=== PATIENT | male | born 1930 | race Caucasian/White ===

== ENCOUNTER 2017-11-20 10:38 | Inpatient (IN) ==
--- NOTE | 2017-11-20 11:26 | XRay Report ---
HISTORY: Reason for Exam:weakness FINDINGS: There is 6.5 cm retrocardiac density which contains a central lucency in the left lower thorax. This is probably a hiatus hernia. It is larger today than it was on 03/14/16. The lungs are otherwise clear and well expanded. The heart size and pulmonary vasculature are normal. The heart is smaller today than it was previously. The aorta is mildly tortuous and there are calcified plaques in the aortic arch. Arthritis is present in both shoulders. IMPRESSION: Moderate size hiatus hernia. The chest is otherwise normal Interpreted and Authenticated by: Álvaro Bush 11/20/17
[2017-11-20] MEDS: 0.9 % SODIUM CHLORIDE 1,000 ML IV SCH ×3 (11:30→21:45)
--- NOTE | 2017-11-20 12:10 | Cat Scan Report ---
History: Multiple falls with decreased level of consciousness and weakness Findings: The brain was imaged without contrast at 2.5 mm intervals. There is mild generalized cerebral atrophy. There is no evidence of an infarct, hemorrhage, edema or mass effect. The ventricles and cisterns are normal. The bone windows show no skull fracture. Impression: Normal age-related degenerative changes Interpreted and Authenticated by: Álvaro Bush 11/20/17
--- NOTE | 2017-11-20 12:19 | Cat Scan Report ---
History: Multiple fall with neck injury and pain Findings: The neck was imaged without contrast scanning from the skull base through the thoracic inlet.. Sagittal, coronal and oblique axial images were created. Head and neck are held in flexion and rotated to the left. There is an old healed anterior wedge compression fracture involving the body of C5. There are large anterior bridging osteophytes at C5-6. There is moderate disc space narrowing at that level. Medium-size anterior spurs are present at C4-5 and C6-7. There is a moderate sized midline disc herniation at C3-4. This is causing moderate spinal canal stenosis. This may be impinging upon spinal cord. There is a small posterior bulge at C2-3 with mild spinal canal stenosis. Severe arthritis is present in the right side facets at C3-4 and C4-5 and there is moderate arthritis in left side side facets at C2-3, C3-4 and C4-5. Impression: No acute fracture Intermediate sized midline disc herniation at C3-4 causing moderate spinal canal stenosis. Degenerative disc disease and arthritis at several levels Rosie Gibbons was called with the results Interpreted and Authenticated by: Álvaro Bush 11/20/17
[2017-11-20 12:29] LABS: Basophils # (Auto) 0 K/mcL (0.0-0.3); Basophils % (Auto) 0 % (0.0-2.0); Eosinophils # (Auto) 0 K/mcL (0.0-0.7); Eosinophils % (Auto) 0 % (0.0-7.0); Lymphocytes # (Auto) 0.4 K/mcL (1.5-4.8); Lymphocytes % (Auto) 1.1 % (15.5-49.0); Mean Corpuscular Hemoglobin 30.7 pg (26.0-34.0); Monocytes # (Auto) 1.6 K/mcL (0.1-0.9); Monocytes % (Auto) 4.9 % (1.0-12.0); Platelet Count 1222 K/mcL (140-440); RBC 4.13 M/mcL (4.50-5.90); Red Cell Distribution Width 15.6 % (11.5-14.5)
[2017-11-20] MEDS ORDERED: cefTRIAXone 1 GM VIAL IV ONE (12:34)
[2017-11-20 13:00] LABS: ALT/SGPT 27 U/l (0-40); Albumin 3.2 gm/dL (3.2-5.2); Albumin/Globulin Ratio 0.8 (1.0-2.3); Alkaline Phosphatase 135 U/L (39-117); Blood Urea Nitrogen 161 mg/dl (8-23)
[2017-11-20] MEDS ORDERED: 0.9 % SODIUM CHLORIDE 2,000 ML IV ONE (13:07)
[2017-11-20] MEDS ORDERED: LIDOCAINE JEL 2% 1 TUBE 30GM TOPICAL ONE (13:13)
[2017-11-20] MEDS ORDERED: INSULIN REGULAR, HUMAN 1 UNIT/0.01 ML UNIT IV ONE (13:37)
[2017-11-20] MEDS ORDERED: CALCIUM GLUCONATE 13.95 MEQ in DEXTROSE 5% IN WATER 50 ML IV ONE (13:37)
[2017-11-20] MEDS ORDERED: DEXTROSE 50% 50 ML VIAL IV ONE (13:37)
--- NOTE | 2017-11-20 13:38 | Emergency Department Note ---
Weakness HPI - General Chief complaint: Weakness Stated complaint: Weakness/UTI symptoms, BLE Time Seen by Provider: 11/20/17 10:50 Source: EMS Mode of arrival: EMS - History of Present Illness HPI Narrative: 87-year-old male presents via EMS. He is an extremely poor historian. He is alert and oriented but is unable to give us much information about what is going on her old history. He states he has had weakness in his legs for 2 days and has had diarrhea for 2 days just cannot take care of himself at home. He apparently does not live in a home but more of an aphthous type building next to a hair salon. The person who owns a hair salon does check on him daily but over the last 2 weeks he has fallen multiple times and EMS has been called to help him multiple times. He states the reason he fell is because his legs are so weak. He is unsure if he hit his head. He denies loss of consciousness. He currently denies any pain anywhere. He is tearful and it is unclear why he is tearful. When asked he will not say. His son to go and check on him today. They are estranged and he had not seen him in about 6 years. His son was able to convince him to come to the ER for evaluation. He does admit he has not been eating or drinking much of anything for days. He really does not have any complaints other than dysuria and frequency, diarrhea, and weak legs. He states it is so bad that he finally decided to come in today. He denies fever chills. No nausea or vomiting. No cough, shortness of breath, chest pain, palpitations. No sore throat, ear pain, or cold symptoms. States he does not have a primary care provider because he left. States he does not have any health problems and does not take medications. However we are trying to verify this information - Related Data Home Medications Medication Instructions Recorded Confirmed ferrous sulfate 325 mg (65 mg mg PO 11/12/15 08/07/16 iron) tablet multivitamin tablet 1 tab-cap PO QDAY 01/24/16 08/07/16 Previous Rx's Medication Instructions Recorded carvedilol 3.125 mg tablet 3.125 mg PO BID #60 tab 02/11/17 ramipril 2.5 mg capsule 2.5 mg PO BID #60 cap 02/14/17 spironolactone 25 mg tablet 25 mg PO .QOD #15 tab 02/14/17 torsemide 20 mg tablet 20 mg PO QDAY #30 tab 02/14/17 Allergies Allergy/AdvReac Type Severity Reaction Status Date / Time No Known Drug Allergies Allergy Verified 11/20/17 10:39 Review of Systems All systems ED: reviewed and negative except as stated. Past Medical History - Past Medical History [facility] Narrative: Medical History Hypertension, essential, benign (Chronic) Retinal detachment (Chronic) Past Surgical History History of cataract surgery (Chronic) History of retinal detachment (Chronic) Medical history: Reports: hypertension - Social History smoking status: Former smoker Alcohol use: Reports: None Drug use: Reports: none Physical Exam Limitations: no limitations General appearance: alert, other (Patient is completely unkept. Covered in dried feces especially from the waist down. Extremely odorous.) Head: atraumatic, normocephalic, normal inspection Eye: Present: normal appearance. Absent: conjunctival injection ENT: normal exam, normal oropharynx, mucous membranes moist, TM's normal bilaterally, normal external ear exam Chest: Present: normal inspection, symmetric chest wall rise Respiratory: Present: normal lung sounds bilaterally. Absent: respiratory distress, wheezes, accessory muscle use Cardiovascular: Present: regular rate, normal heart sounds Abdominal: Present: soft, normal bowel sounds. Absent: distention, tenderness, guarding Extremities: Present: pedal edema (1+). Absent: normal inspection (Lower extremities are covered in dried feces. There is redness from the knees down throughout the feet bilaterally. The right foot is significantly more red and more swollen than the left. When being cleaned up by nursing staff, a lot of the skin is sloughing off with the dried feces. He denies any tenderness.) Neurological: Present: alert (He is alert and oriented 3 but a poor historian and forgetful at times. Gets agitated at times) Psychiatric: Present: normal affect, normal mood Skin: Present: warm, dry. Absent: intact (Patient has a great amount of beefy red rash throughout folds of skin including the groin and underneath the pannus. Please see lower extremities for skin breakdown to lower extremities bilaterally. The buttocks also has significant skin breakdown with redness throughout as well as a significant decubitus ulcer stage III and arrived with dried feces throughout the buttocks as well.) Course Course Narrative: At 1320 I did speak with Dr. Thompson regarding the patient's renal failure. She is going to come down and see the patient. At [address] did speak with Dr. Mackenzie , the hospitalist, who agrees to admit the patient. We will continue with hydration, hyperkalemia protocol, he has recently received a gram of Rocephin IV. Vital Signs Temperature 97.7 F 11/20/17 10:39 Pulse Rate 80 11/20/17 10:39 Respiratory Rate 16 11/20/17 10:39 Blood Pressure 123/69 11/20/17 10:39 Pulse Oximetry (%) 97 11/20/17 10:39 Temperature 97.7 F 11/20/17 10:39 Pulse Rate 90 11/20/17 11:44 Respiratory Rate 19 11/20/17 11:44 Blood Pressure 100/56 11/20/17 11:40 Pulse Oximetry (%) 100 11/20/17 11:44 Weakness - Lab Data Lab results reviewed: Yes I reviewed the patient's lab results. Result diagrams: 11/20/17 11:15 11/20/17 11:15 Lab Results 11/20/17 11/20/17 11/20/17 Range/Units 11:15 11:15 11:15 WBC 32.0 H* (4.5-11.0) K/mcL RBC 4.13 L (4.50-5.90) M/mcL Hgb 12.7 L (13.5-16.5) g/dL Hct 38.4 L (41.0-55.0) % MCV 93.0 (80.0-100.0) fL MCH 30.7 (26.0-34.0) pg MCHC 33.0 (31.0-36.0) g/dL RDW 15.6 H (11.5-14.5) % Plt Count 1222 H* (140-440) K/mcL MPV 6.9 L (7.4-10.4) fL Gran % 94.0 H (38.0-78.0) % Lymph % (Auto) 1.1 L (15.5-49.0) % Bledsoe % (Auto) 4.9 (1.0-12.0) % Eos % (Auto) 0 (0.0-7.0) % Baso % (Auto) 0 (0.0-2.0) % Gran # 30.1 H (1.8-8.0) K/mcL Lymph # (Auto) 0.4 L (1.5-4.8) K/mcL Bledsoe # (Auto) 1.6 H (0.1-0.9) K/mcL Eos # (Auto) 0 (0.0-0.7) K/mcL Baso # (Auto) 0 (0.0-0.3) K/mcL VBG Lactic Acid 1.5 (0.5-2.2) mmol/L Sodium 129 L (133-145) mmol/L Potassium 7.4 H* (3.3-5.1) mmol/L Chloride 95 L (96-108) mmol/L Carbon Dioxide 12 L (22-30) mmol/L Anion Gap 22.0 H (8-16) BUN 161 H* (8-23) mg/dl Creatinine 7.4 H* (0.7-1.2) mg/dl GFR Calculation 6 Glucose 180 H (70-105) mg/dL Calcium 9.2 (8.6-10.4) mg/dl Total Bilirubin 0.2 (0.0-1.0) mg/dL AST 50 H (0-37) U/l ALT 27 (0-40) U/l Alkaline Phosphatase 135 H (39-117) U/L NT-Pro-B Natriuret Pep 1673.0 H (0-450) pg/ml Total Protein 7.3 (5.9-8.4) gm/dL Albumin 3.2 (3.2-5.2) gm/dL Globulin 4.1 H (2.2-3.7) gm/dL Albumin/Globulin Ratio 0.8 L (1.0-2.3) - Radiology Data Radiology results reviewed: Yes I reviewed the patient's radiology results. Disposition Pt seen by [facility]/PA only: Yes Clinical Impression: Renal failure, UTI (urinary tract infection), Hyperkalemia, Self-care deficit for hygiene, Dehydration, Skin breakdown, Decubitus ulcer, buttock Disposition: Xfer As Inpt ([facility]) Condition: Serious Time of Disposition: 13:38
[2017-11-20] MEDS ORDERED: SODIUM POLYSTYRENE SULFONATE 15 GM/60 ML SUSPENSION PO ONE (13:41)
[2017-11-20] MEDS ORDERED: CALCIUM GLUCONATE 4.65 MEQ/10 ML VIAL ONE (13:48)
[2017-11-20] MEDS ORDERED: CALCIUM CHLORIDE 1,000 MG/10 ML SYRINGE IV ONE (13:50)
[2017-11-20 14:17] LABS: Appearance,Urine CLOUDY; Bilirubin,Urine NEG (NEG); Color,Urine YELLOW; Glucose,Urine (UA) NEGATIVE (NEG); Leukocyte Esterase,Urine 500 /uL (NEG); Protein,Urine >=500 mg/dL (NEG); Specific Gravity,Urine 1.014 (1.000-1.035); Urine Blood >=1.0 mg/dL (<0.03); Urobilinogen,Urine NEG (NEG)
[2017-11-20 14:46] LABS: Bacteria,Urine MANY /hpf (0); Urine RBC 10 /hpf (0-1); Urine Squamous Epithelial Cell 0 /hpf (0-4); Urine WBC > 182 /hpf (0-4)
[2017-11-20] MEDS ORDERED: SODIUM BICARBONATE VIAL 150 MEQ in DEXTROSE 5% IN WATER 850 ML IV ONE (15:00)
--- NOTE | 2017-11-20 15:15 | Ultrasound Report ---
History: Acute renal failure Findings: The right kidney measures 4.7 x 4.9 x 12.2 cm the left measures 4.8 x 4.9 x 10.2 cm. Renal cortex is mildly echogenic bilaterally. There is no significant loss of renal cortex. No mass, calculus, cyst or hydronephrosis are present in either side. Urinary bladder is empty and contains a Gomez catheter. Therefore, we are unable to visualize flow of urine through either ureter into the bladder. The gallbladder contains multiple moderate size gallstones. The wall is not thickened or inflamed. Impression: Mildly echogenic renal parenchyma bilaterally which indicates chronic medical renal disease. Cholelithiasis Interpreted and Authenticated by: Álvaro Bush 11/20/17
[2017-11-20 15:27] LABS: Creatinine,Urine Random 154.2 mg/dl
--- NOTE | 2017-11-20 16:22 | Nephrology Consult Note ---
History of Present Illness - Reason for Consult Patient information: Note initiated : 11/20/17 at 4:20 pm Service Date, if different from initiated Date: [] Patient: Carlos Abraham 87 y/o M admitted on for Weakness/UTI Symptoms, BLE. Chief Complaint: [] Consult date: 11/20/17 acute renal failure Requesting physician: Rosie Gibbons - Chief Complaint fall - History of Present Illness Mr Jarad is a 87 y/o white male with PMH of HTN, CHF, CKD and other medical issues who was brought to the ER after he was found down at home Patient states he has not been feeling good for several weeks but symptoms significantly worse for the last 7 days. he c/o LE weakness, nonhealing wounds and diarrhea. He states he has not been eating anything but tried to drink fluids/juice. He denies nausea, vomiting but as above has been having diarrhea. He also noticed cloudy urine for the last few days. unclear why he did not go to ER, has no PCP states PCP moved out of [place] I was told that he was found down by his son with whom he has been estranged Patient on evaluation was found to have white count of 32K, he has platelet count of 1222, he has severe acidosis with hyperkalemia and acute on chronic renal failure and hence nephrology is been consulted patient is not a very good historian and he could not tell me much about his medical issues except for HTN He did say he has been using furosemide for his LE edema and Advil for pain mainly for the last one week he denies CP, SOB he c/o recurrent falls Review of Systems All systems PM: reviewed and no additional remarkable complaints except as stated (as in HPI) Past History Past medical history: HTN retinal detachment CHF, EF of 20% when checked in 2016 CKD dyslipidemia Past surgical history: h/o cataract surgery and surgery for retinal detachment Past family history: DM mother no other pertinent history Past social history: lives alone currently denies h/o smoking or alcohol abuse no h/o drug abuse Medications and Allergies Home Medications Medication Instructions Recorded Confirmed Type No Known Home Meds [No Known Home 11/20/17 11/20/17 History Meds] Allergies Allergy/AdvReac Type Severity Reaction Status Date / Time No Known Drug Allergies Allergy Verified 11/20/17 10:39 Exam - Vital Signs Vital signs: Temp Pulse Resp BP Pulse Ox 97.7 F 96 H 18 101/77 100 11/20/17 10:39 11/20/17 15:41 11/20/17 15:41 11/20/17 15:31 11/20/17 15:41 - General Appearance General appearance: appears started age (patient is very unclean, has dry skin and multiple ulcers on LE ), chronically ill EENT: mucous membranes dry Neck: no JVD Respiratory: clear Cardiology: no rub, regular rate, regular rhythm Gastrointestinal: no tenderness, no guarding Integumentary: ulcer, erythema Neurologic: alert and oriented x3 Musculoskeletal: no cyanosis, no clubbing Psychiatric: mood/affect appropriate Results - Lab Results 11/20/17 11:15 11/20/17 11:15 Most recent lab results Calcium 9.2 mg/dl (8.6-10.4) 11/20/17 11:15 Assessment and Plan (1) Acute on chronic renal failure S.Creatinine was around 1.8 in 2016, no labs since S.creatinine is 7.4, BUN is 161 UA with s/o infection, urine is frankly purulent Fena is > 1 but fe urea is only 5.9% which indicates severe pre renal state no s/o volume excess renal US does not show obstructive renal disease JOSTIN atop CKD likely from pre renal state leading to ATN in the setting of use of diuretics, NSAIDS, poor po intake and sepsis (hypotension on presentation) Patient has received 2L IV normal saline bolus given his poor EF will hold off on further iVF if BP remains stable will start on sodium bicarb gtt at 75cc/hour given severe metabolic acidosis and improving this will help with hyperkalemia as well he has received kayexalate, calcium chloride and insulin with dextrose in ER and also sodium bicarb gtt as above will recheck K did discuss with the patient about dialysis he is uncertain if he would want this and wants me to readdress the issue if his parameters do not improve, did explain risk of cardiac arrest of K did not get better, I am not entirely sure how much he understands monitor I/O dose antibiotics to egfr less than 10 avoid nephrotoxic meds overall very poor prognosis with very high risk of mortality also not a very good candidate for intermediate manager dialysis Status: Acute (2) Hyperkalemia Status: Acute (3) Sepsis Status: Acute (4) UTI (urinary tract infection) Status: Acute
[2017-11-20] MEDS ORDERED: ACETAMINOPHEN 1,000 MG/100 ML BOTTLE IV PRN (17:00)
[2017-11-20] MEDS ORDERED: ONDANSETRON 4 MG/2 ML VIAL IV PRN (17:00)
--- NOTE | 2017-11-20 17:41 | Internal Med History&Physical ---
Medical - H&P: HPI Patient information: Note initiated : 11/20/17 at 5:41 pm Service Date, if different from initiated Date: [] Patient: Carlos Abraham 87 y/o M admitted on 11/20/17 for Weakness/UTI Symptoms , BLE. Chief Complaint: [] Chief complaint: weakness, found down History of present illness: Mr. Abraham is a 87 year old M who lives by himself and carries a history of cardiomyopathy with an EF 20% and history of chronic kidney disease and hypertension. He has stopped following up with his primary care physician over the last year and a half and has not been taking any medications. Patient has been barely able to manage activities of daily living. Over the last few weeks he has been getting progressively weak. He has been experiencing multiple episodes of diarrhea with progression of weakness to the point he could barely walk. He has been unable to fix his own meals recently. Even normal activities including walking from room to the bathroom has become an uphill task and twice he sustained a fall and has remained on the floor for a prolonged period of time. He was discovered by his neighbor today on the floor smeared and stool, lethargic. Subsequently was brought in to [facility] ER by EMS. patient was enough horrifying state most of the body covered in feces,extremely poor hygiene , bilateral lower extremity cellulitis/scabs and perineal ulcerations covered in feces. Initial workup was significant for BUN over 160 creatinine over 7 and potassium 7.7. White count over 32,000. Nephrology was consulted and patient was started on crystalloids along with hypokalemia protocol. Blood cultures were drawn and antibiotics were administered. subsequently hospitalist service was consulted At the time of evaluation patient is awake and alert and able to answer most questions. He endorses to history as above. he denies fevers shaking chills, headache or photophobia. He denies chest pain or bloody stools weight loss, glandular swelling. Endorses to bilateral lower extremity weeping and red lesions along with scabs. He hasn't had a shower many days with profound weakness and inability to take care of self. He has a son who is estranged. he denies alcoholism or smoking. Denies changes in medication or substance abuse. review of systems A 10 point review of system was performed and is negative except for ones discussed about Medical - H&P: PMH Medical history: Hypertension, essential, benign (Chronic) Retinal detachment (Chronic) 2009 cardiomyopathy with EF 20% Surgical History History of cataract surgery (Chronic) bilateral History of retinal detachment (Chronic) Retina detachment repair Pertinent family history: Diabetes mother Social history: retired Former smoker Very occasional alcohol in the past Son who is EMT currently estranged Drug use: none Alcohol use: none Medical - H&P: Meds Home Medications Medication Instructions Recorded Confirmed Type No Known Home Meds [No Known Home 11/20/17 11/20/17 History Meds] Allergies Allergy/AdvReac Type Severity Reaction Status Date / Time No Known Drug Allergies Allergy Verified 11/20/17 10:39 Medical - H&P: Exam - Constitutional Vitals: Temp Pulse Resp BP Pulse Ox 97.7 F 97 H 17 95/63 100 11/20/17 10:39 11/20/17 16:24 11/20/17 16:24 11/20/17 16:16 11/20/17 16:24 General appearance: average body habitus Exam: poor hygiene Generalized skin scabs Diet coated nails body hair covered in feces and alert Pupils symmetric oral cavity dry No ear or nose discharge Head normocephalic Neck no lymphadenopathy S1 and S2 tachycardia ESM grade 1 Diminished breath sounds bases Abdomen distended but soft nontender Lower extremity bilaterally coated with dry skin and scabs along with erythema stasis ulcerations and weeping lesions. Toenail fungus/feces smearing Psych alert and cooperative Neuro nonfocal Medical - H&P: Reslt - Labs CBC & Chem 7: 11/20/17 11:15 11/20/17 16:59 Labs: Short CBC 11/20/17 Range/Units 11:15 WBC 32.0 H* (4.5-11.0) K/mcL Hgb 12.7 L (13.5-16.5) g/dL Hct 38.4 L (41.0-55.0) % Plt Count 1222 H* (140-440) K/mcL BMP 11/20/17 11:15 Sodium 129 L Potassium 7.4 H* Chloride 95 L Carbon Dioxide 12 L BUN 161 H* Creatinine 7.4 H* Glucose 180 H Calcium 9.2 Liver Function 11/20/17 Range/Units 11:15 Total Bilirubin 0.2 (0.0-1.0) mg/dL AST 50 H (0-37) U/l ALT 27 (0-40) U/l Alkaline Phosphatase 135 H (39-117) U/L Albumin 3.2 (3.2-5.2) gm/dL Urine 11/20/17 Range/Units 13:47 Urine Color Yellow Urine Appearance Cloudy Urine pH 8.0 (5.0-9.0) Ur Specific Mcdonald 1.014 (1.000-1.035) Urine Protein >=500 A (NEG) mg/dL Urine Glucose (UA) Negative (NEG) mg/dL Medical - H&P: A/P (1) Renal failure Current visit: Yes Status: Acute * acute renal failure with metabolic acidosis, uremia- baseline creatinine 1.8 as of 2016. Current creatinine over 7. 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 Discussions undergoing for hemodialysis * Leukocytosis/sepsis-likely lower extremity cellulitis. On antibiotic coverage * Diarrhea rule out C. difficile * decubitus/lower extremity ulceration-wound care consulted. * thrombocytosis- 1200. Likely secondary to reactive thrombocytosis from infection. Continue monitoring * history of NYHA class III systolic heart failure with EF 20%. Repeat echocardiogram * Dorsal cellulitis-on antibiotic coverage * DNR * Prophylaxis heparin Plan * Admitted to ICU * Hypokalemia protocol * Hemodialysis per nephrology if patient agrees * Antibiotic coverage * Wound care consult * Echocardiogram * Patient critically ill. High risk mortality
[2017-11-20 17:52] LABS: Blood Urea Nitrogen 157 mg/dl (8-23)
--- NOTE | 2017-11-20 21:23 | General Surgery Consult Note ---
History of Present Illness Patient information: Note initiated : 11/20/17 at 9:15 pm Service Date, if different from initiated Date: [] Patient: Carlos Abraham 87 y/o M admitted on 11/20/17 for Weakness/UTI Symptoms , BLE. Chief Complaint: [] Consult date: 11/20/17 Requesting physician: Ashu Musa ([facility] History of present illness: I reviewed his EHR and notes from Dr. Musa and Donna. Examined him along with nursing staff. 87 years Male. AA and answers questions appropriately. cooperative. Admitted via ER with SEPSIS, Acute on Chronic Renal Failure, Hyperkalemia, Uremia, Dehydration and Grossly infected dry scaly and moist dermatitis of both lower dermatitis and feces covered skin, open ulcerated wounds of both legs and sacral and coccygeal regions. He has severe deconditioning weakness and has fallen frequently recently. NO history of passing out. DENIES CVS or RS complaints. NOT nauseated and has not vomited. He moves all extremities. Medications and Allergies Home Medications Medication Instructions Recorded Confirmed Type No Known Home Meds [No Known Home 11/20/17 11/20/17 History Meds] Allergies Allergy/AdvReac Type Severity Reaction Status Date / Time No Known Drug Allergies Allergy Verified 11/20/17 10:39 Exam Temp Pulse Resp BP Pulse Ox 98.0 F 97 H 20 99/57 97 11/20/17 16:40 11/20/17 16:24 11/20/17 16:40 11/20/17 16:40 11/20/17 16:40 - General physical appearance well developed, no distress, chronically ill, other (UNKEMPT, poor personal hygiene. Has feces covered skin around genitalia, both LE, feet with fungal toe nails.) - Eyes PERRL, normal ocular movement - ENT normal pinna, normal nares, no congestion, other - Head Head exam IM: Present: atraumatic, normal inspection, normocephalic - Neck no masses, no bruits, trachea midline, no venous distension - Cardiovascular Cardiovascular exam IM: Present: normal rate and rhythm - Respiratory normal expansion, normal respiratory effort, clear to auscultation - Abdomen Abdomen: Present: soft, non tender, bowel sounds - Genitourinary Present: testicles non-tender - Integumentary Present: other (DRY scaly skin, thick finger and toe nails with fungus. MOIST dermatits with scattered epidermal ulcerations of legs , sacral and coccygeal areas, ) - Neurologic Present: other (NON focal and non lateralizing. Moves all extremities.) - Musculoskeletal Present: other (Bed confined) - Psychiatric Present: oriented to time, oriented to person, oriented to place, speech is normal, other (Cooperative and answeers questions. 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 from his son.) Results - Labs 11/20/17 11:15 11/20/17 16:59 Abnormal lab results 11/20/17 11/20/17 11/20/17 Range/Units 11:15 11:15 13:47 WBC 32.0 H* (4.5-11.0) K/mcL RBC 4.13 L (4.50-5.90) M/mcL Hgb 12.7 L (13.5-16.5) g/dL Hct 38.4 L (41.0-55.0) % RDW 15.6 H (11.5-14.5) % Plt Count 1222 H* (140-440) K/mcL MPV 6.9 L (7.4-10.4) fL Gran % 94.0 H (38.0-78.0) % Lymph % (Auto) 1.1 L (15.5-49.0) % Gran # 30.1 H (1.8-8.0) K/mcL Lymph # (Auto) 0.4 L (1.5-4.8) K/mcL Benson # (Auto) 1.6 H (0.1-0.9) K/mcL Sodium 129 L (133-145) mmol/L Potassium 7.4 H* (3.3-5.1) mmol/L Chloride 95 L (96-108) mmol/L Carbon Dioxide 12 L (22-30) mmol/L Anion Gap 22.0 H (8-16) BUN 161 H* (8-23) mg/dl Creatinine 7.4 H* (0.7-1.2) mg/dl Glucose 180 H (70-105) mg/dL AST 50 H (0-37) U/l Alkaline Phosphatase 135 H (39-117) U/L NT-Pro-B Natriuret Pep 1673.0 H (0-450) pg/ml Globulin 4.1 H (2.2-3.7) gm/dL Albumin/Globulin Ratio 0.8 L (1.0-2.3) Urine Protein >=500 A (NEG) mg/dL Urine Occult Blood >=1.0 A (<0.03) mg/dL Ur Leukocyte Esterase 500 A (NEG) /uL Urine RBC 10 H (0-1) /hpf Urine WBC > 182 H (0-4) /hpf Urine Bacteria Many A (0) /hpf 11/20/17 Range/Units 16:59 WBC (4.5-11.0) K/mcL RBC (4.50-5.90) M/mcL Hgb (13.5-16.5) g/dL Hct (41.0-55.0) % RDW (11.5-14.5) % Plt Count (140-440) K/mcL MPV (7.4-10.4) fL Gran % (38.0-78.0) % Lymph % (Auto) (15.5-49.0) % Gran # (1.8-8.0) K/mcL Lymph # (Auto) (1.5-4.8) K/mcL Benson # (Auto) (0.1-0.9) K/mcL Sodium 130 L (133-145) mmol/L Potassium 6.1 H* (3.3-5.1) mmol/L Chloride (96-108) mmol/L Carbon Dioxide 11 L (22-30) mmol/L Anion Gap 19.0 H (8-16) BUN 157 H* (8-23) mg/dl Creatinine 7.1 H* (0.7-1.2) mg/dl Glucose 160 H (70-105) mg/dL AST (0-37) U/l Alkaline Phosphatase (39-117) U/L NT-Pro-B Natriuret Pep (0-450) pg/ml Globulin (2.2-3.7) gm/dL Albumin/Globulin Ratio (1.0-2.3) Urine Protein (NEG) mg/dL Urine Occult Blood (<0.03) mg/dL Ur Leukocyte Esterase (NEG) /uL Urine RBC (0-1) /hpf Urine WBC (0-4) /hpf Urine Bacteria (0) /hpf Diabetes panel 11/20/17 11/20/17 Range/Units 11:15 16:59 Sodium 129 L 130 L (133-145) mmol/L Potassium 7.4 H* 6.1 H* (3.3-5.1) mmol/L Chloride 95 L 100 (96-108) mmol/L Carbon Dioxide 12 L 11 L (22-30) mmol/L BUN 161 H* 157 H* (8-23) mg/dl Creatinine 7.4 H* 7.1 H* (0.7-1.2) mg/dl Glucose 180 H 160 H (70-105) mg/dL Calcium 9.2 9.2 (8.6-10.4) mg/dl AST 50 H (0-37) U/l ALT 27 (0-40) U/l Alkaline Phosphatase 135 H (39-117) U/L Total Protein 7.3 (5.9-8.4) gm/dL Albumin 3.2 (3.2-5.2) gm/dL Calcium panel 11/20/17 11/20/17 Range/Units 11:15 16:59 Calcium 9.2 9.2 (8.6-10.4) mg/dl Albumin 3.2 (3.2-5.2) gm/dL Pituitary panel 11/20/17 11/20/17 Range/Units 11:15 16:59 Sodium 129 L 130 L (133-145) mmol/L Potassium 7.4 H* 6.1 H* (3.3-5.1) mmol/L Chloride 95 L 100 (96-108) mmol/L Carbon Dioxide 12 L 11 L (22-30) mmol/L BUN 161 H* 157 H* (8-23) mg/dl Creatinine 7.4 H* 7.1 H* (0.7-1.2) mg/dl Glucose 180 H 160 H (70-105) mg/dL Calcium 9.2 9.2 (8.6-10.4) mg/dl Adrenal panel 11/20/17 11/20/17 Range/Units 11:15 16:59 Sodium 129 L 130 L (133-145) mmol/L Potassium 7.4 H* 6.1 H* (3.3-5.1) mmol/L Chloride 95 L 100 (96-108) mmol/L Carbon Dioxide 12 L 11 L (22-30) mmol/L BUN 161 H* 157 H* (8-23) mg/dl Creatinine 7.4 H* 7.1 H* (0.7-1.2) mg/dl Glucose 180 H 160 H (70-105) mg/dL Calcium 9.2 9.2 (8.6-10.4) mg/dl Total Bilirubin 0.2 (0.0-1.0) mg/dL AST 50 H (0-37) U/l ALT 27 (0-40) U/l Alkaline Phosphatase 135 H (39-117) U/L Total Protein 7.3 (5.9-8.4) gm/dL Albumin 3.2 (3.2-5.2) gm/dL All other labs normal. Assessment and Plan (1) Dermatitis associated with moisture from stool incontinence Clean with Warm chlorhexidine solution, Pat dry with wash cloth and apply Bacitracin ointment to ulcerated areas and Antifungal powder to skin folds, groins and under panniculus. Patient to lie on CHUCKS pads and change position q 2 hrly Status: Acute Priority: Medium (2) Dermatitis associated with moisture from urinary incontinence Same as above. patient has a patent indwelling Gomez catheter draining light blood tinged urine. Status: Acute Priority: Medium (3) Renal failure Status: Acute Priority: High Qualifiers: Renal failure chronicity: acute on chronic (4) UTI (urinary tract infection) Status: Acute Priority: High Qualifiers: Indwelling urinary catheter type: indwelling urethral catheter Encounter type: initial encounter (5) Hyperkalemia On Hyperkalemia protocol per nephrology. Patient does NOT want to consider hemodialysis at this time. Status: Acute Priority: High (6) Self-care deficit for hygiene Needs head to toe skin care / scrub with wash cloth and Chlorhexidine soaks, Daily Status: Acute Priority: High (7) Dehydration Status: Acute Priority: Medium (8) Skin breakdown At this time clean with Chlorhexidine solution and Bacitracin ointment to skin ulcers BID Status: Acute Priority: Medium (9) Decubitus ulcer, buttock Status: Acute Priority: Medium Qualifiers: Pressure ulcer stage: stage 2 Laterality: unspecified laterality Qualified Code(s): L89.302 - Pressure ulcer of unspecified buttock, stage 2 (10) Acute on chronic renal failure Status: Acute
[2017-11-20] MEDS ORDERED: NOREPINEPHRINE BITARTRATE 16 MG in 0.9 % SODIUM CHLORIDE 234 ML IV PRN (21:38)
[2017-11-20] MEDS: 0.9 % SODIUM CHLORIDE 250 ML IV SCH (21:56)
[2017-11-20] MEDS: 0.9 % SODIUM CHLORIDE 10 ML SYRINGE IV SCH (22:00)
[2017-11-21] MEDS: SENNOSIDES/DOCUSATE SODIUM 1 TAB TABLET PO SCH ×2 (00:24→21:16)
[2017-11-21] MEDS: DOCUSATE SODIUM 100 MG CAPSULE PO SCH ×3 (00:24→21:16)
[2017-11-21] MEDS: CYANOCOBALAMIN (VITAMIN B-12) 500 MCG TABLET PO SCH ×3 (00:24→21:17)
[2017-11-21] MEDS: HEPARIN 5,000 UNIT/ML VIAL SQ SCH ×3 (00:24→21:16)
[2017-11-21] MEDS: SODIUM BICARBONATE VIAL 150 MEQ in DEXTROSE 5% IN WATER 850 ML IV SCH ×2 (05:04→19:37)
[2017-11-21 05:05] LABS: Mean Cell Volume 93.5 fL (80.0-100.0); Mean Corpuscular HGB Conc 34.4 g/dL (31.0-36.0); Mean Corpuscular Hemoglobin 32.1 pg (26.0-34.0); Platelet Count 692 K/mcL (140-440); RBC 3.06 M/mcL (4.50-5.90); Red Cell Distribution Width 15.7 % (11.5-14.5)
[2017-11-21 05:23] LABS: ALT/SGPT 26 U/l (0-40); Albumin/Globulin Ratio 0.6 (1.0-2.3); Alkaline Phosphatase 98 U/L (39-117); Bilirubin,Direct < 0.2 mg/dL (0.0-0.3); Blood Urea Nitrogen 154 mg/dl (8-23); Gamma Glutamyl Transpeptidase 24 U/L (8-61); Uric Acid 12.7 mg/dL (2.5-8.0)
[2017-11-21 05:32] LABS: Anisocytosis 1+ (NONE SEEN); Band Neutrophils % 6 % (0-10); Lymphocytes % 6 % (15-49); Metamyelocytes % 1 % (0-0); Monocytes % (Manual) 4 % (1-12); Platelet Estimate INCREASED (NORMAL); RBC Morphology ABNORM (NORMAL); Segmented Neutrophils % 83 % (38-78); Toxic Granulation 1+ (NONE SEEN)
[2017-11-21] MEDS: 0.9 % SODIUM CHLORIDE 10 ML SYRINGE IV SCH ×3 (07:13→21:28)
[2017-11-21] MEDS: FOLIC ACID 1 MG TABLET PO SCH (10:56)
[2017-11-21] MEDS: MULTIVIT,THER IRON,CA,FA & MIN 1 TABLET PO SCH (10:56)
[2017-11-21] MEDS: 0.9 % SODIUM CHLORIDE 250 ML IV SCH ×2 (11:04→22:50)
[2017-11-21] MEDS: THIAMINE 100 MG in 0.9 % SODIUM CHLORIDE 50 ML IV SCH (11:14)
[2017-11-21] MEDS: 0.9 % SODIUM CHLORIDE 1,000 ML IV SCH ×2 (11:17→17:46)
--- NOTE | 2017-11-21 13:11 | Internal Med Progress Note ---
Medical - PN: Subj Patient information: Note initiated : 11/21/17 at 1:07 pm Service Date, if different from initiated Date: [] Patient: Carlos Abraham 87 y/o M admitted on 11/20/17 for Weakness/UTI Symptoms , BLE/Renal Failure. Chief Complaint: [] Interval history: Mr. Abraham is a 87 year old M who lives by himself and carries a history of cardiomyopathy with an EF 20% and history of chronic kidney disease and hypertension. He has stopped following up with his primary care physician over the last year and a half and has not been taking any medications. Patient has been barely able to manage activities of daily living. Over the last few weeks he has been getting progressively weak. He has been experiencing multiple episodes of diarrhea with progression of weakness to the point he could barely walk. He has been unable to fix his own meals recently. Even normal activities including walking from room to the bathroom has become an uphill task and twice he sustained a fall and has remained on the floor for a prolonged period of time. He was discovered by his neighbor today on the floor smeared and stool, lethargic. Subsequently was brought in to [facility] ER by EMS. patient was enough horrifying state most of the body covered in feces,extremely poor hygiene , bilateral lower extremity cellulitis/scabs and perineal ulcerations covered in feces. Initial workup was significant for BUN over 160 creatinine over 7 and potassium 7.7. White count over 32,000. Nephrology was consulted and patient was started on crystalloids along with hypokalemia protocol. Blood cultures were drawn and antibiotics were administered. subsequently hospitalist service was consulted At the time of evaluation patient is awake and alert and able to answer most questions. He endorses to history as above. he denies fevers shaking chills, headache or photophobia. He denies chest pain or bloody stools weight loss, glandular swelling. Endorses to bilateral lower extremity weeping and red lesions along with scabs. He hasn't had a shower many days with profound weakness and inability to take care of self. He has a son who is estranged. he denies alcoholism or smoking. Denies changes in medication or substance abuse. 11/21-clinical improvement noted. White count down to 22,000.platelets down to 692. Proteus on UA.potassium down to 5.4 pounds 7.7. BUN 154 creatinine 6.9. Hemodialysis on hold. metabolic acidosis clinically improving on bicarbonate drip. Nephrology on board. start ertapenem. de-escalate based on sensitivities. Patient remains critically ill. Ongoing wound care for multiple areas of cellulitis/ulcers.map at goal. Off vasopressors. Await echocardiogram. - Constitutional Vitals: Vital Signs Temp Pulse Resp BP Pulse Ox 98.5 F 81 18 100/47 100 11/21/17 12:01 11/21/17 12:35 11/21/17 12:35 11/21/17 12:01 11/21/17 12:35 Period Temp Pulse Resp BP Sys/Ferris Pulse Ox Last 24 Hr 97.9 F-98.5 F 62-100 11-25 71-125/35-105 87-100 Intake and Output 11/20/17 11/21/17 11/21/17 21:59 05:59 13:59 Intake Total 1120 / 1120 1410 / 1410 Output Total 400 / 400 Balance 1120 / 1120 1010 / 1010 Weight 218 lb Intake & Output: Intake & Output 11/20/17 11/21/17 11/21/17 21:59 05:59 13:59 Intake Total 1120 / 1120 1410 / 1410 Output Total 400 / 400 Balance 1120 / 1120 1010 / 1010 Weight 218 lb Intake: IV 1000 / 1000 1000 / 1000 Sodium Chloride 0.9% 2,000 ml @ 1000 / 1000 Wide Open IV BOLUS ONE Rx#: [id number] Sodium Bicarbonate Vial 150 Meq 1000 / 1000 In Dextrose 5% in Water 850 ml @ 75 mls/hr IV ONCE ONE Rx#: [id number] Oral 120 / 120 410 / 410 Output: Urine Catheter Amount 400 / 400 Other: Stool Size Moderate Stool Color Brown Dark Red Blood Stool Consistency Formed Liquid Loose # Bowel Movements 1 1 # of times incontinent of 1 Bowels General appearance: no acute distress Exam: bilateral lower extremity ulcerations/dermatitis/stasis changes, toenail fungus Unkempt and disheveled Oral cavity dry Nonlabored breathing Telemetry no arrhythmias Sacral/coccyx ulceration Medical - PN: Obj Da - Labs CBC & Chem 7: 11/21/17 03:55 11/21/17 03:55 Labs: Abnormal Lab Results 04/07/2911/21/17 11/20/17 03:55 03:55 16:59 WBC 22.1 H RBC 3.06 L Hgb 9.9 L Hct 28.7 L RDW 15.7 H Plt Count 692 H MPV 6.5 L Gran % Lymph % (Auto) Gran # Lymph # (Auto) Bell # (Auto) Seg Neutrophils % 83 H Lymphocytes % 6 L Metamyelocytes % 1 H WBC Morphology Abnorm A Toxic Granulation 1+ A Platelet Estimate Increased A RBC Morphology Abnorm A Anisocytosis 1+ A Sodium 130 L Potassium 5.4 H 6.1 H* Chloride Carbon Dioxide 15 L 11 L Anion Gap 19.0 H BUN 154 H* 157 H* Creatinine 6.9 H* 7.1 H* Glucose 153 H 160 H Uric Acid 12.7 H Calcium 8.0 L Phosphorus 5.5 H AST 41 H Alkaline Phosphatase NT-Pro-B Natriuret Pep Total Protein 5.1 L Albumin 2.0 L Globulin Albumin/Globulin Ratio 0.6 L Urine Protein Urine Occult Blood Ur Leukocyte Esterase Urine RBC Urine WBC Urine Bacteria 11/20/17 11/20/17 11/20/17 13:47 11:15 11:15 WBC 32.0 H* RBC 4.13 L Hgb 12.7 L Hct 38.4 L RDW 15.6 H Plt Count 1222 H* MPV 6.9 L Gran % 94.0 H Lymph % (Auto) 1.1 L Gran # 30.1 H Lymph # (Auto) 0.4 L Bell # (Auto) 1.6 H Seg Neutrophils % Lymphocytes % Metamyelocytes % WBC Morphology Toxic Granulation Platelet Estimate RBC Morphology Anisocytosis Sodium 129 L Potassium 7.4 H* Chloride 95 L Carbon Dioxide 12 L Anion Gap 22.0 H BUN 161 H* Creatinine 7.4 H* Glucose 180 H Uric Acid Calcium Phosphorus AST 50 H Alkaline Phosphatase 135 H NT-Pro-B Natriuret Pep 1673.0 H Total Protein Albumin Globulin 4.1 H Albumin/Globulin Ratio 0.8 L Urine Protein >=500 A Urine Occult Blood >=1.0 A Ur Leukocyte Esterase 500 A Urine RBC 10 H Urine WBC > 182 H Urine Bacteria Many A Meds: Medications Acetaminophen (Tylenol) 650 mg PO Q4-6HP PRN PRN Reason: PAIN/FEVER > 101 Cyanocobalamin (Vitamin B-12) 1,000 mcg PO BID ELIANA Stop: 11/25/17 09:01 Last Admin: 11/21/17 10:59 Dose: 1,000 mcg Docusate Sodium (Colace) 100 mg PO BID [facility] Last Admin: 11/21/17 10:56 Dose: 100 mg Folic Acid (Folic Acid) 1 mg PO DAILY [facility] Last Admin: 11/21/17 10:56 Dose: 1 mg Heparin Sodium (Porcine) (Heparin) 5,000 unit SQ Q12 [facility] Last Admin: 11/21/17 10:56 Dose: 5,000 unit Sodium Chloride (Sodium Chloride 0.9%) 1,000 mls @ 50 mls/hr IV .Q20H [facility] Stop: 11/23/17 04:59 Last Admin: 11/21/17 11:17 Dose: Not Given Acetaminophen (Ofirmev) 1,000 mg in 100 mls @ 200 mls/hr IV Q6HP PRN PRN Reason: PAIN/FEVER > 101 Thiamine HCl 100 mg/ Sodium (Chloride) 51 mls @ 50 mls/hr IV DAILY [facility] Stop: 11/23/17 10:02 Last Admin: 11/21/17 11:14 Dose: 50 mls/hr Sodium Bicarbonate 150 meq/ (Dextrose) 1,000 mls @ 75 mls/hr IV Q13H [facility] Last Admin: 11/21/17 05:04 Dose: 75 mls/hr Norepinephrine Bitartrate 16 (mg/ Sodium Chloride) 250 mls @ 9.37 mls/hr IV Q24HP PRN; Protocol; 10 MCG/MIN PRN Reason: Blood Pressure Sodium Chloride (Sodium Chloride 0.9%) 250 mls @ 20 mls/hr IV .[id number] [facility] Last Admin: 11/21/17 11:04 Dose: Not Given Iron Carb/Multivit/Gardening Supervisor/Folic Acid (Multivitamin W/Minerals) 1 tab PO DAILY [facility] Last Admin: 11/21/17 10:56 Dose: 1 tab Ondansetron HCl (Zofran) 4 mg IV Q4-6HP PRN PRN Reason: Nausea And Vomiting Senna/Docusate Sodium (Senna Plus Tablet) 1 tab PO HS [facility] Last Admin: 11/21/17 00:24 Dose: Not Given Sodium Chloride (Saline Flush) 10 ml IV Q8 [facility] Last Admin: 11/21/17 07:13 Dose: Not Given Medical - PN: A/P - Time Spent With Patient Total time spent is greater than 50% in coordination of care (as documented) at patient's floor/unit and/or counseling patient: Greater than 35 minutes (critical care time) (1) Renal failure Status: Acute Assessment and plan: [id number] with a history of NYHA class III systolic heart failure with EF 20% and chronic renal disease admitted with acute on chronic renal failure/uremia encephalopathy/severe sepsis/complicated UTI and bilateral wrist with cellulitis/sacral ulcers after he was found down by his neighbor * Acute renal failure with metabolic acidosis, uremia- baseline creatinine 1.8 as of 2016. Current creatinine over 7. Nephrology managing * Hyperkalemia-on hyperkalemia protocol by nephrology.potassium down to 5.4 * Uremic encephalopathy-managed by nephrology. clinically improving issues managed by hospitalist service * Bilateral lower extremity cellulitis-on antibiotic coverage. Wound care ongoing. * Complicated Proteus UTI-await Sensitivities. On ertapenem * Septic shock-off pressors. Secondary to cellulitis/Proteus UTI.blood cultures pending * Diarrhea-improving. C. difficile negative. * Sacral decubitus/lower extremity ulceration-wound care ongoing as per wound care physician's recommendation * Thrombocytosis- 1200. down to 600. * history of NYHA class III systolic heart failure with EF 20%. await echocardiogram * DNR * Prophylaxis heparin Plan * continue ICU care * renal failure/acidosis/hyperkalemia and uremia management per nephrology * Wound management per wound care * Extend antibiotic coverage with ertapenem * Aggressive PT OT * await echocardiogram * improving prognosis based on clinical response and 24 hours * case management to coordinate safe discharge plan as the patient is high risk deconditioning if discharge home Current Visit: Yes Medical - PN: Qual - Stroke Symptom Onset Unknown: No - VTE Deep Vein Thrombosis/Pulmonary Embolism Present on Admission: No
[2017-11-21] MEDS: ERTAPENEM 1 GM in 0.9 % SODIUM CHLORIDE 50 ML IV SCH (14:38)
--- NOTE | 2017-11-21 14:51 | Nephrology Progress Note ---
Subjective Patient information: Note initiated : 11/21/17 at 2:48 pm Service Date, if different from initiated Date: [] Patient: Carlos Abraham 87 y/o M admitted on 11/20/17 for Weakness/UTI Symptoms , BLE/Renal Failure. Chief Complaint: [] Principal diagnosis: Acute on chronic renal failure Interval history: Patient seen today no overnight events reported on bicarb gtt and normal saline at 50cc/hour urine output of 700c today so far, marginal improvement in renal function K down to 5.4, bicarb at 15, improving as well no SOB, CP no dizziness no nausea, vomiting LE wounds been followed by wound care patient continues to refuse dialysis Pertinent ROS: as above Objective - Vital Signs Vital signs: Vital Signs Temp Pulse Pulse Resp BP BP Pulse Ox 11/21/17 12:35 81 18 100 11/21/17 12:01 98.5 F 87 18 100/47 99 11/21/17 11:01 99 H 22 123/94 99 11/21/17 10:01 18 108/75 11/21/17 09:01 76 15 107/49 100 11/21/17 08:24 80 16 100 11/21/17 08:01 86 15 108/53 99 11/21/17 07:01 81 18 107/96 99 11/21/17 06:01 81 18 116/47 100 11/21/17 05:01 85 21 114/66 100 11/21/17 04:10 19 109/51 11/21/17 04:09 85 23 H 91/41 99 11/21/17 04:06 72 16 85/42 100 11/21/17 04:05 74 16 90/46 100 11/21/17 04:01 76 18 87/41 99 11/21/17 03:01 83 19 98/48 100 11/21/17 02:01 94 H 21 115/62 99 11/21/17 01:29 80 11/21/17 01:01 85 18 80/62 99 11/21/17 00:58 82 98 11/21/17 00:01 80 17 82/68 100 11/20/17 23:18 79 16 94/46 95 11/20/17 23:08 81 15 96/43 97 11/20/17 22:03 18 89/67 11/20/17 21:01 19 97/68 11/20/17 20:03 17 85/54 11/20/17 20:01 19 93/40 11/20/17 20:00 97.9 F 86 19 85/54 92 11/20/17 19:46 17 71/53 11/20/17 19:31 92 H 17 90/75 100 11/20/17 19:27 94 H 92 11/20/17 18:47 17 71/38 11/20/17 18:31 91 H 16 103/82 99 11/20/17 18:16 17 93/54 11/20/17 18:13 16 94/59 11/20/17 18:11 62 21 85/38 94 11/20/17 18:05 63 19 125/105 87 L 11/20/17 18:01 98 H 16 71/35 97 11/20/17 17:47 16 106/48 11/20/17 17:31 15 82/51 11/20/17 17:19 17 91/49 11/20/17 17:16 13 78/51 11/20/17 17:07 16 99/57 11/20/17 17:00 98.0 F 94 H 20 99/57 90 11/20/17 16:40 98.0 F 20 99/57 97 11/20/17 16:31 94 H 25 H 106/79 100 11/20/17 16:24 97 H 17 100 11/20/17 16:16 97 H 18 95/63 100 11/20/17 16:01 96 H 20 95/56 100 11/20/17 15:46 94 H 16 104/64 100 11/20/17 15:41 96 H 18 100 11/20/17 15:31 95 H 15 101/77 100 11/20/17 15:16 96 H 22 111/50 100 11/20/17 15:01 98 H 13 98/52 100 11/20/17 14:56 100 H 12 100 Intake and Output 11/21/17 11/21/17 11/21/17 05:59 13:59 21:59 Intake Total 1410 / 1410 Output Total 400 / 400 Balance 1010 / 1010 Intake: IV 1000 / 1000 Sodium Bicarbonate Vial 150 Meq 1000 / 1000 In Dextrose 5% in Water 850 ml @ 75 mls/hr IV ONCE ONE Rx#: [id number] Oral 410 / 410 Output: Urine Catheter Amount 400 / 400 Other: # Bowel Movements 1 # of times incontinent of 1 Bowels Weight 218 lb Patient Weight 11/22/17 05:59 Weight 218 lb Intake & Output: Intake & Output 11/21/17 11/21/17 11/21/17 05:59 13:59 21:59 Intake Total 1410 / 1410 Output Total 400 / 400 Balance 1010 / 1010 Weight 218 lb Intake: IV 1000 / 1000 Sodium Bicarbonate Vial 150 Meq 1000 / 1000 In Dextrose 5% in Water 850 ml @ 75 mls/hr IV ONCE ONE Rx#: [id number] Oral 410 / 410 Output: Urine Catheter Amount 400 / 400 Other: # Bowel Movements 1 # of times incontinent of 1 Bowels - General Appearance General appearance: appears started age, obese, chronically ill EENT: mucous membranes moist Neck: no JVD Respiratory: clear Cardiology: no rub, normal S1, normal S2 Gastrointestinal: no tenderness, no guarding Integumentary: warm and dry, ulcer (LE ulcers, has dressing now) Neurologic: alert and oriented x3 Musculoskeletal: no erythema, no cyanosis Psychiatric: mood/affect appropriate - Lab 11/21/17 03:55 11/21/17 03:55 Most recent lab results Calcium 8.0 mg/dl (8.6-10.4) L 11/21/17 03:55 Phosphorus 5.5 mg/dL (2.7-4.5) H 11/21/17 03:55 Magnesium 2.4 mg/dL (1.6-2.5) 11/21/17 03:55 Assessment and Plan (1) Acute on chronic renal failure acute on chronic renal failure from volume depletion with Fe urea at only 5.9%, in the setting of use of diuretics, poor po intake, pt was also using NSAIDS recently He has around 1.5gm of proteinuria and I will obtain work up for this He is non oliguric at present His K has improved from 7.4 to 5.4 today, bicarb is slowly improving on bicarb gtt phos is at 5.5 he is mildly anemic patient has refused dialysis at this time, 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 I will continue with bicarb gtt until bicarb is at 20 and then change to oral bicarb change his diet to renal diet will add phos binders for hyperphosphatemia will order proteinuria work up monitor i/o, renal function his albumin is very low, please add protein supplement like nepro if patient is willing please dose meds to egfr avoid nephrotoxic medications Hyperkalemia: as above metabolic acidosis from renal failure on bicarb gtt anemia: etiology mutlifactorial, will obtain work up UTI/LE cellulitis: on antibiotics h/o CHF: if patient wants ongoing care may need to repeat echo, last echo in 2016 showed EF of 20% I will be off call starting tomorrow and will sign off to Dr Bran Thank you for giving me an opportunity to participate in Mr Abraham's medical care, appreciate it Status: Acute (2) Hyperkalemia Status: Acute Priority: High (3) Sepsis Status: Acute (4) UTI (urinary tract infection) Status: Acute Priority: High Qualifiers: Indwelling urinary catheter type: indwelling urethral catheter Encounter type: initial encounter
[2017-11-21 16:11] LABS: Ferritin 188.4 ng/ml (30-400)
[2017-11-21 16:18] LABS: Vitamin B12 1193 pg/ml (232-1245)
[2017-11-21 16:25] LABS: Iron 28 mcg/dl (61-157); Transferrin % Saturation 19 % (20-50); Unsaturated Iron Binding 116 mcg/dL (112-346)
[2017-11-21 16:37] LABS: Blood Urea Nitrogen 147 mg/dl (8-23)
--- NOTE | 2017-11-21 18:54 | General Surgery Progress Note ---
Subjective Patient reports: other (Patient seen for f/u. Progress reviewed with Denisa PITTMAN. REVIEWED detailed notes of Dr. Thompson. ) Narrative: Note initiated : 11/21/17 at 6:51 pm Service Date, if different from initiated Date: [] Patient: Carlos Abraham 87 y/o M admitted on 11/20/17 for Weakness/UTI Symptoms , BLE/Renal Failure. Chief Complaint: []Patient is stabilizing. SEPSIS syndrome with Acute on Chronic Renal failure and Electrolyte abnormalities showing improvement. From the wound care point of view there is nothing specific to add at this time. Recommend MIST treatments BID Objective Temp Pulse Resp BP Pulse Ox 98.7 F 86 16 122/65 99 11/21/17 16:03 11/21/17 17:14 11/21/17 17:14 11/21/17 17:01 11/21/17 17:14 No interval changes AGNES. Still on pressors and Electrolyte imbalance improving. No acute interval changes in wounds. - Additional Data Intake & Output - Last 24 hours: Intake & Output 11/19/17 11/20/17 11/21/17 11/22/17 05:59 05:59 05:59 05:59 Intake Total 3530 / 3530 1251 / 1251 Output Total 400 / 400 400 / 400 Balance 3130 / 3130 851 / 851 Weight 218 lb 218 lb - Labs 11/21/17 03:55 11/21/17 15:15 Diabetes panel 11/21/17 11/21/17 Range/Units 03:55 15:15 Sodium 133 133 (133-145) mmol/L Potassium 5.4 H 4.4 (3.3-5.1) mmol/L Chloride 102 98 (96-108) mmol/L Carbon Dioxide 15 L 18 L (22-30) mmol/L BUN 154 H* 147 H* (8-23) mg/dl Creatinine 6.9 H* 6.5 H* (0.7-1.2) mg/dl Glucose 153 H 178 H (70-105) mg/dL Calcium 8.0 L 7.9 L (8.6-10.4) mg/dl AST 41 H (0-37) U/l ALT 26 (0-40) U/l Alkaline Phosphatase 98 (39-117) U/L Total Protein 5.1 L (5.9-8.4) gm/dL Albumin 2.0 L (3.2-5.2) gm/dL Triglycerides 102 (<150) mg/dl Calcium panel 11/21/17 11/21/17 Range/Units 03:55 15:15 Calcium 8.0 L 7.9 L (8.6-10.4) mg/dl Phosphorus 5.5 H (2.7-4.5) mg/dL Albumin 2.0 L (3.2-5.2) gm/dL Pituitary panel 11/21/17 11/21/17 Range/Units 03:55 15:15 Sodium 133 133 (133-145) mmol/L Potassium 5.4 H 4.4 (3.3-5.1) mmol/L Chloride 102 98 (96-108) mmol/L Carbon Dioxide 15 L 18 L (22-30) mmol/L BUN 154 H* 147 H* (8-23) mg/dl Creatinine 6.9 H* 6.5 H* (0.7-1.2) mg/dl Glucose 153 H 178 H (70-105) mg/dL Calcium 8.0 L 7.9 L (8.6-10.4) mg/dl Adrenal panel 11/21/17 11/21/17 Range/Units 03:55 15:15 Sodium 133 133 (133-145) mmol/L Potassium 5.4 H 4.4 (3.3-5.1) mmol/L Chloride 102 98 (96-108) mmol/L Carbon Dioxide 15 L 18 L (22-30) mmol/L BUN 154 H* 147 H* (8-23) mg/dl Creatinine 6.9 H* 6.5 H* (0.7-1.2) mg/dl Glucose 153 H 178 H (70-105) mg/dL Calcium 8.0 L 7.9 L (8.6-10.4) mg/dl Total Bilirubin 0.2 (0.0-1.0) mg/dL AST 41 H (0-37) U/l ALT 26 (0-40) U/l Alkaline Phosphatase 98 (39-117) U/L Total Protein 5.1 L (5.9-8.4) gm/dL Albumin 2.0 L (3.2-5.2) gm/dL Assessment and Plan (1) Dermatitis associated with moisture from stool incontinence Status: Acute Current Visit: Yes (2) Dermatitis associated with moisture from urinary incontinence Status: Acute Current Visit: Yes (3) Renal failure Status: Acute Current Visit: Yes (4) UTI (urinary tract infection) Status: Acute Current Visit: Yes (5) Hyperkalemia Status: Acute Current Visit: Yes (6) Self-care deficit for hygiene Status: Acute Current Visit: Yes (7) Dehydration Status: Acute Current Visit: Yes (8) Skin breakdown Status: Acute Assessment and plan: Assessment: Skin break down and Ulcerations / Dermatitis both L E and Sacral area. Plan: Continue ongoing wound care with MIST treatments BID. Current Visit: Yes (9) Decubitus ulcer, buttock Status: Acute Current Visit: Yes (10) Acute on chronic renal failure Status: Acute Current Visit: Yes - Time Spent With Patient Total time spent is greater than 50% in coordination of care (as documented) at patient's floor/unit and/or counseling patient:
[2017-11-21] MEDS ORDERED: SIMETHICONE 80 MG TAB.CHEW CHEWED PRN (21:22)
[2017-11-22] MEDS: ACETAMINOPHEN 325 MG TABLET PO PRN ×2 (00:37→14:35)
[2017-11-22] MEDS ORDERED: HYDROmorphone 2 MG/ML VIAL IV PRN (01:17)
[2017-11-22] MEDS ORDERED: HYDROmorphone 2 MG/ML VIAL ONE (01:23)
[2017-11-22 05:17] LABS: Mean Cell Volume 93.9 fL (80.0-100.0); Mean Corpuscular HGB Conc 33.8 g/dL (31.0-36.0); Mean Corpuscular Hemoglobin 31.8 pg (26.0-34.0); Platelet Count 580 K/mcL (140-440); RBC 2.84 M/mcL (4.50-5.90); Red Cell Distribution Width 15.3 % (11.5-14.5)
[2017-11-22 05:56] LABS: Band Neutrophils % 2 % (0-10); Basophils % (Manual) 1 % (0-2); Eosinophils % (Manual) 1 % (0-7); Lymphocytes % 2 % (15-49); Metamyelocytes % 1 % (0-0); Monocytes % (Manual) 4 % (1-12); Platelet Estimate INCREASED (NORMAL); RBC Morphology NORMAL (NORMAL); Segmented Neutrophils % 89 % (38-78)
[2017-11-22 06:44] LABS: ALT/SGPT 22 U/l (0-40); Albumin 1.8 gm/dL (3.2-5.2); Albumin/Globulin Ratio 0.6 (1.0-2.3); Alkaline Phosphatase 99 U/L (39-117); Bilirubin,Direct < 0.2 mg/dL (0.0-0.3); Blood Urea Nitrogen 145 mg/dl (8-23); Gamma Glutamyl Transpeptidase 12 U/L (8-61); Uric Acid 12.3 mg/dL (2.5-8.0)
[2017-11-22 06:56] LABS: Hepatitis B Surface Antigen NEGATIVE (NEGATIVE)
[2017-11-22 06:57] LABS: Hepatitis B Surface Antibody NEGATIVE (NEGATIVE); Hepatitis C Virus Antibody NON-REACTIVE (NEGATIVE)
[2017-11-22] MEDS: 0.9 % SODIUM CHLORIDE 10 ML SYRINGE IV SCH ×3 (07:24→22:12)
[2017-11-22] MEDS: SODIUM BICARBONATE VIAL 150 MEQ in DEXTROSE 5% IN WATER 850 ML IV SCH (07:45)
[2017-11-22] MEDS: DOCUSATE SODIUM 100 MG CAPSULE PO SCH ×2 (08:04→22:09)
--- NOTE | 2017-11-22 08:15 | Nephrology Progress Note ---
Subjective Patient information: Note initiated : 11/22/17 at 8:13 am Patient: Carlos Abraham is an [id number] male admitted on 11/20/17. Chief Complaint: Found down. 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 Pertinent ROS: Weakness. Edema. No significant pain. Objective - Vital Signs Vital signs: Vital Signs Temp Pulse Resp BP Pulse Ox 11/22/17 07:22 98.2 F 16 99/51 99 11/22/17 00:01 99.1 F H 91 H 10 L 107/58 98 11/22/17 00:00 86 14 98 11/21/17 23:01 91 H 18 104/49 98 11/21/17 23:00 82 18 98 11/21/17 22:01 87 23 H 92/46 99 11/21/17 22:00 77 18 99 11/21/17 21:02 84 18 97 11/21/17 21:01 88 17 112/53 96 11/21/17 21:00 43 L 18 97 11/21/17 20:01 98.4 F 82 20 100/53 98 11/21/17 20:00 93 H 21 98 11/21/17 19:02 82 17 98 11/21/17 19:01 76 21 116/59 97 11/21/17 18:01 97 H 19 128/70 99 11/21/17 17:14 86 16 99 11/21/17 17:01 86 22 122/65 98 11/21/17 16:03 98.7 F 85 17 109/64 99 11/21/17 16:01 84 21 75/39 99 11/21/17 15:01 95 H 20 83/56 98 11/21/17 14:04 85 18 110/43 99 11/21/17 14:01 83 19 87/34 99 11/21/17 13:01 16 113/51 11/21/17 12:35 81 18 100 11/21/17 12:01 98.5 F 87 18 100/47 99 11/21/17 11:01 99 H 22 123/94 99 11/21/17 10:01 18 108/75 11/21/17 09:01 76 15 107/49 100 11/21/17 08:24 80 16 100 Intake and Output 11/21/17 11/22/17 11/22/17 21:59 05:59 13:59 Intake Total 2371 / 2371 150 / 150 910 / 910 Output Total 650 / 650 350 / 350 Balance 172 / 1721 -200 / -200 910 / 910 Intake: IV 2100 / 2101 910 / 910 Sodium Chloride 0.9% 1,000 ml @ 1000 / 1000 50 mls/hr IV .Q20H [facility] Rx#: [id number] INVanz 1 GM In Sodium Chloride 50 / 50 0.9% 50 ml @ 100 mls/hr IV DAILY [facility] Rx#:[id number] Sodium Bicarbonate Vial 150 Meq 1000 / 1000 910 / 910 In Dextrose 5% in Water 850 ml @ 75 mls/hr IV Q13H [facility] Rx#: [id number] Vitamin B1 100 mg In Sodium 51 / 51 Chloride 0.9% 50 ml @ 50 mls/hr IV DAILY [facility] Rx#:[id number] Oral 270 / 270 150 / 150 Output: Urine Catheter Amount 400 / 400 350 / 350 Stool 250 / 250 Other: Meal Dinner Percent of Meal Consumed 100% Feeding Ability Assist with Tray Set Up Stool Size Moderate Stool Color Brown Stool Consistency Liquid # Bowel Movements 1 Weight 220 lb 6.4 oz Intake & Output: Intake & Output 11/21/17 11/22/17 11/22/17 21:59 05:59 13:59 Intake Total 2371 / 2371 150 / 150 910 / 910 Output Total 650 / 650 350 / 350 Balance 172 / 1721 -200 / -200 910 / 910 Weight 220 lb 6.4 oz Intake: IV 2100 / 2101 910 / 910 Sodium Chloride 0.9% 1,000 ml @ 1000 / 1000 50 mls/hr IV .Q20H [facility] Rx#: [id number] INVanz 1 GM In Sodium Chloride 50 / 50 0.9% 50 ml @ 100 mls/hr IV DAILY [facility] Rx#:[id number] Sodium Bicarbonate Vial 150 Meq 1000 / 1000 910 / 910 In Dextrose 5% in Water 850 ml @ 75 mls/hr IV Q13H [facility] Rx#: [id number] Vitamin B1 100 mg In Sodium 51 / 51 Chloride 0.9% 50 ml @ 50 mls/hr IV DAILY [facility] Rx#:[id number] Oral 270 / 270 150 / 150 Output: Urine Catheter Amount 400 / 400 350 / 350 Stool 250 / 250 Other: Meal Dinner Percent of Meal Consumed 100% Feeding Ability Assist with Tray Set Up Stool Size Moderate Stool Color Brown Stool Consistency Liquid # Bowel Movements 1 - General Appearance General appearance: chronically ill, frail EENT: mucous membranes dry Neck: supple Respiratory: course breath sounds Cardiology: edema, normal S1, normal S2 Gastrointestinal: distended Integumentary: warm and dry, ecchymotic Neurologic: no focal deficit Musculoskeletal: warmth Psychiatric: mood/affect appropriate, cooperative - Lab 11/22/17 03:57 11/22/17 03:57 Most recent lab results Calcium 7.5 mg/dl (8.6-10.4) L 11/22/17 03:57 Phosphorus 6.0 mg/dL (2.7-4.5) H* 11/22/17 03:57 Magnesium 2.3 mg/dL (1.6-2.5) 11/22/17 03:57 Assessment and Plan (1) ATN (acute tubular necrosis) Acute kidney injury, likely acute tubular necrosis, associated with initial oliguria, hyperkalemia, high anion-gap metabolic acidosis, hyponatremia, acute Proteus cystitis, present on arrival. Work up: Renal US on 11/20/17: Mildly echogenic renal parenchyma bilaterally which indicates chronic medical renal disease. Cholelithiasis. Progress: Declined hemodialysis. Improvement of hyperkalemia, high anion-gap metabolic acidosis, hyponatremia with IVF. Treatment: D5W 1 L + Sodium bicarbonate 150 mEq at 75 ml/hour. Last 24 hours: Blood pressure low normal. Serum creatinine decreased from 6.5 to 6.3 in the past 24 hours. CO2 increased from 18 to 21. Urine output 350 ml reported. Recommendations: Continue medical management. Prognosis: Poor. Status: Acute Priority: High
[2017-11-22] MEDS: ERTAPENEM 1 GM in 0.9 % SODIUM CHLORIDE 50 ML IV SCH (08:53)
--- NOTE | 2017-11-22 08:54 | XRay Report ---
HISTORY: Reason for Exam:Interval Change FINDINGS: There is a persistent retrocardiac density with central lucency. This is most likely a hiatus hernia. Faint increased interstitial lung markings are seen around the right hilum and medially in the right lower lobe. These have become more prominent since 11/20/17. The left lung is clear. The heart size is upper limits of normal. No pleural effusion is present. IMPRESSION: Possible mild pneumonia developing around the right hilum Stable hiatus hernia Interpreted and Authenticated by: Álvaro Bush 11/22/17
--- NOTE | 2017-11-22 09:13 | Internal Med Progress Note ---
Medical - PN: Subj Patient information: Note initiated : 11/22/17 at 9:11 am Service Date, if different from initiated Date: [] Patient: Carlos Abraham 87 y/o M admitted on 11/20/17 for Weakness/UTI Symptoms , BLE/Renal Failure. Chief Complaint: [] Interval history: Mr. Abraham is a 87 year old M who lives by himself and carries a history of cardiomyopathy with an EF 20% and history of chronic kidney disease and hypertension. He has stopped following up with his primary care physician over the last year and a half and has not been taking any medications. Patient has been barely able to manage activities of daily living. Over the last few weeks he has been getting progressively weak. He has been experiencing multiple episodes of diarrhea with progression of weakness to the point he could barely walk. He has been unable to fix his own meals recently. Even normal activities including walking from room to the bathroom has become an uphill task and twice he sustained a fall and has remained on the floor for a prolonged period of time. He was discovered by his neighbor today on the floor smeared and stool, lethargic. Subsequently was brought in to [facility] ER by EMS. patient was enough horrifying state most of the body covered in feces,extremely poor hygiene , bilateral lower extremity cellulitis/scabs and perineal ulcerations covered in feces. Initial workup was significant for BUN over 160 creatinine over 7 and potassium 7.7. White count over 32,000. Nephrology was consulted and patient was started on crystalloids along with hypokalemia protocol. Blood cultures were drawn and antibiotics were administered. subsequently hospitalist service was consulted At the time of evaluation patient is awake and alert and able to answer most questions. He endorses to history as above. he denies fevers shaking chills, headache or photophobia. He denies chest pain or bloody stools weight loss, glandular swelling. Endorses to bilateral lower extremity weeping and red lesions along with scabs. He hasn't had a shower many days with profound weakness and inability to take care of self. He has a son who is estranged. he denies alcoholism or smoking. Denies changes in medication or substance abuse. 11/21-clinical improvement noted. White count down to 22,000.platelets down to 692. Proteus on UA.potassium down to 5.4 pounds 7.7. BUN 154 creatinine 6.9. Hemodialysis on hold. metabolic acidosis clinically improving on bicarbonate drip. Nephrology on board. start ertapenem. de-escalate based on sensitivities. Patient remains critically ill. Ongoing wound care for multiple areas of cellulitis/ulcers.map at goal. Off vasopressors. Await echocardiogram. 11/22-patient doing well. Ongoing wound care/renal failure management per specialists. Creatinine down to 6.3 with BUN down to 145. Potassium 3.7.white count down from 32->14. no overnight events including fever chills shortness of breath or telemetry events. Occasional PVCs.echo pending. More lucid and alert. Tolerating diet. Foleys draining clear urine.urine output over thousand cc in 24 hours. improving multiorgan failure. repeat echo shows 50-55% EF - Constitutional Vitals: Vital Signs Temp Pulse Resp BP Pulse Ox 98.2 F 85 16 91/48 99 11/22/17 07:22 11/22/17 06:01 11/22/17 08:01 11/22/17 08:01 11/22/17 07:22 Period Temp Pulse Resp BP Sys/Ferris Pulse Ox Last 24 Hr 97.8 F-99.1 F 35-99 10-23 75-130/34-94 95-100 Intake and Output 11/21/17 11/22/17 11/22/17 21:59 05:59 13:59 Intake Total 2371 / 2371 150 / 150 910 / 910 Output Total 650 / 650 350 / 350 Balance 1721 / 1721 -200 / -200 910 / 910 Weight 220 lb 6.4 oz Intake & Output: Intake & Output 11/21/17 11/22/17 11/22/17 21:59 05:59 13:59 Intake Total 2371 / 2371 150 / 150 910 / 910 Output Total 650 / 650 350 / 350 Balance 1721 / 1721 -200 / -200 910 / 910 Weight 220 lb 6.4 oz Intake: IV 2100 / 1 910 / 910 Sodium Chloride 0.9% 1,000 ml @ 1000 / 1000 50 mls/hr IV .Q20H [facility] Rx#: [id number] INVanz 1 GM In Sodium Chloride 50 / 50 0.9% 50 ml @ 100 mls/hr IV DAILY [facility] Rx#:[id number] Sodium Bicarbonate Vial 150 Meq 1000 / 1000 910 / 910 In Dextrose 5% in Water 850 ml @ 75 mls/hr IV Q13H [facility] Rx#: [id number] Vitamin B1 100 mg In Sodium 51 / 51 Chloride 0.9% 50 ml @ 50 mls/hr IV DAILY [facility] Rx#:[id number] Oral 270 / 270 150 / 150 Output: Urine Catheter Amount 400 / 400 350 / 350 Stool 250 / 250 Other: Meal Dinner Percent of Meal Consumed 100% Feeding Ability Assist with Tray Set Up Stool Size Moderate Stool Color Brown Stool Consistency Liquid # Bowel Movements 1 General appearance: cooperative, no acute distress Exam: no anxiety Lower extremity wound care dressings no telemetry events Foleys draining clear urine Nonlabored breathing Medical - PN: Obj Da - Labs CBC & Chem 7: 11/22/17 03:57 11/22/17 03:57 Labs: Abnormal Lab Results 11/22/17 11/22/17 11/21/17 03:57 03:57 15:15 WBC 14.0 H RBC 2.84 L Hgb 9.0 L Hct 26.6 L RDW 15.3 H Plt Count 580 H MPV 6.7 L Gran % Lymph % (Auto) Gran # Lymph # (Auto) [place] # (Auto) Seg Neutrophils % 89 H Lymphocytes % 2 L Metamyelocytes % 1 H WBC Morphology Toxic Granulation Platelet Estimate Increased A RBC Morphology Anisocytosis Sodium Potassium Chloride Carbon Dioxide 21 L 18 L Anion Gap 17.0 H BUN 145 H* 147 H* Creatinine 6.3 H* 6.5 H* Glucose 152 H 178 H Uric Acid 12.3 H Calcium 7.5 L 7.9 L Phosphorus 6.0 H* Iron TIBC Transferrin % Sat AST Alkaline Phosphatase NT-Pro-B Natriuret Pep Total Protein 4.7 L Total Protein (PEP) 4.2 L Albumin 1.8 L Globulin Albumin/Globulin Ratio 0.6 L Urine Protein Urine Occult Blood Ur Leukocyte Esterase Urine RBC Urine WBC Urine Bacteria 11/21/17 11/21/17 11/21/17 15:15 03:55 03:55 WBC 22.1 H RBC 3.06 L Hgb 9.9 L Hct 28.7 L RDW 15.7 H Plt Count 692 H MPV 6.5 L Gran % Lymph % (Auto) Gran # Lymph # (Auto) [place] # (Auto) Seg Neutrophils % 83 H Lymphocytes % 6 L Metamyelocytes % 1 H WBC Morphology Abnorm A Toxic Granulation 1+ A Platelet Estimate Increased A RBC Morphology Abnorm A Anisocytosis 1+ A Sodium Potassium 5.4 H Chloride Carbon Dioxide 15 L Anion Gap BUN 154 H* Creatinine 6.9 H* Glucose 153 H Uric Acid 12.7 H Calcium 8.0 L Phosphorus 5.5 H Iron 28 L TIBC 144 L Transferrin % Sat 19 L AST 41 H Alkaline Phosphatase NT-Pro-B Natriuret Pep Total Protein 5.1 L Total Protein (PEP) Albumin 2.0 L Globulin Albumin/Globulin Ratio 0.6 L Urine Protein Urine Occult Blood Ur Leukocyte Esterase Urine RBC Urine WBC Urine Bacteria 11/20/17 11/20/17 11/20/17 16:59 13:47 11:15 WBC RBC Hgb Hct RDW Plt Count MPV Gran % Lymph % (Auto) Gran # Lymph # (Auto) [place] # (Auto) Seg Neutrophils % Lymphocytes % Metamyelocytes % WBC Morphology Toxic Granulation Platelet Estimate RBC Morphology Anisocytosis Sodium 130 L 129 L Potassium 6.1 H* 7.4 H* Chloride 95 L Carbon Dioxide 11 L 12 L Anion Gap 19.0 H 22.0 H BUN 157 H* 161 H* Creatinine 7.1 H* 7.4 H* Glucose 160 H 180 H Uric Acid Calcium Phosphorus Iron TIBC Transferrin % Sat AST 50 H Alkaline Phosphatase 135 H NT-Pro-B Natriuret Pep 1673.0 H Total Protein Total Protein (PEP) Albumin Globulin 4.1 H Albumin/Globulin Ratio 0.8 L Urine Protein >=500 A Urine Occult Blood >=1.0 A Ur Leukocyte Esterase 500 A Urine RBC 10 H Urine WBC > 182 H Urine Bacteria Many A 11/20/17 11:15 WBC 32.0 H* RBC 4.13 L Hgb 12.7 L Hct 38.4 L RDW 15.6 H Plt Count 1222 H* MPV 6.9 L Gran % 94.0 H Lymph % (Auto) 1.1 L Gran # 30.1 H Lymph # (Auto) 0.4 L [place] # (Auto) 1.6 H Seg Neutrophils % Lymphocytes % Metamyelocytes % WBC Morphology Toxic Granulation Platelet Estimate RBC Morphology Anisocytosis Sodium Potassium Chloride Carbon Dioxide Anion Gap BUN Creatinine Glucose Uric Acid Calcium Phosphorus Iron TIBC Transferrin % Sat AST Alkaline Phosphatase NT-Pro-B Natriuret Pep Total Protein Total Protein (PEP) Albumin Globulin Albumin/Globulin Ratio Urine Protein Urine Occult Blood Ur Leukocyte Esterase Urine RBC Urine WBC Urine Bacteria Meds: Medications Acetaminophen (Tylenol) 650 mg PO Q4-6HP PRN PRN Reason: PAIN/FEVER > 101 Last Admin: 11/22/17 00:37 Dose: 650 mg Cyanocobalamin (Vitamin B-12) 1,000 mcg PO BID [facility] Stop: 11/25/17 09:01 Last Admin: 11/21/17 21:17 Dose: 1,000 mcg Docusate Sodium (Colace) 100 mg PO BID [facility] Last Admin: 11/22/17 08:04 Dose: Not Given Folic Acid (Folic Acid) 1 mg PO DAILY [facility] Last Admin: 11/21/17 10:56 Dose: 1 mg Heparin Sodium (Porcine) (Heparin) 5,000 unit SQ Q12 [facility] Last Admin: 11/21/17 21:16 Dose: 5,000 unit Hydromorphone HCl (Dilaudid) 0 mg IV Q4-6HP PRN PRN Reason: PAIN LEVEL > 6 Sodium Chloride (Sodium Chloride 0.9%) 1,000 mls @ 50 mls/hr IV .Q20H [facility] Stop: 11/23/17 04:59 Last Admin: 11/21/17 17:46 Dose: 50 mls/hr Acetaminophen (Ofirmev) 1,000 mg in 100 mls @ 200 mls/hr IV Q6HP PRN PRN Reason: PAIN/FEVER > 101 Thiamine HCl 100 mg/ Sodium (Chloride) 51 mls @ 50 mls/hr IV DAILY [facility] Stop: 11/23/17 10:02 Last Infusion: 11/21/17 17:20 Dose: Infused Sodium Bicarbonate 150 meq/ (Dextrose) 1,000 mls @ 75 mls/hr IV Q13H [facility] Last Infusion: 11/22/17 07:45 Dose: Infused Norepinephrine Bitartrate 16 (mg/ Sodium Chloride) 250 mls @ 9.37 mls/hr IV Q24HP PRN; Protocol; 10 MCG/MIN PRN Reason: Blood Pressure Sodium Chloride (Sodium Chloride 0.9%) 250 mls @ 20 mls/hr IV .[id number] [facility] Last Admin: 11/21/17 22:50 Dose: Not Given Ertapenem 1 gm/ Sodium (Chloride) 50 mls @ 100 mls/hr IV DAILY [facility] Last Admin: 11/22/17 08:53 Dose: 100 mls/hr Iron Carb/Multivit/[place]/Folic Acid (Multivitamin W/Minerals) 1 tab PO DAILY [facility] Last Admin: 11/21/17 10:56 Dose: 1 tab Ondansetron HCl (Zofran) 4 mg IV Q4-6HP PRN PRN Reason: Nausea And Vomiting Senna/Docusate Sodium (Senna Plus Tablet) 1 tab PO HS [facility] Last Admin: 11/21/17 21:16 Dose: Not Given Simethicone (Mylicon) 80 mg CHEWED QIDP PRN PRN Reason: Dyspepsia Last Admin: 11/21/17 23:06 Dose: 80 mg Sodium Chloride (Saline Flush) 10 ml IV Q8 [facility] Last Admin: 11/22/17 07:24 Dose: Not Given Medical - PN: A/P - Time Spent With Patient Total time spent is greater than 50% in coordination of care (as documented) at patient's floor/unit and/or counseling patient: 25 - 35 minutes (1) Renal failure Status: Acute Assessment and plan: [id number] with a history of NYHA class III systolic heart failure with EF 20% and chronic renal disease admitted with acute on chronic renal failure/uremia encephalopathy/severe sepsis/complicated UTI and bilaterallower extremity cellulitis/sacral ulcers after he was found down by his neighbor * Acute renal failure with metabolic acidosis, uremia- baseline creatinine 1.8 as of 2016. gradual improvement noted. Nephrology managing * Hyperkalemia-resolved potassium 3.7 managed by nephrology * Uremic encephalopathy-managed by nephrology. clinically improving * metabolic acidosis managed by nephrology-on bicarbonate drip issues managed by hospitalist service * Bilateral lower extremity cellulitis-clinical improvement noted on antibiotic coverage. Wound care ongoing per Dr. Timmons. * Complicated Proteus UTI-await Sensitivities. pansensitive. Switch to Rocephin * Septic shock-off pressors. Secondary to cellulitis/Proteus UTI. blood cultures negative so far * Diarrhea-resolved. C. difficile negative. * Sacral decubitus/lower extremity ulceration-wound care ongoing * Thrombocytosis-resolved. Down from 1200 to 600. * history of NYHA class III systolic heart failure with EF 20% 2016-repeat echo 55% * DNR * Prophylaxis heparin Plan * continue ICU care * de-escalate antibiotic to Rocephin * renal failure/acidosis/hyperkalemia and uremia management per nephrology * Wound management per wound care * Aggressive PT OT,dietary consult * case management to coordinate safe discharge plan as the patient is high risk deconditioning if discharge home Current Visit: Yes Medical - PN: Qual - Stroke Symptom Onset Unknown: No - VTE Deep Vein Thrombosis/Pulmonary Embolism Present on Admission: No
[2017-11-22] MEDS: THIAMINE 100 MG in 0.9 % SODIUM CHLORIDE 50 ML IV SCH (09:33)
[2017-11-22] MEDS: HEPARIN 5,000 UNIT/ML VIAL SQ SCH ×2 (09:33→22:09)
[2017-11-22] MEDS: MULTIVIT,THER IRON,CA,FA & MIN 1 TABLET PO SCH (09:34)
[2017-11-22] MEDS: CYANOCOBALAMIN (VITAMIN B-12) 500 MCG TABLET PO SCH ×2 (09:35→22:09)
[2017-11-22] MEDS: FOLIC ACID 1 MG TABLET PO SCH (09:35)
[2017-11-22] MEDS: cefTRIAXone 2 GM VIAL IV SCH (09:43)
[2017-11-22] MEDS: 0.9 % SODIUM CHLORIDE 250 ML IV SCH (14:30)
--- NOTE | 2017-11-22 16:59 | General Surgery Progress Note ---
Subjective Narrative: Note initiated : 11/22/17 at 4:55 pm Service Date, if different from initiated Date: [] Patient: Carlos Abraham 87 y/o M admitted on 11/20/17 for Weakness/UTI Symptoms , BLE/Renal Failure. Chief Complaint: [] Patient seen and progress reviewed. Reviewed nephrology and hospitalist input. Objective Temp Pulse Resp BP Pulse Ox 99 F 85 22 101/79 96 11/22/17 15:16 11/22/17 06:01 11/22/17 15:16 11/22/17 15:16 11/22/17 15:16 VSS. No Fever. gradual improvement of Hyperkalemia, thrombocytosis and elevated creatinine. Patient refused HD. From wound care point of view there are No new suggestions. His wounds are being treated with local wound care and daily BID MIST treatment. - Additional Data Intake & Output - Last 24 hours: Intake & Output 11/20/17 11/21/17 11/22/17 11/23/17 05:59 05:59 05:59 05:59 Intake Total 3530 / 3530 2521 / 2521 1775 / 1775 Output Total 400 / 400 1000 / 1000 375 / 375 Balance 3130 / 3130 1521 / 1521 1400 / 1400 Weight 218 lb 220 lb 6.4 oz 220 lb 6.4 oz - Labs 11/22/17 03:57 11/22/17 03:57 Diabetes panel 11/22/17 Range/Units 03:57 Sodium 136 (133-145) mmol/L Potassium 3.7 (3.3-5.1) mmol/L Chloride 101 (96-108) mmol/L Carbon Dioxide 21 L (22-30) mmol/L BUN 145 H* (8-23) mg/dl Creatinine 6.3 H* (0.7-1.2) mg/dl Glucose 152 H (70-105) mg/dL Calcium 7.5 L (8.6-10.4) mg/dl AST 22 (0-37) U/l ALT 22 (0-40) U/l Alkaline Phosphatase 99 (39-117) U/L Total Protein 4.7 L (5.9-8.4) gm/dL Albumin 1.8 L (3.2-5.2) gm/dL Triglycerides 105 (<150) mg/dl Calcium panel 11/22/17 Range/Units 03:57 Calcium 7.5 L (8.6-10.4) mg/dl Phosphorus 6.0 H* (2.7-4.5) mg/dL Albumin 1.8 L (3.2-5.2) gm/dL Pituitary panel 11/22/17 Range/Units 03:57 Sodium 136 (133-145) mmol/L Potassium 3.7 (3.3-5.1) mmol/L Chloride 101 (96-108) mmol/L Carbon Dioxide 21 L (22-30) mmol/L BUN 145 H* (8-23) mg/dl Creatinine 6.3 H* (0.7-1.2) mg/dl Glucose 152 H (70-105) mg/dL Calcium 7.5 L (8.6-10.4) mg/dl Adrenal panel 11/22/17 Range/Units 03:57 Sodium 136 (133-145) mmol/L Potassium 3.7 (3.3-5.1) mmol/L Chloride 101 (96-108) mmol/L Carbon Dioxide 21 L (22-30) mmol/L BUN 145 H* (8-23) mg/dl Creatinine 6.3 H* (0.7-1.2) mg/dl Glucose 152 H (70-105) mg/dL Calcium 7.5 L (8.6-10.4) mg/dl Total Bilirubin 0.2 (0.0-1.0) mg/dL AST 22 (0-37) U/l ALT 22 (0-40) U/l Alkaline Phosphatase 99 (39-117) U/L Total Protein 4.7 L (5.9-8.4) gm/dL Albumin 1.8 L (3.2-5.2) gm/dL Assessment and Plan (1) Dermatitis associated with moisture from stool incontinence Status: Acute Current Visit: Yes (2) Dermatitis associated with moisture from urinary incontinence Status: Acute Current Visit: Yes (3) Renal failure Status: Acute Current Visit: Yes (4) UTI (urinary tract infection) Status: Acute Current Visit: Yes (5) Hyperkalemia Status: Acute Current Visit: Yes (6) Self-care deficit for hygiene Status: Acute Current Visit: Yes (7) Dehydration Status: Acute Current Visit: Yes (8) Skin breakdown Status: Acute Assessment and plan: Assessment: Skin break down and Ulcerations / Dermatitis both L E and Sacral area. Plan: Continue ongoing wound care with MIST treatments BID. Current Visit: Yes (9) Decubitus ulcer, buttock Status: Acute Current Visit: Yes (10) Acute on chronic renal failure Status: Acute Current Visit: Yes - Time Spent With Patient Total time spent is greater than 50% in coordination of care (as documented) at patient's floor/unit and/or counseling patient:
[2017-11-22] MEDS: 0.9 % SODIUM CHLORIDE 1,000 ML IV SCH (17:30)
[2017-11-22 18:16] LABS: Blood Urea Nitrogen 139 mg/dl (8-23); Creatine Kinase 268 IU/L (24-195)
[2017-11-22] MEDS ORDERED: POTASSIUM CHLORIDE 20 MEQ TABLET PO ONE (19:23)
[2017-11-22] MEDS: SENNOSIDES/DOCUSATE SODIUM 1 TAB TABLET PO SCH (22:09)
[2017-11-22] MEDS: BACITRACIN TOPICAL OINT 15 GM TUBE TOPICAL SCH (22:11)
[2017-11-23 06:04] LABS: Mean Cell Volume 94.6 fL (80.0-100.0); Mean Corpuscular HGB Conc 33.6 g/dL (31.0-36.0); Mean Corpuscular Hemoglobin 31.8 pg (26.0-34.0); Platelet Count 569 K/mcL (140-440); Red Cell Distribution Width 15.3 % (11.5-14.5)
[2017-11-23] MEDS: 0.9 % SODIUM CHLORIDE 250 ML IV SCH ×4 (06:04→14:58)
[2017-11-23] MEDS: 0.9 % SODIUM CHLORIDE 10 ML SYRINGE IV SCH ×3 (06:05→22:01)
[2017-11-23 06:47] LABS: ALT/SGPT 23 U/l (0-40); Albumin 2.1 gm/dL (3.2-5.2); Albumin/Globulin Ratio 0.8 (1.0-2.3); Alkaline Phosphatase 88 U/L (39-117); Bilirubin,Direct < 0.2 mg/dL (0.0-0.3); Blood Urea Nitrogen 140 mg/dl (8-23); Gamma Glutamyl Transpeptidase 19 U/L (8-61); Uric Acid 12.2 mg/dL (2.5-8.0)
--- NOTE | 2017-11-23 07:02 | Nephrology Progress Note ---
Subjective Patient information: Note initiated : 11/23/17 at 7:00 am Patient: Carlos Abraham is an [id number] male admitted on 11/20/17. Chief Complaint: Found down. 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 Pertinent ROS: Feels better. No new complaints. Objective - Vital Signs Vital signs: Vital Signs Temp Pulse Resp BP Pulse Ox 11/23/17 04:01 98.5 F 89 19 109/43 93 11/23/17 04:00 93 H 14 93 11/23/17 03:02 93 H 19 95 11/23/17 03:01 94 H 14 109/52 95 11/23/17 02:01 71 19 98/80 91 11/23/17 01:01 81 24 H 109/44 94 11/23/17 00:01 92 H 16 96/47 95 11/22/17 23:01 97.9 F 90 17 120/45 94 11/22/17 23:00 85 17 95 11/22/17 22:02 83 23 H 96 11/22/17 22:01 98.4 F 23 H 108/53 96 11/22/17 22:00 75 16 91 11/22/17 21:02 87 15 96 11/22/17 21:01 97.8 F 78 16 104/55 91 11/22/17 21:00 76 15 94 11/22/17 20:00 98.1 F 67 21 95 11/22/17 19:35 86 17 117/55 95 11/22/17 19:02 89 14 98 11/22/17 19:01 87 13 88/43 97 11/22/17 18:31 76 16 100/73 99 11/22/17 18:01 67 16 91/41 93 11/22/17 17:31 81 16 92/44 95 11/22/17 17:01 73 14 101/61 95 11/22/17 16:31 82 15 113/48 95 11/22/17 16:07 75 15 97/53 95 11/22/17 15:16 99 F 22 101/79 96 11/22/17 15:06 85 23 H 101/79 94 11/22/17 15:01 15 88/53 11/22/17 14:01 21 115/51 11/22/17 13:25 98 11/22/17 13:01 16 108/93 11/22/17 12:01 13 105/57 11/22/17 12:00 98.1 F 13 117/54 95 11/22/17 11:22 17 117/54 11/22/17 11:01 14 103/66 11/22/17 10:13 13 106/61 11/22/17 10:01 13 94/47 11/22/17 09:01 12 96/52 11/22/17 08:01 16 91/48 11/22/17 08:00 13 11/22/17 07:22 98.2 F 16 99/51 99 11/22/17 07:01 15 98/51 Intake and Output 11/22/17 11/23/17 11/23/17 21:59 05:59 13:59 Intake Total 476 / 476 300 / 300 Output Total 375 / 375 475 / 475 Balance 101 / 101 -175 / -175 Intake: IV 236 / 236 Sodium Chloride 0.9% 1,000 ml @ 236 / 236 50 mls/hr IV .Q20H ELAINA Rx#: [id number] Oral 240 / 240 300 / 300 Output: Urine Catheter Amount 375 / 375 475 / 475 Other: Meal Lunch Percent of Meal Consumed 25% Feeding Ability Assist with Tray Set Up Stool Size Small Stool Color Brown Stool Consistency Watery Weight 221 lb 11.2 oz Intake & Output: Intake & Output 11/22/17 11/23/17 11/23/17 21:59 05:59 13:59 Intake Total 476 / 476 300 / 300 Output Total 375 / 375 475 / 475 Balance 101 / 101 -175 / -175 Weight 221 lb 11.2 oz Intake: IV 236 / 236 Sodium Chloride 0.9% 1,000 ml @ 236 / 236 50 mls/hr IV .Q20H ELAINA Rx#: [id number] Oral 240 / 240 300 / 300 Output: Urine Catheter Amount 375 / 375 475 / 475 Other: Meal Lunch Percent of Meal Consumed 25% Feeding Ability Assist with Tray Set Up Stool Size Small Stool Color Brown Stool Consistency Watery - General Appearance General appearance: appears started age, chronically ill EENT: mucous membranes moist Neck: supple Respiratory: course breath sounds Cardiology: edema, regular rate, regular rhythm Gastrointestinal: no tenderness Integumentary: warm and dry Neurologic: no focal deficit Musculoskeletal: no erythema, no cyanosis Psychiatric: mood/affect appropriate, cooperative - Lab 11/23/17 04:39 11/23/17 04:39 Most recent lab results Calcium 7.7 mg/dl (8.6-10.4) L 11/23/17 04:39 Phosphorus 6.5 mg/dL (2.7-4.5) H* 11/23/17 04:39 Magnesium 2.4 mg/dL (1.6-2.5) 11/23/17 04:39 Assessment and Plan (1) ATN (acute tubular necrosis) Acute kidney injury, likely acute tubular necrosis, associated with initial oliguria, hyperkalemia, high anion-gap metabolic acidosis, hyponatremia, and acute Proteus mirabilis cystitis, present on arrival. Work up: Renal US on 11/20/17: Mildly echogenic renal parenchyma bilaterally which indicates chronic medical renal disease. Cholelithiasis. Progress: Declined hemodialysis. Hyperkalemia, high anion-gap metabolic acidosis, hyponatremia, resolved. Last 24 hours: Hemodynamically stable. Serum creatinine decreased from 6.3 to 5.9 in the past 24 hours. Urine output 850 ml reported. Recommendations: Continue medical management. Status: Acute Priority: High
[2017-11-23 08:02] LABS: Eosinophils % (Manual) 2 % (0-7); Lymphocytes % 1 % (15-49); Metamyelocytes % 2 % (0-0); Monocytes % (Manual) 5 % (1-12); Platelet Estimate INCREASED (NORMAL); RBC Morphology NORMAL (NORMAL); Segmented Neutrophils % 90 % (38-78)
[2017-11-23] MEDS: HEPARIN 5,000 UNIT/ML VIAL SQ SCH ×2 (09:30→20:58)
[2017-11-23] MEDS: CYANOCOBALAMIN (VITAMIN B-12) 500 MCG TABLET PO SCH ×2 (09:30→20:58)
[2017-11-23] MEDS: MULTIVIT,THER IRON,CA,FA & MIN 1 TABLET PO SCH (09:31)
[2017-11-23] MEDS: FOLIC ACID 1 MG TABLET PO SCH (09:31)
[2017-11-23] MEDS: SODIUM BICARBONATE VIAL 150 MEQ in DEXTROSE 5% IN WATER 850 ML IV SCH (09:31)
[2017-11-23] MEDS: DOCUSATE SODIUM 100 MG CAPSULE PO SCH ×2 (09:32→20:54)
[2017-11-23] MEDS: cefTRIAXone 2 GM VIAL IV SCH (09:39)
[2017-11-23] MEDS: THIAMINE 100 MG in 0.9 % SODIUM CHLORIDE 50 ML IV SCH (09:39)
[2017-11-23] MEDS ORDERED: HYDROmorphone 2 MG/ML VIAL IV PRN (10:17)
--- NOTE | 2017-11-23 10:20 | Internal Med Progress Note ---
Medical - PN: Subj Patient information: Note initiated : 11/23/17 at 10:18 am Service Date, if different from initiated Date: [] Patient: Carlos Abraham 87 y/o M admitted on 11/20/17 for Weakness/UTI Symptoms , BLE/Renal Failure. Chief Complaint: [] Interval history: Mr. Abraham is a 87 year old M who lives by himself and carries a history of cardiomyopathy with an EF 20% and history of chronic kidney disease and hypertension. He has stopped following up with his primary care physician over the last year and a half and has not been taking any medications. Patient has been barely able to manage activities of daily living. Over the last few weeks he has been getting progressively weak. He has been experiencing multiple episodes of diarrhea with progression of weakness to the point he could barely walk. He has been unable to fix his own meals recently. Even normal activities including walking from room to the bathroom has become an uphill task and twice he sustained a fall and has remained on the floor for a prolonged period of time. He was discovered by his neighbor today on the floor smeared and stool, lethargic. Subsequently was brought in to [facility] ER by EMS. patient was enough horrifying state most of the body covered in feces,extremely poor hygiene , bilateral lower extremity cellulitis/scabs and perineal ulcerations covered in feces. Initial workup was significant for BUN over 160 creatinine over 7 and potassium 7.7. White count over 32,000. Nephrology was consulted and patient was started on crystalloids along with hypokalemia protocol. Blood cultures were drawn and antibiotics were administered. subsequently hospitalist service was consulted At the time of evaluation patient is awake and alert and able to answer most questions. He endorses to history as above. he denies fevers shaking chills, headache or photophobia. He denies chest pain or bloody stools weight loss, glandular swelling. Endorses to bilateral lower extremity weeping and red lesions along with scabs. He hasn't had a shower many days with profound weakness and inability to take care of self. He has a son who is estranged. he denies alcoholism or smoking. Denies changes in medication or substance abuse. 11/21-clinical improvement noted. White count down to 22,000.platelets down to 692. Proteus on UA.potassium down to 5.4 pounds 7.7. BUN 154 creatinine 6.9. Hemodialysis on hold. metabolic acidosis clinically improving on bicarbonate drip. Nephrology on board. start ertapenem. de-escalate based on sensitivities. Patient remains critically ill. Ongoing wound care for multiple areas of cellulitis/ulcers.map at goal. Off vasopressors. Await echocardiogram. 11/22-patient doing well. Ongoing wound care/renal failure management per specialists. Creatinine down to 6.3 with BUN down to 145. Potassium 3.7.white count down from 32->14. no overnight events including fever chills shortness of breath or telemetry events. Occasional PVCs.echo pending. More lucid and alert. Tolerating diet. Foleys draining clear urine.urine output over thousand cc in 24 hours. improving multiorgan failure. repeat echo shows 50-55% EF 11/23 Patient seen and examined, clinically doing well. White blood cell count slightly up trended today at 16 K but patient denies any acute symptoms. He denies chest pain shortness of breath headache dizziness. He does complain about left knee pain that started today after he was moved in bed. He does have history of gout but does not say that the knee pain is similar to that of a gout attack. He does complain about pain in his lower extremity due wounds. He is on Dilaudid which does not seem to be helping very much. Increase the dose of Dilaudid 1 mg. He has declined dialysis so far. Urinalysis shows UTI and is on appropriate antibiotics. Creatinine has improved BUN still high. Appreciate nephrology input, appreciate wound care input. Pertinent ROS: Denies headache, dizziness Denies chest pain, palpitations Denies cough or shortness of breath Denies abdominal pain, nausea or vomiting. - Constitutional Vitals: Vital Signs Temp Pulse Resp BP Pulse Ox 99.2 F H 92 H 15 104/43 93 11/23/17 08:01 11/23/17 08:01 11/23/17 08:01 11/23/17 08:01 11/23/17 08:01 Period Temp Pulse Resp BP Sys/Ferris Pulse Ox Last 24 Hr 97.8 F-99.2 F 67-98 13-24 88-120/38-93 91-99 Intake and Output 11/22/17 11/23/17 11/23/17 21:59 05:59 13:59 Intake Total 716 / 716 300 / 300 Output Total 375 / 375 475 / 475 Balance 341 / 341 -175 / -175 Weight 221 lb 11.2 oz Intake & Output: Intake & Output 11/22/17 11/23/17 11/23/17 21:59 05:59 13:59 Intake Total 716 / 716 300 / 300 Output Total 375 / 375 475 / 475 Balance 341 / 341 -175 / -175 Weight 221 lb 11.2 oz Intake: IV 236 / 236 Sodium Chloride 0.9% 1,000 ml @ 236 / 236 50 mls/hr IV .Q20H ELAINA Rx#: [id number] Oral 480 / 480 300 / 300 Output: Urine Catheter Amount 375 / 375 475 / 475 Other: Meal snack Percent of Meal Consumed 100% Feeding Ability Assist with Tray Set Up Stool Size Small Moderate Stool Color Brown Brown Stool Consistency Watery Soft Formed Loose Exam: Constitutional; Afebrile, cooperative, alert, not in distress. Eyes- No icterus, , No periorbital swelling Ears- Ext ear normal, hearing normal to conversation. Neck- Midline trachea, supple Respiratory system: Air Entry equal on both sides, No crackles or wheezing, no rhonchi. Poor air entry bilaterally CVS- Rate rhythm regular, S1,S2 heard, no gallop, no rub. 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 Extremity: Some ulcerations on tone noted. Rest of the leg was covered in bandages. Left knee does not show any evidence of erythema or effusion. Medical - PN: Obj Da - Labs CBC & Chem 7: 11/23/17 04:39 11/23/17 04:39 Labs: Abnormal Lab Results 11/23/17 11/23/17 11/22/17 04:39 04:39 16:45 WBC 16.8 H RBC 2.90 L Hgb 9.2 L Hct 27.4 L RDW 15.3 H Plt Count 569 H MPV 6.8 L Gran % Lymph % (Auto) Gran # Lymph # (Auto) Cocke # (Auto) Seg Neutrophils % 90 H Lymphocytes % 1 L Metamyelocytes % 2 H WBC Morphology Toxic Granulation Platelet Estimate Increased A RBC Morphology Anisocytosis Sodium Potassium Chloride Carbon Dioxide Anion Gap BUN 140 H* 139 H* Creatinine 5.9 H* 6.0 H* Glucose 152 H 152 H Uric Acid 12.2 H Calcium 7.7 L 7.6 L Phosphorus 6.5 H* Iron TIBC Transferrin % Sat AST Alkaline Phosphatase Total Creatine Kinase 268 H NT-Pro-B Natriuret Pep Total Protein 4.9 L Total Protein (PEP) Albumin 2.1 L Globulin Albumin/Globulin Ratio 0.8 L Urine Protein Urine Occult Blood Ur Leukocyte Esterase Urine RBC Urine WBC Urine Bacteria 11/22/17 11/22/17 11/21/17 03:57 03:57 15:15 WBC 14.0 H RBC 2.84 L Hgb 9.0 L Hct 26.6 L RDW 15.3 H Plt Count 580 H MPV 6.7 L Gran % Lymph % (Auto) Gran # Lymph # (Auto) Cocke # (Auto) Seg Neutrophils % 89 H Lymphocytes % 2 L Metamyelocytes % 1 H WBC Morphology Toxic Granulation Platelet Estimate Increased A RBC Morphology Anisocytosis Sodium Potassium Chloride Carbon Dioxide 21 L 18 L Anion Gap 17.0 H BUN 145 H* 147 H* Creatinine 6.3 H* 6.5 H* Glucose 152 H 178 H Uric Acid 12.3 H Calcium 7.5 L 7.9 L Phosphorus 6.0 H* Iron TIBC Transferrin % Sat AST Alkaline Phosphatase Total Creatine Kinase NT-Pro-B Natriuret Pep Total Protein 4.7 L Total Protein (PEP) 4.2 L Albumin 1.8 L Globulin Albumin/Globulin Ratio 0.6 L Urine Protein Urine Occult Blood Ur Leukocyte Esterase Urine RBC Urine WBC Urine Bacteria 11/21/17 11/21/17 11/21/17 15:15 03:55 03:55 WBC 22.1 H RBC 3.06 L Hgb 9.9 L Hct 28.7 L RDW 15.7 H Plt Count 692 H MPV 6.5 L Gran % Lymph % (Auto) Gran # Lymph # (Auto) Cocke # (Auto) Seg Neutrophils % 83 H Lymphocytes % 6 L Metamyelocytes % 1 H WBC Morphology Abnorm A Toxic Granulation 1+ A Platelet Estimate Increased A RBC Morphology Abnorm A Anisocytosis 1+ A Sodium Potassium 5.4 H Chloride Carbon Dioxide 15 L Anion Gap BUN 154 H* Creatinine 6.9 H* Glucose 153 H Uric Acid 12.7 H Calcium 8.0 L Phosphorus 5.5 H Iron 28 L TIBC 144 L Transferrin % Sat 19 L AST 41 H Alkaline Phosphatase Total Creatine Kinase NT-Pro-B Natriuret Pep Total Protein 5.1 L Total Protein (PEP) Albumin 2.0 L Globulin Albumin/Globulin Ratio 0.6 L Urine Protein Urine Occult Blood Ur Leukocyte Esterase Urine RBC Urine WBC Urine Bacteria 11/20/17 11/20/17 11/20/17 16:59 13:47 11:15 WBC RBC Hgb Hct RDW Plt Count MPV Gran % Lymph % (Auto) Gran # Lymph # (Auto) Cocke # (Auto) Seg Neutrophils % Lymphocytes % Metamyelocytes % WBC Morphology Toxic Granulation Platelet Estimate RBC Morphology Anisocytosis Sodium 130 L 129 L Potassium 6.1 H* 7.4 H* Chloride 95 L Carbon Dioxide 11 L 12 L Anion Gap 19.0 H 22.0 H BUN 157 H* 161 H* Creatinine 7.1 H* 7.4 H* Glucose 160 H 180 H Uric Acid Calcium Phosphorus Iron TIBC Transferrin % Sat AST 50 H Alkaline Phosphatase 135 H Total Creatine Kinase NT-Pro-B Natriuret Pep 1673.0 H Total Protein Total Protein (PEP) Albumin Globulin 4.1 H Albumin/Globulin Ratio 0.8 L Urine Protein >=500 A Urine Occult Blood >=1.0 A Ur Leukocyte Esterase 500 A Urine RBC 10 H Urine WBC > 182 H Urine Bacteria Many A 11/20/17 11:15 WBC 32.0 H* RBC 4.13 L Hgb 12.7 L Hct 38.4 L RDW 15.6 H Plt Count 1222 H* MPV 6.9 L Gran % 94.0 H Lymph % (Auto) 1.1 L Gran # 30.1 H Lymph # (Auto) 0.4 L Cocke # (Auto) 1.6 H Seg Neutrophils % Lymphocytes % Metamyelocytes % WBC Morphology Toxic Granulation Platelet Estimate RBC Morphology Anisocytosis Sodium Potassium Chloride Carbon Dioxide Anion Gap BUN Creatinine Glucose Uric Acid Calcium Phosphorus Iron TIBC Transferrin % Sat AST Alkaline Phosphatase Total Creatine Kinase NT-Pro-B Natriuret Pep Total Protein Total Protein (PEP) Albumin Globulin Albumin/Globulin Ratio Urine Protein Urine Occult Blood Ur Leukocyte Esterase Urine RBC Urine WBC Urine Bacteria Meds: Medications Acetaminophen (Tylenol) 650 mg PO Q4-6HP PRN PRN Reason: PAIN/FEVER > 101 Last Admin: 11/22/17 14:35 Dose: 650 mg Bacitracin (Bacitracin Topical Oint) 1 dose TOPICAL BID [facility] Last Admin: 11/22/17 22:11 Dose: 1 pkg Ceftriaxone Sodium (Rocephin) 2 gm IV DAILY [facility] Last Admin: 11/23/17 09:39 Dose: 2 gm Cyanocobalamin (Vitamin B-12) 1,000 mcg PO BID [facility] Stop: 11/25/17 09:01 Last Admin: 11/23/17 09:30 Dose: 1,000 mcg Docusate Sodium (Colace) 100 mg PO BID [facility] Last Admin: 11/23/17 09:32 Dose: Not Given Folic Acid (Folic Acid) 1 mg PO DAILY [facility] Last Admin: 11/23/17 09:31 Dose: 1 mg Heparin Sodium (Porcine) (Heparin) 5,000 unit SQ Q12 [facility] Last Admin: 11/23/17 09:30 Dose: 5,000 unit Hydromorphone HCl (Dilaudid) 1 mg IV Q4-6HP PRN PRN Reason: PAIN LEVEL > 6 Acetaminophen (Ofirmev) 1,000 mg in 100 mls @ 200 mls/hr IV Q6HP PRN PRN Reason: PAIN/FEVER > 101 Norepinephrine Bitartrate 16 (mg/ Sodium Chloride) 250 mls @ 9.37 mls/hr IV Q24HP PRN; Protocol; 10 MCG/MIN PRN Reason: Blood Pressure Sodium Chloride (Sodium Chloride 0.9%) 250 mls @ 20 mls/hr IV .[id number] [facility] Last Admin: 11/23/17 06:04 Dose: Not Given Iron Carb/Multivit/Nathrop/Folic Acid (Multivitamin W/Minerals) 1 tab PO DAILY [facility] Last Admin: 11/23/17 09:31 Dose: 1 tab Ondansetron HCl (Zofran) 4 mg IV Q4-6HP PRN PRN Reason: Nausea And Vomiting Senna/Docusate Sodium (Senna Plus Tablet) 1 tab PO HS [facility] Last Admin: 11/22/17 22:09 Dose: Not Given Simethicone (Mylicon) 80 mg CHEWED QIDP PRN PRN Reason: Dyspepsia Last Admin: 11/21/17 23:06 Dose: 80 mg Sodium Chloride (Saline Flush) 10 ml IV Q8 [facility] Last Admin: 11/23/17 06:05 Dose: Not Given Medical - PN: A/P - Time Spent With Patient Total time spent is greater than 50% in coordination of care (as documented) at patient's floor/unit and/or counseling patient: - Narrative A/P Narrative: [id number] with a history of NYHA class III systolic heart failure with EF 20% and chronic renal disease admitted with acute on chronic renal failure/uremia encephalopathy/severe sepsis/complicated UTI and bilateral lower extremity cellulitis/sacral ulcers after he was found down by his neighbor Acute renal failure-patient has metabolic acidosis and uremia. Has declined dialysis so far. Is making urine. Appreciate nephrology help in management. Hyperkalemia resolved Uremia-BUN level is high, patient has declined dialysis so far. Metabolic acidosis-off bicarb drip patient is able to maintain his bicarb level now. Lower extremity cellulitis-topical antibiotics with bacitracin, appreciate wound care help with Dr. Timmons. Should patient's WBC count worsen I will change antibiotics to add MRSA coverage and possible anaerobic coverage. [ Patient wounds were covered in feces] Urinary tract infection-Proteus UTI-patient is on Rocephin for same. Continue. Sacral ulcer-wound care management Thrombocytosis-reactive clinically improving Anemia-due to sepsis and anemia of chronic disease continue to monitor stable no indication of transfusion yet. Congestive heart failure-patient has a history of CHF with ejection fraction of 20%, echo done recently shows improved ejection fraction to around 50-55%. Patient is not fluid overloaded at present. DVT prophylaxis-heparin subcutaneous DO NOT RESUSCITATE CODE STATUS Medical - PN: Qual - Stroke Symptom Onset Unknown: No - VTE Deep Vein Thrombosis/Pulmonary Embolism Present on Admission: No
[2017-11-23] MEDS ORDERED: ACETAMINOPHEN 325 MG TABLET PO PRN (13:14)
[2017-11-23] MEDS ORDERED: ONDANSETRON 4 MG/2 ML VIAL IV PRN (13:14)
[2017-11-23] MEDS ORDERED: NOREPINEPHRINE BITARTRATE 16 MG in 0.9 % SODIUM CHLORIDE 234 ML IV PRN (13:14)
[2017-11-23] MEDS ORDERED: ACETAMINOPHEN 1,000 MG/100 ML BOTTLE IV PRN (13:14)
[2017-11-23] MEDS ORDERED: SIMETHICONE 80 MG TAB.CHEW CHEWED PRN (13:14)
[2017-11-23] MEDS: BACITRACIN TOPICAL OINT 15 GM TUBE TOPICAL SCH ×2 (14:58→20:58)
[2017-11-23] MEDS ORDERED: MAGNESIUM SULFATE 8.12 MEQ/2 ML VIAL IV ONE (16:02)
[2017-11-23] MEDS ORDERED: AMIODARONE 150 MG in DEXTROSE 5% IN WATER 50 ML IV ONE (16:03)
[2017-11-23] MEDS: AMIODARONE 360 MG in PREMIX 1 BAG IV SCH ×3 (16:17→22:01)
[2017-11-23] MEDS ORDERED: ASPIRIN 81 MG TAB.CHEW CHEWED ONE (16:21)
--- NOTE | 2017-11-23 16:35 | Event Note ---
I was notified that the patient was havinga wide complex rhythm on the tele monitor BP was stable, pt asymptomatic On my eval, the patient had recently had a bowel movement, had some chest tightness during that time, but besides that had no complaints, no chest pain, no dizziness, no headache or palpitations HR on monitor ranged from 150-190, wide complex, regular rhythm. EKG confirmed sustained ventricular tachycardia Patient bp was 80-90 systolic, MAP > 60-60, pt had no symptoms Pt is a do not code, therefore code was not called Patient good air entry bilaterally, no wheezing S1,s2 heard, tachycardic rate. mental status [id number] Patient was given amiodarone 150m g bolus and then started on amiodarone drip at 1mg /kg x 6 hrs, then 0.5mg kg x 18 hrs Patient also got magnesium sulphate 2 gms Patient converted to sinus rhytm EKG done post event shows st depression in lateral leads, which are new from admission, labs ordered ASA and metoprolol ordered Reviewed with the patient need to transfer to higher center where there is a relations specialist, the patient declined the request. He understands that there is no relations specialist in this hospital and he is at risk of if he does not get the necessary interventions. He verbalized understanding and asked me not to transfer notes he has been in worse health before The patient has been admitted to the hospital with severe renal failure, and kirby lower extremity wounds decub ulcers, has delined dialysis despite having very high bun. Pt has a son in [facility], who is estranged from him, I believe there is a daughter in [place] Will try to get in touch with family to give an update. await labs, consider treatment of nstemi with medical management.
[2017-11-23 16:49] LABS: Basophils # (Auto) 0 K/mcL (0.0-0.3); Basophils % (Auto) 0 % (0.0-2.0); Eosinophils # (Auto) 0.4 K/mcL (0.0-0.7); Eosinophils % (Auto) 2.7 % (0.0-7.0); Granulocytes % (Auto) 88.9 % (38.0-78.0); Lymphocytes # (Auto) 0.4 K/mcL (1.5-4.8); Lymphocytes % (Auto) 2.2 % (15.5-49.0); Mean Cell Volume 92.6 fL (80.0-100.0); Mean Corpuscular HGB Conc 33.7 g/dL (31.0-36.0); Mean Corpuscular Hemoglobin 31.2 pg (26.0-34.0); Monocytes % (Auto) 6.2 % (1.0-12.0); Platelet Count 626 K/mcL (140-440); RBC 3.01 M/mcL (4.50-5.90); Red Cell Distribution Width 15.1 % (11.5-14.5)
[2017-11-23 17:19] LABS: ALT/SGPT 22 U/l (0-40); Albumin 1.8 gm/dL (3.2-5.2); Albumin/Globulin Ratio 0.5 (1.0-2.3); Alkaline Phosphatase 86 U/L (39-117); Bilirubin,Direct < 0.2 mg/dL (0.0-0.3); Blood Urea Nitrogen 133 mg/dl (8-23); Gamma Glutamyl Transpeptidase 11 U/L (8-61); Uric Acid 12.7 mg/dL (2.5-8.0)
[2017-11-23] MEDS: METOPROLOL TARTRATE 25 MG TABLET PO SCH ×2 (17:42→20:54)
[2017-11-23] MEDS: HYDROmorphone 2 MG/ML VIAL IV PRN (18:54)
[2017-11-23] MEDS: SENNOSIDES/DOCUSATE SODIUM 1 TAB TABLET PO SCH (20:55)
[2017-11-23] MEDS ORDERED: PREMIX 2 BAG IV ONE (21:49)
[2017-11-23] MEDS ORDERED: AMIODARONE 360 MG/200 ML BAG IV ONE (21:51)
[2017-11-23 22:04] LABS: ALT/SGPT 20 U/l (0-40); Albumin/Globulin Ratio 0.6 (1.0-2.3); Alkaline Phosphatase 89 U/L (39-117); Bilirubin,Direct < 0.2 mg/dL (0.0-0.3); Blood Urea Nitrogen 130 mg/dl (8-23); Gamma Glutamyl Transpeptidase 18 U/L (8-61); Uric Acid 12.4 mg/dL (2.5-8.0)
[2017-11-24] MEDS: 0.9 % SODIUM CHLORIDE 250 ML IV SCH ×4 (04:01→15:19)
[2017-11-24] MEDS: AMIODARONE 360 MG in PREMIX 1 BAG IV SCH ×6 (04:02→21:08)
[2017-11-24] MEDS: 0.9 % SODIUM CHLORIDE 10 ML SYRINGE IV SCH ×3 (05:34→21:06)
[2017-11-24 05:56] LABS: Mean Cell Volume 94.3 fL (80.0-100.0); Mean Corpuscular HGB Conc 33.9 g/dL (31.0-36.0); Platelet Count 516 K/mcL (140-440); RBC 2.84 M/mcL (4.50-5.90); Red Cell Distribution Width 15.3 % (11.5-14.5)
[2017-11-24 06:33] LABS: ALT/SGPT 20 U/l (0-40); Albumin 1.9 gm/dL (3.2-5.2); Albumin/Globulin Ratio 0.6 (1.0-2.3); Alkaline Phosphatase 92 U/L (39-117); Bilirubin,Direct < 0.2 mg/dL (0.0-0.3); Blood Urea Nitrogen 131 mg/dl (8-23); Gamma Glutamyl Transpeptidase 17 U/L (8-61); Uric Acid 12.7 mg/dL (2.5-8.0)
[2017-11-24 06:50] LABS: Anisocytosis 1+ (NONE SEEN); Band Neutrophils % 3 % (0-10); Eosinophils % (Manual) 2 % (0-7); Lymphocytes % 2 % (15-49); Metamyelocytes % 2 % (0-0); Monocytes % (Manual) 10 % (1-12); Platelet Estimate INCREASED (NORMAL); RBC Morphology ABNORM (NORMAL); Segmented Neutrophils % 81 % (38-78)
[2017-11-24] MEDS ORDERED: POTASSIUM CHLORIDE 20 MEQ PACKET PO ONE (07:02)
--- NOTE | 2017-11-24 07:26 | Nephrology Progress Note ---
Subjective Patient information: Note initiated : 11/24/17 at 7:24 am Patient: Carlos Abraham is an [id number] male with chronic kidney disease stage 3, hypertension, chronic systolic heart failure (Echo on 09/13/15: LVEF 20%, severe global systolic dysfunction, moderate and probably passive pulmonary hypertension), admitted on 11/20/17. Chief Complaint: Found down. Principal diagnosis: Acute on chronic renal failure Interval history: Episode of ventricular tachycardia with hypotension, resolved. Pertinent ROS: Wants to have milk. "One day at a time" Weakness. Objective - Vital Signs Vital signs: Vital Signs Temp Pulse Resp BP Pulse Ox 11/24/17 04:01 63 10 L 108/54 95 11/24/17 04:00 64 11 L 95 11/24/17 03:46 58 L 12 113/52 95 11/24/17 03:31 63 11 L 112/50 94 11/24/17 03:16 59 L 10 L 108/52 95 11/24/17 03:02 59 L 13 95 11/24/17 03:01 59 L 10 L 107/48 96 11/24/17 03:00 60 11 L 96 11/24/17 02:46 60 12 111/51 97 11/24/17 02:31 61 10 L 115/54 96 11/24/17 02:16 61 16 111/50 97 11/24/17 02:01 10 L 118/47 11/24/17 02:00 65 19 98 11/24/17 01:46 65 20 109/55 96 11/24/17 01:31 60 10 L 100/53 97 11/24/17 01:16 60 12 107/51 97 11/24/17 01:01 62 11 L 116/53 97 11/24/17 01:00 63 18 97 11/24/17 00:46 64 11 L 115/57 95 11/24/17 00:31 59 L 18 108/49 95 11/24/17 00:16 59 L 11 L 106/56 96 11/24/17 00:01 60 11 L 105/51 95 11/24/17 00:00 59 L 11 L 95 11/23/17 23:46 61 13 104/53 94 11/23/17 23:31 60 12 102/51 98 11/23/17 23:16 61 12 106/51 97 04/14/18 23:01 62 11 L 107/55 97 14/18 23:00 62 10 L 97 14/18 22:46 64 13 113/56 95 14/18 22:31 64 12 112/56 94 14/18 22:16 61 13 116/56 95 14/18 22:01 60 14 110/53 94 14/18 22:00 60 10 L 94 14/18 21:46 61 10 L 106/52 95 14/18 21:31 63 10 L 113/52 96 14/18 21:16 62 10 L 107/50 94 14/18 21:01 65 12 105/50 94 14/18 21:00 65 9 L 95 14/18 20:46 68 15 107/53 96 14/18 20:32 65 10 L 95 14/18 20:31 65 11 L 113/53 95 14/18 20:16 68 18 113/53 95 14/18 20:01 67 12 115/56 97 14/18 20:00 67 12 95 14/18 19:59 94 14/18 19:46 66 20 113/54 95 14/18 19:31 63 11 L 115/56 93 14/18 19:16 66 12 118/57 93 14/18 19:01 65 11 L 123/67 95 14/18 18:46 66 20 117/60 97 14/18 18:31 63 19 123/62 97 14/18 18:16 70 19 133/67 96 14/18 18:01 80 19 134/61 95 14/18 18:00 78 16 96 14/18 17:46 76 16 136/48 95 14/18 17:31 78 23 H 123/67 95 14/18 17:16 81 20 122/59 93 14/18 17:01 86 17 128/55 94 14/18 17:00 83 26 H 95 14/18 16:46 80 21 139/58 95 /14/18 16:31 87 21 115/70 95 14/18 16:16 87 21 132/55 95 14/18 16:06 89 14 137/62 93 04/14/18 16:04 87 22 131/103 91 11/23/17 16:01 98.8 F 89 18 126/94 94 11/23/17 16:00 101 H 19 94 11/23/17 15:57 58 L 16 84/68 94 11/23/17 15:56 19 86/49 11/23/17 15:00 89 20 94 11/23/17 14:00 97 H 20 93 11/23/17 13:02 88 16 97 11/23/17 13:01 90 17 124/64 97 11/23/17 12:02 98.7 F 89 13 97 11/23/17 12:01 89 15 114/57 96 11/23/17 11:01 87 15 130/59 94 11/23/17 10:01 94 H 27 H 131/67 92 11/23/17 09:01 99 H 21 111/65 96 11/23/17 08:01 99.2 F H 92 H 15 104/43 93 Intake and Output 11/23/17 11/24/17 11/24/17 21:59 05:59 13:59 Intake Total 53 / 53 200 / 200 Output Total 500 / 500 Balance 53 / 53 -300 / -300 Intake: IV 53 / 53 200 / 200 Cordarone 150 mg In Dextrose 5% 53 / 53 in Water 50 ml @ 300 mls/hr IV ONCE ONE Rx#:[id number] Nexterone 360 mg In Premix 1 200 / 200 Bag @ 1 MG/MIN 33.33 mls/hr IV .Q6H1M [facility] Rx#:[id number] Output: Urine Catheter Amount 500 / 500 Other: Stool Size Moderate Stool Color Brown Stool Consistency Watery Weight 220 lb Intake & Output: Intake & Output 11/23/17 11/24/17 11/24/17 21:59 05:59 13:59 Intake Total 53 / 53 200 / 200 Output Total 500 / 500 Balance 53 / 53 -300 / -300 Weight 220 lb Intake: IV 53 / 53 200 / 200 Cordarone 150 mg In Dextrose 5% 53 / 53 in Water 50 ml @ 300 mls/hr IV ONCE ONE Rx#:[id number] Nexterone 360 mg In Premix 1 200 / 200 Bag @ 1 MG/MIN 33.33 mls/hr IV .Q6H1M [facility] Rx#:[id number] Output: Urine Catheter Amount 500 / 500 Other: Stool Size Moderate Stool Color Brown Stool Consistency Watery - General Appearance General appearance: chronically ill, frail EENT: mucous membranes moist Neck: supple Respiratory: course breath sounds Cardiology: edema, normal S1, normal S2 Gastrointestinal: no tenderness Integumentary: ecchymotic, skin tear Neurologic: no focal deficit Musculoskeletal: no cyanosis Psychiatric: mood/affect appropriate, cooperative - Lab 11/24/17 04:20 11/24/17 04:20 Most recent lab results Calcium 7.9 mg/dl (8.6-10.4) L 11/24/17 04:20 Phosphorus 6.5 mg/dL (2.7-4.5) H* 11/24/17 04:20 Magnesium 3.0 mg/dL (1.6-2.5) H 11/24/17 04:20 Assessment and Plan (1) ATN (acute tubular necrosis) Acute kidney injury, likely acute tubular necrosis, associated with initial oliguria, hyperkalemia, high anion-gap metabolic acidosis, hyponatremia, and acute Proteus mirabilis cystitis, present on arrival. Work up: Renal US on 11/20/17: Mildly echogenic renal parenchyma bilaterally which indicates chronic medical renal disease. Cholelithiasis. Progress: Declined hemodialysis. Hyperkalemia, high anion-gap metabolic acidosis, hyponatremia, resolved. Last 24 hours: Episode of ventricular tachycardia with hypotension on 11/23/17, resolved. Serum creatinine decreased from 5.9 to 5.7 in the past 24 hours, after a bump due to hypotension. Urine output 500 ml reported. Prognosis: Poor. Plan: The patient wants to drink milk. Diet changed to regular with Renvela 1600 mg with meals. Status: Acute Priority: High
[2017-11-24] MEDS: HEPARIN 5,000 UNIT/ML VIAL SQ SCH ×2 (08:39→20:43)
[2017-11-24] MEDS: METOPROLOL TARTRATE 25 MG TABLET PO SCH ×2 (08:40→20:44)
[2017-11-24] MEDS: MULTIVIT,THER IRON,CA,FA & MIN 1 TABLET PO SCH (08:40)
[2017-11-24] MEDS: FOLIC ACID 1 MG TABLET PO SCH (08:40)
[2017-11-24] MEDS: ASPIRIN 81 MG TAB.CHEW PO SCH (08:40)
[2017-11-24] MEDS: CYANOCOBALAMIN (VITAMIN B-12) 500 MCG TABLET PO SCH ×2 (08:40→20:44)
[2017-11-24] MEDS: BACITRACIN TOPICAL OINT 15 GM TUBE TOPICAL SCH ×2 (08:41→20:44)
[2017-11-24] MEDS: DOCUSATE SODIUM 100 MG CAPSULE PO SCH ×2 (08:41→20:44)
[2017-11-24] MEDS: cefTRIAXone 2 GM VIAL IV SCH (08:41)
--- NOTE | 2017-11-24 10:31 | Internal Med Progress Note ---
Medical - PN: Subj Patient information: Note initiated : 11/24/17 at 10:23 am Service Date, if different from initiated Date: [] Patient: Carlos Abraham 87 y/o M admitted on 11/20/17 for Weakness/UTI Symptoms , BLE/Renal Failure. Chief Complaint: [] Interval history: Mr. Abraham is a 87 year old M who lives by himself and carries a history of cardiomyopathy with an EF 20% and history of chronic kidney disease and hypertension. He has stopped following up with his primary care physician over the last year and a half and has not been taking any medications. Patient has been barely able to manage activities of daily living. Over the last few weeks he has been getting progressively weak. He has been experiencing multiple episodes of diarrhea with progression of weakness to the point he could barely walk. He has been unable to fix his own meals recently. Even normal activities including walking from room to the bathroom has become an uphill task and twice he sustained a fall and has remained on the floor for a prolonged period of time. He was discovered by his neighbor today on the floor smeared and stool, lethargic. Subsequently was brought in to [facility] ER by EMS. patient was enough horrifying state most of the body covered in feces,extremely poor hygiene , bilateral lower extremity cellulitis/scabs and perineal ulcerations covered in feces. Initial workup was significant for BUN over 160 creatinine over 7 and potassium 7.7. White count over 32,000. Nephrology was consulted and patient was started on crystalloids along with hypokalemia protocol. Blood cultures were drawn and antibiotics were administered. subsequently hospitalist service was consulted At the time of evaluation patient is awake and alert and able to answer most questions. He endorses to history as above. he denies fevers shaking chills, headache or photophobia. He denies chest pain or bloody stools weight loss, glandular swelling. Endorses to bilateral lower extremity weeping and red lesions along with scabs. He hasn't had a shower many days with profound weakness and inability to take care of self. He has a son who is estranged. he denies alcoholism or smoking. Denies changes in medication or substance abuse. 11/21-clinical improvement noted. White count down to 22,000.platelets down to 692. Proteus on UA.potassium down to 5.4 pounds 7.7. BUN 154 creatinine 6.9. Hemodialysis on hold. metabolic acidosis clinically improving on bicarbonate drip. Nephrology on board. start ertapenem. de-escalate based on sensitivities. Patient remains critically ill. Ongoing wound care for multiple areas of cellulitis/ulcers.map at goal. Off vasopressors. Await echocardiogram. 11/22-patient doing well. Ongoing wound care/renal failure management per specialists. Creatinine down to 6.3 with BUN down to 145. Potassium 3.7.white count down from 32->14. no overnight events including fever chills shortness of breath or telemetry events. Occasional PVCs.echo pending. More lucid and alert. Tolerating diet. Foleys draining clear urine.urine output over thousand cc in 24 hours. improving multiorgan failure. repeat echo shows 50-55% EF 11/23 Patient seen and examined, clinically doing well. White blood cell count slightly up trended today at 16 K but patient denies any acute symptoms. He denies chest pain shortness of breath headache dizziness. He does complain about left knee pain that started today after he was moved in bed. He does have history of gout but does not say that the knee pain is similar to that of a gout attack. He does complain about pain in his lower extremity due wounds. He is on Dilaudid which does not seem to be helping very much. Increase the dose of Dilaudid 1 mg. He has declined dialysis so far. Urinalysis shows UTI and is on appropriate antibiotics. Creatinine has improved BUN still high. Appreciate nephrology input, appreciate wound care input. 11/24 Patient seen and examined, doing well has no complaints. Episode of sustained V. tach yesterday with some low blood pressure but patient had otherwise no symptoms. Presently he is on amiodarone drip. I tried to review his goals of care with him today but the patient notes that he has been living with his broken body for many years and he just wants to take it one dated time. Not been able to get in touch with family yet. WBC count is trending down continue to monitor. Appreciate nephrology help patient has declined dialysis. BUN is still quite high. Pertinent ROS: Denies headache, dizziness Denies chest pain, palpitations Denies cough or shortness of breath Denies abdominal pain, nausea or vomiting. - Constitutional Vitals: Vital Signs Temp Pulse Resp BP Pulse Ox 98.8 F 63 10 L 108/54 95 11/23/17 16:01 11/24/17 04:01 11/24/17 04:01 11/24/17 04:01 11/24/17 04:01 Period Temp Pulse Resp BP Sys/Ferris Pulse Ox Last 24 Hr 98.7 F-98.8 F 58-101 9-26 84-139/47-103 91-98 Intake and Output 11/23/17 11/24/17 11/24/17 21:59 05:59 13:59 Intake Total 53 / 53 200 / 200 Output Total 500 / 500 Balance 53 / 53 -300 / -300 Weight 220 lb Intake & Output: Intake & Output 11/23/17 11/24/17 11/24/17 21:59 05:59 13:59 Intake Total 53 / 53 200 / 200 Output Total 500 / 500 Balance 53 / 53 -300 / -300 Weight 220 lb Intake: IV 53 / 53 200 / 200 Cordarone 150 mg In Dextrose 5% 53 / 53 in Water 50 ml @ 300 mls/hr IV ONCE ONE Rx#:[id number] Nexterone 360 mg In Premix 1 200 / 200 Bag @ 1 MG/MIN 33.33 mls/hr IV .Q6H1M [facility] Rx#:[id number] Output: Urine Catheter Amount 500 / 500 Other: Stool Size Moderate Stool Color Brown Stool Consistency Watery Exam: Constitutional; Afebrile, cooperative, alert, not in distress. Eyes- No icterus, , No periorbital swelling Ears- Ext ear normal, hearing normal to conversation. Neck- Midline trachea, supple Respiratory system: Air Entry equal on both sides, No crackles or wheezing, no rhonchi. CVS- Rate rhythm regular, S1,S2 heard, no gallop, no rub. Abdomen- Soft nontender abdomen, no organomegaly, no tenderness, no guarding or rigidity, CURRICULUM DIRECTOR- AOOx3, moving all extremities, no gross focal deficit noted. Lower extremities covered and dressed Medical - PN: Obj Da - Labs CBC & Chem 7: 11/24/17 04:20 11/24/17 04:20 Labs: Abnormal Lab Results 11/24/17 11/24/17 11/23/17 04:20 04:20 20:42 WBC 14.5 H RBC 2.84 L Hgb 9.1 L Hct 26.8 L RDW 15.3 H Plt Count 516 H MPV 6.8 L Gran % Lymph % (Auto) Gran # Lymph # (Auto) [place] # (Auto) Seg Neutrophils % 81 H Lymphocytes % 2 L Metamyelocytes % 2 H Platelet Estimate Increased A RBC Morphology Abnorm A Anisocytosis 1+ A Carbon Dioxide Anion Gap BUN 131 H* 130 H* Creatinine 5.7 H* 5.6 H* Glucose 122 H 159 H Uric Acid 12.7 H 12.4 H Calcium 7.9 L 7.7 L Phosphorus 6.5 H* 6.0 H* Magnesium 3.0 H 3.0 H Iron TIBC Transferrin % Sat Lactate Dehydrogenase 263 H Total Creatine Kinase Troponin T Total Protein 5.2 L 5.1 L Total Protein (PEP) Albumin 1.9 L 2.0 L Albumin/Globulin Ratio 0.6 L 0.6 L 11/23/17 11/23/17 11/23/17 20:42 16:13 16:13 WBC RBC Hgb Hct RDW Plt Count MPV Gran % Lymph % (Auto) Gran # Lymph # (Auto) [place] # (Auto) Seg Neutrophils % Lymphocytes % Metamyelocytes % Platelet Estimate RBC Morphology Anisocytosis Carbon Dioxide Anion Gap BUN 133 H* Creatinine 5.5 H* Glucose 179 H Uric Acid 12.7 H Calcium 7.8 L Phosphorus 5.7 H Magnesium 2.7 H Iron TIBC Transferrin % Sat Lactate Dehydrogenase Total Creatine Kinase Troponin T 0.07 H* 0.06 H* Total Protein 5.2 L Total Protein (PEP) Albumin 1.8 L Albumin/Globulin Ratio 0.5 L 11/23/17 11/23/17 11/23/17 16:13 04:39 04:39 WBC 16.6 H 16.8 H RBC 3.01 L 2.90 L Hgb 9.4 L 9.2 L Hct 27.9 L 27.4 L RDW 15.1 H 15.3 H Plt Count 626 H 569 H MPV 6.9 L 6.8 L Gran % 88.9 H Lymph % (Auto) 2.2 L Gran # 14.8 H Lymph # (Auto) 0.4 L [place] # (Auto) 1.0 H Seg Neutrophils % 90 H Lymphocytes % 1 L Metamyelocytes % 2 H Platelet Estimate Increased A RBC Morphology Anisocytosis Carbon Dioxide Anion Gap BUN 140 H* Creatinine 5.9 H* Glucose 152 H Uric Acid 12.2 H Calcium 7.7 L Phosphorus 6.5 H* Magnesium Iron TIBC Transferrin % Sat Lactate Dehydrogenase Total Creatine Kinase Troponin T Total Protein 4.9 L Total Protein (PEP) Albumin 2.1 L Albumin/Globulin Ratio 0.8 L 11/22/17 11/22/17 11/22/17 16:45 03:57 03:57 WBC 14.0 H RBC 2.84 L Hgb 9.0 L Hct 26.6 L RDW 15.3 H Plt Count 580 H MPV 6.7 L Gran % Lymph % (Auto) Gran # Lymph # (Auto) [place] # (Auto) Seg Neutrophils % 89 H Lymphocytes % 2 L Metamyelocytes % 1 H Platelet Estimate Increased A RBC Morphology Anisocytosis Carbon Dioxide 21 L Anion Gap BUN 139 H* 145 H* Creatinine 6.0 H* 6.3 H* Glucose 152 H 152 H Uric Acid 12.3 H Calcium 7.6 L 7.5 L Phosphorus 6.0 H* Magnesium Iron TIBC Transferrin % Sat Lactate Dehydrogenase Total Creatine Kinase 268 H Troponin T Total Protein 4.7 L Total Protein (PEP) 4.2 L Albumin 1.8 L Albumin/Globulin Ratio 0.6 L 11/21/17 11/21/17 15:15 15:15 WBC RBC Hgb Hct RDW Plt Count MPV Gran % Lymph % (Auto) Gran # Lymph # (Auto) [place] # (Auto) Seg Neutrophils % Lymphocytes % Metamyelocytes % Platelet Estimate RBC Morphology Anisocytosis Carbon Dioxide 18 L Anion Gap 17.0 H BUN 147 H* Creatinine 6.5 H* Glucose 178 H Uric Acid Calcium 7.9 L Phosphorus Magnesium Iron 28 L TIBC 144 L Transferrin % Sat 19 L Lactate Dehydrogenase Total Creatine Kinase Troponin T Total Protein Total Protein (PEP) Albumin Albumin/Globulin Ratio Meds: Medications Acetaminophen (Tylenol) 650 mg PO Q4-6HP PRN PRN Reason: PAIN/FEVER > 101 Aspirin (Aspirin) 81 mg PO DAILY [facility] Last Admin: 11/24/17 08:40 Dose: 81 mg Bacitracin (Bacitracin Topical Oint) 1 dose TOPICAL BID [facility] Last Admin: 11/24/17 08:41 Dose: 1 dose Ceftriaxone Sodium (Rocephin) 2 gm IV DAILY [facility] Last Admin: 11/24/17 08:41 Dose: 2 gm Cyanocobalamin (Vitamin B-12) 1,000 mcg PO BID [facility] Stop: 11/25/17 09:01 Last Admin: 11/24/17 08:40 Dose: 1,000 mcg Docusate Sodium (Colace) 100 mg PO BID [facility] Last Admin: 11/24/17 08:41 Dose: 100 mg Folic Acid (Folic Acid) 1 mg PO DAILY [facility] Last Admin: 11/24/17 08:40 Dose: 1 mg Heparin Sodium (Porcine) (Heparin) 5,000 unit SQ Q12 [facility] Last Admin: 11/24/17 08:39 Dose: 5,000 unit Hydromorphone HCl (Dilaudid) 1 mg IV Q4-6HP PRN PRN Reason: PAIN LEVEL > 6 Last Admin: 11/23/17 18:54 Dose: 1 mg Norepinephrine Bitartrate 16 (mg/ Sodium Chloride) 250 mls @ 9.37 mls/hr IV Q24HP PRN; Protocol; 10 MCG/MIN PRN Reason: Blood Pressure Sodium Chloride (Sodium Chloride 0.9%) 250 mls @ 20 mls/hr IV .[id number] [facility] Last Admin: 11/24/17 04:01 Dose: Not Given Acetaminophen (Ofirmev) 1,000 mg in 100 mls @ 200 mls/hr IV Q6HP PRN PRN Reason: PAIN/FEVER > 101 Sodium Chloride (Sodium Chloride 0.9%) 250 mls @ 20 mls/hr IV .[id number] [facility] Last Admin: 11/24/17 04:01 Dose: Not Given AMIODARONE 360 mg/ Premix 200 mls @ 33.33 mls/hr IV .Q6H1M [facility]; 1 MG/MIN PRN Reason: Protocol Last Admin: 11/24/17 09:40 Dose: 0.5 mg/min, 16.66 mls/hr AMIODARONE 360 mg/ Premix 200 mls @ 16.66 mls/hr IV .Q12H1M [facility]; 0.5 MG/MIN PRN Reason: Protocol Last Admin: 11/23/17 21:52 Dose: 0.5 mg/min, 16.66 mls/hr Iron Carb/Multivit/Dodge/Folic Acid (Multivitamin W/Minerals) 1 tab PO DAILY [facility] Last Admin: 11/24/17 08:40 Dose: 1 tab Metoprolol Tartrate (Lopressor) 12.5 mg PO BID [facility] Last Admin: 11/24/17 08:40 Dose: 12.5 mg Ondansetron HCl (Zofran) 4 mg IV Q4-6HP PRN PRN Reason: Nausea And Vomiting Senna/Docusate Sodium (Senna Plus Tablet) 1 tab PO HS [facility] Last Admin: 11/23/17 20:55 Dose: Not Given Simethicone (Mylicon) 80 mg CHEWED QIDP PRN PRN Reason: Dyspepsia Sodium Chloride (Saline Flush) 10 ml IV Q8 [facility] Last Admin: 11/24/17 05:34 Dose: Not Given Medical - PN: A/P - Time Spent With Patient Total time spent is greater than 50% in coordination of care (as documented) at patient's floor/unit and/or counseling patient: - Narrative A/P Narrative: [id number] with a history of NYHA class III systolic heart failure with EF 20% and chronic renal disease admitted with acute on chronic renal failure/uremia encephalopathy/severe sepsis/complicated UTI and bilateral lower extremity cellulitis/sacral ulcers after he was found down by his neighbor Acute renal failure-patient has metabolic acidosis and uremia. Has declined dialysis so far. Is making urine. Appreciate nephrology help in management. Hyperkalemia resolved Sustained Ventricular Tachycardia: GIven that pt was found down, likely may have had cardiac event, none the less pt is refusing transfer to higher center. trop x 2 mildy increased, started on beta blockers and asa, ( was on same in the past) echo reviewed, started on amiodarone. Uremia-BUN level is high, patient has declined dialysis so far. Metabolic acidosis-off bicarb drip patient is able to maintain his bicarb level now. Lower extremity cellulitis-topical antibiotics with bacitracin, appreciate wound care help with Dr. Timmons. Should patient's WBC count worsen I will change antibiotics to add MRSA coverage and possible anaerobic coverage. [ Patient wounds were covered in feces] Urinary tract infection-Proteus UTI-patient is on Rocephin for same. Continue. Sacral ulcer-wound care management Thrombocytosis-reactive clinically improving Anemia-due to sepsis and anemia of chronic disease continue to monitor stable no indication of transfusion yet. Congestive heart failure-patient has a history of CHF with ejection fraction of 20%, echo done recently shows improved ejection fraction to around 50-55%. Patient is not fluid overloaded at present. DVT prophylaxis-heparin subcutaneous DO NOT RESUSCITATE CODE STATUS Goals of care? Pt wants to take it one day at a time, not really committing to full treatment or hospice at this time, unable to get in touch with family. Will see how he does over the next few days, will need placement eventually. Medical - PN: Qual - Stroke Symptom Onset Unknown: No - VTE Deep Vein Thrombosis/Pulmonary Embolism Present on Admission: No
[2017-11-24] MEDS: HYDROmorphone 2 MG/ML VIAL IV PRN ×3 (12:30→21:37)
[2017-11-24] MEDS: SEVELAMER 800 MG TABLET PO SCH ×2 (12:33→17:47)
--- NOTE | 2017-11-24 13:38 | General Surgery Progress Note ---
Subjective Narrative: Note initiated : 11/24/17 at 1:36 pm Service Date, if different from initiated Date: [] Patient: Carlos Abraham 87 y/o M admitted on 11/20/17 for Weakness/UTI Symptoms , BLE/Renal Failure. Chief Complaint: []Patient seen with Subha PITTMAN and Dr. Valenzuela. Hospitalist Physician. WOUNDS EXAMINED. EVENT note of V tach , nstemi yesterday was noted. Patient declined dialysis and transfer to a hospital for higher level of care. Objective Temp Pulse Resp BP Pulse Ox 98.1 F 74 19 111/54 97 11/24/17 11:24 11/24/17 07:16 11/24/17 11:24 11/24/17 11:24 11/24/17 11:24 Afebrile. AA ans lucid. Cooperative VSS NSR Abdomen is soft and NT Wounds of both LE are still moist with sero purulent drainage Right leg > Left leg. Most of the adherent eschar and slough has cleared with MIST treatment and local wound care. Sacral wound has non stageable black adherent eschar without crepitation . There is periwound rim of erythema around open areas of R/L legs and sacral necrotic skin eschar. - Additional Data Intake & Output - Last 24 hours: Intake & Output 11/22/17 11/23/17 11/24/17 11/25/17 05:59 05:59 05:59 05:59 Intake Total 2521 / 2521 2791 / 2791 304 / 304 120 / 120 Output Total 1000 / 1000 850 / 850 500 / 500 Balance 1521 / 1521 1941 / 1941 -196 / -196 120 / 120 Weight 220 lb 6.4 oz 221 lb 11.2 oz 220 lb - Labs 11/24/17 04:20 11/24/17 04:20 Diabetes panel 11/23/17 11/23/17 11/24/17 Range/Units 16:13 20:42 04:20 Sodium 140 140 142 (133-145) mmol/L Potassium 3.7 3.7 3.7 (3.3-5.1) mmol/L Chloride 103 103 103 (96-108) mmol/L Carbon Dioxide 22 22 23 (22-30) mmol/L BUN 133 H* 130 H* 131 H* (8-23) mg/dl Creatinine 5.5 H* 5.6 H* 5.7 H* (0.7-1.2) mg/dl Glucose 179 H 159 H 122 H (70-105) mg/dL Calcium 7.8 L 7.7 L 7.9 L (8.6-10.4) mg/dl AST 16 17 17 (0-37) U/l ALT 22 20 20 (0-40) U/l Alkaline Phosphatase 86 89 92 (39-117) U/L Total Protein 5.2 L 5.1 L 5.2 L (5.9-8.4) gm/dL Albumin 1.8 L 2.0 L 1.9 L (3.2-5.2) gm/dL Triglycerides 116 104 105 (<150) mg/dl Calcium panel 11/23/17 11/23/17 11/24/17 Range/Units 16:13 20:42 04:20 Calcium 7.8 L 7.7 L 7.9 L (8.6-10.4) mg/dl Phosphorus 5.7 H 6.0 H* 6.5 H* (2.7-4.5) mg/dL Albumin 1.8 L 2.0 L 1.9 L (3.2-5.2) gm/dL Pituitary panel 11/23/17 11/23/17 11/24/17 Range/Units 16:13 20:42 04:20 Sodium 140 140 142 (133-145) mmol/L Potassium 3.7 3.7 3.7 (3.3-5.1) mmol/L Chloride 103 103 103 (96-108) mmol/L Carbon Dioxide 22 22 23 (22-30) mmol/L BUN 133 H* 130 H* 131 H* (8-23) mg/dl Creatinine 5.5 H* 5.6 H* 5.7 H* (0.7-1.2) mg/dl Glucose 179 H 159 H 122 H (70-105) mg/dL Calcium 7.8 L 7.7 L 7.9 L (8.6-10.4) mg/dl Adrenal panel 11/23/17 11/23/17 11/24/17 Range/Units 16:13 20:42 04:20 Sodium 140 140 142 (133-145) mmol/L Potassium 3.7 3.7 3.7 (3.3-5.1) mmol/L Chloride 103 103 103 (96-108) mmol/L Carbon Dioxide 22 22 23 (22-30) mmol/L BUN 133 H* 130 H* 131 H* (8-23) mg/dl Creatinine 5.5 H* 5.6 H* 5.7 H* (0.7-1.2) mg/dl Glucose 179 H 159 H 122 H (70-105) mg/dL Calcium 7.8 L 7.7 L 7.9 L (8.6-10.4) mg/dl Total Bilirubin 0.2 < 0.2 < 0.2 (0.0-1.0) mg/dL AST 16 17 17 (0-37) U/l ALT 22 20 20 (0-40) U/l Alkaline Phosphatase 86 89 92 (39-117) U/L Total Protein 5.2 L 5.1 L 5.2 L (5.9-8.4) gm/dL Albumin 1.8 L 2.0 L 1.9 L (3.2-5.2) gm/dL Assessment and Plan (1) Dermatitis associated with moisture from stool incontinence Status: Acute Current Visit: Yes (2) Dermatitis associated with moisture from urinary incontinence Status: Acute Current Visit: Yes (3) Renal failure Status: Acute Current Visit: Yes (4) UTI (urinary tract infection) Status: Acute Current Visit: Yes (5) Hyperkalemia Status: Acute Current Visit: Yes (6) Self-care deficit for hygiene Status: Acute Current Visit: Yes (7) Dehydration Status: Acute Current Visit: Yes (8) Skin breakdown Status: Acute Assessment and plan: Assessment: Skin break down and Ulcerations / Dermatitis both L E and Sacral area. Plan: Continue ongoing wound care with MIST treatments BID. Current Visit: Yes (9) Decubitus ulcer, buttock Status: Acute Assessment and plan: Assessment: NON STAGEABLE eschar over sacral area Will continue current management and change to SANTYL for chemical debridement. Slough / eschar over both LEGS has started to clear and underlying pale granulations and edematous area continue to drain lymphatic serous purulent drainage. Overall prognosis is POOR. Plan: ONCE a day MIST to open areas and slough of both legs and Topical Silvadene creme daily Santyl ointment to sacral dry necrotic eschar daily. Current Visit: Yes (10) Acute on chronic renal failure Status: Acute Current Visit: Yes - Time Spent With Patient Total time spent is greater than 50% in coordination of care (as documented) at patient's floor/unit and/or counseling patient: 25 - 35 minutes
[2017-11-24] MEDS: SILVER SULFADIAZINE CREAM.TOP 25GM TOPICAL SCH (14:00)
[2017-11-24] MEDS: COLLAGENASE TOP OINT TUBE 30GM TOPICAL SCH (14:01)
[2017-11-24] MEDS: AMIODARONE HCL 200 MG TABLET PO SCH (17:46)
[2017-11-24] MEDS: SENNOSIDES/DOCUSATE SODIUM 1 TAB TABLET PO SCH (20:44)
[2017-11-24] MEDS ORDERED: ACETAMINOPHEN 1,000 MG/100 ML BOTTLE IV ONE (22:00)
[2017-11-25] MEDS: 0.9 % SODIUM CHLORIDE 250 ML IV SCH ×4 (02:31→13:44)
[2017-11-25] MEDS: AMIODARONE 360 MG in PREMIX 1 BAG IV SCH ×6 (03:55→21:14)
[2017-11-25 05:03] LABS: Mean Corpuscular HGB Conc 34.2 g/dL (31.0-36.0); Mean Corpuscular Hemoglobin 32.5 pg (26.0-34.0); Platelet Count 527 K/mcL (140-440); RBC 2.78 M/mcL (4.50-5.90); Red Cell Distribution Width 15.1 % (11.5-14.5)
[2017-11-25] MEDS: 0.9 % SODIUM CHLORIDE 10 ML SYRINGE IV SCH ×3 (05:24→21:12)
[2017-11-25 05:39] LABS: ALT/SGPT 21 U/l (0-40); Albumin 1.7 gm/dL (3.2-5.2); Albumin/Globulin Ratio 0.5 (1.0-2.3); Alkaline Phosphatase 81 U/L (39-117); Bilirubin,Direct < 0.2 mg/dL (0.0-0.3); Blood Urea Nitrogen 124 mg/dl (8-23); Gamma Glutamyl Transpeptidase 14 U/L (8-61); Uric Acid 12.7 mg/dL (2.5-8.0)
[2017-11-25 06:21] LABS: Anisocytosis FEW (NONE SEEN); Eosinophils % (Manual) 2 % (0-7); Lymphocytes % 2 % (15-49); Monocytes % (Manual) 6 % (1-12); Platelet Estimate INCREASED (NORMAL); RBC Morphology ABNORM (NORMAL); Segmented Neutrophils % 90 % (38-78)
--- NOTE | 2017-11-25 07:29 | Nephrology Progress Note ---
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 Chief Complaint: Found down. Principal diagnosis: Acute on chronic renal failure Interval history: No significant problems overnight. Pertinent ROS: No new complaints. Weakness. Loss of appetite. Wounds. Edema. Objective - Vital Signs Vital signs: Vital Signs Temp Pulse Resp BP BP Pulse Ox 11/25/17 06:38 99.1 F H 17 110/49 94 11/25/17 04:01 99.0 F H 12 101/42 95 11/25/17 02:50 75 16 102/49 98 11/25/17 00:01 99.3 F H 68 11 L 97/51 100 11/24/17 21:21 99.2 F H 77 16 110/49 100 11/24/17 19:03 98 11/24/17 16:02 98.1 F 77 16 112/60 96 11/24/17 11:24 98.1 F 19 111/54 97 11/24/17 11:00 14 11/24/17 10:00 17 11/24/17 09:00 14 11/24/17 08:01 98.8 F 14 119/63 97 11/24/17 08:00 14 97 Intake and Output 11/24/17 11/25/17 11/25/17 21:59 05:59 13:59 Intake Total 650 / 650 360 / 360 Output Total 475 / 475 450 / 450 Balance 175 / 175 -90 / -90 Intake: IV 110 / 110 Nexterone 360 mg In Premix 1 110 / 110 Bag @ 1 MG/MIN 33.33 mls/hr IV .Q6H1M [facility] Rx#:[id number] Oral 540 / 540 360 / 360 Output: Urine Catheter Amount 475 / 475 450 / 450 Other: Meal Lunch Percent of Meal Consumed 50% Weight 224 lb 3.2 oz Intake & Output: Intake & Output 11/24/17 11/25/17 11/25/17 21:59 05:59 13:59 Intake Total 650 / 650 360 / 360 Output Total 475 / 475 450 / 450 Balance 175 / 175 -90 / -90 Weight 224 lb 3.2 oz Intake: IV 110 / 110 Nexterone 360 mg In Premix 1 110 / 110 Bag @ 1 MG/MIN 33.33 mls/hr IV .Q6H1M [facility] Rx#:[id number] Oral 540 / 540 360 / 360 Output: Urine Catheter Amount 475 / 475 450 / 450 Other: Meal Lunch Percent of Meal Consumed 50% - General Appearance General appearance: chronically ill, frail EENT: mucous membranes moist, hearing intact, vision intact Neck: no JVD, supple Respiratory: clear Cardiology: normal S1, normal S2 Gastrointestinal: no tenderness Integumentary: warm and dry Neurologic: no focal deficit Musculoskeletal: no erythema, no cyanosis Psychiatric: mood/affect appropriate, cooperative - Lab 11/25/17 03:18 11/25/17 03:18 Most recent lab results Calcium 7.8 mg/dl (8.6-10.4) L 11/25/17 03:18 Phosphorus 5.3 mg/dL (2.7-4.5) H 11/25/17 03:18 Magnesium 2.8 mg/dL (1.6-2.5) H 11/25/17 03:18 Assessment and Plan (1) ATN (acute tubular necrosis) Acute kidney injury, likely acute tubular necrosis, associated with initial oliguria, hyperkalemia, high anion-gap metabolic acidosis, hyponatremia, and acute Proteus mirabilis cystitis, present on arrival. Work up: Renal US on 11/20/17: Mildly echogenic renal parenchyma bilaterally which indicates chronic medical renal disease. Cholelithiasis. Progress: Declined hemodialysis. Hyperkalemia, high anion-gap metabolic acidosis, hyponatremia, resolved. Episode of ventricular tachycardia with hypotension on 11/23/17, resolved. Diet changed to regular with Renvela 1600 mg with meals. Last 24 hours: Serum creatinine decreased from 5.7 to 5.4 in the past 24 hours, after a bump due to hypotension. Urine output 925 ml reported. Discharge plan: Recommend SNF with renal panel every 2-3 days. Follow up at kidney and hypertension clinic every 1-2 weeks. Status: Acute Priority: High
[2017-11-25] MEDS: CYANOCOBALAMIN (VITAMIN B-12) 500 MCG TABLET PO SCH (08:32)
[2017-11-25] MEDS: AMIODARONE HCL 200 MG TABLET PO SCH ×2 (08:33→18:15)
[2017-11-25] MEDS: FOLIC ACID 1 MG TABLET PO SCH (08:33)
[2017-11-25] MEDS: DOCUSATE SODIUM 100 MG CAPSULE PO SCH ×2 (08:34→21:09)
[2017-11-25] MEDS: METOPROLOL TARTRATE 25 MG TABLET PO SCH ×2 (08:34→21:10)
[2017-11-25] MEDS: ASPIRIN 81 MG TAB.CHEW PO SCH (08:34)
[2017-11-25] MEDS: MULTIVIT,THER IRON,CA,FA & MIN 1 TABLET PO SCH (08:35)
[2017-11-25] MEDS: HEPARIN 5,000 UNIT/ML VIAL SQ SCH ×2 (08:35→21:10)
[2017-11-25] MEDS: cefTRIAXone 2 GM VIAL IV SCH (08:36)
[2017-11-25] MEDS: COLLAGENASE TOP OINT TUBE 30GM TOPICAL SCH (08:37)
[2017-11-25] MEDS: SILVER SULFADIAZINE CREAM.TOP 25GM TOPICAL SCH (08:37)
[2017-11-25] MEDS: SEVELAMER 800 MG TABLET PO SCH ×3 (08:38→18:17)
[2017-11-25] MEDS ORDERED: VANCOMYCIN PER PHARMACY IV SCH (10:40)
--- NOTE | 2017-11-25 10:40 | Internal Med Progress Note ---
Medical - PN: Subj Patient information: Note initiated : 11/25/17 at 10:38 am Service Date, if different from initiated Date: [] Patient: Carlos Abraham 87 y/o M admitted on 11/20/17 for Weakness/UTI Symptoms , BLE/Renal Failure. Chief Complaint: [] Interval history: Mr. Abraham is a 87 year old M who lives by himself and carries a history of cardiomyopathy with an EF 20% and history of chronic kidney disease and hypertension. He has stopped following up with his primary care physician over the last year and a half and has not been taking any medications. Patient has been barely able to manage activities of daily living. Over the last few weeks he has been getting progressively weak. He has been experiencing multiple episodes of diarrhea with progression of weakness to the point he could barely walk. He has been unable to fix his own meals recently. Even normal activities including walking from room to the bathroom has become an uphill task and twice he sustained a fall and has remained on the floor for a prolonged period of time. He was discovered by his neighbor today on the floor smeared and stool, lethargic. Subsequently was brought in to [facility] ER by EMS. patient was enough horrifying state most of the body covered in feces,extremely poor hygiene , bilateral lower extremity cellulitis/scabs and perineal ulcerations covered in feces. Initial workup was significant for BUN over 160 creatinine over 7 and potassium 7.7. White count over 32,000. Nephrology was consulted and patient was started on crystalloids along with hypokalemia protocol. Blood cultures were drawn and antibiotics were administered. subsequently hospitalist service was consulted At the time of evaluation patient is awake and alert and able to answer most questions. He endorses to history as above. he denies fevers shaking chills, headache or photophobia. He denies chest pain or bloody stools weight loss, glandular swelling. Endorses to bilateral lower extremity weeping and red lesions along with scabs. He hasn't had a shower many days with profound weakness and inability to take care of self. He has a son who is estranged. he denies alcoholism or smoking. Denies changes in medication or substance abuse. 11/21-clinical improvement noted. White count down to 22,000.platelets down to 692. Proteus on UA.potassium down to 5.4 pounds 7.7. BUN 154 creatinine 6.9. Hemodialysis on hold. metabolic acidosis clinically improving on bicarbonate drip. Nephrology on board. start ertapenem. de-escalate based on sensitivities. Patient remains critically ill. Ongoing wound care for multiple areas of cellulitis/ulcers.map at goal. Off vasopressors. Await echocardiogram. 11/22-patient doing well. Ongoing wound care/renal failure management per specialists. Creatinine down to 6.3 with BUN down to 145. Potassium 3.7.white count down from 32->14. no overnight events including fever chills shortness of breath or telemetry events. Occasional PVCs.echo pending. More lucid and alert. Tolerating diet. Foleys draining clear urine.urine output over thousand cc in 24 hours. improving multiorgan failure. repeat echo shows 50-55% EF 11/23 Patient seen and examined, clinically doing well. White blood cell count slightly up trended today at 16 K but patient denies any acute symptoms. He denies chest pain shortness of breath headache dizziness. He does complain about left knee pain that started today after he was moved in bed. He does have history of gout but does not say that the knee pain is similar to that of a gout attack. He does complain about pain in his lower extremity due wounds. He is on Dilaudid which does not seem to be helping very much. Increase the dose of Dilaudid 1 mg. He has declined dialysis so far. Urinalysis shows UTI and is on appropriate antibiotics. Creatinine has improved BUN still high. Appreciate nephrology input, appreciate wound care input. 11/24 Patient seen and examined, doing well has no complaints. Episode of sustained V. tach yesterday with some low blood pressure but patient had otherwise no symptoms. Presently he is on amiodarone drip. I tried to review his goals of care with him today but the patient notes that he has been living with his broken body for many years and he just wants to take it one dated time. Not been able to get in touch with family yet. WBC count is trending down continue to monitor. Appreciate nephrology help patient has declined dialysis. BUN is still quite high. 11/25 Patient seen and examined no acute overnight events. Patient was not able to sleep very well last night he attributes that to every 2 hours shifting because of his pressure ulcers. We will try to see if he can use a wedge and help patient sleep. I try to address the patient's goals of care however the patient says he just wants to take it one day at a time. He is declined dialysis and has declined transfer to a higher center even after having a ventricular tachycardia episode. Patient is presently on amiodarone 400 mg twice a day. WBC count is still high we will get a chest x-ray. We will switch antibiotics to cover for possible infection in the chronic wounds in addition to his UTI. Pertinent ROS: Denies headache, dizziness Denies chest pain, palpitations Denies cough or shortness of breath Denies abdominal pain, nausea or vomiting. - Constitutional Vitals: Vital Signs Temp Pulse Resp BP Pulse Ox 99.1 F H 75 17 110/49 94 11/25/17 06:38 11/25/17 02:50 11/25/17 06:38 11/25/17 06:38 11/25/17 06:38 Period Temp Pulse Resp BP Sys/Ferris Pulse Ox Last 24 Hr 98.1 F-99.3 F 68-77 11-19 97-112/42-60 94-100 Intake and Output 11/24/17 11/25/17 11/25/17 21:59 05:59 13:59 Intake Total 650 / 650 360 / 360 Output Total 475 / 475 450 / 450 Balance 175 / 175 -90 / -90 Weight 224 lb 3.2 oz Intake & Output: Intake & Output 11/24/17 11/25/17 11/25/17 21:59 05:59 13:59 Intake Total 650 / 650 360 / 360 Output Total 475 / 475 450 / 450 Balance 175 / 175 -90 / -90 Weight 224 lb 3.2 oz Intake: IV 110 / 110 Nexterone 360 mg In Premix 1 110 / 110 Bag @ 1 MG/MIN 33.33 mls/hr IV .Q6H1M [facility] Rx#:[id number] Oral 540 / 540 360 / 360 Output: Urine Catheter Amount 475 / 475 450 / 450 Other: Meal Lunch Percent of Meal Consumed 50% Exam: Constitutional; Afebrile, cooperative, alert, not in distress. Eyes- No icterus, , No periorbital swelling Ears- Ext ear normal, hearing normal to conversation. Neck- Midline trachea, supple Respiratory system: Air Entry equal on both sides, No crackles or wheezing, no rhonchi. CVS- Rate rhythm regular, S1,S2 heard, no gallop, no rub. Abdomen- Soft nontender abdomen, no organomegaly, no tenderness, no guarding or rigidity, [employer]- AOOx3, moving all extremities, no gross focal deficit noted. Medical - PN: Obj Da - Labs CBC & Chem 7: 11/25/17 03:18 11/25/17 03:18 Labs: Abnormal Lab Results 11/25/17 11/25/17 11/24/17 03:18 03:18 04:20 WBC 16.4 H RBC 2.78 L Hgb 9.0 L Hct 26.4 L RDW 15.1 H Plt Count 527 H MPV 6.9 L Gran % Lymph % (Auto) Gran # Lymph # (Auto) Crowley # (Auto) Seg Neutrophils % 90 H Lymphocytes % 2 L Metamyelocytes % Platelet Estimate Increased A RBC Morphology Abnorm A Anisocytosis Few A BUN 124 H* 131 H* Creatinine 5.4 H* 5.7 H* Glucose 152 H 122 H Uric Acid 12.7 H 12.7 H Calcium 7.8 L 7.9 L Phosphorus 5.3 H 6.5 H* Magnesium 2.8 H 3.0 H Lactate Dehydrogenase 263 H Total Creatine Kinase Troponin T Total Protein 5.0 L 5.2 L Albumin 1.7 L 1.9 L Albumin/Globulin Ratio 0.5 L 0.6 L 11/24/17 11/23/17 11/23/17 04:20 20:42 20:42 WBC 14.5 H RBC 2.84 L Hgb 9.1 L Hct 26.8 L RDW 15.3 H Plt Count 516 H MPV 6.8 L Gran % Lymph % (Auto) Gran # Lymph # (Auto) Crowley # (Auto) Seg Neutrophils % 81 H Lymphocytes % 2 L Metamyelocytes % 2 H Platelet Estimate Increased A RBC Morphology Abnorm A Anisocytosis 1+ A BUN 130 H* Creatinine 5.6 H* Glucose 159 H Uric Acid 12.4 H Calcium 7.7 L Phosphorus 6.0 H* Magnesium 3.0 H Lactate Dehydrogenase Total Creatine Kinase Troponin T 0.07 H* Total Protein 5.1 L Albumin 2.0 L Albumin/Globulin Ratio 0.6 L 11/23/17 11/23/17 11/23/17 16:13 16:13 16:13 WBC 16.6 H RBC 3.01 L Hgb 9.4 L Hct 27.9 L RDW 15.1 H Plt Count 626 H MPV 6.9 L Gran % 88.9 H Lymph % (Auto) 2.2 L Gran # 14.8 H Lymph # (Auto) 0.4 L Crowley # (Auto) 1.0 H Seg Neutrophils % Lymphocytes % Metamyelocytes % Platelet Estimate RBC Morphology Anisocytosis BUN 133 H* Creatinine 5.5 H* Glucose 179 H Uric Acid 12.7 H Calcium 7.8 L Phosphorus 5.7 H Magnesium 2.7 H Lactate Dehydrogenase Total Creatine Kinase Troponin T 0.06 H* Total Protein 5.2 L Albumin 1.8 L Albumin/Globulin Ratio 0.5 L 11/23/17 11/23/17 11/22/17 04:39 04:39 16:45 WBC 16.8 H RBC 2.90 L Hgb 9.2 L Hct 27.4 L RDW 15.3 H Plt Count 569 H MPV 6.8 L Gran % Lymph % (Auto) Gran # Lymph # (Auto) Crowley # (Auto) Seg Neutrophils % 90 H Lymphocytes % 1 L Metamyelocytes % 2 H Platelet Estimate Increased A RBC Morphology Anisocytosis BUN 140 H* 139 H* Creatinine 5.9 H* 6.0 H* Glucose 152 H 152 H Uric Acid 12.2 H Calcium 7.7 L 7.6 L Phosphorus 6.5 H* Magnesium Lactate Dehydrogenase Total Creatine Kinase 268 H Troponin T Total Protein 4.9 L Albumin 2.1 L Albumin/Globulin Ratio 0.8 L Meds: Medications Acetaminophen (Tylenol) 650 mg PO Q4-6HP PRN PRN Reason: PAIN/FEVER > 101 [facility] Admin: 11/25/17 08:33 Dose: 400 mg Aspirin (Aspirin) 81 mg PO DAILY [facility] Last Admin: 11/25/17 08:34 Dose: 81 mg Ceftriaxone Sodium (Rocephin) 2 gm IV DAILY [facility] Last Admin: 11/25/17 08:36 Dose: 2 gm Collagenase (Santyl Top Oint) 1 dose TOPICAL DAILY [facility] Last Admin: 11/25/17 08:37 Dose: 1 units Docusate Sodium (Colace) 100 mg PO BID [facility] Last Admin: 11/25/17 08:34 Dose: 100 mg Folic Acid (Folic Acid) 1 mg PO DAILY [facility] Last Admin: 11/25/17 08:33 Dose: 1 mg Heparin Sodium (Porcine) (Heparin) 5,000 unit SQ Q12 [facility] Last Admin: 11/25/17 08:35 Dose: 5,000 unit Hydromorphone HCl (Dilaudid) 1 mg IV Q4-6HP PRN PRN Reason: PAIN LEVEL > 6 Last Admin: 11/24/17 21:37 Dose: 1 mg Norepinephrine Bitartrate 16 (mg/ Sodium Chloride) 250 mls @ 9.37 mls/hr IV Q24HP PRN; Protocol; 10 MCG/MIN PRN Reason: Blood Pressure Sodium Chloride (Sodium Chloride 0.9%) 250 mls @ 20 mls/hr IV .[id number] [facility] Last Admin: 11/25/17 02:31 Dose: Not Given Acetaminophen (Ofirmev) 1,000 mg in 100 mls @ 200 mls/hr IV Q6HP PRN PRN Reason: PAIN/FEVER > 101 Sodium Chloride (Sodium Chloride 0.9%) 250 mls @ 20 mls/hr IV .[id number] [facility] Last Admin: 11/25/17 02:31 Dose: Not Given AMIODARONE 360 mg/ Premix 200 mls @ 33.33 mls/hr IV .Q6H1M [facility]; 1 MG/MIN PRN Reason: Protocol Last Admin: 11/25/17 03:55 Dose: Not Given AMIODARONE 360 mg/ Premix 200 mls @ 16.66 mls/hr IV .Q12H1M [facility]; 0.5 MG/MIN PRN Reason: Protocol Last Admin: 11/24/17 21:06 Dose: Not Given Iron Carb/Multivit/Compensation Specialist/Folic Acid (Multivitamin W/Minerals) 1 tab PO DAILY [facility] Last Admin: 11/25/17 08:35 Dose: 1 tab Metoprolol Tartrate (Lopressor) 12.5 mg PO BID [facility] Last Admin: 11/25/17 08:34 Dose: 12.5 mg Ondansetron HCl (Zofran) 4 mg IV Q4-6HP PRN PRN Reason: Nausea And Vomiting Senna/Docusate Sodium (Senna Plus Tablet) 1 tab PO HS [facility] Last Admin: 11/24/17 20:44 Dose: 1 tab Sevelamer Carbonate (Renvela) 1,600 mg PO TIDCC [facility] Last Admin: 11/25/17 08:38 Dose: Not Given Silver Sulfadiazine (Silvadene) 1 dose TOPICAL DAILY [facility] Last Admin: 11/25/17 08:37 Dose: 1 units Simethicone (Mylicon) 80 mg CHEWED QIDP PRN PRN Reason: Dyspepsia Sodium Chloride (Saline Flush) 10 ml IV Q8 [facility] Last Admin: 11/25/17 05:24 Dose: 10 ml Medical - PN: A/P - Time Spent With Patient Total time spent is greater than 50% in coordination of care (as documented) at patient's floor/unit and/or counseling patient: - Narrative A/P Narrative: [id number] with a history of NYHA class III systolic heart failure with EF 20% and chronic renal disease admitted with acute on chronic renal failure/uremia encephalopathy/severe sepsis/complicated UTI and bilateral lower extremity cellulitis/sacral ulcers after he was found down by his neighbor Acute renal failure-patient has metabolic acidosis and uremia. Has declined dialysis so far. Is making urine. Appreciate nephrology help in management. Hyperkalemia resolved Sustained Ventricular Tachycardia: GIven that pt was found down, likely may have had cardiac event, none the less pt is refusing transfer to higher center. trop x 2 mildy increased, started on beta blockers and asa, ( was on same in the past) echo reviewed, started on amiodarone. He has finished IV infusion for 24 hours and now will be on 400 twice a day for approximately a month and then 400 mg once a day. His dose in the future could be titrated down to 200 mg once a day at the discretion of the PCP or the aircraft manager if he chooses to follow-up with one Uremia-BUN level is high, patient has declined dialysis so far. Metabolic acidosis-off bicarb drip patient is able to maintain his bicarb level now. Lower extremity cellulitis: Aggressive wound care by wound care. I will switch his antibiotics to vancomycin and Zosyn for now given that his leukocytosis has persisted Urinary tract infection-Proteus UTI-patient is on Rocephin he will be switched to Zosyn for his cellulitis to so we will discontinue Rocephin Sacral ulcer-wound care management Thrombocytosis-reactive clinically improving Anemia-due to sepsis and anemia of chronic disease continue to monitor stable no indication of transfusion yet. Congestive heart failure-patient has a history of CHF with ejection fraction of 20%, echo done recently shows improved ejection fraction to around 50-55%. Patient is not fluid overloaded at present. DVT prophylaxis-heparin subcutaneous DO NOT RESUSCITATE CODE STATUS Goals of care? Patient wants her to take it one day at a time and does not wish to address the issue of long-term goals of care. Medical - PN: Qual - Stroke Symptom Onset Unknown: No - VTE Deep Vein Thrombosis/Pulmonary Embolism Present on Admission: No
[2017-11-25] MEDS ORDERED: VANCOMYCIN 1,500 MG in 0.9 % SODIUM CHLORIDE 500 ML IV ONE (11:00)
[2017-11-25 11:22] LABS: Albumin PEP 1.68 gm/dl (3.1-4.7)
[2017-11-25] MEDS ORDERED: PIPERACILLIN SODIUM/TAZOBACTAM 2.25 GM in DEXTROSE 5% IN WATER 50 ML IV SCH (12:00)
--- NOTE | 2017-11-25 12:42 | XRay Report ---
CLINICAL INFORMATION: Leukocytosis COMPARISON: 11/22/2017 FINDINGS: Moderate sized hiatal hernia again noted. Moderate cardiomegaly is unchanged. Mediastinum and pulmonary vessels are normal. Small region of atelectasis or infiltrate developing in the left base IMPRESSION: Small region of atelectasis or infiltrate developing in the left base. Consider two view upright chest x-ray in the neck one to two days reevaluation if there are progressing respiratory symptoms or elevated white blood cell count Moderate cardiomegaly - stable Moderate hiatal hernia - stable Interpreted and Authenticated by: Reid Bryant 11/25/17
--- NOTE | 2017-11-25 18:35 | General Surgery Progress Note ---
Subjective Narrative: Note initiated : 11/25/17 at 6:32 pm Service Date, if different from initiated Date: [] Patient: Carlos Abraham 87 y/o M admitted on 11/20/17 for Weakness/UTI Symptoms , BLE/Renal Failure. Chief Complaint: []Patient's progress and wound care reviewed with TOYA Mascorro and Dr. Valenzuela, Hospitalist Physician. Objective Temp Pulse Resp BP Pulse Ox 99.7 F H 75 18 111/41 92 11/25/17 15:14 11/25/17 02:50 11/25/17 15:14 11/25/17 15:14 11/25/17 15:14 No interval changes from wound care point of view. TO continue current treatment. - Additional Data Intake & Output - Last 24 hours: Intake & Output 11/23/17 11/24/17 11/25/17 11/26/17 05:59 05:59 05:59 05:59 Intake Total 2791 / 2791 304 / 304 1330 / 1330 550 / 550 Output Total 850 / 850 500 / 500 925 / 925 500 / 500 Balance 1941 / 1941 -196 / -196 405 / 405 50 / 50 Weight 221 lb 11.2 oz 220 lb 224 lb 3.2 oz - Labs 11/25/17 03:18 11/25/17 03:18 Diabetes panel 11/25/17 Range/Units 03:18 Sodium 139 (133-145) mmol/L Potassium 3.8 (3.3-5.1) mmol/L Chloride 104 (96-108) mmol/L Carbon Dioxide 23 (22-30) mmol/L BUN 124 H* (8-23) mg/dl Creatinine 5.4 H* (0.7-1.2) mg/dl Glucose 152 H (70-105) mg/dL Calcium 7.8 L (8.6-10.4) mg/dl AST 25 (0-37) U/l ALT 21 (0-40) U/l Alkaline Phosphatase 81 (39-117) U/L Total Protein 5.0 L (5.9-8.4) gm/dL Albumin 1.7 L (3.2-5.2) gm/dL Triglycerides 143 (<150) mg/dl Calcium panel 11/25/17 Range/Units 03:18 Calcium 7.8 L (8.6-10.4) mg/dl Phosphorus 5.3 H (2.7-4.5) mg/dL Albumin 1.7 L (3.2-5.2) gm/dL Pituitary panel 11/25/17 Range/Units 03:18 Sodium 139 (133-145) mmol/L Potassium 3.8 (3.3-5.1) mmol/L Chloride 104 (96-108) mmol/L Carbon Dioxide 23 (22-30) mmol/L BUN 124 H* (8-23) mg/dl Creatinine 5.4 H* (0.7-1.2) mg/dl Glucose 152 H (70-105) mg/dL Calcium 7.8 L (8.6-10.4) mg/dl Adrenal panel 11/25/17 Range/Units 03:18 Sodium 139 (133-145) mmol/L Potassium 3.8 (3.3-5.1) mmol/L Chloride 104 (96-108) mmol/L Carbon Dioxide 23 (22-30) mmol/L BUN 124 H* (8-23) mg/dl Creatinine 5.4 H* (0.7-1.2) mg/dl Glucose 152 H (70-105) mg/dL Calcium 7.8 L (8.6-10.4) mg/dl Total Bilirubin < 0.2 (0.0-1.0) mg/dL AST 25 (0-37) U/l ALT 21 (0-40) U/l Alkaline Phosphatase 81 (39-117) U/L Total Protein 5.0 L (5.9-8.4) gm/dL Albumin 1.7 L (3.2-5.2) gm/dL Assessment and Plan (1) Dermatitis associated with moisture from stool incontinence Status: Acute Current Visit: Yes (2) Dermatitis associated with moisture from urinary incontinence Status: Acute Current Visit: Yes (3) Renal failure Status: Acute Current Visit: Yes (4) UTI (urinary tract infection) Status: Acute Current Visit: Yes (5) Hyperkalemia Status: Acute Current Visit: Yes (6) Self-care deficit for hygiene Status: Acute Current Visit: Yes (7) Dehydration Status: Acute Current Visit: Yes (8) Skin breakdown Status: Acute Assessment and plan: Assessment: Skin break down and Ulcerations / Dermatitis both L E and Sacral area. Plan: Continue ongoing wound care with MIST treatments BID. Current Visit: Yes (9) Decubitus ulcer, buttock Status: Acute Assessment and plan: Assessment: NON STAGEABLE eschar over sacral area Will continue current management and change to SANTYL for chemical debridement. Slough / eschar over both LEGS has started to clear and underlying pale granulations and edematous area continue to drain lymphatic serous purulent drainage. Overall prognosis is POOR. Plan: ONCE a day MIST to open areas and slough of both legs and Topical Silvadene creme daily Santyl ointment to sacral dry necrotic eschar daily. Current Visit: Yes (10) Acute on chronic renal failure Status: Acute Current Visit: Yes - Narrative A/P Narrative: Assessment: No interval changes in wound care. Plan: Continue current treatment. - Time Spent With Patient Total time spent is greater than 50% in coordination of care (as documented) at patient's floor/unit and/or counseling patient: less than 15 minutes
[2017-11-25] MEDS: SENNOSIDES/DOCUSATE SODIUM 1 TAB TABLET PO SCH (21:09)
[2017-11-25] MEDS: PIPERACILLIN SODIUM/TAZOBACTAM 2.25 GM in DEXTROSE 5% IN WATER 50 ML IV SCH (21:12)
[2017-11-26] MEDS: AMIODARONE 360 MG in PREMIX 1 BAG IV SCH ×3 (03:10→11:08)
[2017-11-26] MEDS: 0.9 % SODIUM CHLORIDE 250 ML IV SCH ×2 (03:10)
[2017-11-26] MEDS: PIPERACILLIN SODIUM/TAZOBACTAM 2.25 GM in DEXTROSE 5% IN WATER 50 ML IV SCH ×2 (05:58→14:00)
[2017-11-26] MEDS: 0.9 % SODIUM CHLORIDE 10 ML SYRINGE IV SCH ×2 (05:58→14:00)
[2017-11-26] MEDS: COLLAGENASE TOP OINT TUBE 30GM TOPICAL SCH (07:00)
--- NOTE | 2017-11-26 07:08 | Nephrology Progress Note ---
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 Chief Complaint: Found down. Principal diagnosis: Acute on chronic renal failure Interval history: No significant events overnight. Pertinent ROS: Weakness. Wounds. Gomez catheter. Pale. Anorexia. Objective - Vital Signs Vital signs: Vital Signs Temp Pulse Resp BP BP Pulse Ox 11/26/17 06:48 97.6 F 16 123/52 95 11/26/17 03:39 16 118/42 94 11/26/17 00:00 98.0 F 17 95 11/25/17 22:00 17 11/25/17 21:00 17 11/25/17 20:00 19 95 11/25/17 19:00 18 11/25/17 18:00 15 11/25/17 17:00 13 11/25/17 16:00 16 11/25/17 15:14 99.7 F H 18 111/41 92 11/25/17 15:13 67 18 111/41 92 11/25/17 15:00 17 11/25/17 14:00 15 11/25/17 13:00 17 11/25/17 12:01 68 21 117/48 94 11/25/17 12:00 67 16 94 11/25/17 11:29 99.8 F H 18 110/52 96 11/25/17 11:13 68 17 110/52 97 11/25/17 11:00 16 11/25/17 10:00 69 19 100 11/25/17 09:00 77 19 96 11/25/17 08:00 73 16 94 Intake and Output 11/25/17 11/26/17 11/26/17 21:59 05:59 13:59 Intake Total 50 / 50 Output Total 500 / 500 550 / 550 Balance -450 / -450 -550 / -550 Intake: IV 50 / 50 Zosyn 2.25 gm In Dextrose 5% in 50 / 50 Water 50 ml @ 100 mls/hr IV Q8H [facility] Rx#:[id number] Output: Urine Catheter Amount 500 / 500 550 / 550 Other: Weight 223 lb Intake & Output: Intake & Output 11/25/17 11/26/17 11/26/17 21:59 05:59 13:59 Intake Total 50 / 50 Output Total 500 / 500 550 / 550 Balance -450 / -450 -550 / -550 Weight 223 lb Intake: IV 50 / 50 Zosyn 2.25 gm In Dextrose 5% in 50 / 50 Water 50 ml @ 100 mls/hr IV Q8H [facility] Rx#:[id number] Output: Urine Catheter Amount 500 / 500 550 / 550 - General Appearance General appearance: chronically ill, fatigue, frail EENT: mucous membranes moist Neck: supple Respiratory: clear Cardiology: normal S1, normal S2 Gastrointestinal: no tenderness Integumentary: ulcer, skin tear Neurologic: no focal deficit Musculoskeletal: no deformities Psychiatric: mood/affect appropriate, cooperative - Lab 11/26/17 07:51 11/26/17 07:51 Most recent lab results Calcium 7.8 mg/dl (8.6-10.4) L 11/25/17 03:18 Phosphorus 5.3 mg/dL (2.7-4.5) H 11/25/17 03:18 Magnesium 2.8 mg/dL (1.6-2.5) H 11/25/17 03:18 Assessment and Plan (1) ATN (acute tubular necrosis) Acute kidney injury, likely acute tubular necrosis, associated with initial oliguria, hyperkalemia, high anion-gap metabolic acidosis, hyponatremia, and acute Proteus mirabilis cystitis, present on arrival. Work up: Renal US on 11/20/17: Mildly echogenic renal parenchyma bilaterally which indicates chronic medical renal disease. Cholelithiasis. Progress: Declined hemodialysis. Hyperkalemia, high anion-gap metabolic acidosis, hyponatremia, resolved. Episode of ventricular tachycardia with hypotension on 11/23/17, resolved. Diet changed to regular with Renvela 1600 mg with meals. Last 24 hours: Serum creatinine increased from 5.4 to 5.8 in the past 24 hours. Urine output 1050 ml reported. Prognosis: very poor. Discharge plan: eGFR estimate 8 ml/min, hemodialysis indicated but the patient declines. Recommend hospice at SNF vs home. Status: Acute Priority: High
[2017-11-26] MEDS: SILVER SULFADIAZINE CREAM.TOP 25GM TOPICAL SCH (07:30)
[2017-11-26 08:52] LABS: Basophils # (Auto) 0 K/mcL (0.0-0.3); Basophils % (Auto) 0 % (0.0-2.0); Eosinophils # (Auto) 0.6 K/mcL (0.0-0.7); Eosinophils % (Auto) 4.6 % (0.0-7.0); Granulocytes % (Auto) 87.2 % (38.0-78.0); Lymphocytes # (Auto) 0.4 K/mcL (1.5-4.8); Lymphocytes % (Auto) 2.7 % (15.5-49.0); Mean Cell Volume 94.2 fL (80.0-100.0); Mean Corpuscular HGB Conc 33.2 g/dL (31.0-36.0); Mean Corpuscular Hemoglobin 31.3 pg (26.0-34.0); Monocytes # (Auto) 0.7 K/mcL (0.1-0.9); Monocytes % (Auto) 5.5 % (1.0-12.0); Platelet Count 474 K/mcL (140-440); RBC 2.79 M/mcL (4.50-5.90); Red Cell Distribution Width 14.8 % (11.5-14.5)
[2017-11-26 09:12] LABS: ALT/SGPT 17 U/l (0-40); Albumin 1.8 gm/dL (3.2-5.2); Albumin/Globulin Ratio 0.6 (1.0-2.3); Alkaline Phosphatase 69 U/L (39-117); Bilirubin,Direct < 0.2 mg/dL (0.0-0.3); Blood Urea Nitrogen 120 mg/dl (8-23); Gamma Glutamyl Transpeptidase 12 U/L (8-61); Uric Acid 13.6 mg/dL (2.5-8.0)
[2017-11-26] MEDS: DOCUSATE SODIUM 100 MG CAPSULE PO SCH (11:06)
[2017-11-26] MEDS: FOLIC ACID 1 MG TABLET PO SCH (11:06)
[2017-11-26] MEDS: HEPARIN 5,000 UNIT/ML VIAL SQ SCH (11:06)
[2017-11-26] MEDS: AMIODARONE HCL 200 MG TABLET PO SCH (11:06)
[2017-11-26] MEDS: MULTIVIT,THER IRON,CA,FA & MIN 1 TABLET PO SCH (11:07)
[2017-11-26] MEDS: METOPROLOL TARTRATE 25 MG TABLET PO SCH (11:07)
[2017-11-26] MEDS: SEVELAMER 800 MG TABLET PO SCH ×2 (11:07→11:11)
[2017-11-26] MEDS: ASPIRIN 81 MG TAB.CHEW PO SCH (11:07)
--- NOTE | 2017-11-26 11:27 | Discharge Summary ---
Medical - DS: Prov Patient information: Note initiated : 11/26/17 at 11:25 am Service Date, if different from initiated Date: [] Patient: Carlos Abraham 87 y/o M admitted on 11/20/17 for Weakness/UTI Symptoms , BLE/Renal Failure. Chief Complaint: [] Date of admission: 11/20/17 16:40 Discharge date: 11/26/17 Admitting clinician: Ashu Musa Consults: 11/20/17 13:41 Consult to Physician [CONS] Stat Comment: Consulting Provider: Katarzyna Thompson Reason For Exam: Physician to Consult 11/20/17 13:42 Consult to Physician [CONS] Stat Comment: Consulting Provider: Ashu Musa Reason For Exam: Physician to Consult 11/20/17 17:00 Consult to Physician [CONS] Routine Comment: Consulting Provider: Rick Timmons Reason For Exam: Physician to Consult Discharging clinician: Tracie Valenzuela Medical - DS: Meds - Discharge Medications Prescriptions: Amiodarone HCl [Cordarone] 400 mg PO BIDCC #60 tablet Active and Home Medications: Home Medications No Known Home Meds [No Known Home Meds] 11/20/17 [History Confirmed 11/20/17 Last Taken Unknown] Medical - DS: Hosp Hospital course: Mr. Abraham is a 87 year old M who lives by himself and carries a history of cardiomyopathy with an EF 20% and history of chronic kidney disease and hypertension. He has stopped following up with his primary care physician over the last year and a half and has not been taking any medications. Patient has been barely able to manage activities of daily living. Over the last few weeks he has been getting progressively weak. He has been experiencing multiple episodes of diarrhea with progression of weakness to the point he could barely walk. He has been unable to fix his own meals recently. Even normal activities including walking from room to the bathroom has become an uphill task and twice he sustained a fall and has remained on the floor for a prolonged period of time. He was discovered by his neighbor on the floor smeared and stool, lethargic. Subsequently was brought in to [facility] ER by EMS. patient was enough horrifying state most of the body covered in feces, extremely poor hygiene, bilateral lower extremity cellulitis/scabs and perineal ulcerations covered in feces. Initial workup was significant for BUN over 160 creatinine over 7 and potassium 7.7. White count over 32,000. Nephrology was consulted and patient was started on crystalloids along with hypokalemia protocol. Blood cultures were drawn and antibiotics were administered. subsequently hospitalist service was consulted and patient admitted to PCU for further management. At the time of evaluation patient is awake and alert and able to answer most questions. He endorses to history as above. he denies fevers shaking chills, headache or photophobia. He denies chest pain or bloody stools weight loss, glandular swelling. Endorses to bilateral lower extremity weeping and red lesions along with scabs. He hasn't had a shower many days with profound weakness and inability to take care of self. He has a son who is estranged. he denies alcoholism or smoking. Denies changes in medication or substance abuse. 11/21-clinical improvement noted. White count down to 22,000.platelets down to 692. Proteus on UA.potassium down to 5.4 pounds 7.7. BUN 154 creatinine 6.9. Hemodialysis on hold. metabolic acidosis clinically improving on bicarbonate drip. Nephrology on board. start ertapenem. de-escalate based on sensitivities. Patient remains critically ill. Ongoing wound care for multiple areas of cellulitis/ulcers.map at goal. Off vasopressors. Await echocardiogram. 11/22-patient doing well. Ongoing wound care/renal failure management per specialists. Creatinine down to 6.3 with BUN down to 145. Potassium 3.7.white count down from 32->14. no overnight events including fever chills shortness of breath or telemetry events. Occasional PVCs.echo pending. More lucid and alert. Tolerating diet. Foleys draining clear urine.urine output over thousand cc in 24 hours. improving multiorgan failure. repeat echo shows 50-55% EF 11/23 Patient seen and examined, clinically doing well. White blood cell count slightly up trended today at 16 K but patient denies any acute symptoms. He denies chest pain shortness of breath headache dizziness. He does complain about left knee pain that started today after he was moved in bed. He does have history of gout but does not say that the knee pain is similar to that of a gout attack. He does complain about pain in his lower extremity due wounds. He is on Dilaudid which does not seem to be helping very much. Increase the dose of Dilaudid 1 mg. He has declined dialysis so far. Urinalysis shows UTI and is on appropriate antibiotics. Creatinine has improved BUN still high. Appreciate nephrology input, appreciate wound care input. 11/24 Patient seen and examined, doing well has no complaints. Episode of sustained V. tach yesterday with some low blood pressure but patient had otherwise no symptoms. Presently he is on amiodarone drip. I tried to review his goals of care with him today but the patient notes that he has been living with his broken body for many years and he just wants to take it one dated time. Not been able to get in touch with family yet. WBC count is trending down continue to monitor. Appreciate nephrology help patient has declined dialysis. BUN is still quite high. 11/25 Patient seen and examined no acute overnight events. Patient was not able to sleep very well last night he attributes that to every 2 hours shifting because of his pressure ulcers. We will try to see if he can use a wedge and help patient sleep. I try to address the patient's goals of care however the patient says he just wants to take it one day at a time. He is declined dialysis and has declined transfer to a higher center even after having a ventricular tachycardia episode. Patient is presently on amiodarone 400 mg twice a day. WBC count is still high we will get a chest x-ray. We will switch antibiotics to cover for possible infection in the chronic wounds in addition to his UTI. 11/26 Patient seen and examined no acute overnight events hemodynamic is stable tolerating diet well. He is stable for discharge medically will be discharged to rehab facility. He will be discharged on oral antibiotics for his UTI, he will also follow-up with wound care as well as cardiology as an outpatient. A/P Acute renal failure- Has declined dialysis so far. Is making urine. he will continue with good oral hydration and follow up with nephrology as outpatient. Hyperkalemia resolved Sustained Ventricular Tachycardia: Given that pt was found down, likely may have had cardiac event, the patient has refused transfer to higher center. trop x 2 mildy increased, started on beta blockers and asa, ( was on same in the past ) echo reviewed, started on amiodarone. He is being discharged on amiodarone 400mg twice daily for 1 month and will be switched down to 400mg once a day after one month, He may be able to tolerate a lower dose given his age. I will defer this to cardiology, will give outpatient cardiology referral. Lower extremity cellulitis/ Sacral Decub Ulcer: Aggressive wound care by wound care. WBC trending down, Discussed with Wound care, no systemic antbiotics needed. Topical silvadene cream, management as per wound care provider. He will follow up with wound care in 1 week Urinary tract infection-Proteus UTI (freeman sensitive) - Treated with ABX, He will continue po augmentin x 10 more days after discharge. Thrombocytosis-reactive clinically improving Anemia-due to sepsis and anemia of chronic disease continue to monitor stable no indication of transfusion yet. Congestive heart failure-patient has a history of CHF with ejection fraction of 20%, echo done recently shows improved ejection fraction to around 50-55%. Patient is not fluid overloaded at present. Follow up with cardiology as outpatient. Goals of care? Patient wants her to take it one day at a time and does not wish to address the issue of long-term goals of care. We were unable to get in touch with family either. Pt reports no family in town, but he does have a son who is estranged as per chart. AT the time of discharge, pt is hemodynamically stable tolerating p.o. diet very well. He will be discharged to a rehab facility for aggressive wound care. And rehabilitation. He has overall poor prognosis long-term. Has not chosen for hospice yet not has he chosen aggressive interventions. Discharge diagnosis: Renal Failure - Time Spent with Patient Total time spent providing and/or coordinating discharge services: Greater than 30 minutes Medical - DS: Exam - Constitutional Vitals: Vital Signs Temp Pulse Resp BP BP Pulse Ox 11/26/17 06:48 97.6 F 16 123/52 95 11/26/17 03:39 16 118/42 94 11/26/17 00:00 98.0 F 17 95 11/25/17 22:00 17 11/25/17 21:00 17 11/25/17 20:00 19 95 11/25/17 19:00 18 11/25/17 18:00 15 11/25/17 17:00 13 11/25/17 16:00 16 11/25/17 15:14 99.7 F H 18 111/41 92 04/16/18 15:13 67 18 111/41 92 11/25/17 15:00 17 11/25/17 14:00 15 11/25/17 13:00 17 11/25/17 12:01 68 21 117/48 94 11/25/17 12:00 67 16 94 11/25/17 11:29 99.8 F H 18 110/52 96 Intake and Output 11/25/17 11/26/17 11/26/17 21:59 05:59 13:59 Intake Total 50 / 50 50 / 50 Output Total 500 / 500 550 / 550 Balance -450 / -450 -550 / -550 50 / 50 Intake: IV 50 / 50 50 / 50 Zosyn 2.25 gm In Dextrose 5% in 50 / 50 50 / 50 Water 50 ml @ 100 mls/hr IV Q8H [facility] Rx#:[id number] Output: Urine Catheter Amount 500 / 500 550 / 550 Other: Weight 223 lb Additional comments: .Constitutional; Afebrile, cooperative, alert, not in distress. Eyes- No icterus, , No periorbital swelling Ears- Ext ear normal, Neck- Midline trachea, supple Respiratory system: Air Entry equal on both sides, No crackles or wheezing, no rhonchi. CVS- Rate rhythm regular, S1,S2 heard, no gallop, no rub. Abdomen- Soft nontender abdomen, no organomegaly, no tenderness, no guarding or rigidity, DRAG DOWN- AOOx3, moving all extremities, no gross focal deficit noted. Medical - DS: Data Procedures and tests throughout hospitalization: chest X ray IMPRESSION: Moderate size hiatus hernia. The chest is otherwise normal Cervical Spine CT Impression: No acute fracture Intermediate sized midline disc herniation at C3-4 causing moderate spinal canal stenosis. 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 Cholelithiasis Echo Left ventricular wall thickness upper limit of normal Left ventricular function is low normal Mildly dilated left and right atrium Mild AI Mild MR IVC not visualized Labs on day of discharge: Labs from last 24 hours 11/26/17 11/26/17 11/26/17 07:51 07:51 03:45 WBC 13.1 H RBC 2.79 L Hgb 8.7 L Hct 26.3 L MCV 94.2 MCH 31.3 MCHC 33.2 RDW 14.8 H Plt Count 474 H MPV 7.0 L Gran % 87.2 H Lymph % (Auto) 2.7 L [place] % (Auto) 5.5 Eos % (Auto) 4.6 Baso % (Auto) 0 Gran # 11.4 H Lymph # (Auto) 0.4 L [place] # (Auto) 0.7 Eos # (Auto) 0.6 Baso # (Auto) 0 Sodium 142 Potassium 4.0 Chloride 106 Carbon Dioxide 23 Anion Gap 13.0 BUN 120 H* Creatinine 5.8 H* GFR Calculation 8 Glucose 133 H Uric Acid 13.6 H Calcium 7.8 L Phosphorus 5.5 H Magnesium 2.8 H Total Bilirubin < 0.2 Direct Bilirubin < 0.2 GGT 12 AST 19 ALT 17 Alkaline Phosphatase 69 Lactate Dehydrogenase 162 Total Protein 4.9 L Albumin 1.8 L Globulin 3.1 Albumin/Globulin Ratio 0.6 L Triglycerides 123 Random Vancomycin 14.0 Vancomycin Dose Not Reportable Vanco Last Dose Time Not Reportable Medical - DS: A/P - Patient/Caregiver Discharge Instructions Activity: as per physical therapy, increase activity as tolerated Diet: Regular Diet Additional Instructions: Follow-up with primary care provider in 1-2 weeks Follow-up with wound care clinic in 1 week Follow-up with nephrology in 1-2 weeks Please check basic metabolic profile on Saturday, Saturday, Saturday and fax results to the nephrology clinic Dr Bran. Antibiotics p.o. Augmentin 500 mg once a day for 10 days. Wound care according to Dr. Timmons Go to the emergency room if worsening symptoms, chest pain shortness of breath fever or any other acute concerning symptom. - Follow up Plan Disposition: Xfer SNF Prognosis: Undetermined Rehab Potential: Undetermined I certify that the patient requires SNF services: Yes Overall status at discharge: patient is progressing back to baseline Medical - DS: Qual - VTE Deep Vein Thrombosis/Pulmonary Embolism Present on Admission: No
--- NOTE | 2017-11-26 13:06 | General Surgery Progress Note ---
Subjective Narrative: Note initiated : 11/26/17 at 1:00 pm Service Date, if different from initiated Date: [] Patient: Carols Abraham 87 y/o M admitted on 11/20/17 for Weakness/UTI Symptoms , BLE/Renal Failure. Chief Complaint: [] Patient seen with nursing staff, wound care reviewed and wounds examined. Spoke at length with Dr. Valenzuela, Hospitalist Physician. Discharge plans noted. Objective Temp Pulse Resp BP Pulse Ox 97.8 F 69 15 113/81 98 11/26/17 12:00 11/26/17 12:00 11/26/17 12:00 11/26/17 12:00 11/26/17 12:00 Afebrile , VSS. Overall slow progress. Patient declines transfer to a higher level of care and is NOT a DNR. Wounds reviewed, Gradual improvement noted. LEG wounds eschar has cleared and patietn in snow on Silvadene creme topical application daily Sacral wounds are much improved. DENSE adherent DRY BLACK necrotic eschar is demarcating well with Collagenase Drainage from area has decreased . NO putrid or fecal odor and no crepitations Gomez catheter draining clear urine. LAB results noted and reviewed nephrology notes. . - Additional Data Intake & Output - Last 24 hours: Intake & Output 11/24/17 11/25/17 11/26/17 11/27/17 05:59 05:59 05:59 05:59 Intake Total 304 / 304 1330 / 1330 600 / 600 50 / 50 Output Total 500 / 500 925 / 925 1050 / 1050 Balance -196 / -196 405 / 405 -450 / -450 50 / 50 Weight 220 lb 224 lb 3.2 oz 223 lb - Labs 11/26/17 07:51 11/26/17 07:51 Diabetes panel 11/26/17 Range/Units 07:51 Sodium 142 (133-145) mmol/L Potassium 4.0 (3.3-5.1) mmol/L Chloride 106 (96-108) mmol/L Carbon Dioxide 23 (22-30) mmol/L BUN 120 H* (8-23) mg/dl Creatinine 5.8 H* (0.7-1.2) mg/dl Glucose 133 H (70-105) mg/dL Calcium 7.8 L (8.6-10.4) mg/dl AST 19 (0-37) U/l ALT 17 (0-40) U/l Alkaline Phosphatase 69 (39-117) U/L Total Protein 4.9 L (5.9-8.4) gm/dL Albumin 1.8 L (3.2-5.2) gm/dL Triglycerides 123 (<150) mg/dl Calcium panel 11/26/17 Range/Units 07:51 Calcium 7.8 L (8.6-10.4) mg/dl Phosphorus 5.5 H (2.7-4.5) mg/dL Albumin 1.8 L (3.2-5.2) gm/dL Pituitary panel 11/26/17 Range/Units 07:51 Sodium 142 (133-145) mmol/L Potassium 4.0 (3.3-5.1) mmol/L Chloride 106 (96-108) mmol/L Carbon Dioxide 23 (22-30) mmol/L BUN 120 H* (8-23) mg/dl Creatinine 5.8 H* (0.7-1.2) mg/dl Glucose 133 H (70-105) mg/dL Calcium 7.8 L (8.6-10.4) mg/dl Adrenal panel 11/26/17 Range/Units 07:51 Sodium 142 (133-145) mmol/L Potassium 4.0 (3.3-5.1) mmol/L Chloride 106 (96-108) mmol/L Carbon Dioxide 23 (22-30) mmol/L BUN 120 H* (8-23) mg/dl Creatinine 5.8 H* (0.7-1.2) mg/dl Glucose 133 H (70-105) mg/dL Calcium 7.8 L (8.6-10.4) mg/dl Total Bilirubin < 0.2 (0.0-1.0) mg/dL AST 19 (0-37) U/l ALT 17 (0-40) U/l Alkaline Phosphatase 69 (39-117) U/L Total Protein 4.9 L (5.9-8.4) gm/dL Albumin 1.8 L (3.2-5.2) gm/dL Assessment and Plan (1) Dermatitis associated with moisture from stool incontinence Status: Acute Current Visit: Yes (2) Dermatitis associated with moisture from urinary incontinence Status: Acute Current Visit: Yes (3) Renal failure Status: Acute Current Visit: Yes (4) UTI (urinary tract infection) Status: Acute Current Visit: Yes (5) Hyperkalemia Status: Acute Current Visit: Yes (6) Self-care deficit for hygiene Status: Acute Current Visit: Yes (7) Dehydration Status: Acute Current Visit: Yes (8) Skin breakdown Status: Acute Assessment and plan: Assessment: Skin break down and Ulcerations / Dermatitis both L E and Sacral area. Plan: Continue ongoing wound care with MIST treatments BID. Current Visit: Yes (9) Decubitus ulcer, buttock Status: Acute Assessment and plan: Assessment: NON STAGEABLE eschar over sacral area Will continue current management and change to SANTYL for chemical debridement. Slough / eschar over both LEGS has started to clear and underlying pale granulations and edematous area continue to drain lymphatic serous purulent drainage. Overall prognosis is POOR. Plan: ONCE a day MIST to open areas and slough of both legs and Topical Silvadene creme daily Santyl ointment to sacral dry necrotic eschar daily. Current Visit: Yes (10) Acute on chronic renal failure Status: Acute Current Visit: Yes - Narrative A/P Narrative: Assessment: Satisfactory progress from wound care point of view. Plan: See wound care orders: After discharge F/U at the wound clinic in ONE week. - Time Spent With Patient Total time spent is greater than 50% in coordination of care (as documented) at patient's floor/unit and/or counseling patient: 25 - 35 minutes
[2017-11-27 08:09] LABS: Alpha-2-Globulin 17 %; Pro/Creat Ratio 755 mg/g cre (22-128)
== END 2017-11-26 14:00 | DRG 871 ==
LOC: ED 10:38 → ICU 16:40
PROVIDERS: ADMIT Internal Medicine; ATTEND Internal Medicine

== ENCOUNTER 2018-01-22 23:35 | Inpatient (IN) ==
[2018-01-22] MEDS ORDERED: LACTATED RINGERS 1,000 ML IV SCH (23:45)
[2018-01-22] MEDS ORDERED: METOCLOPRAMIDE 10 MG/2 ML VIAL IV ONE (23:47)
--- NOTE | 2018-01-22 23:51 | Emergency Department Note ---
Abdominal Pain HPI - General Chief Complaint: Abdominal Pain Stated Complaint: abdominal distention Time Seen by Provider: 01/22/18 23:46 Source: patient Mode of arrival: EMS Limitations: no limitations - History of Present Illness HPI Narrative: Patient with developing abdominal distention over the last 3-4 days[facility]. Not tolerating food, some loose stool reported. No history of abdominal surgery. No previous history. - Related Data Home Medications Medication Instructions Recorded Confirmed bisacodyl 10 mg rectal suppository 10 mg [place] QDAY PRN 12/04/17 01/01/18 sodium phosphates 19 gram-7 118 ml PA ONCE PRN 12/04/17 01/01/18 gram/118 mL enema calcium citrate 250 mg tablet 63 mg PO QDAY tab 01/01/18 01/01/18 cholecalciferol (vitamin D3) 50,000 unit PO QWEEK 01/01/18 01/01/18 50,000 unit capsule ondansetron HCl 4 mg tablet 4 mg PO Q4H PRN 01/01/18 01/01/18 potassium chloride ER 10 mEq 10 meq PO BID 01/01/18 01/01/18 tablet,extended release Previous Rx's Medication Instructions Recorded Amiodarone HCl [Cordarone] 400 mg PO BIDCC #60 tab 11/26/17 Docusate Sodium [Colace] 100 mg PO BID cap 11/26/17 Folic Acid 1 mg PO DAILY tab 11/26/17 HYDROmorphone HCL [Dilaudid] 2 mg PO Q6HP PRN #40 tab 11/26/17 Metoprolol Tartrate [Lopressor] 12.5 mg PO BID tab 11/26/17 Multivit,Ther Iron,Ca,FA & Min 1 tab PO DAILY tab 11/26/17 [Multivitamin W/Minerals] Sevelamer [Renvela] 1,600 mg PO TIDCC tab 11/26/17 Silver Sulfadiazine [Silvadene] 1 dose TOPICAL DAILY cream.top 11/26/17 Simethicone [Mylicon] 80 mg CHEWED QIDP PRN tab.chew 11/26/17 Allergies Allergy/AdvReac Type Severity Reaction Status Date / Time No Known Drug Allergies Allergy Verified 01/01/18 13:50 Review of Systems All systems ED: reviewed and negative except as stated. Cardiovascular: Denies: chest pain, palpitations Respiratory: Reports: shortness of breath (chronic) Abdominal Pain PMH - Past Medical History Attestation: Yes: The following information was validated with the patient. Medical history: Reports: CHF, COPD, hypertension Surgical history ED: Reports: other (no abdominal surgeries reported) - Social History Smoking status: Former smoker Alcohol use: Reports: None Drug use: Reports: none Physical Exam Limitations: no limitations General appearance: alert, in no apparent distress Head: atraumatic Eye: Present: normal appearance ENT: normal exam, mucous membranes moist Neck: Present: normal inspection. Absent: lymphadenopathy Chest: Present: normal inspection Respiratory: Present: normal lung sounds bilaterally. Absent: respiratory distress Cardiovascular: Present: regular rate, normal rhythm Abdominal: Present: soft, distention, other (no scars observed). Absent: tenderness, guarding, rebound Extremities: Present: normal inspection Back: Present: normal inspection Neurological: Present: alert, oriented X3 Psychiatric: Present: normal affect Skin: Present: warm, dry Course - Reevaluation(s) Reevaluation #1: POLST form reviewed; DNR comfort measures. Patient states "this is only a something really bad happens". Made aware of need for NG tube, possible surgery , patient states that he understands, agrees Time: 01:39 Vital Signs Temperature 97.1 F 01/22/18 23:36 Pulse Rate 77 01/22/18 23:36 Respiratory Rate 19 01/22/18 23:36 Blood Pressure 122/66 01/22/18 23:36 Pulse Oximetry (%) 90 01/22/18 23:36 Temperature 97.1 F 01/22/18 23:36 Pulse Rate 77 01/22/18 23:36 Respiratory Rate 19 01/22/18 23:36 Blood Pressure 122/66 01/22/18 23:36 Pulse Oximetry (%) 90 01/22/18 23:36 Abdominal Pain - Lab Data Lab results reviewed: Yes I reviewed the patient's lab results. Result diagrams: 01/22/18 23:50 01/22/18 23:50 Lab Results 01/22/18 01/22/18 Range/Units 23:50 23:50 WBC 27.3 H (4.5-11.0) K/mcL RBC 3.73 L (4.50-5.90) M/mcL Hgb 11.3 L (13.5-16.5) g/dL Hct 34.5 L (41.0-55.0) % POC Hct 34.0 L (41.0-55.0) % MCV 92.4 (80.0-100.0) fL MCH 30.2 (26.0-34.0) pg MCHC 32.7 (31.0-36.0) g/dL RDW 15.3 H (11.5-14.5) % Plt Count 2139 H* (140-440) K/mcL MPV 6.2 L (7.4-10.4) fL Gran % 92.8 H (38.0-78.0) % Lymph % (Auto) 1.4 L (15.5-49.0) % [place] % (Auto) 5.8 (1.0-12.0) % Eos % (Auto) 0 (0.0-7.0) % Baso % (Auto) 0 (0.0-2.0) % Gran # 25.3 H (1.8-8.0) K/mcL Lymph # (Auto) 0.4 L (1.5-4.8) K/mcL [place] # (Auto) 1.6 H (0.1-0.9) K/mcL Eos # (Auto) 0 (0.0-0.7) K/mcL Baso # (Auto) 0 (0.0-0.3) K/mcL Differential Comment (()) POC Sodium 140 (133-145) mmol/L Sodium 137 (133-145) mmol/L POC Potassium 3.3 (3.3-5.1) mmol/L Potassium 3.3 (3.3-5.1) mmol/L POC Chloride 105 (96-108) mmol/L Chloride 99 (96-108) mmol/L Carbon Dioxide 19 L (22-30) mmol/L POC Total CO2 22 (22-30) mmol/L Anion Gap 19.0 H (8-16) POC BUN 58 H (8-23) mg/dl BUN 65 H (8-23) mg/dl Creatinine 4.6 H (0.7-1.2) mg/dl POC Creatinine 5.2 H* (0.7-1.2) mg/dl GFR Calculation 11 Glucose 153 H (70-105) mg/dL POC Glucose 151 H (70-105) mg/dL Calcium 8.3 L (8.6-10.4) mg/dl POC WB Ioniz Calcium 1.02 L (1.16-1.32) mmol/L Total Bilirubin 0.4 (0.0-1.0) mg/dL AST 15 (0-37) U/l ALT 24 (0-40) U/l Alkaline Phosphatase 106 (39-117) U/L Total Protein 5.7 L (5.9-8.4) gm/dL Albumin 2.6 L (3.2-5.2) gm/dL Globulin 3.1 (2.2-3.7) gm/dL Albumin/Globulin Ratio 0.8 L (1.0-2.3) - Radiology Data Radiology results reviewed: Yes I reviewed the patient's radiology results. Small bowel obstruction with transition point terminal ileum Disposition Pt seen by PEDIATRICIAN/PA only: No Clinical Impression: Small bowel obstruction, CKD (chronic kidney disease) stage 3, GFR 30-59 ml/min , Congestive heart failure (CHF), Renal failure Summary: Patient prerenal, complicated due to advanced age and underlying CHF. Clinically complete small bowel obstruction. [place] bowel, suggest likely tumor. Dr. Valenzuela willing to admit Disposition: Xfer As Inpt ([facility]) Condition: Serious Referrals: Enrique Betts MD [Primary Care Provider] -
[2018-01-23] MEDS ORDERED: ONDANSETRON 4 MG/2 ML VIAL ONE (00:23)
[2018-01-23] MEDS ORDERED: ONDANSETRON 4 MG/2 ML VIAL IV ONE (00:23)
[2018-01-23 00:49] LABS: Basophils # (Auto) 0 K/mcL (0.0-0.3); Basophils % (Auto) 0 % (0.0-2.0); Eosinophils # (Auto) 0 K/mcL (0.0-0.7); Eosinophils % (Auto) 0 % (0.0-7.0); Granulocytes % (Auto) 92.8 % (38.0-78.0); Lymphocytes # (Auto) 0.4 K/mcL (1.5-4.8); Lymphocytes % (Auto) 1.4 % (15.5-49.0); Mean Cell Volume 92.4 fL (80.0-100.0); Mean Corpuscular HGB Conc 32.7 g/dL (31.0-36.0); Mean Corpuscular Hemoglobin 30.2 pg (26.0-34.0); Monocytes # (Auto) 1.6 K/mcL (0.1-0.9); Monocytes % (Auto) 5.8 % (1.0-12.0); Platelet Count 2139 K/mcL (140-440); RBC 3.73 M/mcL (4.50-5.90); Red Cell Distribution Width 15.3 % (11.5-14.5)
[2018-01-23 00:57] LABS: ALT/SGPT 24 U/l (0-40); Albumin 2.6 gm/dL (3.2-5.2); Albumin/Globulin Ratio 0.8 (1.0-2.3); Alkaline Phosphatase 106 U/L (39-117); Blood Urea Nitrogen 65 mg/dl (8-23)
[2018-01-23] MEDS ORDERED: NALOXONE HCL 0.4 MG/ML VIAL IV PRN (02:56)
[2018-01-23] MEDS ORDERED: POTASSIUM CHLORIDE 40 MEQ in DEXTROSE 5% IN WATER 500 ML IV ONE (02:56)
[2018-01-23] MEDS ORDERED: HYDROmorphone 2 MG TABLET PO PRN (02:56)
[2018-01-23] MEDS ORDERED: POTASSIUM CHLORIDE 20 MEQ/10 ML VIAL IV ONE (03:18)
[2018-01-23] MEDS: PIPERACILLIN SODIUM/TAZOBACTAM 2.25 GM in DEXTROSE 5% IN WATER 50 ML IV SCH ×3 (03:35→21:51)
--- NOTE | 2018-01-23 03:38 | Internal Med History&Physical ---
Medical - H&P: HPI Patient information: Note initiated : 01/23/18 at 3:30 am Service Date, if different from initiated Date: [] Patient: Carlos Abraham 87 y/o M admitted on 01/23/18 for abdominal distention. Chief Complaint: [] History of present illness: Mr. Abraham is a 87 year old M with multiple medical issues, a poor history provider, presently living in [facility], [facility], presents to the ER today after not being well for the last few days, he notes he has had intermittent abdominal distention for a while, but this time for atleast 1 week his abdomen has been progressively getting bigger, this has been accompained by some abdominal pain/ discomfort and nausea and vomiting. He has not been able to tolerate po diet well, he has tried liquid diet but it did not help much. He is not having regular bowel movements but last BM was a small stool yesterday as per the patient. The patient was eventually sent to the ER for further evaluation. the patient has a DNR /CC as per POST but notes he is willing to get treated for this issue. The patient had leukocytosis at 27,000, more than 10% bands, hemoglobin 11.3, significantly elevated platelets at 2139. Potassium was 3.3, bicarbonate 19, creatinine 4.6, he has chronic kidney disease and this creatinine is slowly trending down. CT scan of the abdomen and pelvis shows partial small bowel obstruction, incarcerated hernia in the right groin, CXR shows bibasilar infiltrates, pna/ atelectasis, but CT abdomen showed only atelectasis. patient was admitted to medicine given extensive comorbid conditions, Dr Chaves was consulted from the ER. Overnight we tried to Place NG tube on the medical floor, but the tube did get coiled in the mid thorax, this AM radiology tried to get the NG tube under floroscopy, but was unsucessful. Dr Chaves will evaluate and try to place the NG today. - Constitutional Constitutional: Present: fatigue, malaise - EENT Nose, mouth and throat: Absent: odynophagia, vertigo - Cardiovascular Cardiovascular: Present: pedal edema. Absent: palpatations, syncope - Respiratory Respiratory: Present: cough. Absent: pain with cough - Gastrointestinal Gastrointestinal: Present: abdominal pain, change in bowel habits, nausea, vomiting. Absent: hematochezia - Genitourinary Genitourinary: Absent: hematuria, urinary frequency, urinary urgency - Musculoskeletal Musculoskeletal: Absent: joint swelling, radiating pain into limb - Integumentary Integumentary: Present: wounds. Absent: jaundice - Neurological Neurological: Absent: focal weakness, lack of coordination, syncope, vertigo - Psychiatric Psychiatric: Absent: behavioral changes - Endocrine Endocrine: Absent: polydipsia, polyphagia, polyuria - Hematologic/Lymphatic Hematologic/Lymphatic: Absent: easy bleeding, easy bruising - Allergic/Immunologic Allergic/Immunologic: Absent: uticaria, wheezing Medical - H&P: PMH Medical history: CHF, Ventricular tachycardia, on amiodarone Decubitus Ulcer venous stasis Chr wounds HTN Thrombocytosis Anemia CKD Family history: reviewed and not pertinent Social history: lives in SNF, son who is EMT does not keep in touch, Ex smoker Medical - H&P: Meds Home Medications Medication Instructions Recorded Confirmed Type Amiodarone HCl [Cordarone] 400 mg PO BIDCC #60 tab 11/26/17 01/23/18 Rx Docusate Sodium [Colace] 100 mg PO BID cap 11/26/17 01/23/18 Rx Folic Acid 1 mg PO DAILY tab 11/26/17 01/23/18 Rx HYDROmorphone HCL [Dilaudid] 2 mg PO Q6HP PRN #40 tab 11/26/17 01/23/18 Rx Metoprolol Tartrate [Lopressor] 12.5 mg PO BID tab 11/26/17 01/23/18 Rx Simethicone [Mylicon] 80 mg CHEWED QIDP PRN tab.chew 11/26/17 01/23/18 Rx bisacodyl 10 mg rectal suppository 10 mg [place] QDAY PRN 12/04/17 01/23/18 History calcium citrate 250 mg tablet 63 mg PO QDAY tab 01/01/18 01/23/18 History cholecalciferol (vitamin D3) 50,000 unit PO QWEEK 01/01/18 01/23/18 History 50,000 unit capsule ondansetron HCl 4 mg tablet 4 mg PO Q4H PRN 01/01/18 01/23/18 History potassium chloride ER 10 mEq 10 meq PO BID 01/01/18 01/23/18 History tablet,extended release Sevelamer [Renvela] 800 mg PO TIDCC 01/23/18 01/23/18 History Allergies Allergy/AdvReac Type Severity Reaction Status Date / Time No Known Drug Allergies Allergy Verified 01/01/18 13:50 Medical - H&P: Exam - Constitutional Vitals: Temp Pulse Resp BP Pulse Ox 97.1 F 75 19 111/56 96 01/22/18 23:36 01/23/18 01:30 01/22/18 23:36 01/23/18 01:30 01/23/18 01:30 Exam: GENERAL: The patient is a well-developed, well-nourished in no apparent distress. Is alert and oriented x3. VITAL SIGNS: Reviewed and as noted elsewhere. HEENT: Head is normocephalic and atraumatic. Extraocular muscles are intact. Pupils are equal, round, and reactive to light. Nares appeared normal. Mouth appears any without lesions. Mucous membranes are moist. NECK: Normal to inspection, Supple, No lymphadenopathy or thyromegaly. LUNGS: Air entry equal on both sides, no wheezing, crackles or rhonchi noted. No accessory muscles of respiration HEART: Regular rate and rhythm normal, S1 and S2 heard, no Gallop, S3 or Rub Noted, No Gross murmur heard. ABDOMEN: Soft, significantly distended abdomen, absent bowel sounds, non tender , no obvious organomegaly, tympanic to percussion. EXTREMITIES: No cyanosis, clubbing,, healing wounds on the extremities, has edema _+++ NEUROLOGIC: Cranial nerves II through XII are grossly intact. Motor and Sensory System Grossly Intact PSYCHIATRIC: Normal affect, Normal Mood. Appropriate Behavior. SKIN: sacral decub ulcer present, see charting,no jaundice, No rash noted. Medical - H&P: Reslt - Labs CBC & Chem 7: 01/23/18 06:17 01/23/18 06:17 Labs: Short CBC 01/22/18 Range/Units 23:50 WBC 27.3 H (4.5-11.0) K/mcL Hgb 11.3 L (13.5-16.5) g/dL Hct 34.5 L (41.0-55.0) % Plt Count 2139 H* (140-440) K/mcL BMP 01/22/18 23:50 Sodium 137 Potassium 3.3 Chloride 99 Carbon Dioxide 19 L BUN 65 H Creatinine 4.6 H Glucose 153 H Calcium 8.3 L Liver Function 01/22/18 Range/Units 23:50 Total Bilirubin 0.4 (0.0-1.0) mg/dL AST 15 (0-37) U/l ALT 24 (0-40) U/l Alkaline Phosphatase 106 (39-117) U/L Albumin 2.6 L (3.2-5.2) gm/dL Medical - H&P: A/P - Narrative A/P Narrative: A/P Small bowel obstruction/ Incarcerated hernia: Dr Chaves consulted, management as per him. Possible Pneumonia: Given hiatal hernia, likely aspirational pna, on zosyn Sepsis- bp stable, pna/ GI source on zosyn, neg lactate Thrombocytosis, severe: Get peripheral smear, had this in the previous admit, but was trending down, with treatment of underlying infection. This time the platlet count is sigfniciantly elevaetd but has improved with hydration. Will monitor, no vasomotor symptoms reported. if path reveals any worrisome features , will get hematology consult, will need to be on aspirin therapy. CHF- on lasix, which is on hold for now, LVEF moderately reduced as per last echo, in the past was severely reduced as per the patient CKD: STable improving creat, making urine, has refused dialysis in the past, Dr Bran follows, monitor for now, if renal function worsens will consult nephrology again. Ventricular tachycardia: noted on last admit, has been on amiodarone 400bid since discharge, was supposed to be only on once daily after 1 month, given his age, will use 200mg daily, given NPO status, use slow IV infusion till he can tolerate po again. Decub ulcers/ Lower extremity wounds: Wound care consult. DVT hep sq Diet NPO DNR code status, Patient overall has poor functional status, is unclear about goals of care,
[2018-01-23] MEDS: 0.9 % SODIUM CHLORIDE 10 ML SYRINGE IV SCH ×3 (05:00→21:51)
[2018-01-23 07:49] LABS: Mean Cell Volume 94.4 fL (80.0-100.0); Mean Corpuscular HGB Conc 32.7 g/dL (31.0-36.0); Mean Corpuscular Hemoglobin 30.8 pg (26.0-34.0); Platelet Count 1721 K/mcL (140-440); RBC 3.36 M/mcL (4.50-5.90); Red Cell Distribution Width 15.6 % (11.5-14.5)
[2018-01-23] MEDS: DEXTROSE 5%-LR W/20MEQ KCL 1,000 ML IV SCH ×3 (07:58→23:46)
[2018-01-23] MEDS ORDERED: AMIODARONE 150 MG/3 ML VIAL IV ONE (08:00)
[2018-01-23 08:01] LABS: ALT/SGPT 20 U/l (0-40); Albumin 2.4 gm/dL (3.2-5.2); Albumin/Globulin Ratio 0.9 (1.0-2.3); Alkaline Phosphatase 90 U/L (39-117); Bilirubin,Direct < 0.2 mg/dL (0.0-0.3); Blood Urea Nitrogen 69 mg/dl (8-23); Gamma Glutamyl Transpeptidase 14 U/L (8-61); Uric Acid 9.4 mg/dL (2.5-8.0)
--- NOTE | 2018-01-23 08:32 | Cat Scan Report ---
CLINICAL INFORMATION: Reason for Exam:SBO COMPARISON: None. TECHNIQUE: Following injection of intravenous contrast the patient was scanned during the portal venous phase from the diaphragm through the symphysis pubis. Sagittal and coronal reformats were created.. Radiation exposure was limited using dose reduction technology. FINDINGS: Small to moderate-sized layering the liver and spleen are normal in size and homogeneous. The gallbladder is mildly distended and contains several noncalcified cholesterol stones. Gallbladder wall is not thickened or inflamed and the bile ducts are nondilated. There is no evidence of mass or inflammation the pancreas. The adrenals are normal and symmetric. There is loss of renal parenchyma in both kidneys with mild atrophy, left worse than right. There is no kidney stone or hydronephrosis in either kidney. There is distention of both large and small bowel. The proximal small intestine measures up to 5.8 cm in transverse diameter. There is a large amount gas and stool throughout the colon. Patient has a large left inguinal hernia. The distal sigmoid colon protrudes through the defect abdominal wall and isn't trapped. This causing a partial distal large bowel obstruction. Barium air and stool are able to get past this obstructed point into the sigmoid and rectum. The small intestine is disproportionately stenotic compared to the proximal colon. I see no transition point in the small intestine. The appendix is noninflamed. The bladder is decompressed and contains several small diverticula. There is a moderate amount of calcified plaque in the aorta and there is mild ectasia of the distal abdominal aorta. Arthritis is present throughout the lumbar spine and both hips. No abdominal mass, ascites or free intraperitoneal air are present. IMPRESSION: Partial small bowel obstruction. This may be related to an incarcerated hernia in the left groin which contains the distal descending colon Bilateral pleural effusions with mild atelectasis in left lower lobe and lingula. Very large hiatus hernia Cholelithiasis Interpreted and Authenticated by: Álvaro Bush 01/23/18
[2018-01-23 08:43] LABS: Band Neutrophils % 10 % (0-10); Lymphocytes % 2 % (15-49); Monocytes % (Manual) 2 % (1-12); Platelet Estimate MK INCR (NORMAL); RBC Morphology NORMAL (NORMAL); Segmented Neutrophils % 86 % (38-78)
--- NOTE | 2018-01-23 08:50 | XRay Report ---
HISTORY: Reason for Exam:leucocytosis FINDINGS: Patient is a large retrocardiac hiatus hernia. There is nasogastric tube in the mid thorax. The tip the catheter is looped upon itself and overlies the left mainstem bronchus. I cannot determine if this is within the bronchus or esophagus. There is consolidation in the left lower lobe and small alveolar infiltrate medially in the right lower lobe. Patient has subpulmonic pleural effusions, better seen on the abdomen CT scan done earlier the same date. The heart size is normal. There is fullness of the pulmonary vessels, especially the left upper lobe.. IMPRESSION: Nasogastric tube looped in the mid thorax, either in the esophagus or left mainstem bronchus. Bibasilar infiltrates, left worse than right. This may be a combination of atelectasis and pneumonia Large hiatus hernia Interpreted and Authenticated by: Álvaro Bush 01/23/18
--- NOTE | 2018-01-23 08:53 | XRay Report ---
HISTORY: Reason for Exam:tube placement FINDINGS: There are numerous loops of dilated small intestine throughout the abdomen. There is also a large amount gas and stool in the colon. Large retrocardiac hiatus hernia is present. There is nasogastric tube in the thorax. This is looped upon itself and may be within the left mainstem bronchus. IMPRESSION: Small bowel obstruction Abnormal placement of the nasogastric tube which may be within the left mainstem bronchus Interpreted and Authenticated by: Álvaro Bush 01/23/18
[2018-01-23] MEDS ORDERED: LIDOCAINE JEL 2% 1 TUBE 30GM TOPICAL ONE (09:03)
--- NOTE | 2018-01-23 09:15 | XRay Report ---
HISTORY: Reason for Exam:small bowel obstruction FINDINGS: The nostrils were anesthetized with Xylocaine jelly and the throat aspirate with Hurricaine anesthetic. Using fluoroscopic guidance a 16 [place] nasogastric tube was inserted through the right nostril into the pharynx. The catheter had a tendency of passing through the vocal cords into the trachea. Multiple attempts were made to pass the tube into the esophagus. The tube continued to get stuck in the piriform sinuses and I was unable to advance it into the esophagus. The procedure was then terminated before injuring the patient. Fluoroscopic time: two minutes 19 seconds IMPRESSION: Unsuccessful attempt at inserting a nasogastric tube due to patient's anatomy in the hypopharynx Interpreted and Authenticated by: Álvaro Bush 01/23/18
[2018-01-23] MEDS: WATER IV SCH (09:23)
[2018-01-23] MEDS: AMIODARONE IV SCH (09:23)
[2018-01-23] MEDS: DEXTROSE 5% IV SCH (09:23)
[2018-01-23] MEDS: HEPARIN 5,000 UNIT/ML VIAL SQ SCH ×2 (09:30→20:11)
[2018-01-23] MEDS: ONDANSETRON 4 MG/2 ML VIAL IV PRN (11:46)
--- NOTE | 2018-01-23 12:45 | General Surgery Consult Note ---
History of Present Illness Patient information: Note initiated : 01/23/18 at 12:43 pm Service Date, if different from initiated Date: [] Patient: Carlos Abraham 87 y/o M admitted on 01/23/18 for Abd Distension. Chief Complaint: [] Consult date: 01/23/18 Reason for consult: abdominal pain Requesting physician: Tracie Valenzuela History of present illness: [id number] male admitted with partial colonic obstruction and chronic developed a megacolon. The patient has a 2 week history of an enlarging abdomen. He later developed nausea and vomiting and was unable to keep down any oral intake. He was finally seen in the emergency room where he was noted to have a severely dilated abdomen. CT scan reveals massive dilation of his colon with a large fecal burden. He also had some dilation of the small bowel. There is a portion of his left colonpartially incarcerated and a left inguinal hernia but without complete obstruction. The patient has not had bowel movement for 2 days. His white blood count is 27,000, BUN 65, creatinine 4.6.. Patient is admitted and will be treated nonoperatively for the first few days. We will try to pass nasogastric tube to prevent further gaseous distention of the proximal bowel. Review of Systems - Constitutional fatigue, malaise, weakness, weight gain - EENT Nose, mouth and throat: abnormal hearing, dizziness, dry mouth - Cardiovascular dyspnea on exertion, irregular heart rhythm, leg edema, leg ulcers, palpatations , pedal edema, rapid heart rate, no chest pain at rest - Respiratory wheezing, chest congestion - Gastrointestinal abdominal pain, bloating, change in bowel habits, constipation, diarrhea, early satiety, heartburn, nausea, vomiting - Genitourinary difficulty urinating, post void dribbling, urinary incontinence - Musculoskeletal abnormal gait, arthralgias, back pain, joint swelling, muscle weakness, myalgias , neck pain, stiffness - Integumentary bleeding lesions (1 is normal), non-healing lesions, pruritus, rash, skin ulcer , sores, wounds - Neurological abnormal gait, confusion, dizziness, frequent falls, lack of coordination, paresthesias, tremor(s), weakness, other visual disturbances - Psychiatric depression, memory loss - Endocrine fatigue, palpitations, no polydipsia, no polyphagia, no polyuria - Hematologic/Lymphatic no easy bleeding, no easy bruising, no lymphadenopathy - Allergic/Immunologic no tongue swelling, no throat swelling, no uticaria, no wheezing, no lip swelling Past History Past medical history: History of severely depressed left ventricular systolic function with nonischemic cardiomyopathy--- ejection fraction 20% in 2015 but improved to 55% on 11/22/17 Pulmonary hypertension Congestive heart failure Chronic obstructive lung disease Essential hypertension Anemia of chronic disease Chronic kidney disease stage IV left inguinal hernia Sacral decubitus Severe stasis edema with ulcerations of bilateral lower extremities Past surgical history: Bilateral cataract extractions Treatment of retinal detachment Past family history: Positive for diabetes mellitus Past social history: Resides at a nursing facility History of alcohol use History of prior tobacco use Medications and Allergies Home Medications Medication Instructions Recorded Confirmed Type Amiodarone HCl [Cordarone] 400 mg PO BIDCC #60 tab 11/26/17 01/23/18 Rx Docusate Sodium [Colace] 100 mg PO BID cap 11/26/17 01/23/18 Rx Folic Acid 1 mg PO DAILY tab 11/26/17 01/23/18 Rx HYDROmorphone HCL [Dilaudid] 2 mg PO Q6HP PRN #40 tab 11/26/17 01/23/18 Rx Metoprolol Tartrate [Lopressor] 12.5 mg PO BID tab 11/26/17 01/23/18 Rx Simethicone [Mylicon] 80 mg CHEWED QIDP PRN tab.chew 11/26/17 01/23/18 Rx bisacodyl 10 mg rectal suppository 10 mg ME QDAY PRN 12/04/17 01/23/18 History calcium citrate 250 mg tablet 63 mg PO QDAY tab 01/01/18 01/23/18 History cholecalciferol (vitamin D3) 50,000 unit PO QWEEK 01/01/18 01/23/18 History 50,000 unit capsule ondansetron HCl 4 mg tablet 4 mg PO Q4H PRN 01/01/18 01/23/18 History potassium chloride ER 10 mEq 10 meq PO BID 01/01/18 01/23/18 History tablet,extended release Sevelamer [Renvela] 800 mg PO TIDCC 01/23/18 01/23/18 History Allergies Allergy/AdvReac Type Severity Reaction Status Date / Time No Known Drug Allergies Allergy Verified 01/01/18 13:50 Exam Temp Pulse Resp BP Pulse Ox 97 F 80 20 145/65 96 01/23/18 11:31 01/23/18 03:20 01/23/18 11:31 01/23/18 11:31 01/23/18 11:31 - General physical appearance well developed, well nourished, moderate distress, moderate pain, chronically ill, obese, other ( full facial hair) - Eyes PERRL, normal ocular movement, other (decreased vision bilaterally by confrontation; nonicteric) - ENT normal pinna, normal nares, normal mucosa, no congestion, decreased hearing, poor nursing home - Head Head exam IM: Present: atraumatic, normal inspection, normocephalic - Neck no masses, no bruits, trachea midline, no lymphadectomy, no venous distension - Cardiovascular Cardiovascular exam IM: Present: normal rate and rhythm - Respiratory normal expansion, normal respiratory effort, clear to percussion, clear to auscultation - Abdomen Abdomen: Present: soft, tender, bowel sounds, distended (major distention abdomen with increased tympany extending across the abdomen; moderate tenderness of distended bowel;;;;;;;;;;;;;;;;; hyperactive bowel sounds) Hernia: Present: none - Genitourinary Present: normal penis with no external lesions - Integumentary Present: no rash (presacral skin breakdown with ulceration; chronic venous stasis changes both lower extremities superficial ulcerations and mild bleeding ), no growths, other - Neurologic Present: normal coordination, normal sensation - Musculoskeletal Present: other ( gait and stance could not be checked) - Psychiatric Present: oriented to time, oriented to person, oriented to place, speech is normal, memory intact Results - Labs 01/24/18 04:00 01/24/18 04:00 Abnormal lab results 01/22/18 01/22/18 01/23/18 Range/Units 23:50 23:50 06:17 WBC 27.3 H (4.5-11.0) K/mcL RBC 3.73 L (4.50-5.90) M/mcL Hgb 11.3 L (13.5-16.5) g/dL Hct 34.5 L (41.0-55.0) % POC Hct 34.0 L (41.0-55.0) % RDW 15.3 H (11.5-14.5) % Plt Count 2139 H* (140-440) K/mcL MPV 6.2 L (7.4-10.4) fL Gran % 92.8 H (38.0-78.0) % Lymph % (Auto) 1.4 L (15.5-49.0) % Gran # 25.3 H (1.8-8.0) K/mcL Lymph # (Auto) 0.4 L (1.5-4.8) K/mcL [place] # (Auto) 1.6 H (0.1-0.9) K/mcL Seg Neutrophils % (38-78) % Lymphocytes % (15-49) % Platelet Estimate (NORMAL) Carbon Dioxide 19 L 20 L (22-30) mmol/L Anion Gap 19.0 H 19.0 H (8-16) POC BUN 58 H (8-23) mg/dl BUN 65 H 69 H (8-23) mg/dl Creatinine 4.6 H 4.5 H (0.7-1.2) mg/dl POC Creatinine 5.2 H* (0.7-1.2) mg/dl Glucose 153 H 154 H (70-105) mg/dL POC Glucose 151 H (70-105) mg/dL Uric Acid 9.4 H (2.5-8.0) mg/dL Calcium 8.3 L 8.0 L (8.6-10.4) mg/dl POC WB Ioniz Calcium 1.02 L (1.16-1.32) mmol/L Total Protein 5.7 L 5.2 L (5.9-8.4) gm/dL Albumin 2.6 L 2.4 L (3.2-5.2) gm/dL Albumin/Globulin Ratio 0.8 L 0.9 L (1.0-2.3) 01/23/18 Range/Units 06:17 WBC 23.2 H (4.5-11.0) K/mcL RBC 3.36 L (4.50-5.90) M/mcL Hgb 10.4 L (13.5-16.5) g/dL Hct 31.7 L (41.0-55.0) % POC Hct (41.0-55.0) % RDW 15.6 H (11.5-14.5) % Plt Count 1721 H* (140-440) K/mcL MPV 6.0 L (7.4-10.4) fL Gran % (38.0-78.0) % Lymph % (Auto) (15.5-49.0) % Gran # (1.8-8.0) K/mcL Lymph # (Auto) (1.5-4.8) K/mcL [place] # (Auto) (0.1-0.9) K/mcL Seg Neutrophils % 86 H (38-78) % Lymphocytes % 2 L (15-49) % Platelet Estimate Mk incr A (NORMAL) Carbon Dioxide (22-30) mmol/L Anion Gap (8-16) POC BUN (8-23) mg/dl BUN (8-23) mg/dl Creatinine (0.7-1.2) mg/dl POC Creatinine (0.7-1.2) mg/dl Glucose (70-105) mg/dL POC Glucose (70-105) mg/dL Uric Acid (2.5-8.0) mg/dL Calcium (8.6-10.4) mg/dl POC WB Ioniz Calcium (1.16-1.32) mmol/L Total Protein (5.9-8.4) gm/dL Albumin (3.2-5.2) gm/dL Albumin/Globulin Ratio (1.0-2.3) Diabetes panel 01/22/18 01/23/18 Range/Units 23:50 06:17 Sodium 137 139 (133-145) mmol/L Potassium 3.3 3.3 (3.3-5.1) mmol/L Chloride 99 100 (96-108) mmol/L Carbon Dioxide 19 L 20 L (22-30) mmol/L BUN 65 H 69 H (8-23) mg/dl Creatinine 4.6 H 4.5 H (0.7-1.2) mg/dl Glucose 153 H 154 H (70-105) mg/dL Calcium 8.3 L 8.0 L (8.6-10.4) mg/dl AST 15 11 (0-37) U/l ALT 24 20 (0-40) U/l Alkaline Phosphatase 106 90 (39-117) U/L Total Protein 5.7 L 5.2 L (5.9-8.4) gm/dL Albumin 2.6 L 2.4 L (3.2-5.2) gm/dL Triglycerides 85 (<150) mg/dl Calcium panel 01/22/18 01/23/18 Range/Units 23:50 06:17 Calcium 8.3 L 8.0 L (8.6-10.4) mg/dl Phosphorus 4.1 (2.7-4.5) mg/dL Albumin 2.6 L 2.4 L (3.2-5.2) gm/dL Pituitary panel 01/22/18 01/23/18 Range/Units 23:50 06:17 Sodium 137 139 (133-145) mmol/L Potassium 3.3 3.3 (3.3-5.1) mmol/L Chloride 99 100 (96-108) mmol/L Carbon Dioxide 19 L 20 L (22-30) mmol/L BUN 65 H 69 H (8-23) mg/dl Creatinine 4.6 H 4.5 H (0.7-1.2) mg/dl Glucose 153 H 154 H (70-105) mg/dL Calcium 8.3 L 8.0 L (8.6-10.4) mg/dl Adrenal panel 01/22/18 01/23/18 Range/Units 23:50 06:17 Sodium 137 139 (133-145) mmol/L Potassium 3.3 3.3 (3.3-5.1) mmol/L Chloride 99 100 (96-108) mmol/L Carbon Dioxide 19 L 20 L (22-30) mmol/L BUN 65 H 69 H (8-23) mg/dl Creatinine 4.6 H 4.5 H (0.7-1.2) mg/dl Glucose 153 H 154 H (70-105) mg/dL Calcium 8.3 L 8.0 L (8.6-10.4) mg/dl Total Bilirubin 0.4 0.5 (0.0-1.0) mg/dL AST 15 11 (0-37) U/l ALT 24 20 (0-40) U/l Alkaline Phosphatase 106 90 (39-117) U/L Total Protein 5.7 L 5.2 L (5.9-8.4) gm/dL Albumin 2.6 L 2.4 L (3.2-5.2) gm/dL All other labs normal. Assessment and Plan (1) Acute worsening of stage 4 chronic kidney disease Clinically responding to medical therapy Status: Acute (2) Colonic obstruction There appears to be partial obstruction of the colon and a large left inguinal hernia. This is contributing to constipation and poor emptying of the small bowel. The major portion of the abdominal distention is related to colonic dilation rather than small bowel dilation. We'll try to decompress with nasogastric suction and followed this with small bowel follow-through using Gastrografin. Once this is done we will also give a trial of enemas distally to try to get the colon decompressed and the incarceration reduced. The patient is a very poor candidate for operative therapy. Status: Acute (3) Incarcerated left inguinal hernia Status: Acute (4) Cardiomyopathy due to hypertension Clinically improved over the past year Status: Acute (5) Protein-calorie malnutrition, severe Long-term condition associated with poor nutritional intake and severe disability Status: Acute (6) Anasarca associated with disorder of kidney Status: Acute (7) Stasis dermatitis of both legs We'll allow wound care service to continue treatment Status: Acute (8) Chronic obstructive pulmonary disease (COPD) Status: Acute (9) Anemia of chronic disease Status: Acute (10) Sacral decubitus ulcer, stage III Status: Acute
[2018-01-23] MEDS ORDERED: BENZOCAINE/MENTHOL 1 LOZENGE PO PRN (14:44)
[2018-01-23] MEDS: ASPIRIN 81 MG TAB.CHEW CHEWED SCH (17:20)
--- NOTE | 2018-01-23 19:12 | General Surgery Consult Note ---
History of Present Illness Patient information: Note initiated : 01/23/18 at 7:10 pm Service Date, if different from initiated Date: [] Patient: Carlos Abraham 87 y/o M admitted on 01/23/18 for Abd Distension. Chief Complaint: [] Consult date: 01/23/18 Requesting physician: Tracie Valenzuela ([facility] ) History of present illness: I saw this patient on Med Surg Floor with [place] RN Inpatient Wound care Service. Patient being seen at wound care centers for multiple wounds and pressure ulcer sacral coccygeal area.Undergoing conservative management. Patient is NOW admitted to hospital for mechanical bowel obstruction and wound care consult was called for continuation of care. Patient has had multiple medical problems of acute nature and personal / social issues in past. He did NOT see a doctor for a prolonged period of time. His recent hospitalization was for infected skin and sub cutaneous wounds of extremities and sacral pressure ulcer,sepsis and organ failure with hematological abnormalities. He was brought to ER by his son who is estranged from his father. Patient at the time refused to be dialyzed . This time around he is lucid and wants to get well. He has NOT ambulated for a long time and is constipated. HIs Constipation and Bowel obstructions is being treated conservatively.Dr. Chaves General Surgeon on this case and following patient as well Medications and Allergies Home Medications Medication Instructions Recorded Confirmed Type Amiodarone HCl [Cordarone] 400 mg PO BIDCC #60 tab 11/26/17 01/23/18 Rx Docusate Sodium [Colace] 100 mg PO BID cap 11/26/17 01/23/18 Rx Folic Acid 1 mg PO DAILY tab 11/26/17 01/23/18 Rx HYDROmorphone HCL [Dilaudid] 2 mg PO Q6HP PRN #40 tab 11/26/17 01/23/18 Rx Metoprolol Tartrate [Lopressor] 12.5 mg PO BID tab 11/26/17 01/23/18 Rx Simethicone [Mylicon] 80 mg CHEWED QIDP PRN tab.chew 11/26/17 01/23/18 Rx bisacodyl 10 mg rectal suppository 10 mg MD QDAY PRN 12/04/17 01/23/18 History calcium citrate 250 mg tablet 63 mg PO QDAY tab 01/01/18 01/23/18 History cholecalciferol (vitamin D3) 50,000 unit PO QWEEK 01/01/18 01/23/18 History 50,000 unit capsule ondansetron HCl 4 mg tablet 4 mg PO Q4H PRN 01/01/18 01/23/18 History potassium chloride ER 10 mEq 10 meq PO BID 01/01/18 01/23/18 History tablet,extended release Sevelamer [Renvela] 800 mg PO TIDCC 01/23/18 01/23/18 History Allergies Allergy/AdvReac Type Severity Reaction Status Date / Time No Known Drug Allergies Allergy Verified 01/01/18 13:50 Exam Temp Pulse Resp BP Pulse Ox 98.3 F 64 16 126/54 98 01/23/18 18:37 01/23/18 18:37 01/23/18 18:37 01/23/18 18:37 01/23/18 18:37 - General physical appearance well developed, well nourished, no distress, chronically ill - Eyes PERRL, normal ocular movement - ENT normal pinna, normal nares, normal mucosa, no congestion - Head Head exam IM: Present: atraumatic, normal inspection, normocephalic - Neck no masses, no bruits, trachea midline, no venous distension - Cardiovascular Cardiovascular exam IM: Present: irregular rhythm - Respiratory normal expansion, normal respiratory effort, clear to auscultation - Abdomen Abdomen: Present: bowel sounds (Kanwal obstruction with non partially reducible groin hernia and severe constipation), distended Hernia: Present: inguinal - Integumentary Present: other (Grade 3 Sacral decubitus. Right and left leg Skin ulcers covered with biofilm. NO purulence and NO odor.) - Neurologic Present: normal coordination, normal sensation, other (Deconditioning. BUT moves all extremities. NO gross focal deficits. ) - Musculoskeletal Present: other (Bed or w/c confined. ) - Psychiatric Present: oriented to time, oriented to person, other (Personal issues.Estranged fromhis son,who is a pick remover. ) Results - Labs 01/24/18 04:00 01/24/18 04:00 Abnormal lab results 01/22/18 01/22/18 01/23/18 Range/Units 23:50 23:50 06:17 WBC 27.3 H (4.5-11.0) K/mcL RBC 3.73 L (4.50-5.90) M/mcL Hgb 11.3 L (13.5-16.5) g/dL Hct 34.5 L (41.0-55.0) % POC Hct 34.0 L (41.0-55.0) % RDW 15.3 H (11.5-14.5) % Plt Count 2139 H* (140-440) K/mcL MPV 6.2 L (7.4-10.4) fL Gran % 92.8 H (38.0-78.0) % Lymph % (Auto) 1.4 L (15.5-49.0) % Gran # 25.3 H (1.8-8.0) K/mcL Lymph # (Auto) 0.4 L (1.5-4.8) K/mcL [place] # (Auto) 1.6 H (0.1-0.9) K/mcL Seg Neutrophils % (38-78) % Lymphocytes % (15-49) % Platelet Estimate (NORMAL) Carbon Dioxide 19 L 20 L (22-30) mmol/L Anion Gap 19.0 H 19.0 H (8-16) POC BUN 58 H (8-23) mg/dl BUN 65 H 69 H (8-23) mg/dl Creatinine 4.6 H 4.5 H (0.7-1.2) mg/dl POC Creatinine 5.2 H* (0.7-1.2) mg/dl Glucose 153 H 154 H (70-105) mg/dL POC Glucose 151 H (70-105) mg/dL Uric Acid 9.4 H (2.5-8.0) mg/dL Calcium 8.3 L 8.0 L (8.6-10.4) mg/dl POC WB Ioniz Calcium 1.02 L (1.16-1.32) mmol/L Total Protein 5.7 L 5.2 L (5.9-8.4) gm/dL Albumin 2.6 L 2.4 L (3.2-5.2) gm/dL Albumin/Globulin Ratio 0.8 L 0.9 L (1.0-2.3) /14/18 Range/Units 06:17 WBC 23.2 H (4.5-11.0) K/mcL RBC 3.36 L (4.50-5.90) M/mcL Hgb 10.4 L (13.5-16.5) g/dL Hct 31.7 L (41.0-55.0) % POC Hct (41.0-55.0) % RDW 15.6 H (11.5-14.5) % Plt Count 1721 H* (140-440) K/mcL MPV 6.0 L (7.4-10.4) fL Gran % (38.0-78.0) % Lymph % (Auto) (15.5-49.0) % Gran # (1.8-8.0) K/mcL Lymph # (Auto) (1.5-4.8) K/mcL [place] # (Auto) (0.1-0.9) K/mcL Seg Neutrophils % 86 H (38-78) % Lymphocytes % 2 L (15-49) % Platelet Estimate Mk incr A (NORMAL) Carbon Dioxide (22-30) mmol/L Anion Gap (8-16) POC BUN (8-23) mg/dl BUN (8-23) mg/dl Creatinine (0.7-1.2) mg/dl POC Creatinine (0.7-1.2) mg/dl Glucose (70-105) mg/dL POC Glucose (70-105) mg/dL Uric Acid (2.5-8.0) mg/dL Calcium (8.6-10.4) mg/dl POC WB Ioniz Calcium (1.16-1.32) mmol/L Total Protein (5.9-8.4) gm/dL Albumin (3.2-5.2) gm/dL Albumin/Globulin Ratio (1.0-2.3) Diabetes panel 01/22/18 01/23/18 Range/Units 23:50 06:17 Sodium 137 139 (133-145) mmol/L Potassium 3.3 3.3 (3.3-5.1) mmol/L Chloride 99 100 (96-108) mmol/L Carbon Dioxide 19 L 20 L (22-30) mmol/L BUN 65 H 69 H (8-23) mg/dl Creatinine 4.6 H 4.5 H (0.7-1.2) mg/dl Glucose 153 H 154 H (70-105) mg/dL Calcium 8.3 L 8.0 L (8.6-10.4) mg/dl AST 15 11 (0-37) U/l ALT 24 20 (0-40) U/l Alkaline Phosphatase 106 90 (39-117) U/L Total Protein 5.7 L 5.2 L (5.9-8.4) gm/dL Albumin 2.6 L 2.4 L (3.2-5.2) gm/dL Triglycerides 85 (<150) mg/dl Calcium panel 01/22/18 01/23/18 Range/Units 23:50 06:17 Calcium 8.3 L 8.0 L (8.6-10.4) mg/dl Phosphorus 4.1 (2.7-4.5) mg/dL Albumin 2.6 L 2.4 L (3.2-5.2) gm/dL Pituitary panel 01/22/18 01/23/18 Range/Units 23:50 06:17 Sodium 137 139 (133-145) mmol/L Potassium 3.3 3.3 (3.3-5.1) mmol/L Chloride 99 100 (96-108) mmol/L Carbon Dioxide 19 L 20 L (22-30) mmol/L BUN 65 H 69 H (8-23) mg/dl Creatinine 4.6 H 4.5 H (0.7-1.2) mg/dl Glucose 153 H 154 H (70-105) mg/dL Calcium 8.3 L 8.0 L (8.6-10.4) mg/dl Adrenal panel 01/22/18 01/23/18 Range/Units 23:50 06:17 Sodium 137 139 (133-145) mmol/L Potassium 3.3 3.3 (3.3-5.1) mmol/L Chloride 99 100 (96-108) mmol/L Carbon Dioxide 19 L 20 L (22-30) mmol/L BUN 65 H 69 H (8-23) mg/dl Creatinine 4.6 H 4.5 H (0.7-1.2) mg/dl Glucose 153 H 154 H (70-105) mg/dL Calcium 8.3 L 8.0 L (8.6-10.4) mg/dl Total Bilirubin 0.4 0.5 (0.0-1.0) mg/dL AST 15 11 (0-37) U/l ALT 24 20 (0-40) U/l Alkaline Phosphatase 106 90 (39-117) U/L Total Protein 5.7 L 5.2 L (5.9-8.4) gm/dL Albumin 2.6 L 2.4 L (3.2-5.2) gm/dL All other labs normal. Assessment and Plan (1) Renal failure Status: Acute Priority: High (2) Self-care deficit for hygiene Status: Acute Priority: High (3) Skin breakdown Status: Acute Priority: Medium (4) Decubitus ulcer, buttock Assessment: Sacral pressure ulcer stage 3 Skin pressure ulceration right lower outer leg Plan: Wound care ordered and discussed with floor nursing staff and with [place] In Patient Wound Care nurse WILL FOLLOW THIS PATIENT INTERMITTENTLY whilst he is in hospital. Status: Acute Priority: Medium Qualifiers: Pressure ulcer stage: stage 2 Laterality: unspecified laterality Qualified Code(s): L89.302 - Pressure ulcer of unspecified buttock, stage 2 (5) Acute on chronic renal failure Status: Acute Qualifiers: Acute renal failure type: unspecified Chronic kidney disease stage: stage 4 (severe) Qualified Code(s): N17.9 - Acute kidney failure, unspecified; N18.4 - Chronic kidney disease, stage 4 (severe)
[2018-01-24 05:45] LABS: Basophils # (Auto) 0 K/mcL (0.0-0.3); Basophils % (Auto) 0 % (0.0-2.0); Eosinophils # (Auto) 0 K/mcL (0.0-0.7); Eosinophils % (Auto) 0.1 % (0.0-7.0); Granulocytes % (Auto) 90.3 % (38.0-78.0); Lymphocytes # (Auto) 0.3 K/mcL (1.5-4.8); Lymphocytes % (Auto) 2.3 % (15.5-49.0); Mean Cell Volume 93.8 fL (80.0-100.0); Mean Corpuscular HGB Conc 32.3 g/dL (31.0-36.0); Mean Corpuscular Hemoglobin 30.3 pg (26.0-34.0); Monocytes # (Auto) 1.1 K/mcL (0.1-0.9); Monocytes % (Auto) 7.3 % (1.0-12.0); Platelet Count 1387 K/mcL (140-440); RBC 3.14 M/mcL (4.50-5.90); Red Cell Distribution Width 15.4 % (11.5-14.5)
[2018-01-24] MEDS: DEXTROSE 5%-LR W/20MEQ KCL 1,000 ML IV SCH ×2 (06:03→17:08)
[2018-01-24] MEDS: 0.9 % SODIUM CHLORIDE 10 ML SYRINGE IV SCH ×3 (06:03→22:11)
[2018-01-24] MEDS: PIPERACILLIN SODIUM/TAZOBACTAM 2.25 GM in DEXTROSE 5% IN WATER 50 ML IV SCH ×3 (06:03→22:11)
[2018-01-24 06:09] LABS: ALT/SGPT 17 U/l (0-40); Albumin/Globulin Ratio 0.7 (1.0-2.3); Alkaline Phosphatase 85 U/L (39-117); Bilirubin,Direct < 0.2 mg/dL (0.0-0.3); Blood Urea Nitrogen 81 mg/dl (8-23); Gamma Glutamyl Transpeptidase 12 U/L (8-61); Uric Acid 10.7 mg/dL (2.5-8.0)
--- NOTE | 2018-01-24 08:44 | Nephrology Consult Note ---
History of Present Illness - Reason for Consult Patient information: Note initiated : 01/24/18 at 8:42 am Carlos Abraham is an [id number] male admitted on 01/22/18 for partial small bowel obstruction. 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 Recent events: Last office visit on 01/01/18. Declines hemodialysis. Labs on 12/26/17: Serum creatinine 3.1, eGFR 17 ml/min, potassium 3.4, CO2 27, calcium 7.9, albumin 2.3, phosphorus 2.9, Vitamin D Total (25-Hydroxy) 12, PTH ( intact) 41.7. Hospitalized at [facility] (11/20/17-11/26/17). He had extensive wounds and acute kidney injury, likely acute tubular necrosis, associated with initial oliguria, hyperkalemia, high anion-gap metabolic acidosis, hyponatremia, and acute Proteus mirabilis cystitis. The patient declined hemodialysis. Hyperkalemia, high anion-gap metabolic acidosis, hyponatremia were resolved with IV fluids. Serum creatinine was 5.8 with eGFR estimate of 8 ml/min at the time of discharge to SNF. Review of Systems Constitutional: anorexia, weakness Nose, mouth and throat: dry mouth, other (NG tube) Cardiovascular: no chest pain, no palpatations Respiratory: no cough, no dyspnea Gastrointestinal: nausea, other (distention) Genitourinary: no dysuria, no hematuria Musculoskeletal: no joint swelling, no neck pain Integumentary: wounds, no rash Neurological: weakness, no focal weakness Psychiatric: no anxiety, no confusion Endocrine: no cold intolerance, no heat intolerance Hematologic/Lymphatic: no easy bleeding, no easy bruising Allergic/Immunologic: no tongue swelling, no uticaria Past History Past medical history: Medical History Hypertension, essential, benign (Chronic) Retinal detachment (Chronic) Past surgical history: Past Surgical History History of cataract surgery (Chronic) History of retinal detachment (Chronic) Past family history: Family History Mother Diabetes mellitus Past social history: Former smoker Medications and Allergies Home Medications Medication Instructions Recorded Confirmed Type RX: Amiodarone HCl [Cordarone] 400 mg PO BIDCC #60 tab 11/26/17 01/23/18 Rx RX: Docusate Sodium [Colace] 100 mg PO BID cap 11/26/17 01/23/18 Rx RX: Folic Acid 1 mg PO DAILY tab 11/26/17 01/23/18 Rx RX: HYDROmorphone HCL [Dilaudid] 2 mg PO Q6HP PRN #40 tab 11/26/17 01/23/18 Rx RX: Metoprolol Tartrate [Lopressor] 12.5 mg PO BID tab 11/26/17 01/23/18 Rx RX: Simethicone [Mylicon] 80 mg CHEWED QIDP PRN tab.chew 11/26/17 01/23/18 Rx bisacodyl 10 mg rectal suppository 10 mg PA QDAY PRN 12/04/17 01/23/18 History calcium citrate 250 mg tablet 63 mg PO QDAY tab 01/01/18 01/23/18 History cholecalciferol (vitamin D3) 50,000 unit PO QWEEK 01/01/18 01/23/18 History 50,000 unit capsule ondansetron HCl 4 mg tablet 4 mg PO Q4H PRN 01/01/18 01/23/18 History potassium chloride ER 10 mEq 10 meq PO BID 01/01/18 01/23/18 History tablet,extended release RX: Sevelamer [Renvela] 800 mg PO TIDCC 01/23/18 01/23/18 History Allergies Allergy/AdvReac Type Severity Reaction Status Date / Time No Known Drug Allergies Allergy Verified 01/01/18 13:50 Exam - Vital Signs Vital signs: Temp Pulse Resp BP Pulse Ox 98.2 F 65 20 136/68 97 01/24/18 07:35 01/24/18 04:00 01/24/18 07:35 01/24/18 07:35 01/24/18 07:35 - General Appearance General appearance: chronically ill, frail EENT: mucous membranes dry Neck: no JVD, supple Respiratory: clear Cardiology: edema Gastrointestinal: distended Integumentary: no rash, ulcer Neurologic: no focal deficit, alert and oriented x3 Musculoskeletal: no deformities Psychiatric: mood/affect appropriate, cooperative Results - Lab Results 01/24/18 04:00 01/24/18 04:00 Most recent lab results Calcium 7.8 mg/dl (8.6-10.4) L 01/24/18 04:00 Phosphorus 3.9 mg/dL (2.7-4.5) 01/24/18 04:00 Magnesium 2.2 mg/dL (1.6-2.5) 01/24/18 04:00 Assessment and Plan (1) Acute on chronic renal failure Previous work up: Renal US on 11/20/17: Mildly echogenic renal parenchyma bilaterally which indicates chronic medical renal disease. Cholelithiasis. Progress: Metabolic acidosis. Prognosis: Guarded. Recommendations: IVF for adequate hydration. Declines hemodialysis if indicated. Status: Acute Qualifiers: Acute renal failure type: unspecified Chronic kidney disease stage: stage 4 (severe) Qualified Code(s): N17.9 - Acute kidney failure, unspecified; N18.4 - Chronic kidney disease, stage 4 (severe) (2) Metabolic acidosis Stable mild metabolic acidosis associated with renal failure and partial small bowel obstruction. Chloride level rising. May need to switch IVF to D5W 1 L + Sodium Bicarbonate 150 mEq. Status: Acute Priority: Medium
[2018-01-24] MEDS ORDERED: ASPIRIN 325 MG TABLET.DR PO SCH (09:00)
[2018-01-24] MEDS: ONDANSETRON 4 MG/2 ML VIAL IV PRN ×2 (09:42→22:11)
[2018-01-24] MEDS: HEPARIN 5,000 UNIT/ML VIAL SQ SCH ×3 (09:42→20:26)
[2018-01-24] MEDS: WATER IV SCH (09:42)
[2018-01-24] MEDS: ASPIRIN 81 MG TAB.CHEW CHEWED SCH (09:42)
[2018-01-24] MEDS: AMIODARONE IV SCH (09:42)
[2018-01-24] MEDS: DEXTROSE 5% IV SCH (09:42)
--- NOTE | 2018-01-24 14:04 | Internal Med Progress Note ---
Medical - PN: Subj Patient information: Note initiated : 01/24/18 at 1:58 pm Service Date, if different from initiated Date: [] Patient: Carlos Abraham 87 y/o M admitted on 01/23/18 for Small Bowel Obstruction/Incarcerated Hernia. Chief Complaint: [] Interval history: Mr. Abraham is a 87 year old M with multiple medical issues, a poor history provider, presently living in [facility], [facility], presents to the ER today after not being well for the last few days, he notes he has had intermittent abdominal distention for a while, but this time for at least 1 week his abdomen has been progressively getting bigger, this has been accompanied by some abdominal pain/ discomfort and nausea and vomiting. He has not been able to tolerate po diet well, he has tried liquid diet but it did not help much. He is not having regular bowel movements but last BM was a small stool yesterday as per the patient. The patient was eventually sent to the ER for further evaluation. the patient has a DNR /CC as per POST but notes he is willing to get treated for this issue. The patient had leukocytosis at 27,000, more than 10% bands, hemoglobin 11.3, significantly elevated platelets at 2139. Potassium was 3.3, bicarbonate 19, creatinine 4.6, he has chronic kidney disease and this creatinine is slowly trending down. CT scan of the abdomen and pelvis shows partial small bowel obstruction, incarcerated hernia in the right groin, CXR shows bibasilar infiltrates, pna/ atelectasis, but CT abdomen showed only atelectasis. patient was admitted to medicine given extensive comorbid conditions, Dr Chaves was consulted from the ER. Overnight we tried to Place NG tube on the medical floor, but the tube did get coiled in the mid thorax, this AM radiology tried to get the NG tube under floroscopy, but was unsucessful. Dr Chaves will evaluate and try to place the NG today. 01/24 Pt seen examined, intermittently non compliant with care, as per nursing, does not like to be turned, had bm today, NG placed by Dr Chaves, Patient renal function worsened, nephrology consulted overall poor candidate for operative intervention, non compliant with care, has refused dialysis in the past Pertinent ROS: Denies headache, dizziness Denies chest pain, palpitations Denies cough or shortness of breath Denies abdominal pain, nausea or vomiting. abdomen is still distended. - Constitutional Vitals: Vital Signs Temp Pulse Resp BP Pulse Ox 98.6 F 65 20 139/72 92 01/24/18 11:18 01/24/18 04:00 01/24/18 11:18 01/24/18 11:18 01/24/18 11:18 Period Temp Pulse Resp BP Sys/Ferris Pulse Ox Last 24 Hr 98.2 F-98.9 F 64-66 16-20 126-147/48-72 92-98 Intake and Output 01/23/18 01/24/18 01/24/18 21:59 05:59 13:59 Intake Total 1050 / 1050 50 / 50 104 / 104 Output Total 160 / 160 225 / 225 Balance 890 / 890 -175 / -175 104 / 104 Weight 217 lb 8 oz Intake & Output: Intake & Output 01/23/18 01/24/18 01/24/18 21:59 05:59 13:59 Intake Total 1050 / 1050 50 / 50 104 / 104 Output Total 160 / 160 225 / 225 Balance 890 / 890 -175 / -175 104 / 104 Weight 217 lb 8 oz Intake: IV 1050 / 1050 50 / 50 104 / 104 Cordarone 200 mg In Dextrose 5% 54 / 54 in Water 50 ml @ 108 mls/hr IV DAILY [facility] Rx#:[id number] Dextrose 5%-Lr W/20Meq KCl 1, 1000 / 1000 000 ml @ 75 mls/hr IV .[id number] [facility] Rx#:[id number] Zosyn 2.25 gm In Dextrose 5% in 50 / 50 50 / 50 50 / 50 Water 50 ml @ 100 mls/hr IV Q8H [facility] Rx#:[id number] Output: Gastric Drainage 160 / 160 75 / 75 Right Nare 160 / 160 75 / 75 Urine Catheter Amount 150 / 150 Other: Stool Size Smear Large Moderate Stool Color Brown Brown Brown Stool Consistency Dry and Hard Dry and Hard Liquid # of times incontinent of 1 1 1 Bowels Exam: Constitutional; Afebrile, cooperative, alert, not in distress. Eyes- No icterus, , No periorbital swelling Ears- Ext ear normal, hearing normal to conversation. Neck- Midline trachea, supple Respiratory system: Air Entry equal on both sides, No crackles or wheezing, no rhonchi. ant exam only. CVS- Rate rhythm regular, S1,S2 heard, no gallop, no rub. Abdomen- Soft distended abdomen, tympanic to percussion, absent bowel tones, [employer]- AOOx3, no change in exam. Medical - PN: Obj Da - Labs CBC & Chem 7: 01/24/18 04:00 01/24/18 04:00 Labs: Abnormal Lab Results 01/24/18 01/24/18 01/23/18 04:00 04:00 06:17 WBC 14.4 H 23.2 H RBC 3.14 L 3.36 L Hgb 9.5 L 10.4 L Hct 29.5 L 31.7 L POC Hct RDW 15.4 H 15.6 H Plt Count 1387 H* 1721 H* MPV 6.0 L 6.0 L Gran % 90.3 H Lymph % (Auto) 2.3 L Gran # 13.0 H Lymph # (Auto) 0.3 L Benzie # (Auto) 1.1 H Seg Neutrophils % 86 H Lymphocytes % 2 L Platelet Estimate Mk incr A Carbon Dioxide 20 L Anion Gap POC BUN BUN 81 H Creatinine 5.7 H* POC Creatinine Glucose 121 H POC Glucose Uric Acid 10.7 H Calcium 7.8 L POC WB Ioniz Calcium Total Protein 4.7 L Albumin 2.0 L Albumin/Globulin Ratio 0.7 L 01/23/18 01/22/18 01/22/18 06:17 23:50 23:50 WBC 27.3 H RBC 3.73 L Hgb 11.3 L Hct 34.5 L POC Hct 34.0 L RDW 15.3 H Plt Count 2139 H* MPV 6.2 L Gran % 92.8 H Lymph % (Auto) 1.4 L Gran # 25.3 H Lymph # (Auto) 0.4 L Benzie # (Auto) 1.6 H Seg Neutrophils % Lymphocytes % Platelet Estimate Carbon Dioxide 20 L 19 L Anion Gap 19.0 H 19.0 H POC BUN 58 H BUN 69 H 65 H Creatinine 4.5 H 4.6 H POC Creatinine 5.2 H* Glucose 154 H 153 H POC Glucose 151 H Uric Acid 9.4 H Calcium 8.0 L 8.3 L POC WB Ioniz Calcium 1.02 L Total Protein 5.2 L 5.7 L Albumin 2.4 L 2.6 L Albumin/Globulin Ratio 0.9 L 0.8 L Meds: Medications Aspirin (Aspirin) 162 mg CHEWED DAILY [facility] Last Admin: 01/24/18 09:42 Dose: 162 mg Heparin Sodium (Porcine) (Heparin) 5,000 unit SQ Q12 [facility] Last Admin: 01/24/18 10:28 Dose: Not Given Potassium Cl/Dextrose/Lact Ringer's (Dextrose 5%-Lr W/20meq Kcl) 1,000 mls @ 75 mls/hr IV .[id number] [facility] Last Admin: 01/24/18 06:03 Dose: Not Given Piperacillin Sod/Tazobactam (Sod 2.25 gm/ Dextrose) 50 mls @ 100 mls/hr IV Q8H [facility] Last Infusion: 01/24/18 06:33 Dose: Infused Acetaminophen (Ofirmev) 650 mg in 65 mls @ 130 mls/hr IV Q6HP PRN PRN Reason: PAIN/FEVER > 101 Amiodarone HCl 200 mg/ (Dextrose) 54 mls @ 108 mls/hr IV DAILY [facility] Last Infusion: 01/24/18 10:26 Dose: Infused Methylnaltrexone Erving (Relistor) 12 mg SQ DAILY [facility] Metoclopramide HCl (Reglan) 10 mg IV Q6 [facility] Morphine Sulfate (Morphine) 2 mg SL Q2HP PRN PRN Reason: Pain Naloxone HCl (Narcan) 0.1 mg IV Q2MIN PRN PRN Reason: Opiate Reversal Ondansetron HCl (Zofran) 4 mg IV Q6HP PRN PRN Reason: Nausea And Vomiting Last Admin: 01/24/18 09:42 Dose: 4 mg Sodium Chloride (Saline Flush) 10 ml IV Q8 [facility] Last Admin: 01/24/18 06:03 Dose: Not Given Throat Lozenges (Cepacol) 1 lozenge PO Q4HP PRN PRN Reason: Sore Throat Last Admin: 01/23/18 15:02 Dose: 1 lozenge Medical - PN: A/P - Time Spent With Patient Total time spent is greater than 50% in coordination of care (as documented) at patient's floor/unit and/or counseling patient: - Narrative A/P Narrative: A/P Small bowel obstruction/ Incarcerated hernia: Dr Chaves consulted, management as per him. Possible Pneumonia: Given hiatal hernia, likely aspirational pna, on zosyn Sepsis- bp stable, pna/ GI source on zosyn, neg lactate, clinically stable. leukocytosis trending down. Thrombocytosis, severe: improving, reactive? patient path smear is neg for any suspicion for malignancy. On aspirin. CHF- on lasix, which is on hold for now, LVEF moderately reduced as per last echo, in the past was severely reduced as per the patient. CKD- with worsneing renal function, nephrology consulted, on IVF Ventricular tachycardia: unable to tolerate po, therefore on IV amiodarone for now Decub ulcers/ Lower extremity wounds: Wound care consult. pt refuses q2h turning for the decub ulcers. DVT hep sq Diet NPO DNR code status, Patient overall has poor functional status, and poor prognosis. Medical - PN: Qual - VTE Deep Vein Thrombosis/Pulmonary Embolism Present on Admission: No
--- NOTE | 2018-01-24 14:07 | General Surgery Progress Note ---
Subjective Patient reports: feels better, pain is less, flatus, bowel movement, afebrile Narrative: Note initiated : 01/24/18 at 2:05 pm Service Date, if different from initiated Date: [] Patient: Carlos Abraham 87 y/o M admitted on 01/23/18 for Small Bowel Obstruction/Incarcerated Hernia. Chief Complaint: [patient had a large bowel movement last evening and today but he still has a large volume of gas in his colon. He does not have significant tenderness and he has hyperactive bowel sounds. Abdominal x-rays shows large volume of stool and gas and colon with some stool and gas in his inguinal hernia but without complete obstruction. His white blood count has decreased.] Objective Temp Pulse Resp BP Pulse Ox 98.6 F 65 20 139/72 92 01/24/18 11:18 01/24/18 04:00 01/24/18 11:18 01/24/18 11:18 01/24/18 11:18 - Additional Data Intake & Output - Last 24 hours: Intake & Output 01/22/18 01/23/18 01/24/18 01/25/18 05:59 05:59 05:59 05:59 Intake Total 750 / 750 1154 / 1154 104 / 104 Output Total 625 / 625 Balance 750 / 750 529 / 529 104 / 104 Weight 215 lb 8 oz 217 lb 8 oz - General physical appearance no distress, moderate pain - Eyes PERRL, normal ocular movement - ENT normal pinna, normal nares, normal mucosa, no hearing loss, no congestion - Neck no masses, no bruits, trachea midline, no lymphadectomy, no venous distension - Respiratory normal expansion, normal respiratory effort, clear to percussion, clear to auscultation - Cardiovascular Cardiovascular exam: Present: irregular rhythm, +S1, +S2. Absent: JVD, tachycardia - Abdomen distended (grossly distended abdomen with moderate tenderness; hyperactive bowel sounds) Hernia: inguinal ( left inguinal hernia is still reducible but it immediately pops out) - Integumentary other ( no change in chronic stasis changes of bilateral lower extremities) - Neurologic other ( gait and stance cannot be tested; no acute neurologic deficit) - Psychiatric oriented to time, oriented to person, oriented to place, speech is normal, memory intact - Labs 01/24/18 04:00 06/15/18 04:00 Diabetes panel 01/24/18 Range/Units 04:00 Sodium 139 (133-145) mmol/L Potassium 3.6 (3.3-5.1) mmol/L Chloride 103 (96-108) mmol/L Carbon Dioxide 20 L (22-30) mmol/L BUN 81 H (8-23) mg/dl Creatinine 5.7 H* (0.7-1.2) mg/dl Glucose 121 H (70-105) mg/dL Calcium 7.8 L (8.6-10.4) mg/dl AST 12 (0-37) U/l ALT 17 (0-40) U/l Alkaline Phosphatase 85 (39-117) U/L Total Protein 4.7 L (5.9-8.4) gm/dL Albumin 2.0 L (3.2-5.2) gm/dL Triglycerides 71 (<150) mg/dl Calcium panel 01/24/18 Range/Units 04:00 Calcium 7.8 L (8.6-10.4) mg/dl Phosphorus 3.9 (2.7-4.5) mg/dL Albumin 2.0 L (3.2-5.2) gm/dL Pituitary panel 01/24/18 Range/Units 04:00 Sodium 139 (133-145) mmol/L Potassium 3.6 (3.3-5.1) mmol/L Chloride 103 (96-108) mmol/L Carbon Dioxide 20 L (22-30) mmol/L BUN 81 H (8-23) mg/dl Creatinine 5.7 H* (0.7-1.2) mg/dl Glucose 121 H (70-105) mg/dL Calcium 7.8 L (8.6-10.4) mg/dl Adrenal panel 01/24/18 Range/Units 04:00 Sodium 139 (133-145) mmol/L Potassium 3.6 (3.3-5.1) mmol/L Chloride 103 (96-108) mmol/L Carbon Dioxide 20 L (22-30) mmol/L BUN 81 H (8-23) mg/dl Creatinine 5.7 H* (0.7-1.2) mg/dl Glucose 121 H (70-105) mg/dL Calcium 7.8 L (8.6-10.4) mg/dl Total Bilirubin 0.4 (0.0-1.0) mg/dL AST 12 (0-37) U/l ALT 17 (0-40) U/l Alkaline Phosphatase 85 (39-117) U/L Total Protein 4.7 L (5.9-8.4) gm/dL Albumin 2.0 L (3.2-5.2) gm/dL Assessment and Plan (1) Acute worsening of stage 4 chronic kidney disease Status: Acute Assessment and plan: Slightly worsened but being followed by nephrology Current Visit: Yes (2) Colonic obstruction Status: Acute Assessment and plan: Partial colonic obstruction persists but he is having good bowel movements Current Visit: Yes (3) Incarcerated left inguinal hernia Status: Acute Assessment and plan: Hernia is reducible but it immediately pops out because of gaseous distention Current Visit: Yes (4) Cardiomyopathy due to hypertension Status: Acute Current Visit: Yes (5) Protein-calorie malnutrition, severe Status: Acute Current Visit: Yes (6) Anasarca associated with disorder of kidney Status: Acute Current Visit: Yes (7) Stasis dermatitis of both legs Status: Acute Current Visit: Yes (8) Chronic obstructive pulmonary disease (COPD) Status: Acute Current Visit: Yes (9) Anemia of chronic disease Status: Acute Current Visit: Yes (10) Sacral decubitus ulcer, stage III Status: Acute Current Visit: Yes - Time Spent With Patient Total time spent is greater than 50% in coordination of care (as documented) at patient's floor/unit and/or counseling patient:
[2018-01-24] MEDS ORDERED: 0.9 % SODIUM CHLORIDE 500 ML IV ONE (14:21)
[2018-01-24] MEDS ORDERED: LACTATED RINGERS 1,000 ML IV SCH (14:30)
--- NOTE | 2018-01-24 15:21 | XRay Report ---
HISTORY: Reason for Exam:FOLLOW -UP OF SMALL BOWEL OBSTRUCTION FINDINGS: Nasogastric tube has been inserted and is located medially in the left lower thorax. This is within a large hiatus hernia. The colon is distended with a large amount gas and stool. There is a loop of the descending colon seen, and a left inguinal hernia. The small bowel no longer appears dilated. The colon is more distended. No free intra-abdominal air is present. There is a left-sided pleural effusion and consolidation in the left lower lobe. IMPRESSION: Increasing distention of the large bowel due to an incarcerated hernia in the left groin. Resolving small bowel obstruction Interpreted and Authenticated by: Álvaro Bush 01/24/18
[2018-01-24] MEDS: METHYLNALTREXONE BROMIDE 12 MG/0.6 ML SYRINGE SQ SCH (15:29)
[2018-01-24] MEDS: POLYETHYLENE GLYCOL 3350 17 GM PACKET PO SCH ×2 (15:29→22:11)
[2018-01-24] MEDS: METOCLOPRAMIDE 10 MG/2 ML VIAL IV SCH (17:09)
--- NOTE | 2018-01-24 20:17 | General Surgery Progress Note ---
Subjective Narrative: Note initiated : 01/24/18 at 8:15 pm Service Date, if different from initiated Date: [] Patient: Carlos Abraham 87 y/o M admitted on 01/23/18 for Small Bowel Obstruction/Incarcerated Hernia. Chief Complaint: [] I saw patient on rounds. He is resting comfortably. Had a large BM. Denies N/ V. NG draiange scant and light brown. Wounds dressed as scheduled. Objective Temp Pulse Resp BP Pulse Ox 98.0 F 65 22 121/71 97 01/24/18 19:02 01/24/18 19:02 01/24/18 19:02 01/24/18 19:02 01/24/18 19:02 AVSS. No changes AGNES. Soft distended abdomen. Large groin hernia. Sacral and legs pressure ulcers - Additional Data Intake & Output - Last 24 hours: Intake & Output 01/22/18 01/23/18 01/24/18 01/25/18 05:59 05:59 05:59 05:59 Intake Total 750 / 750 1154 / 1154 1224 / 1224 Output Total 625 / 625 250 / 250 Balance 750 / 750 529 / 529 974 / 974 Weight 215 lb 8 oz 217 lb 8 oz 217 lb 8 oz - Labs 01/24/18 04:00 01/24/18 04:00 Diabetes panel 01/24/18 Range/Units 04:00 Sodium 139 (133-145) mmol/L Potassium 3.6 (3.3-5.1) mmol/L Chloride 103 (96-108) mmol/L Carbon Dioxide 20 L (22-30) mmol/L BUN 81 H (8-23) mg/dl Creatinine 5.7 H* (0.7-1.2) mg/dl Glucose 121 H (70-105) mg/dL Calcium 7.8 L (8.6-10.4) mg/dl AST 12 (0-37) U/l ALT 17 (0-40) U/l Alkaline Phosphatase 85 (39-117) U/L Total Protein 4.7 L (5.9-8.4) gm/dL Albumin 2.0 L (3.2-5.2) gm/dL Triglycerides 71 (<150) mg/dl Calcium panel 01/24/18 Range/Units 04:00 Calcium 7.8 L (8.6-10.4) mg/dl Phosphorus 3.9 (2.7-4.5) mg/dL Albumin 2.0 L (3.2-5.2) gm/dL Pituitary panel 01/24/18 Range/Units 04:00 Sodium 139 (133-145) mmol/L Potassium 3.6 (3.3-5.1) mmol/L Chloride 103 (96-108) mmol/L Carbon Dioxide 20 L (22-30) mmol/L BUN 81 H (8-23) mg/dl Creatinine 5.7 H* (0.7-1.2) mg/dl Glucose 121 H (70-105) mg/dL Calcium 7.8 L (8.6-10.4) mg/dl Adrenal panel 01/24/18 Range/Units 04:00 Sodium 139 (133-145) mmol/L Potassium 3.6 (3.3-5.1) mmol/L Chloride 103 (96-108) mmol/L Carbon Dioxide 20 L (22-30) mmol/L BUN 81 H (8-23) mg/dl Creatinine 5.7 H* (0.7-1.2) mg/dl Glucose 121 H (70-105) mg/dL Calcium 7.8 L (8.6-10.4) mg/dl Total Bilirubin 0.4 (0.0-1.0) mg/dL AST 12 (0-37) U/l ALT 17 (0-40) U/l Alkaline Phosphatase 85 (39-117) U/L Total Protein 4.7 L (5.9-8.4) gm/dL Albumin 2.0 L (3.2-5.2) gm/dL Assessment and Plan (1) Renal failure Status: Acute Current Visit: Yes (2) Self-care deficit for hygiene Status: Acute Current Visit: No (3) Skin breakdown Status: Acute Current Visit: No (4) Decubitus ulcer, buttock Status: Acute Current Visit: No (5) Acute on chronic renal failure Status: Acute Current Visit: No - Time Spent With Patient Total time spent is greater than 50% in coordination of care (as documented) at patient's floor/unit and/or counseling patient: Assessment : Satisfactory progress from wound care point of view. Plan: Will check wounds in AM tomorrow. less than 15 minutes
[2018-01-25] MEDS: METOCLOPRAMIDE 10 MG/2 ML VIAL IV SCH ×6 (00:05→23:44)
[2018-01-25] MEDS: PIPERACILLIN SODIUM/TAZOBACTAM 2.25 GM in DEXTROSE 5% IN WATER 50 ML IV SCH ×4 (05:26→21:52)
[2018-01-25] MEDS: POLYETHYLENE GLYCOL 3350 17 GM PACKET PO SCH ×3 (05:33→21:51)
[2018-01-25] MEDS: 0.9 % SODIUM CHLORIDE 10 ML SYRINGE IV SCH ×5 (05:45→21:52)
--- NOTE | 2018-01-25 06:31 | Nephrology Progress Note ---
Subjective Patient information: Note initiated : 01/25/18 at 6:29 am Carlos Abraham is an 56-owrts-oln male with chronic kidney disease stage 4, hypertension, chronic systolic heart failure (Echo on 09/13/15: LVEF 20%, severe global systolic dysfunction, moderate and probably passive pulmonary hypertension), admitted on 01/22/18 for partial small bowel obstruction. Chief Complaint: Nausea Principal diagnosis: Acute kidney injury on chronic kidney disease stage 4 Pertinent ROS: Weakness Anorexia Nausea Abdominal distention Objective - Vital Signs Vital signs: Vital Signs Temp Pulse Resp BP Pulse Ox 01/25/18 03:34 98.2 F 65 20 124/68 98 01/25/18 00:00 98.6 F 66 22 119/67 98 01/24/18 19:02 98.0 F 65 22 121/71 97 01/24/18 16:00 97.7 F 65 24 H 116/66 95 01/24/18 11:18 98.6 F 20 139/72 92 01/24/18 07:35 98.2 F 20 136/68 97 Intake and Output 01/24/18 01/25/18 01/25/18 21:59 05:59 13:59 Intake Total 170 / 170 150 / 150 Output Total 250 / 250 200 / 200 Balance -80 / -80 -50 / -50 Intake: IV 50 / 50 50 / 50 Zosyn 2.25 gm In Dextrose 5% in 50 / 50 50 / 50 Water 50 ml @ 100 mls/hr IV Q8H [facility] Rx#:[id number] Oral 120 / 120 100 / 100 Output: Gastric Drainage 0 / 0 Right Nare 0 / 0 Urine Catheter Amount 250 / 250 200 / 200 Other: Stool Size Moderate Smear Stool Color Brown Brown Stool Consistency Soft Soft # Bowel Movements 1 # of times incontinent of 1 1 Bowels Weight 207 lb Intake & Output: Intake & Output 01/24/18 01/25/18 01/25/18 21:59 05:59 13:59 Intake Total 170 / 170 150 / 150 Output Total 250 / 250 200 / 200 Balance -80 / -80 -50 / -50 Weight 207 lb Intake: IV 50 / 50 50 / 50 Zosyn 2.25 gm In Dextrose 5% in 50 / 50 50 / 50 Water 50 ml @ 100 mls/hr IV Q8H [facility] Rx#:[id number] Oral 120 / 120 100 / 100 Output: Gastric Drainage 0 / 0 Right Nare 0 / 0 Urine Catheter Amount 250 / 250 200 / 200 Other: Stool Size Moderate Smear Stool Color Brown Brown Stool Consistency Soft Soft # Bowel Movements 1 # of times incontinent of 1 1 Bowels - General Appearance General appearance: chronically ill, frail EENT: mucous membranes moist Neck: supple Respiratory: clear Cardiology: edema Gastrointestinal: distended Integumentary: warm and dry, ulcer Neurologic: no focal deficit, alert and oriented x3 Musculoskeletal: no deformities Psychiatric: mood/affect appropriate, cooperative - Lab 01/25/18 06:26 01/25/18 06:26 Most recent lab results Calcium 7.8 mg/dl (8.6-10.4) L 01/24/18 04:00 Phosphorus 3.9 mg/dL (2.7-4.5) 01/24/18 04:00 Magnesium 2.2 mg/dL (1.6-2.5) 01/24/18 04:00 Assessment and Plan (1) Acute on chronic renal failure Previous work up: Renal US on 11/20/17: Mildly echogenic renal parenchyma bilaterally which indicates chronic medical renal disease. Cholelithiasis. Progress: Metabolic acidosis (CO2 20) without change. Serum creatinine decreased from 5.7 to 5.4 in the past 24 hours. Recommendations: Continue IVF for adequate hydration. Declines hemodialysis if indicated. Prognosis: Guarded. Status: Acute Qualifiers: Acute renal failure type: unspecified Chronic kidney disease stage: stage 4 (severe) Qualified Code(s): N17.9 - Acute kidney failure, unspecified; N18.4 - Chronic kidney disease, stage 4 (severe) (2) Metabolic acidosis Metabolic acidosis associated with renal failure and partial small bowel obstruction. May need to switch IVF to D5W 1 L + Sodium Bicarbonate 150 mEq. Status: Acute Priority: Medium
[2018-01-25 07:39] LABS: ALT/SGPT 13 U/l (0-40); Albumin 2.1 gm/dL (3.2-5.2); Albumin/Globulin Ratio 0.8 (1.0-2.3); Alkaline Phosphatase 79 U/L (39-117); Basophils # (Auto) 0 K/mcL (0.0-0.3); Basophils % (Auto) 0 % (0.0-2.0); Bilirubin,Direct < 0.2 mg/dL (0.0-0.3); Blood Urea Nitrogen 86 mg/dl (8-23); Eosinophils # (Auto) 0.1 K/mcL (0.0-0.7); Eosinophils % (Auto) 0.4 % (0.0-7.0); Gamma Glutamyl Transpeptidase 27 U/L (8-61); Granulocytes % (Auto) 90.3 % (38.0-78.0); Lymphocytes # (Auto) 0.3 K/mcL (1.5-4.8); Mean Cell Volume 93.6 fL (80.0-100.0); Mean Corpuscular HGB Conc 32.2 g/dL (31.0-36.0); Mean Corpuscular Hemoglobin 30.1 pg (26.0-34.0); Monocytes % (Auto) 7.3 % (1.0-12.0); Platelet Count 1481 K/mcL (140-440); RBC 3.28 M/mcL (4.50-5.90); Red Cell Distribution Width 15.5 % (11.5-14.5)
[2018-01-25] MEDS ORDERED: FUROSEMIDE 40 MG/4 ML VIAL IV ONE (08:29)
[2018-01-25] MEDS ORDERED: 0.9 % SODIUM CHLORIDE 10 ML SYRINGE IV PRN (08:29)
[2018-01-25] MEDS ORDERED: METHYLNALTREXONE BROMIDE 12 MG/0.6 ML SYRINGE SQ SCH (09:00)
--- NOTE | 2018-01-25 09:46 | Internal Med Progress Note ---
Medical - PN: Subj Patient information: Note initiated : 01/25/18 at 9:40 am Service Date, if different from initiated Date: [] Patient: Carlos Abraham 87 y/o M admitted on 01/23/18 for Small Bowel Obstruction/Incarcerated Hernia. Chief Complaint: [] Interval history: Mr. Abraham is a 87 year old M with multiple medical issues, a poor history provider, presently living in [facility], [facility], presents to the ER today after not being well for the last few days, he notes he has had intermittent abdominal distention for a while, but this time for at least 1 week his abdomen has been progressively getting bigger, this has been accompanied by some abdominal pain/ discomfort and nausea and vomiting. He has not been able to tolerate po diet well, he has tried liquid diet but it did not help much. He is not having regular bowel movements but last BM was a small stool yesterday as per the patient. The patient was eventually sent to the ER for further evaluation. the patient has a DNR /CC as per POST but notes he is willing to get treated for this issue. The patient had leukocytosis at 27,000, more than 10% bands, hemoglobin 11.3, significantly elevated platelets at 2139. Potassium was 3.3, bicarbonate 19, creatinine 4.6, he has chronic kidney disease and this creatinine is slowly trending down. CT scan of the abdomen and pelvis shows partial small bowel obstruction, incarcerated hernia in the right groin, CXR shows bibasilar infiltrates, pna/ atelectasis, but CT abdomen showed only atelectasis. patient was admitted to medicine given extensive comorbid conditions, Dr Chaves was consulted from the ER. Overnight we tried to Place NG tube on the medical floor, but the tube did get coiled in the mid thorax, this AM radiology tried to get the NG tube under floroscopy, but was unsucessful. Dr Chaves will evaluate and try to place the NG today. 6/15 Pt seen examined, intermittently non compliant with care, as per nursing, does not like to be turned, had bm today, NG placed by Dr Chaves, Patient renal function worsened, nephrology consulted overall poor candidate for operative intervention, non compliant with care, has refused dialysis in the past 6/15 Pt seen examined, no acute overnigh events, NG in place, not draining much now. Surgery following His platets remain high, worse today than yesterday, likely8 reactive. 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 - Constitutional Vitals: Vital Signs Temp Pulse Resp BP Pulse Ox 98.6 F 60 20 112/54 97 01/25/18 07:19 01/25/18 07:19 01/25/18 07:19 01/25/18 07:19 01/25/18 07:19 Period Temp Pulse Resp BP Sys/Ferris Pulse Ox Last 24 Hr 97.7 F-98.6 F 60-66 20-24 112-139/54-72 92-98 Intake and Output 01/24/18 01/25/18 01/25/18 21:59 05:59 13:59 Intake Total 170 / 170 150 / 150 50 / 50 Output Total 250 / 250 200 / 200 Balance -80 / -80 -50 / -50 50 / 50 Weight 207 lb Intake & Output: Intake & Output 01/24/18 01/25/18 01/25/18 21:59 05:59 13:59 Intake Total 170 / 170 150 / 150 50 / 50 Output Total 250 / 250 200 / 200 Balance -80 / -80 -50 / -50 50 / 50 Weight 207 lb Intake: IV 50 / 50 50 / 50 50 / 50 Zosyn 2.25 gm In Dextrose 5% in 50 / 50 50 / 50 50 / 50 Water 50 ml @ 100 mls/hr IV Q8H [facility] Rx#:[id number] Oral 120 / 120 100 / 100 Output: Gastric Drainage 0 / 0 Right Nare 0 / 0 Urine Catheter Amount 250 / 250 200 / 200 Other: Stool Size Moderate Smear Stool Color Brown Brown Stool Consistency Soft Soft # Bowel Movements 1 # of times incontinent of 1 1 Bowels Exam: Constitutional; Afebrile, cooperative, alert, not in distress. Eyes- No icterus, , No periorbital swelling Ears- Ext ear normal, hearing normal to conversation. Neck- Midline trachea, supple Respiratory system: Air Entry equal on both sides, No crackles or wheezing, no rhonchi. ant exam CVS- Rate rhythm regular, S1,S2 heard, no gallop, no rub. Abdomen- Soft nontender abdomen,distention somewhat better today, absent bowel tones, no tenderness. [employer]- AOOx3,no new changes Pt has generalized edema today, Medical - PN: Obj Da - Labs CBC & Chem 7: 01/25/18 06:26 01/25/18 06:26 Labs: Abnormal Lab Results 01/25/18 01/25/18 01/24/18 06:26 06:26 04:00 WBC 14.1 H RBC 3.28 L Hgb 9.9 L Hct 30.7 L POC Hct RDW 15.5 H Plt Count 1481 H* MPV 6.0 L Gran % 90.3 H Lymph % (Auto) 2.0 L Gran # 12.7 H Lymph # (Auto) 0.3 L Sterling # (Auto) 1.0 H Seg Neutrophils % Lymphocytes % Platelet Estimate Carbon Dioxide 20 L 20 L Anion Gap POC BUN BUN 86 H 81 H Creatinine 5.4 H* 5.7 H* POC Creatinine Glucose 115 H 121 H POC Glucose Uric Acid 10.0 H 10.7 H Calcium 7.8 L 7.8 L POC WB Ioniz Calcium Total Protein 4.8 L 4.7 L Albumin 2.1 L 2.0 L Albumin/Globulin Ratio 0.8 L 0.7 L 01/24/18 01/23/18 01/23/18 04:00 06:17 06:17 WBC 14.4 H 23.2 H RBC 3.14 L 3.36 L Hgb 9.5 L 10.4 L Hct 29.5 L 31.7 L POC Hct RDW 15.4 H 15.6 H Plt Count 1387 H* 1721 H* MPV 6.0 L 6.0 L Gran % 90.3 H Lymph % (Auto) 2.3 L Gran # 13.0 H Lymph # (Auto) 0.3 L Sterling # (Auto) 1.1 H Seg Neutrophils % 86 H Lymphocytes % 2 L Platelet Estimate Mk incr A Carbon Dioxide 20 L Anion Gap 19.0 H POC BUN BUN 69 H Creatinine 4.5 H POC Creatinine Glucose 154 H POC Glucose Uric Acid 9.4 H Calcium 8.0 L POC WB Ioniz Calcium Total Protein 5.2 L Albumin 2.4 L Albumin/Globulin Ratio 0.9 L 01/22/18 01/22/18 23:50 23:50 WBC 27.3 H RBC 3.73 L Hgb 11.3 L Hct 34.5 L POC Hct 34.0 L RDW 15.3 H Plt Count 2139 H* MPV 6.2 L Gran % 92.8 H Lymph % (Auto) 1.4 L Gran # 25.3 H Lymph # (Auto) 0.4 L Sterling # (Auto) 1.6 H Seg Neutrophils % Lymphocytes % Platelet Estimate Carbon Dioxide 19 L Anion Gap 19.0 H POC BUN 58 H BUN 65 H Creatinine 4.6 H POC Creatinine 5.2 H* Glucose 153 H POC Glucose 151 H Uric Acid Calcium 8.3 L POC WB Ioniz Calcium 1.02 L Total Protein 5.7 L Albumin 2.6 L Albumin/Globulin Ratio 0.8 L Meds: Medications Aspirin (Aspirin) 162 mg CHEWED DAILY [facility] Last Admin: 01/24/18 09:42 Dose: 162 mg Heparin Sodium (Porcine) (Heparin) 5,000 unit SQ Q12 [facility] Last Admin: 01/24/18 20:26 Dose: 5,000 unit Heparin Sodium (Porcine) (Heparin Flush) 2 ml IV Q12 [facility] Hydroxyurea (Hydrea) 500 mg PO DAILY [facility] Stop: 01/28/18 08:59 Piperacillin Sod/Tazobactam (Sod 2.25 gm/ Dextrose) 50 mls @ 100 mls/hr IV Q8H [facility] Last Infusion: 01/25/18 08:56 Dose: Infused Acetaminophen (Ofirmev) 650 mg in 65 mls @ 130 mls/hr IV Q6HP PRN PRN Reason: PAIN/FEVER > 101 Amiodarone HCl 200 mg/ (Dextrose) 54 mls @ 108 mls/hr IV DAILY [facility] Last Infusion: 01/24/18 10:26 Dose: Infused Iron Sucrose (Venofer) 200 mg IV DAILY [facility] Stop: 01/29/18 09:01 Methylnaltrexone Tyronza (Relistor) 12 mg SQ DAILY [facility] Last Admin: 01/24/18 15:29 Dose: 12 mg Metoclopramide HCl (Reglan) 10 mg IV Q6 [facility] Last Admin: 01/25/18 08:33 Dose: 10 mg Morphine Sulfate (Morphine) 2 mg SL Q2HP PRN PRN Reason: Pain Naloxone HCl (Narcan) 0.1 mg IV Q2MIN PRN PRN Reason: Opiate Reversal Ondansetron HCl (Zofran) 4 mg IV Q6HP PRN PRN Reason: Nausea And Vomiting Last Admin: 01/24/18 22:11 Dose: 4 mg Sodium Chloride (Saline Flush) 10 ml IV Q8 [facility] Last Admin: 01/25/18 05:45 Dose: 10 ml Sodium Chloride (Saline Flush) 10 ml IV UD PRN PRN Reason: FLUSH Sodium Chloride (Saline Flush) 10 ml IV Q12 [facility] Throat Lozenges (Cepacol) 1 lozenge PO Q4HP PRN PRN Reason: Sore Throat Last Admin: 01/23/18 15:02 Dose: 1 lozenge Medical - PN: A/P - Time Spent With Patient Total time spent is greater than 50% in coordination of care (as documented) at patient's floor/unit and/or counseling patient: - Narrative A/P Narrative: A/P Small bowel obstruction/ Incarcerated hernia: Dr Chaves consulted, management as per him. Possible Pneumonia: Given hiatal hernia, likely aspirational pna, on zosyn Sepsis- bp stable, pna/ GI source on zosyn, neg lactate, clinically stable. leukocytosis trending down. Thrombocytosis, severe: improving, reactive? patient path smear is neg for any suspicion for malignancy. On aspirin. started on hydroxyurea, IV iron, and ordered Jak2 mutation analysis. Dr Orozco ONcologist/[facility] consulted by phone. CHF- on lasix, pt has worsening edema, IV lasix today, see how re responds, consider starting daily IV lasix to help with edema. CKD- with worsening renal function, , creat better today, bun worse, bicarb 20, stable, appreciae nephrology input. Ventricular tachycardia: unable to tolerate po, therefore on IV amiodarone for now Decub ulcers/ Lower extremity wounds: Wound care consult. pt refuses q2h turning for the decub ulcers. DVT hep sq Diet NPO DNR code status, Patient overall has poor functional status, and poor prognosis. Medical - PN: Qual - VTE Deep Vein Thrombosis/Pulmonary Embolism Present on Admission: No
[2018-01-25] MEDS: HEPARIN 5,000 UNIT/ML VIAL SQ SCH ×2 (10:20→21:52)
[2018-01-25] MEDS: IRON SUCROSE COMPLEX 100 MG/5 ML VIAL IV SCH (10:23)
[2018-01-25] MEDS: ASPIRIN 81 MG TAB.CHEW CHEWED SCH (10:45)
[2018-01-25] MEDS: DEXTROSE 5% IV SCH (10:47)
[2018-01-25] MEDS: AMIODARONE IV SCH (10:47)
[2018-01-25] MEDS: WATER IV SCH (10:47)
[2018-01-25] MEDS: METHYLNALTREXONE BROMIDE 12 MG/0.6 ML SYRINGE SQ SCH (11:40)
[2018-01-25] MEDS: HYDROXYUREA 500 MG CAPSULE PO SCH (11:58)
--- NOTE | 2018-01-25 12:40 | General Surgery Progress Note ---
Subjective Narrative: Note initiated : 01/25/18 at 12:36 pm Service Date, if different from initiated Date: [] Patient: Carlos Abraham 87 y/o M admitted on 01/23/18 for Small Bowel Obstruction/Incarcerated Hernia. Chief Complaint: [] Patient seen with Noy PITTMNA. No interval changes or developments. Objective Temp Pulse Resp BP Pulse Ox 98.6 F 60 20 112/54 97 01/25/18 07:19 01/25/18 07:19 01/25/18 07:19 01/25/18 07:19 01/25/18 07:19 AVSS. NO changes AGNES. Soft abdomen, Hernia reduced. BS present . LILLIANA soft stool. NG tube scant drainage. Light brown. L/E Sacral wound seen Grade 2. More shallow. Light yellow slough >50 %. No crepitus. NO odor. Right leg wounds granulating surface. - Additional Data Intake & Output - Last 24 hours: Intake & Output 01/23/18 01/24/18 01/25/18 01/26/18 05:59 05:59 05:59 05:59 Intake Total 750 / 750 1154 / 1154 1424 / 1424 50 / 50 Output Total 625 / 625 450 / 450 Balance 750 / 750 529 / 529 974 / 974 50 / 50 Weight 215 lb 8 oz 217 lb 8 oz 207 lb - Labs 01/25/18 06:26 01/25/18 06:26 Diabetes panel 01/25/18 Range/Units 06:26 Sodium 140 (133-145) mmol/L Potassium 3.8 (3.3-5.1) mmol/L Chloride 104 (96-108) mmol/L Carbon Dioxide 20 L (22-30) mmol/L BUN 86 H (8-23) mg/dl Creatinine 5.4 H* (0.7-1.2) mg/dl Glucose 115 H (70-105) mg/dL Calcium 7.8 L (8.6-10.4) mg/dl AST 11 (0-37) U/l ALT 13 (0-40) U/l Alkaline Phosphatase 79 (39-117) U/L Total Protein 4.8 L (5.9-8.4) gm/dL Albumin 2.1 L (3.2-5.2) gm/dL Triglycerides 110 (<150) mg/dl Calcium panel 01/25/18 Range/Units 06:26 Calcium 7.8 L (8.6-10.4) mg/dl Phosphorus 4.2 (2.7-4.5) mg/dL Albumin 2.1 L (3.2-5.2) gm/dL Pituitary panel 01/25/18 Range/Units 06:26 Sodium 140 (133-145) mmol/L Potassium 3.8 (3.3-5.1) mmol/L Chloride 104 (96-108) mmol/L Carbon Dioxide 20 L (22-30) mmol/L BUN 86 H (8-23) mg/dl Creatinine 5.4 H* (0.7-1.2) mg/dl Glucose 115 H (70-105) mg/dL Calcium 7.8 L (8.6-10.4) mg/dl Adrenal panel 01/25/18 Range/Units 06:26 Sodium 140 (133-145) mmol/L Potassium 3.8 (3.3-5.1) mmol/L Chloride 104 (96-108) mmol/L Carbon Dioxide 20 L (22-30) mmol/L BUN 86 H (8-23) mg/dl Creatinine 5.4 H* (0.7-1.2) mg/dl Glucose 115 H (70-105) mg/dL Calcium 7.8 L (8.6-10.4) mg/dl Total Bilirubin 0.3 (0.0-1.0) mg/dL AST 11 (0-37) U/l ALT 13 (0-40) U/l Alkaline Phosphatase 79 (39-117) U/L Total Protein 4.8 L (5.9-8.4) gm/dL Albumin 2.1 L (3.2-5.2) gm/dL Assessment and Plan (1) Renal failure Status: Acute Current Visit: Yes (2) Self-care deficit for hygiene Status: Acute Current Visit: No (3) Skin breakdown Status: Acute Current Visit: No (4) Decubitus ulcer, buttock Status: Acute Current Visit: No (5) Acute on chronic renal failure Status: Acute Current Visit: No - Time Spent With Patient Total time spent is greater than 50% in coordination of care (as documented) at patient's floor/unit and/or counseling patient: Assessment: STABLE FROM WOUND CARE POINT OF VIEW Plamn: Continue present treatment.
[2018-01-25] MEDS ORDERED: ALBUMIN HUMAN 25 GM/100 ML BAG IV ONE (13:47)
--- NOTE | 2018-01-25 13:52 | General Surgery Progress Note ---
Subjective Patient reports: feels better, pain is less, flatus, bowel movement, afebrile Narrative: Note initiated : 01/25/18 at 1:50 pm Service Date, if different from initiated Date: [] Patient: Carlos Abraham 87 y/o M admitted on 01/23/18 for Small Bowel Obstruction/Incarcerated Hernia. Chief Complaint: [the patient is improved. He had 2 large bowel movements and another smaller bowel movement today. His abdomen is less distended and much softer. He does not complain of pain. His hernia is less distended and soft.] Objective Temp Pulse Resp BP Pulse Ox 97.9 F 63 16 147/71 97 01/25/18 12:59 01/25/18 12:59 01/25/18 12:59 01/25/18 12:59 01/25/18 12:59 - Additional Data Intake & Output - Last 24 hours: Intake & Output 01/23/18 01/24/18 01/25/18 01/26/18 05:59 05:59 05:59 05:59 Intake Total 750 / 750 1154 / 1154 1424 / 1424 50 / 50 Output Total 625 / 625 450 / 450 Balance 750 / 750 529 / 529 974 / 974 50 / 50 Weight 215 lb 8 oz 217 lb 8 oz 207 lb - General physical appearance moderate pain, chronically ill, obese - Eyes PERRL, normal ocular movement - Neck no masses, no bruits, trachea midline, no lymphadectomy, no venous distension - Respiratory normal respiratory effort, clear to auscultation - Cardiovascular Cardiovascular exam: Present: irregular rhythm, RRR, +S1, +S2. Absent: JVD, tachycardia - Abdomen non tender (abdomen is less distended and softer. No tenderness noted; good active bowel sounds) Hernia: inguinal ( left inguinal hernia is smaller and softer) - Integumentary other ( no changes in peripheral stasis edema and superficial ulcerations) - Neurologic normal coordination, normal sensation - Psychiatric oriented to time, oriented to person, oriented to place, speech is normal, memory intact - Labs 01/25/18 06:26 01/25/18 06:26 Diabetes panel 01/25/18 Range/Units 06:26 Sodium 140 (133-145) mmol/L Potassium 3.8 (3.3-5.1) mmol/L Chloride 104 (96-108) mmol/L Carbon Dioxide 20 L (22-30) mmol/L BUN 86 H (8-23) mg/dl Creatinine 5.4 H* (0.7-1.2) mg/dl Glucose 115 H (70-105) mg/dL Calcium 7.8 L (8.6-10.4) mg/dl AST 11 (0-37) U/l ALT 13 (0-40) U/l Alkaline Phosphatase 79 (39-117) U/L Total Protein 4.8 L (5.9-8.4) gm/dL Albumin 2.1 L (3.2-5.2) gm/dL Triglycerides 110 (<150) mg/dl Calcium panel 01/25/18 Range/Units 06:26 Calcium 7.8 L (8.6-10.4) mg/dl Phosphorus 4.2 (2.7-4.5) mg/dL Albumin 2.1 L (3.2-5.2) gm/dL Pituitary panel 01/25/18 Range/Units 06:26 Sodium 140 (133-145) mmol/L Potassium 3.8 (3.3-5.1) mmol/L Chloride 104 (96-108) mmol/L Carbon Dioxide 20 L (22-30) mmol/L BUN 86 H (8-23) mg/dl Creatinine 5.4 H* (0.7-1.2) mg/dl Glucose 115 H (70-105) mg/dL Calcium 7.8 L (8.6-10.4) mg/dl Adrenal panel 01/25/18 Range/Units 06:26 Sodium 140 (133-145) mmol/L Potassium 3.8 (3.3-5.1) mmol/L Chloride 104 (96-108) mmol/L Carbon Dioxide 20 L (22-30) mmol/L BUN 86 H (8-23) mg/dl Creatinine 5.4 H* (0.7-1.2) mg/dl Glucose 115 H (70-105) mg/dL Calcium 7.8 L (8.6-10.4) mg/dl Total Bilirubin 0.3 (0.0-1.0) mg/dL AST 11 (0-37) U/l ALT 13 (0-40) U/l Alkaline Phosphatase 79 (39-117) U/L Total Protein 4.8 L (5.9-8.4) gm/dL Albumin 2.1 L (3.2-5.2) gm/dL Assessment and Plan (1) Acute worsening of stage 4 chronic kidney disease Status: Acute Assessment and plan: Slightly worsened but being followed by nephrology Suggest adding IV albumin and Lasix diuresis is going to continue because of profound hypoproteinemia Current Visit: Yes (2) Colonic obstruction Status: Acute Assessment and plan: Partial colonic obstruction persists but he is having good bowel movements Current Visit: Yes (3) Incarcerated left inguinal hernia Status: Acute Assessment and plan: Hernia is reducible but it immediately pops out because of gaseous distention Current Visit: Yes (4) Cardiomyopathy due to hypertension Status: Acute Current Visit: Yes (5) Protein-calorie malnutrition, severe Status: Acute Current Visit: Yes (6) Anasarca associated with disorder of kidney Status: Acute Current Visit: Yes (7) Stasis dermatitis of both legs Status: Acute Current Visit: Yes (8) Chronic obstructive pulmonary disease (COPD) Status: Acute Current Visit: Yes (9) Anemia of chronic disease Status: Acute Current Visit: Yes (10) Sacral decubitus ulcer, stage III Status: Acute Current Visit: Yes - Time Spent With Patient Total time spent is greater than 50% in coordination of care (as documented) at patient's floor/unit and/or counseling patient:
--- NOTE | 2018-01-25 15:35 | XRay Report ---
HISTORY: Reason for Exam:FOLLOW -UP OF SMALL BOWEL OBSTRUCTION FINDINGS: Nasogastric tube remains in the thorax, within the known hiatus hernia. The colon remains distended with gas and stool. It measures up to 8 cm in greatest diameter. The small bowel is nondistended. A loop of colon is again seen trapped within a left inguinal hernia. No free intra-abdominal air is present. The caliber of the large intestine has diminished since yesterday. IMPRESSION: Improving large bowel obstruction Interpreted and Authenticated by: Álvaro Bush 01/25/18
[2018-01-25] MEDS: DEXTROSE 5%-LR W/20MEQ KCL 1,000 ML IV SCH (15:41)
[2018-01-26 05:25] LABS: Basophils # (Auto) 0 K/mcL (0.0-0.3); Basophils % (Auto) 0 % (0.0-2.0); Eosinophils # (Auto) 0.1 K/mcL (0.0-0.7); Eosinophils % (Auto) 0.5 % (0.0-7.0); Granulocytes % (Auto) 90.7 % (38.0-78.0); Lymphocytes # (Auto) 0.3 K/mcL (1.5-4.8); Lymphocytes % (Auto) 2.1 % (15.5-49.0); Mean Cell Volume 92.4 fL (80.0-100.0); Mean Corpuscular HGB Conc 32.3 g/dL (31.0-36.0); Mean Corpuscular Hemoglobin 29.9 pg (26.0-34.0); Monocytes # (Auto) 1.1 K/mcL (0.1-0.9); Monocytes % (Auto) 6.7 % (1.0-12.0); Platelet Count 1541 K/mcL (140-440); Red Cell Distribution Width 15.3 % (11.5-14.5)
[2018-01-26] MEDS: PIPERACILLIN SODIUM/TAZOBACTAM 2.25 GM in DEXTROSE 5% IN WATER 50 ML IV SCH ×3 (05:36→21:32)
[2018-01-26] MEDS: 0.9 % SODIUM CHLORIDE 10 ML SYRINGE IV SCH ×5 (05:36→21:34)
[2018-01-26] MEDS: METOCLOPRAMIDE 10 MG/2 ML VIAL IV SCH ×4 (05:37→23:42)
[2018-01-26 05:56] LABS: ALT/SGPT 13 U/l (0-40); Albumin 2.5 gm/dL (3.2-5.2); Alkaline Phosphatase 75 U/L (39-117); Bilirubin,Direct < 0.2 mg/dL (0.0-0.3); Blood Urea Nitrogen 91 mg/dl (8-23); Gamma Glutamyl Transpeptidase 16 U/L (8-61); Uric Acid 10.2 mg/dL (2.5-8.0)
--- NOTE | 2018-01-26 06:19 | Nephrology Progress Note ---
Subjective Patient information: Note initiated : 01/26/18 at 6:16 am Carlos Abraham is an 38-by[age]-sum male with chronic kidney disease stage 4, hypertension, chronic systolic heart failure (Echo on 09/13/15: LVEF 20%, severe global systolic dysfunction, moderate and probably passive pulmonary hypertension), admitted on 01/22/18 for partial small bowel obstruction. Chief Complaint: Nausea Principal diagnosis: Acute kidney injury on chronic kidney disease stage 4 Pertinent ROS: Weakness Anorexia Nausea Abdominal distention Objective - Vital Signs Vital signs: Vital Signs Temp Pulse Resp BP BP BP Pulse Ox 01/26/18 04:00 97.8 F 64 20 128/68 97 01/25/18 23:47 97.5 F 70 20 150/80 97 01/25/18 19:28 98.2 F 66 20 134/63 95 01/25/18 16:00 98.2 F 59 L 18 145/75 97 01/25/18 12:59 97.9 F 63 16 147/71 97 01/25/18 07:19 98.6 F 60 20 112/54 97 Intake and Output 01/25/18 01/26/18 01/26/18 21:59 05:59 13:59 Intake Total 1200 / 1200 100 / 100 Output Total 650 / 650 550 / 550 Balance 550 / 550 -450 / -450 Intake: IV 1050 / 1050 50 / 50 Zosyn 2.25 gm In Dextrose 5% in 50 / 50 50 / 50 Water 50 ml @ 100 mls/hr IV Q8H [facility] Rx#:[id number] Oral 50 / 50 Tube Feeding 150 / 150 Output: Urine Catheter Amount 650 / 650 550 / 550 Other: Stool Size Large Small Stool Color Brown Brown Stool Consistency Soft Liquid # Bowel Movements 1 1 # of times incontinent of 1 1 Bowels Weight 214 lb 8 oz Intake & Output: Intake & Output 01/25/18 01/26/18 01/26/18 21:59 05:59 13:59 Intake Total 1200 / 1200 100 / 100 Output Total 650 / 650 550 / 550 Balance 550 / 550 -450 / -450 Weight 214 lb 8 oz Intake: IV 1050 / 1050 50 / 50 Zosyn 2.25 gm In Dextrose 5% in 50 / 50 50 / 50 Water 50 ml @ 100 mls/hr IV Q8H [facility] Rx#:[id number] Oral 50 / 50 Tube Feeding 150 / 150 Output: Urine Catheter Amount 650 / 650 550 / 550 Other: Stool Size Large Small Stool Color Brown Brown Stool Consistency Soft Liquid # Bowel Movements 1 1 # of times incontinent of 1 1 Bowels - General Appearance General appearance: chronically ill, frail EENT: mucous membranes dry Neck: supple Respiratory: clear Cardiology: edema Gastrointestinal: distended Integumentary: ulcer Neurologic: no focal deficit, alert and oriented x3 Musculoskeletal: no deformities Psychiatric: depressed, cooperative - Lab 01/26/18 03:55 01/26/18 03:55 Most recent lab results Calcium 7.9 mg/dl (8.6-10.4) L 01/26/18 03:55 Phosphorus 4.7 mg/dL (2.7-4.5) H 01/26/18 03:55 Magnesium 2.2 mg/dL (1.6-2.5) 01/26/18 03:55 Assessment and Plan (1) Acute on chronic renal failure Previous work up: Renal US on 11/20/17: Mildly echogenic renal parenchyma bilaterally which indicates chronic medical renal disease. Cholelithiasis. Progress: Metabolic acidosis, worsening. Serum creatinine increased from 5.4 to 5.6 in the past 24 hours. Recommendations: Continue IVF for adequate hydration. Declines hemodialysis. Prognosis: Guarded. Status: Acute Qualifiers: Acute renal failure type: unspecified Chronic kidney disease stage: stage 4 (severe) Qualified Code(s): N17.9 - Acute kidney failure, unspecified; N18.4 - Chronic kidney disease, stage 4 (severe) (2) Metabolic acidosis Metabolic acidosis associated with renal failure and partial small bowel obstruction. May need to switch IVF to D5W 1 L + Sodium Bicarbonate 100-150 mEq. Status: Acute Priority: Medium
[2018-01-26] MEDS ORDERED: SODIUM BICARBONATE VIAL 150 MEQ in DEXTROSE 5% IN WATER 850 ML IV SCH (09:00)
[2018-01-26] MEDS: IRON SUCROSE COMPLEX 100 MG/5 ML VIAL IV SCH (10:26)
[2018-01-26] MEDS: HEPARIN 5,000 UNIT/ML VIAL SQ SCH ×2 (10:27→21:32)
[2018-01-26] MEDS: METHYLNALTREXONE BROMIDE 12 MG/0.6 ML SYRINGE SQ SCH (10:27)
[2018-01-26] MEDS: AMIODARONE IV SCH (10:28)
[2018-01-26] MEDS: WATER IV SCH (10:28)
[2018-01-26] MEDS: DEXTROSE 5% IV SCH (10:28)
[2018-01-26] MEDS: HYDROXYUREA 500 MG CAPSULE PO SCH (10:28)
[2018-01-26] MEDS: POLYETHYLENE GLYCOL 3350 17 GM PACKET PO SCH ×3 (10:28→21:33)
[2018-01-26] MEDS: ASPIRIN 81 MG TAB.CHEW CHEWED SCH (10:29)
--- NOTE | 2018-01-26 14:14 | General Surgery Progress Note ---
Subjective Patient reports: feels better, pain is less, flatus, bowel movement, afebrile Narrative: Note initiated : 01/26/18 at 2:12 pm Service Date, if different from initiated Date: [] Patient: Carlos Abraham 87 y/o M admitted on 01/23/18 for Small Bowel Obstruction/Incarcerated Hernia. Chief Complaint: [] Pertinent ROS: Patient is doing better. He has had multiple bowel movements and is passing large volumes of flatus. His abdomen is much softer. There is noted that his renal status is worsening due to intravascular volume contraction. Objective Temp Pulse Resp BP Pulse Ox 99.1 F H 68 20 146/67 98 01/26/18 12:00 01/26/18 12:00 01/26/18 12:00 01/26/18 12:00 01/26/18 12:00 - Additional Data Intake & Output - Last 24 hours: Intake & Output 01/24/18 01/25/18 01/26/18 01/27/18 05:59 05:59 05:59 05:59 Intake Total 1154 / 1154 1424 / 1424 1404 / 1404 Output Total 625 / 625 450 / 450 1200 / 1200 Balance 529 / 529 974 / 974 204 / 204 Weight 217 lb 8 oz 207 lb 214 lb 8 oz - General physical appearance well nourished, no pain, chronically ill - Eyes PERRL, normal ocular movement - ENT normal pinna, normal nares, normal mucosa, no hearing loss, no congestion - Neck no masses, no bruits, trachea midline, no lymphadectomy, no venous distension - Respiratory normal expansion, normal respiratory effort, clear to percussion, clear to auscultation - Cardiovascular Cardiovascular exam: Present: irregular rhythm, +S1, +S2. Absent: JVD, tachycardia - Abdomen soft, non tender, bowel sounds (good active bowel sounds without tenderness; residual distention persists with large volume of colon gas) - Integumentary other ( chronic venous stasis changes with ulceration bilaterally) - Neurologic normal coordination, normal sensation - Psychiatric oriented to time, oriented to person, oriented to place, speech is normal, memory intact - Labs 01/26/18 03:55 01/26/18 03:55 Diabetes panel 01/26/18 Range/Units 03:55 Sodium 143 (133-145) mmol/L Potassium 3.3 (3.3-5.1) mmol/L Chloride 105 (96-108) mmol/L Carbon Dioxide 18 L (22-30) mmol/L BUN 91 H (8-23) mg/dl Creatinine 5.6 H* (0.7-1.2) mg/dl Glucose 79 (70-105) mg/dL Calcium 7.9 L (8.6-10.4) mg/dl AST 9 (0-37) U/l ALT 13 (0-40) U/l Alkaline Phosphatase 75 (39-117) U/L Total Protein 5.0 L (5.9-8.4) gm/dL Albumin 2.5 L (3.2-5.2) gm/dL Triglycerides 124 (<150) mg/dl Calcium panel 01/26/18 Range/Units 03:55 Calcium 7.9 L (8.6-10.4) mg/dl Phosphorus 4.7 H (2.7-4.5) mg/dL Albumin 2.5 L (3.2-5.2) gm/dL Pituitary panel 01/26/18 Range/Units 03:55 Sodium 143 (133-145) mmol/L Potassium 3.3 (3.3-5.1) mmol/L Chloride 105 (96-108) mmol/L Carbon Dioxide 18 L (22-30) mmol/L BUN 91 H (8-23) mg/dl Creatinine 5.6 H* (0.7-1.2) mg/dl Glucose 79 (70-105) mg/dL Calcium 7.9 L (8.6-10.4) mg/dl Adrenal panel 01/26/18 Range/Units 03:55 Sodium 143 (133-145) mmol/L Potassium 3.3 (3.3-5.1) mmol/L Chloride 105 (96-108) mmol/L Carbon Dioxide 18 L (22-30) mmol/L BUN 91 H (8-23) mg/dl Creatinine 5.6 H* (0.7-1.2) mg/dl Glucose 79 (70-105) mg/dL Calcium 7.9 L (8.6-10.4) mg/dl Total Bilirubin 0.3 (0.0-1.0) mg/dL AST 9 (0-37) U/l ALT 13 (0-40) U/l Alkaline Phosphatase 75 (39-117) U/L Total Protein 5.0 L (5.9-8.4) gm/dL Albumin 2.5 L (3.2-5.2) gm/dL Assessment and Plan (1) Acute worsening of stage 4 chronic kidney disease Status: Acute Assessment and plan: Slightly worsened but being followed by nephrology Suggest adding IV albumin and Lasix diuresis is going to continue because of profound hypoproteinemia Current Visit: Yes (2) Colonic obstruction Status: Acute Assessment and plan: Partial colonic obstruction persists but he is having good bowel movements Discontinue nasogastric tube Small bowel follow-through in the morning Current Visit: Yes (3) Incarcerated left inguinal hernia Status: Acute Assessment and plan: Hernia is reducible but it immediately pops out because of gaseous distention Current Visit: Yes (4) Cardiomyopathy due to hypertension Status: Acute Current Visit: Yes (5) Protein-calorie malnutrition, severe Status: Acute Current Visit: Yes (6) Anasarca associated with disorder of kidney Status: Acute Current Visit: Yes (7) Stasis dermatitis of both legs Status: Acute Current Visit: Yes (8) Chronic obstructive pulmonary disease (COPD) Status: Acute Current Visit: Yes (9) Anemia of chronic disease Status: Acute Current Visit: Yes (10) Sacral decubitus ulcer, stage III Status: Acute Current Visit: Yes - Time Spent With Patient Total time spent is greater than 50% in coordination of care (as documented) at patient's floor/unit and/or counseling patient:
--- NOTE | 2018-01-26 14:57 | Internal Med Progress Note ---
Medical - PN: Subj Patient information: Note initiated : 01/26/18 at 2:54 pm Service Date, if different from initiated Date: [] Patient: Carlos Arbaham 87 y/o M admitted on 01/23/18 for Small Bowel Obstruction/Incarcerated Hernia. Chief Complaint: [] Interval history: Mr. Abraham is a 87 year old M with multiple medical issues, a poor history provider, presently living in [facility], [facility], presents to the ER today after not being well for the last few days, he notes he has had intermittent abdominal distention for a while, but this time for at least 1 week his abdomen has been progressively getting bigger, this has been accompanied by some abdominal pain/ discomfort and nausea and vomiting. He has not been able to tolerate po diet well, he has tried liquid diet but it did not help much. He is not having regular bowel movements but last BM was a small stool yesterday as per the patient. The patient was eventually sent to the ER for further evaluation. the patient has a DNR /CC as per POST but notes he is willing to get treated for this issue. The patient had leukocytosis at 27,000, more than 10% bands, hemoglobin 11.3, significantly elevated platelets at 2139. Potassium was 3.3, bicarbonate 19, creatinine 4.6, he has chronic kidney disease and this creatinine is slowly trending down. CT scan of the abdomen and pelvis shows partial small bowel obstruction, incarcerated hernia in the right groin, CXR shows bibasilar infiltrates, pna/ atelectasis, but CT abdomen showed only atelectasis. patient was admitted to medicine given extensive comorbid conditions, Dr Chaves was consulted from the ER. Overnight we tried to Place NG tube on the medical floor, but the tube did get coiled in the mid thorax, this AM radiology tried to get the NG tube under floroscopy, but was unsucessful. Dr Chaves will evaluate and try to place the NG today. 01/24 Pt seen examined, intermittently non compliant with care, as per nursing, does not like to be turned, had bm today, NG placed by Dr Chaves, Patient renal function worsened, nephrology consulted overall poor candidate for operative intervention, non compliant with care, has refused dialysis in the past 01/25 Pt seen examined, no acute overnigh events, NG in place, not draining much now. Surgery following His platets remain high, worse today than yesterday, likely8 reactive. 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 Patient has no acute complaints. Is passing gas as well as moving bowels. Abdominal x-ray shows improvement in the obstruction. WBC count is up, platelets are up, I have reviewed the patient's condition with Dr. Orozco, hydroxyurea started. Will monitor for response. If platelets continue to trend up I will touch base with her again tomorrow. Patient continues to be on antibiotics. Wound care help appreciated. Nephrology is following. Started the patient on bicarb drip as per nephrology recommendations. Pertinent ROS: Denies headache, dizziness Denies chest pain, palpitations Denies cough or shortness of breath Denies abdominal pain, nausea or vomiting. - Constitutional Vitals: Vital Signs Temp Pulse Resp BP Pulse Ox 99.1 F H 68 20 146/67 98 01/26/18 12:00 01/26/18 12:00 01/26/18 12:00 01/26/18 12:00 01/26/18 12:00 Period Temp Pulse Resp BP Sys/Ferris Pulse Ox Last 24 Hr 97.5 F-99.1 F 59-70 18-20 128-154/63-80 95-98 Intake and Output 01/26/18 01/26/18 01/26/18 05:59 13:59 21:59 Intake Total 100 / 100 50 / 50 Output Total 550 / 550 Balance -450 / -450 50 / 50 Intake & Output: Intake & Output 01/26/18 01/26/18 01/26/18 05:59 13:59 21:59 Intake Total 100 / 100 50 / 50 Output Total 550 / 550 Balance -450 / -450 50 / 50 Intake: IV 50 / 50 50 / 50 Zosyn 2.25 gm In Dextrose 5% in 50 / 50 50 / 50 Water 50 ml @ 100 mls/hr IV Q8H [facility] Rx#:[id number] Oral 50 / 50 Output: Urine Catheter Amount 550 / 550 Other: Stool Size Small Stool Color Brown Stool Consistency Liquid # Bowel Movements 1 # of times incontinent of 1 Bowels Exam: Constitutional; Afebrile, cooperative, alert, not in distress. Eyes- No icterus, , No periorbital swelling Ears- Ext ear normal, hearing normal to conversation. Neck- Midline trachea, supple Respiratory system: Air Entry equal on both sides, No crackles or wheezing, no rhonchi. Anterior exam CVS- Rate rhythm regular, S1,S2 heard, no gallop, no rub. Abdomen- Soft distended abdomen, distention improved compared to yesterday, patient has hypoactive tympanic bowel tones today. [employer]- AOOx3, moving all extremities, no gross focal deficit noted. Medical - PN: Obj Da - Labs CBC & Chem 7: 01/26/18 03:55 01/26/18 03:55 Labs: Abnormal Lab Results 01/26/18 01/26/18 01/25/18 03:55 03:55 06:26 WBC 16.3 H RBC 3.40 L Hgb 10.1 L Hct 31.4 L RDW 15.3 H Plt Count 1541 H* MPV 6.0 L Gran % 90.7 H Lymph % (Auto) 2.1 L Gran # 14.8 H Lymph # (Auto) 0.3 L Callahan # (Auto) 1.1 H Carbon Dioxide 18 L 20 L Anion Gap 20.0 H BUN 91 H 86 H Creatinine 5.6 H* 5.4 H* Glucose 115 H Uric Acid 10.2 H 10.0 H Calcium 7.9 L 7.8 L Phosphorus 4.7 H Total Protein 5.0 L 4.8 L Albumin 2.5 L 2.1 L Albumin/Globulin Ratio 0.8 L 01/25/18 01/24/18 01/24/18 06:26 04:00 04:00 WBC 14.1 H 14.4 H RBC 3.28 L 3.14 L Hgb 9.9 L 9.5 L Hct 30.7 L 29.5 L RDW 15.5 H 15.4 H Plt Count 1481 H* 1387 H* MPV 6.0 L 6.0 L Gran % 90.3 H 90.3 H Lymph % (Auto) 2.0 L 2.3 L Gran # 12.7 H 13.0 H Lymph # (Auto) 0.3 L 0.3 L Callahan # (Auto) 1.0 H 1.1 H Carbon Dioxide 20 L Anion Gap BUN 81 H Creatinine 5.7 H* Glucose 121 H Uric Acid 10.7 H Calcium 7.8 L Phosphorus Total Protein 4.7 L Albumin 2.0 L Albumin/Globulin Ratio 0.7 L Meds: Medications Aspirin (Aspirin) 162 mg CHEWED DAILY [facility] Last Admin: 01/26/18 10:29 Dose: 162 mg Heparin Sodium (Porcine) (Heparin) 5,000 unit SQ Q12 [facility] Last Admin: 01/26/18 10:27 Dose: 5,000 unit Heparin Sodium (Porcine) (Heparin Flush) 2 ml IV Q12 [facility] Last Admin: 01/25/18 20:04 Dose: Not Given Hydroxyurea (Hydrea) 500 mg PO DAILY [facility] Stop: 01/28/18 08:59 Last Admin: 01/26/18 10:28 Dose: 500 mg Piperacillin Sod/Tazobactam (Sod 2.25 gm/ Dextrose) 50 mls @ 100 mls/hr IV Q8H [facility] Last Admin: 01/26/18 14:43 Dose: 100 mls/hr Acetaminophen (Ofirmev) 650 mg in 65 mls @ 130 mls/hr IV Q6HP PRN PRN Reason: PAIN/FEVER > 101 Amiodarone HCl 200 mg/ (Dextrose) 54 mls @ 108 mls/hr IV DAILY [facility] Last Admin: 01/26/18 10:28 Dose: 108 mls/hr Sodium Bicarbonate 150 meq/ (Dextrose) 1,000 mls @ 50 mls/hr IV Q20H [facility] Last Admin: 01/26/18 14:08 Dose: 50 mls/hr Iron Sucrose (Venofer) 200 mg IV DAILY [facility] Stop: 01/29/18 09:01 Last Admin: 01/26/18 10:26 Dose: 200 mg Metoclopramide HCl (Reglan) 10 mg IV Q6 [facility] Last Admin: 01/26/18 14:07 Dose: 10 mg Morphine Sulfate (Morphine) 2 mg SL Q2HP PRN PRN Reason: Pain Naloxone HCl (Narcan) 0.1 mg IV Q2MIN PRN PRN Reason: Opiate Reversal Ondansetron HCl (Zofran) 4 mg IV Q6HP PRN PRN Reason: Nausea And Vomiting Last Admin: 01/24/18 22:11 Dose: 4 mg Polyethylene Glycol (Miralax) 17 gm PO TID [facility] Stop: 01/29/18 09:01 Last Admin: 01/26/18 14:50 Dose: 17 gm Sodium Chloride (Saline Flush) 10 ml IV Q8 [facility] Last Admin: 01/26/18 05:36 Dose: 10 ml Sodium Chloride (Saline Flush) 10 ml IV UD PRN PRN Reason: FLUSH Sodium Chloride (Saline Flush) 10 ml IV Q12 [facility] Last Admin: 01/26/18 10:31 Dose: 10 ml Throat Lozenges (Cepacol) 1 lozenge PO Q4HP PRN PRN Reason: Sore Throat Last Admin: 01/23/18 15:02 Dose: 1 lozenge Medical - PN: A/P - Time Spent With Patient Total time spent is greater than 50% in coordination of care (as documented) at patient's floor/unit and/or counseling patient: - Narrative A/P Narrative: A/P Small bowel obstruction/ Incarcerated hernia: Dr Chaves consulted, management as per him. Clinically improving, Possible Pneumonia: Given hiatal hernia, likely aspirational pna, on zosyn, . Microbiology negative so far Sepsis- bp stable, pna/ GI source on zosyn, neg lactate, clinically stable. leucocytsois worsening today, monitor, check procalcitonin Pleural effusion- pt has kirby effusion worse on left, I think it has worsened today compared to previous x ray, Pt declined any imaging, I would like to get a CT. I will add vancomycin to the patients regime. Thrombocytosis, severe: improving, reactive? discussed with Dr Orozco, on asa and hydroxyurea for now. CHF- stable, off lasix. CKD- creat 5.6, was 5.4 yesterday adn 5.7 day before yesterday, bicarb worsening , started on bicarb drip per nephrology reccs. Ventricular tachycardia: unable to tolerate po, therefore on IV amiodarone for now Decub ulcers/ Lower extremity wounds: Wound care consult. pt refuses q2h turning for the decub ulcers. DVT hep sq Diet clear liquid. DNR code status, Patient overall has poor functional status, and poor prognosis. Medical - PN: Qual - VTE Deep Vein Thrombosis/Pulmonary Embolism Present on Admission: No
--- NOTE | 2018-01-26 15:01 | XRay Report ---
HISTORY: Reason for Exam:PICC Placement FINDINGS: A PICC line has been inserted through the left arm. The tip is near the junction of the innominate vein and superior vena cava. There is no widening of the mediastinum or pneumothorax. Densely consolidating pulmonary infiltrate is present in the left lower lobe and there is a moderate-sized alveolar infiltrate posteriorly medially in the right lower lobe. Patient has small bilateral pleural effusions, left larger than right. The heart size is normal. IMPRESSION: Well-positioned PICC line. Severe atelectasis or pneumonia in the left lower lobe with milder involvement in the lingula and right lower lobe Nursing was called with the results Interpreted and Authenticated by: Álvaro Bush 01/26/18
--- NOTE | 2018-01-26 15:02 | XRay Report ---
HISTORY: Reason for Exam:PICC PLACEMENT FINDINGS: IMPRESSION: This study was done on January 26 but it had been ordered on the . There are no images acquired on the . Interpreted and Authenticated by: Álvaro Bush 01/26/18
[2018-01-26] MEDS ORDERED: VANCOMYCIN PER PHARMACY IV SCH (15:10)
[2018-01-26] MEDS ORDERED: VANCOMYCIN 1,500 MG in 0.9 % SODIUM CHLORIDE 500 ML IV ONE (16:00)
[2018-01-27 05:36] LABS: ALT/SGPT 11 U/l (0-40); Albumin 2.1 gm/dL (3.2-5.2); Albumin/Globulin Ratio 0.8 (1.0-2.3); Alkaline Phosphatase 69 U/L (39-117); Basophils # (Auto) 0 K/mcL (0.0-0.3); Basophils % (Auto) 0 % (0.0-2.0); Bilirubin,Direct < 0.2 mg/dL (0.0-0.3); Blood Urea Nitrogen 89 mg/dl (8-23); Eosinophils # (Auto) 0.1 K/mcL (0.0-0.7); Eosinophils % (Auto) 0.5 % (0.0-7.0); Gamma Glutamyl Transpeptidase 20 U/L (8-61); Granulocytes % (Auto) 90.8 % (38.0-78.0); Lymphocytes # (Auto) 0.4 K/mcL (1.5-4.8); Lymphocytes % (Auto) 2.3 % (15.5-49.0); Mean Cell Volume 92.4 fL (80.0-100.0); Mean Corpuscular HGB Conc 32.4 g/dL (31.0-36.0); Monocytes % (Auto) 6.4 % (1.0-12.0); Platelet Count 1244 K/mcL (140-440); RBC 3.23 M/mcL (4.50-5.90); Red Cell Distribution Width 15.1 % (11.5-14.5); Uric Acid 10.6 mg/dL (2.5-8.0)
[2018-01-27] MEDS ORDERED: POTASSIUM CHLORIDE 40 MEQ in DEXTROSE 5% IN WATER 250 ML IV ONE (05:39)
[2018-01-27] MEDS ORDERED: POTASSIUM CHLORIDE 20 MEQ/10 ML VIAL IV ONE (05:57)
[2018-01-27] MEDS: METOCLOPRAMIDE 10 MG/2 ML VIAL IV SCH ×4 (06:08→23:44)
[2018-01-27] MEDS: 0.9 % SODIUM CHLORIDE 10 ML SYRINGE IV SCH ×5 (06:09→21:11)
--- NOTE | 2018-01-27 06:15 | Nephrology Progress Note ---
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 Chief Complaint: Nausea Principal diagnosis: Acute kidney injury on chronic kidney disease stage 4 Interval history: Worsening kidney function Pertinent ROS: Weakness Anorexia Nausea Abdominal distention Objective - Vital Signs Vital signs: Vital Signs Temp Pulse Resp BP BP Pulse Ox 01/27/18 03:20 97.6 F 69 17 142/72 91 01/26/18 23:38 97.5 F 71 18 146/63 91 01/26/18 19:22 97.8 F 69 18 150/73 93 01/26/18 16:00 98.9 F 70 18 125/65 93 01/26/18 12:00 99.1 F H 68 20 146/67 98 01/26/18 08:00 97 01/26/18 07:17 98.8 F 68 18 154/78 97 Intake and Output 01/26/18 01/27/18 01/27/18 21:59 05:59 13:59 Intake Total 870 / 870 300 / 300 Output Total 450 / 450 325 / 325 Balance 420 / 420 -25 / -25 Intake: IV 50 / 50 Zosyn 2.25 gm In Dextrose 5% in 50 / 50 Water 50 ml @ 100 mls/hr IV Q8H [facility] Rx#:[id number] Oral 820 / 820 300 / 300 Output: Urine Catheter Amount 450 / 450 325 / 325 Other: Percent of Meal Consumed 100% Stool Size Moderate Moderate Stool Color Brown Brown Stool Consistency Formed Loose Liquid Loose # Bowel Movements 5 # of times incontinent of 1 1 Bowels Weight 217 lb Intake & Output: Intake & Output 01/26/18 01/27/18 01/27/18 21:59 05:59 13:59 Intake Total 870 / 870 300 / 300 Output Total 450 / 450 325 / 325 Balance 420 / 420 -25 / -25 Weight 217 lb Intake: IV 50 / 50 Zosyn 2.25 gm In Dextrose 5% in 50 / 50 Water 50 ml @ 100 mls/hr IV Q8H [facility] Rx#:[id number] Oral 820 / 820 300 / 300 Output: Urine Catheter Amount 450 / 450 325 / 325 Other: Percent of Meal Consumed 100% Stool Size Moderate Moderate Stool Color Brown Brown Stool Consistency Formed Loose Liquid Loose # Bowel Movements 5 # of times incontinent of 1 1 Bowels - General Appearance General appearance: chronically ill, frail EENT: mucous membranes moist Neck: supple Respiratory: rales Cardiology: edema Gastrointestinal: distended Integumentary: ulcer Neurologic: no focal deficit, alert and oriented x3 Musculoskeletal: no deformities Psychiatric: mood/affect appropriate, cooperative - Lab 01/27/18 04:00 01/27/18 04:00 Most recent lab results Calcium 7.6 mg/dl (8.6-10.4) L 01/27/18 04:00 Phosphorus 4.6 mg/dL (2.7-4.5) H 01/27/18 04:00 Magnesium 2.0 mg/dL (1.6-2.5) 01/27/18 04:00 Assessment and Plan (1) Acute on chronic renal failure Previous work up: Renal US on 11/20/17: Mildly echogenic renal parenchyma bilaterally which indicates chronic medical renal disease. Progress: Metabolic acidosis. Hypokalemia, replaced. Serum creatinine increased from 5.6 to 6.3 in the past 24 hours. Recommendations: Continue IVF for adequate hydration. Declines hemodialysis. Prognosis: Guarded. Status: Acute Qualifiers: Acute renal failure type: unspecified Chronic kidney disease stage: stage 4 (severe) Qualified Code(s): N17.9 - Acute kidney failure, unspecified; N18.4 - Chronic kidney disease, stage 4 (severe) (2) Metabolic acidosis Metabolic acidosis associated with renal failure and partial small bowel obstruction. May need to switch IVF to D5W 1 L + Sodium Bicarbonate 100-150 mEq. Status: Acute Priority: Medium
[2018-01-27] MEDS: PIPERACILLIN SODIUM/TAZOBACTAM 2.25 GM in DEXTROSE 5% IN WATER 50 ML IV SCH ×3 (06:41→21:11)
[2018-01-27] MEDS: SODIUM BICARBONATE VIAL 150 MEQ in DEXTROSE 5% IN WATER 850 ML IV SCH (09:45)
--- NOTE | 2018-01-27 10:46 | Cat Scan Report ---
CLINICAL INFORMATION: Shortness of breath. Pleural effusions COMPARISON: Plain films from 11/20/2017 and 01/26/2018 TECHNIQUE: 0.625 mm axial slices were obtained from the lung apices through the bases without intravenous contrast. 2.5 mm Sagittal, coronal and axial reformatted images were processed and reviewed at bone, lung and soft tissue windows. 7 mm axial MIP images were also reconstructed to optimize pulmonary nodule detection.The exam was performed using radiation dose optimization techniques including, but not limited to, automated exposure control, adjustment of the mA and/or kV according to patient size and use of iterative reconstruction technique. FINDINGS: Pulmonary parenchymal windows show a moderate left pleural effusion resulting in subtotal compressive atelectasis of the left lower lobe sparing only the anterior basilar segment. There is also complete atelectasis of the inferior lingular segment. On the right side, a small/moderate pleural effusion result in only subsegmental atelectasis of the the posterior right lower lobe. There are scattered bullae within both apical upper lobe regions with underlying chronic bronchitis compatible with mild centrilobular emphysema. Mediastinal windows show moderate hiatal hernia featuring the gastric fundus and proximal body which have migrated into the middle mediastinum. Moderate barium, given for a concomitant small bowel follow-through, is seen within the esophagus. The heart is mildly enlarged and there is moderately heavy calcific plaque in the coronary arteries. There are no abnormally enlarged lymph nodes in the mediastinal hilar or axillary regions. The noncontrasted thoracic aorta and pulmonary arteries are normal in contour and caliber. Bone windows show mild chronic wedging of all thoracic vertebral bodies which demonstrates long-term stability. No soft tissue abnormality. Images through the upper abdomen show minimal ascites in the perihepatic region - also seen on recent 01/23/[address] IMPRESSION: 1. Moderate left pleural effusion resulting in subtotal compressive atelectasis of the left lower lobe. (The anterior basilar segment remains partially aerated). 2. Complete atelectasis of the inferior lingular segment likely due to mucous plugging, fibrosis and/or extrinsic fluid compression 3. Small right pleural effusion resulting in subsegmental atelectasis confined to the posterior right lower lobe 4. Mild underlying centrilobular emphysema changes 5. Moderate hiatal hernia Interpreted and Authenticated by: Reid Bryant 01/27/18
[2018-01-27] MEDS: IRON SUCROSE COMPLEX 100 MG/5 ML VIAL IV SCH (10:58)
[2018-01-27] MEDS: HEPARIN 5,000 UNIT/ML VIAL SQ SCH ×2 (10:58→21:10)
[2018-01-27] MEDS: POLYETHYLENE GLYCOL 3350 17 GM PACKET PO SCH ×4 (10:59→21:25)
[2018-01-27] MEDS: ASPIRIN 81 MG TAB.CHEW CHEWED SCH (10:59)
[2018-01-27] MEDS: HYDROXYUREA 500 MG CAPSULE PO SCH (10:59)
[2018-01-27] MEDS: DEXTROSE 5% IV SCH (11:00)
[2018-01-27] MEDS: AMIODARONE IV SCH (11:00)
[2018-01-27] MEDS: WATER IV SCH (11:00)
--- NOTE | 2018-01-27 11:21 | XRay Report ---
CLINICAL INFORMATION: Follow small bowel obstruction COMPARISON: 01/25/2018 FINDINGS: The NG tube is been removed. The stomach and small bowel decreased in caliber since the previous study. Moderate dilatation of the ascending, transverse and descending colon to the mid sigmoid level is again noted with relative decompression of the distal sigmoid and rectum. IMPRESSION: Partial distal colonic obstruction - improved Interpreted and Authenticated by: Reid Bryant 01/27/18
--- NOTE | 2018-01-27 11:33 | Internal Med Progress Note ---
Medical - PN: Subj Patient information: Note initiated : 01/27/18 at 11:30 am Service Date, if different from initiated Date: [] Patient: Carlos Abraham 87 y/o M admitted on 01/23/18 for Small Bowel Obstruction/Incarcerated Hernia. Chief Complaint: [] Interval history: Mr. Abraham is a 87 year old M with multiple medical issues, a poor history provider, presently living in [facility], [facility], presents to the ER today after not being well for the last few days, he notes he has had intermittent abdominal distention for a while, but this time for at least 1 week his abdomen has been progressively getting bigger, this has been accompanied by some abdominal pain/ discomfort and nausea and vomiting. He has not been able to tolerate po diet well, he has tried liquid diet but it did not help much. He is not having regular bowel movements but last BM was a small stool yesterday as per the patient. The patient was eventually sent to the ER for further evaluation. the patient has a DNR /CC as per POST but notes he is willing to get treated for this issue. The patient had leukocytosis at 27,000, more than 10% bands, hemoglobin 11.3, significantly elevated platelets at 2139. Potassium was 3.3, bicarbonate 19, creatinine 4.6, he has chronic kidney disease and this creatinine is slowly trending down. CT scan of the abdomen and pelvis shows partial small bowel obstruction, incarcerated hernia in the right groin, CXR shows bibasilar infiltrates, pna/ atelectasis, but CT abdomen showed only atelectasis. patient was admitted to medicine given extensive comorbid conditions, Dr Chaves was consulted from the ER. Overnight we tried to Place NG tube on the medical floor, but the tube did get coiled in the mid thorax, this AM radiology tried to get the NG tube under floroscopy, but was unsucessful. Dr Chaves will evaluate and try to place the NG today. 01/24 Pt seen examined, intermittently non compliant with care, as per nursing, does not like to be turned, had bm today, NG placed by Dr Chaves, Patient renal function worsened, nephrology consulted overall poor candidate for operative intervention, non compliant with care, has refused dialysis in the past 01/25 Pt seen examined, no acute overnigh events, NG in place, not draining much now. Surgery following His platets remain high, worse today than yesterday, likely8 reactive. 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 Patient has no acute complaints. Is passing gas as well as moving bowels. Abdominal x-ray shows improvement in the obstruction. WBC count is up, platelets are up, I have reviewed the patient's condition with Dr. Orozco, hydroxyurea started. Will monitor for response. If platelets continue to trend up I will touch base with her again tomorrow. Patient continues to be on antibiotics. Wound care help appreciated. Nephrology is following. Started the patient on bicarb drip as per nephrology recommendations. 01/27 Pt seen examined, no acute overnight issues, this AM a bit nauseas after barium study CT chest shows kirby pleural effusions, left > right, WBC stable, plat improving, on hydroxyurea pt denies any cp, sob, or any other acute concerns renal function worsening. has refused dialysis. Pertinent ROS: Denies headache, dizziness Denies chest pain, palpitations Denies cough or shortness of breath Denies abdominal pain, prsent nausea no vomiting. - Constitutional Vitals: Vital Signs Temp Pulse Resp BP Pulse Ox 97.7 F 69 18 132/67 93 01/27/18 10:56 01/27/18 03:20 01/27/18 10:56 01/27/18 10:56 01/27/18 10:56 Period Temp Pulse Resp BP Sys/Ferris Pulse Ox Last 24 Hr 97.5 F-99.1 F 68-71 17-20 125-150/63-73 91-98 Intake and Output 01/26/18 01/27/18 01/27/18 21:59 05:59 13:59 Intake Total 870 / 870 350 / 350 Output Total 450 / 450 325 / 325 Balance 420 / 420 25 / 25 Weight 217 lb Intake & Output: Intake & Output 01/26/18 01/27/18 01/27/18 21:59 05:59 13:59 Intake Total 870 / 870 350 / 350 Output Total 450 / 450 325 / 325 Balance 420 / 420 25 / 25 Weight 217 lb Intake: IV 50 / 50 50 / 50 Zosyn 2.25 gm In Dextrose 5% in 50 / 50 50 / 50 Water 50 ml @ 100 mls/hr IV Q8H [facility] Rx#:[id number] Oral 820 / 820 300 / 300 Output: Urine Catheter Amount 450 / 450 325 / 325 Other: Percent of Meal Consumed 100% Stool Size Moderate Moderate Stool Color Brown Brown Stool Consistency Formed Loose Liquid Loose # Bowel Movements 5 # of times incontinent of 1 1 Bowels Exam: Constitutional; Afebrile, cooperative, alert, not in distress. Eyes- No icterus, , No periorbital swelling Ears- Ext ear normal, hearing normal to conversation. Neck- Midline trachea, supple Respiratory system: Air Entry equal on both sides, No crackles or wheezing, no rhonchi. ant exam CVS- Rate rhythm regular, S1,S2 heard, no gallop, no rub. Abdomen- Soft nontender abdomen, still distendted, hypoactive bowel sounds MANAGER PROGRAM- AOOx3, unchanged exam Medical - PN: Obj Da - Labs CBC & Chem 7: 01/27/18 04:00 01/27/18 04:00 Labs: Abnormal Lab Results 01/27/18 01/27/18 01/26/18 04:00 04:00 03:55 WBC 16.3 H RBC 3.23 L Hgb 9.7 L Hct 29.9 L RDW 15.1 H Plt Count 1244 H* MPV 6.0 L Gran % 90.8 H Lymph % (Auto) 2.3 L Gran # 14.8 H Lymph # (Auto) 0.4 L Aiken # (Auto) 1.0 H Potassium 2.9 L* Carbon Dioxide 20 L 18 L Anion Gap 18.0 H 20.0 H BUN 89 H 91 H Creatinine 6.3 H* 5.6 H* Glucose Uric Acid 10.6 H 10.2 H Calcium 7.6 L 7.9 L Phosphorus 4.6 H 4.7 H Total Protein 4.6 L 5.0 L Albumin 2.1 L 2.5 L Albumin/Globulin Ratio 0.8 L 01/26/18 01/25/18 01/25/18 03:55 06:26 06:26 WBC 16.3 H 14.1 H RBC 3.40 L 3.28 L Hgb 10.1 L 9.9 L Hct 31.4 L 30.7 L RDW 15.3 H 15.5 H Plt Count 1541 H* 1481 H* MPV 6.0 L 6.0 L Gran % 90.7 H 90.3 H Lymph % (Auto) 2.1 L 2.0 L Gran # 14.8 H 12.7 H Lymph # (Auto) 0.3 L 0.3 L Aiken # (Auto) 1.1 H 1.0 H Potassium Carbon Dioxide 20 L Anion Gap BUN 86 H Creatinine 5.4 H* Glucose 115 H Uric Acid 10.0 H Calcium 7.8 L Phosphorus Total Protein 4.8 L Albumin 2.1 L Albumin/Globulin Ratio 0.8 L Meds: Medications Aspirin (Aspirin) 162 mg CHEWED DAILY [facility] Last Admin: 01/27/18 10:59 Dose: 162 mg Heparin Sodium (Porcine) (Heparin) 5,000 unit SQ Q12 [facility] Last Admin: 01/27/18 10:58 Dose: 5,000 unit Heparin Sodium (Porcine) (Heparin Flush) 2 ml IV Q12 [facility] Last Admin: 01/27/18 09:00 Dose: 2 ml Hydroxyurea (Hydrea) 500 mg PO DAILY [facility] Stop: 01/28/18 08:59 Last Admin: 01/27/18 10:59 Dose: 500 mg Piperacillin Sod/Tazobactam (Sod 2.25 gm/ Dextrose) 50 mls @ 100 mls/hr IV Q8H [facility] Last Admin: 01/27/18 06:41 Dose: 100 mls/hr Acetaminophen (Ofirmev) 650 mg in 65 mls @ 130 mls/hr IV Q6HP PRN PRN Reason: PAIN/FEVER > 101 Amiodarone HCl 200 mg/ (Dextrose) 54 mls @ 108 mls/hr IV DAILY [facility] Last Admin: 01/27/18 11:00 Dose: 108 mls/hr Sodium Bicarbonate 150 meq/ (Dextrose) 1,000 mls @ 75 mls/hr IV Q20H [facility] Last Admin: 01/27/18 09:45 Dose: 75 mls/hr Iron Sucrose (Venofer) 200 mg IV DAILY [facility] Stop: 01/29/18 09:01 Last Admin: 01/27/18 10:58 Dose: 200 mg Metoclopramide HCl (Reglan) 10 mg IV Q6 [facility] Last Admin: 01/27/18 06:08 Dose: 10 mg Morphine Sulfate (Morphine) 2 mg SL Q2HP PRN PRN Reason: Pain Naloxone HCl (Narcan) 0.1 mg IV Q2MIN PRN PRN Reason: Opiate Reversal Ondansetron HCl (Zofran) 4 mg IV Q6HP PRN PRN Reason: Nausea And Vomiting Last Admin: 01/24/18 22:11 Dose: 4 mg Polyethylene Glycol (Miralax) 17 gm PO TID [facility] Stop: 01/29/18 09:01 Last Admin: 01/27/18 10:59 Dose: 17 gm Sodium Chloride (Saline Flush) 10 ml IV Q8 [facility] Last Admin: 01/27/18 06:09 Dose: 10 ml Sodium Chloride (Saline Flush) 10 ml IV UD PRN PRN Reason: FLUSH Sodium Chloride (Saline Flush) 10 ml IV Q12 [facility] Last Admin: 01/27/18 11:01 Dose: 10 ml Throat Lozenges (Cepacol) 1 lozenge PO Q4HP PRN PRN Reason: Sore Throat Last Admin: 01/23/18 15:02 Dose: 1 lozenge Vancomycin HCl (Vancomycin Per Pharmacy) 1 order IV UD [facility] Medical - PN: A/P - Time Spent With Patient Total time spent is greater than 50% in coordination of care (as documented) at patient's floor/unit and/or counseling patient: - Narrative A/P Narrative: A/P Small bowel obstruction/ Incarcerated hernia: Dr Chaves consulted, management as per him. Clinically improving, small bowel follow through, Possible Pneumonia: Given hiatal hernia, likely aspirational pna, on zosyn, . Microbiology negative so far, given persistence of wbc, IV vanco added d2 today , CT reviewed, no loculations, Sepsis- bp stable, pna/ GI source on zosyn, neg lactate, clinically stable. Pleural effusion- kirby effusions, no loculations noted. Thrombocytosis, severe: improving, reactive? discussed with Dr Orozco, on asa and hydroxyurea for now. Please call her with update after 3 days of treatment. CHF- stable, off lasix. CKD- creat worsening, on IV bicarbonate, nephrology following, has refused dialysis. Ventricular tachycardia: unable to tolerate po, therefore on IV amiodarone for now Decub ulcers/ Lower extremity wounds: Wound care consult. pt refuses q2h turning for the decub ulcers. DVT hep sq Diet clear liquid. DNR code status, Patient overall has poor functional status, and poor prognosis. Medical - PN: Qual - VTE Deep Vein Thrombosis/Pulmonary Embolism Present on Admission: No
[2018-01-27 13:10] LABS: Vancomycin,Random 14.3 ug/mL
[2018-01-27] MEDS: ONDANSETRON 4 MG/2 ML VIAL IV PRN (13:40)
--- NOTE | 2018-01-27 15:38 | General Surgery Progress Note ---
Subjective Patient reports: feels better, pain is less, flatus, bowel movement, afebrile Narrative: Note initiated : 01/27/18 at 3:35 pm Service Date, if different from initiated Date: [] Patient: Carlos Abraham 87 y/o M admitted on 01/23/18 for Small Bowel Obstruction/Incarcerated Hernia. Chief Complaint: [patient is continuing to improve. Small bowel follow-through was done today and has transit into the colon in 4 hours. He has had multiple large bowel movements throughout the afternoon. He denies abdominal pain and asked for liquids to drink.] Objective Temp Pulse Resp BP Pulse Ox 98.4 F 69 18 117/64 93 01/27/18 15:23 01/27/18 03:20 01/27/18 15:23 01/27/18 15:23 01/27/18 15:23 - Additional Data Intake & Output - Last 24 hours: Intake & Output 01/25/18 01/26/18 01/27/18 01/28/18 05:59 05:59 05:59 05:59 Intake Total 1424 / 1424 1404 / 1404 1324 / 1324 104 / 104 Output Total 450 / 450 1200 / 1200 775 / 775 275 / 275 Balance 974 / 974 204 / 204 549 / 549 -171 / -171 Weight 207 lb 214 lb 8 oz 217 lb - General physical appearance no distress, no pain, chronically ill - Eyes PERRL, normal ocular movement - ENT normal pinna, normal nares, normal mucosa, no hearing loss, no congestion - Neck no masses, no bruits, trachea midline, no lymphadectomy, no venous distension - Respiratory normal expansion, normal respiratory effort, clear to auscultation - Cardiovascular Cardiovascular exam: Present: irregular rhythm, +S1, +S2. Absent: JVD, tachycardia - Abdomen non tender, bowel sounds (present), surgical scars (none), masses (none), distended (distended large bowel but with good active bowel sounds and no tenderness) - Integumentary other ( no change in chronic stasis disease of the lower extremities) - Neurologic normal coordination, normal sensation - Psychiatric oriented to time, oriented to person, oriented to place, speech is normal, memory intact - Labs 01/27/18 04:00 01/27/18 04:00 Diabetes panel 01/27/18 Range/Units 04:00 Sodium 142 (133-145) mmol/L Potassium 2.9 L* (3.3-5.1) mmol/L Chloride 104 (96-108) mmol/L Carbon Dioxide 20 L (22-30) mmol/L BUN 89 H (8-23) mg/dl Creatinine 6.3 H* (0.7-1.2) mg/dl Glucose 102 (70-105) mg/dL Calcium 7.6 L (8.6-10.4) mg/dl AST 12 (0-37) U/l ALT 11 (0-40) U/l Alkaline Phosphatase 69 (39-117) U/L Total Protein 4.6 L (5.9-8.4) gm/dL Albumin 2.1 L (3.2-5.2) gm/dL Triglycerides 149 (<150) mg/dl Calcium panel 01/27/18 Range/Units 04:00 Calcium 7.6 L (8.6-10.4) mg/dl Phosphorus 4.6 H (2.7-4.5) mg/dL Albumin 2.1 L (3.2-5.2) gm/dL Pituitary panel 01/27/18 Range/Units 04:00 Sodium 142 (133-145) mmol/L Potassium 2.9 L* (3.3-5.1) mmol/L Chloride 104 (96-108) mmol/L Carbon Dioxide 20 L (22-30) mmol/L BUN 89 H (8-23) mg/dl Creatinine 6.3 H* (0.7-1.2) mg/dl Glucose 102 (70-105) mg/dL Calcium 7.6 L (8.6-10.4) mg/dl Adrenal panel 01/27/18 Range/Units 04:00 Sodium 142 (133-145) mmol/L Potassium 2.9 L* (3.3-5.1) mmol/L Chloride 104 (96-108) mmol/L Carbon Dioxide 20 L (22-30) mmol/L BUN 89 H (8-23) mg/dl Creatinine 6.3 H* (0.7-1.2) mg/dl Glucose 102 (70-105) mg/dL Calcium 7.6 L (8.6-10.4) mg/dl Total Bilirubin 0.2 (0.0-1.0) mg/dL AST 12 (0-37) U/l ALT 11 (0-40) U/l Alkaline Phosphatase 69 (39-117) U/L Total Protein 4.6 L (5.9-8.4) gm/dL Albumin 2.1 L (3.2-5.2) gm/dL Assessment and Plan (1) Acute worsening of stage 4 chronic kidney disease Status: Acute Assessment and plan: Slightly worsened but being followed by nephrology Suggest adding IV albumin and Lasix diuresis is going to continue because of profound hypoproteinemia Current Visit: Yes (2) Colonic obstruction Status: Acute Assessment and plan: We'll start clear liquid diet Current Visit: Yes (3) Incarcerated left inguinal hernia Status: Acute Assessment and plan: Hernia is reducible but it immediately pops out because of gaseous distention Current Visit: Yes (4) Cardiomyopathy due to hypertension Status: Acute Current Visit: Yes (5) Protein-calorie malnutrition, severe Status: Acute Current Visit: Yes (6) Anasarca associated with disorder of kidney Status: Acute Current Visit: Yes (7) Stasis dermatitis of both legs Status: Acute Current Visit: Yes (8) Chronic obstructive pulmonary disease (COPD) Status: Acute Current Visit: Yes (9) Anemia of chronic disease Status: Acute Current Visit: Yes (10) Sacral decubitus ulcer, stage III Status: Acute Current Visit: Yes - Time Spent With Patient Total time spent is greater than 50% in coordination of care (as documented) at patient's floor/unit and/or counseling patient:
--- NOTE | 2018-01-27 16:53 | General Surgery Progress Note ---
Subjective Patient reports: other Narrative: Note initiated : 01/27/18 at 4:50 pm Service Date, if different from initiated Date: [] Patient: Carlos Abraham 87 y/o M admitted on 01/23/18 for Small Bowel Obstruction/Incarcerated Hernia. Chief Complaint: [Patient seen and progress reviewed with Marcia PITTMAN I/C] Objective Temp Pulse Resp BP Pulse Ox 98.4 F 69 18 117/64 93 01/27/18 15:23 01/27/18 03:20 01/27/18 15:23 01/27/18 15:23 01/27/18 15:23 AVSS. No acute changes AGNES. S/P SBFT with Barium. LILLIANA. Constipation resolved and Groin hernia is NOT obstructed, Reduces easily. Worsening renal function. Patient again refuses HD. Sacral wound is clean and granulating well. - Additional Data Intake & Output - Last 24 hours: Intake & Output 01/25/18 01/26/18 01/27/18 01/28/18 05:59 05:59 05:59 05:59 Intake Total 1424 / 1424 1404 / 1404 1324 / 1324 154 / 154 Output Total 450 / 450 1200 / 1200 775 / 775 275 / 275 Balance 974 / 974 204 / 204 549 / 549 -121 / -121 Weight 207 lb 214 lb 8 oz 217 lb - Labs 01/27/18 04:00 01/27/18 04:00 Diabetes panel 01/27/18 Range/Units 04:00 Sodium 142 (133-145) mmol/L Potassium 2.9 L* (3.3-5.1) mmol/L Chloride 104 (96-108) mmol/L Carbon Dioxide 20 L (22-30) mmol/L BUN 89 H (8-23) mg/dl Creatinine 6.3 H* (0.7-1.2) mg/dl Glucose 102 (70-105) mg/dL Calcium 7.6 L (8.6-10.4) mg/dl AST 12 (0-37) U/l ALT 11 (0-40) U/l Alkaline Phosphatase 69 (39-117) U/L Total Protein 4.6 L (5.9-8.4) gm/dL Albumin 2.1 L (3.2-5.2) gm/dL Triglycerides 149 (<150) mg/dl Calcium panel 01/27/18 Range/Units 04:00 Calcium 7.6 L (8.6-10.4) mg/dl Phosphorus 4.6 H (2.7-4.5) mg/dL Albumin 2.1 L (3.2-5.2) gm/dL Pituitary panel 01/27/18 Range/Units 04:00 Sodium 142 (133-145) mmol/L Potassium 2.9 L* (3.3-5.1) mmol/L Chloride 104 (96-108) mmol/L Carbon Dioxide 20 L (22-30) mmol/L BUN 89 H (8-23) mg/dl Creatinine 6.3 H* (0.7-1.2) mg/dl Glucose 102 (70-105) mg/dL Calcium 7.6 L (8.6-10.4) mg/dl Adrenal panel 01/27/18 Range/Units 04:00 Sodium 142 (133-145) mmol/L Potassium 2.9 L* (3.3-5.1) mmol/L Chloride 104 (96-108) mmol/L Carbon Dioxide 20 L (22-30) mmol/L BUN 89 H (8-23) mg/dl Creatinine 6.3 H* (0.7-1.2) mg/dl Glucose 102 (70-105) mg/dL Calcium 7.6 L (8.6-10.4) mg/dl Total Bilirubin 0.2 (0.0-1.0) mg/dL AST 12 (0-37) U/l ALT 11 (0-40) U/l Alkaline Phosphatase 69 (39-117) U/L Total Protein 4.6 L (5.9-8.4) gm/dL Albumin 2.1 L (3.2-5.2) gm/dL Assessment and Plan (1) Renal failure Status: Acute Current Visit: Yes (2) Self-care deficit for hygiene Status: Acute Current Visit: No (3) Skin breakdown Status: Acute Current Visit: No (4) Decubitus ulcer, buttock Status: Acute Current Visit: No (5) Acute on chronic renal failure Status: Acute Current Visit: No - Time Spent With Patient Total time spent is greater than 50% in coordination of care (as documented) at patient's floor/unit and/or counseling patient: Assessment: Stable from wound care point of view. NO acute interval changes. Plan: Continue current treatment. less than 15 minutes
--- NOTE | 2018-01-27 19:15 | XRay Report ---
CLINICAL INFORMATION: Follow-up of partial bowel obstruction COMPARISON: Abdomen and pelvic CT from four days prior to 01/23/2018 TECHNIQUE: Following polymerization supervisor film, single contrast enteric contrast was administered orally and serial films were obtained of the abdomen over five hours FINDINGS: The stomach and duodenum are normal in contour and caliber. The entire jejunum is moderately dilated with marked delayed small bowel transit requiring over three hours visualize the right colon. This suggests the partial obstruction in the large ventral hernia rather than separate no left inguinal hernia] containing a segment of sigmoid colon IMPRESSION: Partial small bowel obstruction of the distal jejunum ostensibly due to the large ventral hernia. Left inguinal hernia is acknowledged but does not appear to represent a point of obstruction on the basis of this study Interpreted and Authenticated by: Reid Bryant 01/27/18
[2018-01-28] MEDS: SODIUM BICARBONATE VIAL 150 MEQ in DEXTROSE 5% IN WATER 850 ML IV SCH (04:24)
[2018-01-28] MEDS: METOCLOPRAMIDE 10 MG/2 ML VIAL IV SCH ×4 (06:05→23:54)
[2018-01-28] MEDS: PIPERACILLIN SODIUM/TAZOBACTAM 2.25 GM in DEXTROSE 5% IN WATER 50 ML IV SCH ×3 (06:05→22:24)
[2018-01-28] MEDS: 0.9 % SODIUM CHLORIDE 10 ML SYRINGE IV SCH ×5 (06:05→22:24)
[2018-01-28 06:41] LABS: Basophils # (Auto) 0 K/mcL (0.0-0.3); Basophils % (Auto) 0 % (0.0-2.0); Eosinophils # (Auto) 0.2 K/mcL (0.0-0.7); Eosinophils % (Auto) 1.2 % (0.0-7.0); Granulocytes % (Auto) 89.3 % (38.0-78.0); Lymphocytes # (Auto) 0.4 K/mcL (1.5-4.8); Lymphocytes % (Auto) 2.3 % (15.5-49.0); Mean Cell Volume 91.6 fL (80.0-100.0); Mean Corpuscular HGB Conc 32.3 g/dL (31.0-36.0); Mean Corpuscular Hemoglobin 29.6 pg (26.0-34.0); Monocytes # (Auto) 1.3 K/mcL (0.1-0.9); Monocytes % (Auto) 7.2 % (1.0-12.0); Platelet Count 1194 K/mcL (140-440); RBC 3.39 M/mcL (4.50-5.90); Red Cell Distribution Width 15.4 % (11.5-14.5)
--- NOTE | 2018-01-28 07:21 | XRay Report ---
CLINICAL INFORMATION: Follow up small bowel obstruction COMPARISON: 01/27/2018 FINDINGS: Multiple loops of small bowel, centrally, remain moderately dilated - unchanged from the previous study. The contrast, administered yesterday, has migrated entirely through the GI tract with small amount of residual in the hepatic flexure and rectosigmoid region. No free air or soft tissue mass IMPRESSION: Partial small bowel obstruction of the distal jejunal level. Contrast material yesterday has largely passed through the GI tract with minimal residual within the hepatic flexure and rectosigmoid region. Interpreted and Authenticated by: Reid Bryant 01/28/18
[2018-01-28 07:26] LABS: ALT/SGPT 15 U/l (0-40); Albumin 2.3 gm/dL (3.2-5.2); Alkaline Phosphatase 73 U/L (39-117); Bilirubin,Direct < 0.2 mg/dL (0.0-0.3); Blood Urea Nitrogen 86 mg/dl (8-23); Gamma Glutamyl Transpeptidase 18 U/L (8-61); Uric Acid 9.8 mg/dL (2.5-8.0)
--- NOTE | 2018-01-28 07:31 | Nephrology Progress Note ---
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 Chief Complaint: Nausea Principal diagnosis: Acute kidney injury on chronic kidney disease stage 4 Pertinent ROS: Weakness Anorexia Nausea Abdominal distention Objective - Vital Signs Vital signs: Vital Signs Temp Pulse Resp BP Pulse Ox 01/27/18 23:53 97.5 F 74 17 146/70 93 01/27/18 20:00 98.5 F 72 18 152/73 92 01/27/18 15:23 98.4 F 18 117/64 93 01/27/18 10:56 97.7 F 18 132/67 93 01/27/18 08:00 18 Intake and Output 01/27/18 01/28/18 01/28/18 21:59 05:59 13:59 Intake Total 104 / 104 1150 / 1150 50 / 50 Output Total 675 / 675 425 / 425 Balance -571 / -571 725 / 725 50 / 50 Intake: IV 104 / 104 1050 / 1050 50 / 50 Cordarone 200 mg In Dextrose 5% 54 / 54 in Water 50 ml @ 108 mls/hr IV DAILY [facility] Rx#:[id number] Zosyn 2.25 gm In Dextrose 5% in 50 / 50 50 / 50 50 / 50 Water 50 ml @ 100 mls/hr IV Q8H [facility] Rx#:[id number] Sodium Bicarbonate Vial 150 Meq 1000 / 1000 In Dextrose 5% in Water 850 ml @ 75 mls/hr IV Q20H [facility] Rx#: [id number] Oral 100 / 100 Output: Urine Catheter Amount 675 / 675 425 / 425 Other: Stool Size Moderate Moderate Stool Color Brown Brown Stool Consistency Loose Soft Loose # Bowel Movements 1 # of times incontinent of 1 1 Bowels Weight 223 lb Intake & Output: Intake & Output 01/27/18 01/28/18 01/28/18 21:59 05:59 13:59 Intake Total 104 / 104 1150 / 1150 50 / 50 Output Total 675 / 675 425 / 425 Balance -571 / -571 725 / 725 50 / 50 Weight 223 lb Intake: IV 104 / 104 1050 / 1050 50 / 50 Cordarone 200 mg In Dextrose 5% 54 / 54 in Water 50 ml @ 108 mls/hr IV DAILY [facility] Rx#:[id number] Zosyn 2.25 gm In Dextrose 5% in 50 / 50 50 / 50 50 / 50 Water 50 ml @ 100 mls/hr IV Q8H [facility] Rx#:[id number] Sodium Bicarbonate Vial 150 Meq 1000 / 1000 In Dextrose 5% in Water 850 ml @ 75 mls/hr IV Q20H [facility] Rx#: [id number] Oral 100 / 100 Output: Urine Catheter Amount 675 / 675 425 / 425 Other: Stool Size Moderate Moderate Stool Color Brown Brown Stool Consistency Loose Soft Loose # Bowel Movements 1 # of times incontinent of 1 1 Bowels - Lab 01/28/18 05:03 01/28/18 05:03 Most recent lab results Calcium 7.3 mg/dl (8.6-10.4) L 01/28/18 05:03 Phosphorus 4.5 mg/dL (2.7-4.5) 01/28/18 05:03 Magnesium 1.9 mg/dL (1.6-2.5) 01/28/18 05:03 Assessment and Plan (1) Acute on chronic renal failure Previous work up: Renal US on 11/20/17: Mildly echogenic renal parenchyma bilaterally which indicates chronic medical renal disease. Progress: Metabolic acidosis, resolved. Hypokalemia, being replaced. Serum creatinine decreased from 6.3 to 5.5 in the past 24 hours. Recommendations: Continue IVF for adequate hydration. Declines hemodialysis. Prognosis: Guarded. Status: Acute Qualifiers: Acute renal failure type: unspecified Chronic kidney disease stage: stage 4 (severe) Qualified Code(s): N17.9 - Acute kidney failure, unspecified; N18.4 - Chronic kidney disease, stage 4 (severe) (2) Metabolic acidosis Status: Resolved Priority: Medium (3) Hypokalemia Associated with gastrointestinal losses and correction of metabolic acidosis. Plan: Potassium Chloride 40 mEq IV x 1 then recheck in 2 hours. Status: Acute Priority: High
[2018-01-28] MEDS: ASPIRIN 81 MG TAB.CHEW CHEWED SCH (08:08)
[2018-01-28] MEDS: AMIODARONE IV SCH (08:09)
[2018-01-28] MEDS: HEPARIN 5,000 UNIT/ML VIAL SQ SCH ×2 (08:09→22:24)
[2018-01-28] MEDS: DEXTROSE 5% IV SCH (08:09)
[2018-01-28] MEDS: POLYETHYLENE GLYCOL 3350 17 GM PACKET PO SCH ×3 (08:09→22:24)
[2018-01-28] MEDS: WATER IV SCH (08:09)
[2018-01-28] MEDS: IRON SUCROSE COMPLEX 100 MG/5 ML VIAL IV SCH (08:10)
[2018-01-28] MEDS ORDERED: POTASSIUM CHLORIDE 40 MEQ in DEXTROSE 5% IN WATER 250 ML IV ONE ×2 (08:17→17:03)
[2018-01-28] MEDS ORDERED: DIATRIZOATE MEGLU/DIATRIZO SOD 30 ML BOTTLE PO ONE (08:44)
[2018-01-28] MEDS ORDERED: VANCOMYCIN 1,500 MG in 0.9 % SODIUM CHLORIDE 500 ML IV ONE (10:00)
--- NOTE | 2018-01-28 13:24 | General Surgery Progress Note ---
Subjective Patient reports: no new complaints, other Narrative: Note initiated : 01/28/18 at 1:17 pm Service Date, if different from initiated Date: [] Patient: Carlos Abraham 87 y/o M admitted on 01/23/18 for Small Bowel Obstruction/Incarcerated Hernia. Chief Complaint: [] Patient seen with Chioma PITTMAN.. Progress reviewed and wounds examined. Reviewed UGI SBFT report. Patient is at his base line. Denies any acute symptoms and there have been no interval developments overnight. Objective Temp Pulse Resp BP Pulse Ox 97.9 F 74 18 142/78 93 01/28/18 11:48 01/28/18 11:48 01/28/18 11:48 01/28/18 11:48 01/28/18 11:48 AVSS. No changes AGNES. Imaging studies. Bilateral pleural effusions. Barium study; SBFT . partial small bowel blockage at distal jejunal level, but contrast goes through to colon easily. Lab works and Nephrology note reviewed. CKD 4. Creatinine 5.5 WBC trending down with resolution of PSBO and relief of constipation. Graoin hernia NON complicated and reducible Wounds: Right leg wounds resolved. Sacral pressure ulcer stable Grade 2 -3 . To continue with local wound care. - Additional Data Intake & Output - Last 24 hours: Intake & Output 01/26/18 01/27/18 01/28/18 01/29/18 05:59 05:59 05:59 05:59 Intake Total 1504 / 1504 1824 / 1824 2574 / 2574 50 / 50 Output Total 1200 / 1200 775 / 775 1100 / 1100 Balance 304 / 304 1049 / 1049 1474 / 1474 50 / 50 Weight 214 lb 8 oz 217 lb 223 lb - Labs 01/28/18 05:03 01/28/18 05:03 Diabetes panel 01/28/18 Range/Units 05:03 Sodium 144 (133-145) mmol/L Potassium 2.5 L* (3.3-5.1) mmol/L Chloride 103 (96-108) mmol/L Carbon Dioxide 24 (22-30) mmol/L BUN 86 H (8-23) mg/dl Creatinine 5.5 H* (0.7-1.2) mg/dl Glucose 97 (70-105) mg/dL Calcium 7.3 L (8.6-10.4) mg/dl AST 17 (0-37) U/l ALT 15 (0-40) U/l Alkaline Phosphatase 73 (39-117) U/L Total Protein 4.5 L (5.9-8.4) gm/dL Albumin 2.3 L (3.2-5.2) gm/dL Triglycerides 163 H (<150) mg/dl Calcium panel 01/28/18 Range/Units 05:03 Calcium 7.3 L (8.6-10.4) mg/dl Phosphorus 4.5 (2.7-4.5) mg/dL Albumin 2.3 L (3.2-5.2) gm/dL Pituitary panel 01/28/18 Range/Units 05:03 Sodium 144 (133-145) mmol/L Potassium 2.5 L* (3.3-5.1) mmol/L Chloride 103 (96-108) mmol/L Carbon Dioxide 24 (22-30) mmol/L BUN 86 H (8-23) mg/dl Creatinine 5.5 H* (0.7-1.2) mg/dl Glucose 97 (70-105) mg/dL Calcium 7.3 L (8.6-10.4) mg/dl Adrenal panel 01/28/18 Range/Units 05:03 Sodium 144 (133-145) mmol/L Potassium 2.5 L* (3.3-5.1) mmol/L Chloride 103 (96-108) mmol/L Carbon Dioxide 24 (22-30) mmol/L BUN 86 H (8-23) mg/dl Creatinine 5.5 H* (0.7-1.2) mg/dl Glucose 97 (70-105) mg/dL Calcium 7.3 L (8.6-10.4) mg/dl Total Bilirubin 0.2 (0.0-1.0) mg/dL AST 17 (0-37) U/l ALT 15 (0-40) U/l Alkaline Phosphatase 73 (39-117) U/L Total Protein 4.5 L (5.9-8.4) gm/dL Albumin 2.3 L (3.2-5.2) gm/dL Assessment and Plan (1) Renal failure Status: Acute Current Visit: Yes (2) Self-care deficit for hygiene Status: Acute Current Visit: No (3) Skin breakdown Status: Acute Current Visit: No (4) Decubitus ulcer, buttock Status: Acute Current Visit: No (5) Acute on chronic renal failure Status: Acute Current Visit: No - Time Spent With Patient Total time spent is greater than 50% in coordination of care (as documented) at patient's floor/unit and/or counseling patient: Assessment: Satisfactory progress from wound care point of view. Other medical and surgical problems being managed by other specialists appropriately, Plan: Continue current wound care. Following patient intermittently in hospital. If discharged from hospital, please schedule follow up appointment in wound care center in ONE week. 15 - 24 minutes
--- NOTE | 2018-01-28 15:42 | General Surgery Progress Note ---
Subjective Patient reports: feels better, pain is less, tolerating liquids well, flatus, bowel movement, diarrhea, afebrile Narrative: Note initiated : 01/28/18 at 3:40 pm Service Date, if different from initiated Date: [] Patient: Carlos Abraham 87 y/o M admitted on 01/23/18 for Small Bowel Obstruction/Incarcerated Hernia. Chief Complaint: [patient is doing much better. He no longer has an obstructive pattern. Contrast transit through the GI tract without significant holdup. He continues to have multiple liquid bowel movements. He denies abdominal pain. 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 He does not have any abdominal pain and is requesting that his diet be Advanced.] Objective Temp Pulse Resp BP Pulse Ox 97.9 F 74 18 142/78 93 01/28/18 11:48 01/28/18 11:48 01/28/18 11:48 01/28/18 11:48 01/28/18 11:48 - Additional Data Intake & Output - Last 24 hours: Intake & Output 01/26/18 01/27/18 01/28/18 01/29/18 05:59 05:59 05:59 05:59 Intake Total 1504 / 1504 1824 / 1824 2574 / 2574 50 / 50 Output Total 1200 / 1200 775 / 775 1100 / 1100 Balance 304 / 304 1049 / 1049 1474 / 1474 50 / 50 Weight 214 lb 8 oz 217 lb 223 lb 223 lb - General physical appearance well developed, well nourished, no distress, no pain, chronically ill - Eyes PERRL, normal ocular movement - ENT normal pinna, normal nares, normal mucosa, no hearing loss, no congestion - Neck no masses, no bruits, trachea midline, no lymphadectomy, no venous distension - Respiratory normal expansion, normal respiratory effort, clear to auscultation - Cardiovascular Cardiovascular exam: Present: irregular rhythm, +S1, +S2. Absent: JVD, tachycardia - Abdomen non tender, bowel sounds (present), surgical scars (none), masses (none), distended (abdomen is distended but nontender; most of the distention appears to be due to a dilated colon) - Integumentary no rash, no growths, no abnormal pigmentation - Neurologic normal coordination, normal sensation - Psychiatric oriented to time, oriented to person, oriented to place, speech is normal, memory intact - Labs 01/28/18 05:03 01/28/18 05:03 Diabetes panel 01/28/18 Range/Units 05:03 Sodium 144 (133-145) mmol/L Potassium 2.5 L* (3.3-5.1) mmol/L Chloride 103 (96-108) mmol/L Carbon Dioxide 24 (22-30) mmol/L BUN 86 H (8-23) mg/dl Creatinine 5.5 H* (0.7-1.2) mg/dl Glucose 97 (70-105) mg/dL Calcium 7.3 L (8.6-10.4) mg/dl AST 17 (0-37) U/l ALT 15 (0-40) U/l Alkaline Phosphatase 73 (39-117) U/L Total Protein 4.5 L (5.9-8.4) gm/dL Albumin 2.3 L (3.2-5.2) gm/dL Triglycerides 163 H (<150) mg/dl Calcium panel 01/28/18 Range/Units 05:03 Calcium 7.3 L (8.6-10.4) mg/dl Phosphorus 4.5 (2.7-4.5) mg/dL Albumin 2.3 L (3.2-5.2) gm/dL Pituitary panel 01/28/18 Range/Units 05:03 Sodium 144 (133-145) mmol/L Potassium 2.5 L* (3.3-5.1) mmol/L Chloride 103 (96-108) mmol/L Carbon Dioxide 24 (22-30) mmol/L BUN 86 H (8-23) mg/dl Creatinine 5.5 H* (0.7-1.2) mg/dl Glucose 97 (70-105) mg/dL Calcium 7.3 L (8.6-10.4) mg/dl Adrenal panel 01/28/18 Range/Units 05:03 Sodium 144 (133-145) mmol/L Potassium 2.5 L* (3.3-5.1) mmol/L Chloride 103 (96-108) mmol/L Carbon Dioxide 24 (22-30) mmol/L BUN 86 H (8-23) mg/dl Creatinine 5.5 H* (0.7-1.2) mg/dl Glucose 97 (70-105) mg/dL Calcium 7.3 L (8.6-10.4) mg/dl Total Bilirubin 0.2 (0.0-1.0) mg/dL AST 17 (0-37) U/l ALT 15 (0-40) U/l Alkaline Phosphatase 73 (39-117) U/L Total Protein 4.5 L (5.9-8.4) gm/dL Albumin 2.3 L (3.2-5.2) gm/dL Assessment and Plan (1) Acute worsening of stage 4 chronic kidney disease Status: Acute Assessment and plan: Slightly worsened but being followed by nephrology Suggest adding IV albumin and Lasix diuresis is going to continue because of profound hypoproteinemia Current Visit: Yes (2) Colonic obstruction Status: Acute Assessment and plan: Diet advance to GI soft diet Current Visit: Yes (3) Incarcerated left inguinal hernia Status: Acute Assessment and plan: Hernia is reducible with no evidence of colonic obstruction Current Visit: Yes (4) Cardiomyopathy due to hypertension Status: Acute Current Visit: Yes (5) Protein-calorie malnutrition, severe Status: Chronic Current Visit: Yes (6) Anasarca associated with disorder of kidney Status: Acute Current Visit: Yes (7) Stasis dermatitis of both legs Status: Acute Current Visit: Yes (8) Chronic obstructive pulmonary disease (COPD) Status: Acute Current Visit: Yes (9) Anemia of chronic disease Status: Acute Current Visit: Yes (10) Sacral decubitus ulcer, stage III Status: Acute Current Visit: Yes - Time Spent With Patient Total time spent is greater than 50% in coordination of care (as documented) at patient's floor/unit and/or counseling patient:
--- NOTE | 2018-01-28 20:14 | Internal Med Progress Note ---
Medical - PN: Subj Patient information: Note initiated : 01/28/18 at 8:09 pm Service Date, if different from initiated Date: [] Patient: Carlos Abraham 87 y/o M admitted on 01/23/18 for Small Bowel Obstruction/Incarcerated Hernia. Chief Complaint: [] Interval history: Mr. Abraham is a 87 year old M with multiple medical issues, a poor history provider, presently living in [facility], [facility], presents to the ER today after not being well for the last few days, he notes he has had intermittent abdominal distention for a while, but this time for at least 1 week his abdomen has been progressively getting bigger, this has been accompanied by some abdominal pain/ discomfort and nausea and vomiting. He has not been able to tolerate po diet well, he has tried liquid diet but it did not help much. He is not having regular bowel movements but last BM was a small stool yesterday as per the patient. The patient was eventually sent to the ER for further evaluation. the patient has a DNR /CC as per POST but notes he is willing to get treated for this issue. The patient had leukocytosis at 27,000, more than 10% bands, hemoglobin 11.3, significantly elevated platelets at 2139. Potassium was 3.3, bicarbonate 19, creatinine 4.6, he has chronic kidney disease and this creatinine is slowly trending down. CT scan of the abdomen and pelvis shows partial small bowel obstruction, incarcerated hernia in the right groin, CXR shows bibasilar infiltrates, pna/ atelectasis, but CT abdomen showed only atelectasis. patient was admitted to medicine given extensive comorbid conditions, Dr Chaves was consulted from the ER. Overnight we tried to Place NG tube on the medical floor, but the tube did get coiled in the mid thorax, this AM radiology tried to get the NG tube under floroscopy, but was unsucessful. Dr Chaves will evaluate and try to place the NG today. 01/24 Pt seen examined, intermittently non compliant with care, as per nursing, does not like to be turned, had bm today, NG placed by Dr Chaves, Patient renal function worsened, nephrology consulted overall poor candidate for operative intervention, non compliant with care, has refused dialysis in the past 01/25 Pt seen examined, no acute overnigh events, NG in place, not draining much now. Surgery following His platets remain high, worse today than yesterday, likely8 reactive. 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 Patient has no acute complaints. Is passing gas as well as moving bowels. Abdominal x-ray shows improvement in the obstruction. WBC count is up, platelets are up, I have reviewed the patient's condition with Dr. Orozco, hydroxyurea started. Will monitor for response. If platelets continue to trend up I will touch base with her again tomorrow. Patient continues to be on antibiotics. Wound care help appreciated. Nephrology is following. Started the patient on bicarb drip as per nephrology recommendations. 01/27 Pt seen examined, no acute overnight issues, this AM a bit nauseas after barium study CT chest shows kirby pleural effusions, left > right, WBC stable, plat improving, on hydroxyurea pt denies any cp, sob, or any other acute concerns renal function worsening. has refused dialysis. 01/28 potassium 2.5. Nephrology on board. Decubitus ulcer managed by Dr. Timmons wound care physician white count 18,000. Platelets at 1194 currently on hydroxyurea. Alert oriented and responding to verbal commands appropriately. No concerns expressed by nursing staff. Creatinine 5.5 - Constitutional Vitals: Vital Signs Temp Pulse Resp BP Pulse Ox 98.1 F 78 16 140/78 93 01/28/18 16:00 01/28/18 16:00 01/28/18 16:00 01/28/18 16:01/28/18 11:48 Period Temp Pulse Resp BP Sys/Ferris Pulse Ox Last 24 Hr 97.5 F-98.1 F 71-78 -18 140-146/68-78 93-93 Intake and Output 01/28/18 01/28/18 01/28/18 05:59 13:59 21:59 Intake Total 1150 / 1150 50 / 50 450 / 450 Output Total 425 / 425 325 / 325 Balance 725 / 725 50 / 50 125 / 125 Weight 223 lb Patient Weight 01/29/18 05:59 Weight 223 lb Intake & Output: Intake & Output 01/28/18 01/28/18 01/28/18 05:59 13:59 21:59 Intake Total 1150 / 1150 50 / 50 450 / 450 Output Total 425 / 425 325 / 325 Balance 725 / 725 50 / 50 125 / 125 Weight 223 lb Intake: IV 1050 / 1050 50 / 50 50 / 50 Zosyn 2.25 gm In Dextrose 5% in 50 / 50 50 / 50 50 / 50 Water 50 ml @ 100 mls/hr IV Q8H [facility] Rx#:[id number] Sodium Bicarbonate Vial 150 Meq 1000 / 1000 In Dextrose 5% in Water 850 ml @ 75 mls/hr IV Q20H [facility] Rx#: [id number] Oral 100 / 100 400 / 400 Output: Urine Catheter Amount 425 / 425 325 / 325 Other: Meal Dinner Percent of Meal Consumed 100% Stool Size Moderate Stool Color Brown Brown Stool Consistency Soft Liquid Loose # Bowel Movements 1 # of times incontinent of 1 1 Bowels General appearance: no acute distress Exam: Alert oriented nonlabored breathing Significant stasis changes bilateral lower extremity Decubitus ulcer unchanged No anxiety Medical - PN: Obj Da - Labs CBC & Chem 7: 01/28/18 05:03 01/28/18 16:08 Labs: Abnormal Lab Results 01/28/18 01/28/18 01/28/18 16:08 05:03 05:03 WBC 18.0 H RBC 3.39 L Hgb 10.0 L Hct 31.1 L RDW 15.4 H Plt Count 1194 H* MPV 6.3 L Gran % 89.3 H Lymph % (Auto) 2.3 L Gran # 16.1 H Lymph # (Auto) 0.4 L Sully # (Auto) 1.3 H Potassium 2.5 L* 2.5 L* Carbon Dioxide Anion Gap 17.0 H BUN 86 H Creatinine 5.5 H* Uric Acid 9.8 H Calcium 7.3 L Phosphorus Total Protein 4.5 L Albumin 2.3 L Albumin/Globulin Ratio Triglycerides 163 H 01/27/18 01/27/18 01/26/18 04:00 04:00 03:55 WBC 16.3 H RBC 3.23 L Hgb 9.7 L Hct 29.9 L RDW 15.1 H Plt Count 1244 H* MPV 6.0 L Gran % 90.8 H Lymph % (Auto) 2.3 L Gran # 14.8 H Lymph # (Auto) 0.4 L Sully # (Auto) 1.0 H Potassium 2.9 L* Carbon Dioxide 20 L 18 L Anion Gap 18.0 H 20.0 H BUN 89 H 91 H Creatinine 6.3 H* 5.6 H* Uric Acid 10.6 H 10.2 H Calcium 7.6 L 7.9 L Phosphorus 4.6 H 4.7 H Total Protein 4.6 L 5.0 L Albumin 2.1 L 2.5 L Albumin/Globulin Ratio 0.8 L Triglycerides 01/26/18 03:55 WBC 16.3 H RBC 3.40 L Hgb 10.1 L Hct 31.4 L RDW 15.3 H Plt Count 1541 H* MPV 6.0 L Gran % 90.7 H Lymph % (Auto) 2.1 L Gran # 14.8 H Lymph # (Auto) 0.3 L Sully # (Auto) 1.1 H Potassium Carbon Dioxide Anion Gap BUN Creatinine Uric Acid Calcium Phosphorus Total Protein Albumin Albumin/Globulin Ratio Triglycerides Meds: Medications Aspirin (Aspirin) 162 mg CHEWED DAILY [facility] Last Admin: 01/28/18 08:08 Dose: 162 mg Heparin Sodium (Porcine) (Heparin) 5,000 unit SQ Q12 [facility] Last Admin: 01/28/18 08:09 Dose: 5,000 unit Heparin Sodium (Porcine) (Heparin Flush) 2 ml IV Q12 [facility] Last Admin: 01/28/18 08:08 Dose: 2 ml Piperacillin Sod/Tazobactam (Sod 2.25 gm/ Dextrose) 50 mls @ 100 mls/hr IV Q8H [facility] Last Infusion: 01/28/18 14:51 Dose: Infused Acetaminophen (Ofirmev) 650 mg in 65 mls @ 130 mls/hr IV Q6HP PRN PRN Reason: PAIN/FEVER > 101 Amiodarone HCl 200 mg/ (Dextrose) 54 mls @ 108 mls/hr IV DAILY [facility] Last Admin: 01/28/18 08:09 Dose: 54 mls/hr Sodium Bicarbonate 150 meq/ (Dextrose) 1,000 mls @ 75 mls/hr IV Q20H [facility] Last Admin: 01/28/18 04:24 Dose: 75 mls/hr Potassium Chloride 40 meq/ (Dextrose) 270 mls @ 67.5 mls/hr IV ONCE ONE Stop: 01/28/18 21:02 Last Admin: 01/28/18 18:05 Dose: 67.5 mls/hr Iron Sucrose (Venofer) 200 mg IV DAILY [facility] Stop: 01/29/18 09:01 Last Admin: 01/28/18 08:10 Dose: 200 mg Metoclopramide HCl (Reglan) 10 mg IV Q6 [facility] Last Admin: 01/28/18 16:32 Dose: 10 mg Morphine Sulfate (Morphine) 2 mg SL Q2HP PRN PRN Reason: Pain Naloxone HCl (Narcan) 0.1 mg IV Q2MIN PRN PRN Reason: Opiate Reversal Ondansetron HCl (Zofran) 4 mg IV Q6HP PRN PRN Reason: Nausea And Vomiting Last Admin: 01/27/18 13:40 Dose: 4 mg Polyethylene Glycol (Miralax) 17 gm PO TID [facility] Stop: 01/29/18 09:01 Last Admin: 01/28/18 14:28 Dose: 17 gm Sodium Chloride (Saline Flush) 10 ml IV Q8 [facility] Last Admin: 01/28/18 14:21 Dose: 10 ml Sodium Chloride (Saline Flush) 10 ml IV UD PRN PRN Reason: FLUSH Sodium Chloride (Saline Flush) 10 ml IV Q12 [facility] Last Admin: 01/28/18 08:10 Dose: 10 ml Throat Lozenges (Cepacol) 1 lozenge PO Q4HP PRN PRN Reason: Sore Throat Last Admin: 01/23/18 15:02 Dose: 1 lozenge Vancomycin HCl (Vancomycin Per Pharmacy) 1 [place] [facility] [place] - PN: A/P - Time Spent With Patient Total time spent is greater than 50% in coordination of care (as documented) at patient's floor/unit and/or counseling patient: 15 - 24 minutes - Narrative A/P Narrative: A/P * Small bowel obstruction/ Incarcerated hernia: Dr Chaves consulted, management as per him. Clinically improving. Status post SBFT. * Sacral decubitus ulcer-rectal tube to avoid perineal soiling. Managed by wound care * Possible Pneumonia: Given hiatal hernia, likely aspirational pna, on zosyn, . Microbiology negative so far, given persistence of wbc, on vancomycin per pharmacy * Severe hypokalemia on replacement per nephrology * Leukocytosis/thrombocytosis-possible reactive. On hydroxyurea * Sepsis- bp stable, pna/ GI source on zosyn, neg lactate, clinically stable. discussed with Dr Orozco, on asa and hydroxyurea for now. Please call her with update after 3 days of treatment. * CHF- stable, off lasix. * CKD stage IV- creat worsening, on IV bicarbonate, nephrology following, has refused dialysis. * Ventricular tachycardia: unable to tolerate po, therefore on IV amiodarone for now * DVT hep sq * Diet clear liquid. * DNR code status, * Patient overall has poor functional status, and poor prognosis. Plan * Continue antibiotic coverage * Renal issues managed by nephrology * bowel obstruction managed by surgery * Decubiti wound managed by wound care physician Medical - PN: Qual - VTE Deep Vein Thrombosis/Pulmonary Embolism Present on Admission: No
[2018-01-29] MEDS ORDERED: POTASSIUM CHLORIDE 40 MEQ in DEXTROSE 5% IN WATER 500 ML IV ONE ×4 (00:31→23:42)
[2018-01-29] MEDS: SODIUM BICARBONATE VIAL 150 MEQ in DEXTROSE 5% IN WATER 850 ML IV SCH (03:02)
[2018-01-29] MEDS: PIPERACILLIN SODIUM/TAZOBACTAM 2.25 GM in DEXTROSE 5% IN WATER 50 ML IV SCH ×3 (05:00→22:08)
[2018-01-29] MEDS: METOCLOPRAMIDE 10 MG/2 ML VIAL IV SCH ×2 (05:00→11:27)
[2018-01-29] MEDS: 0.9 % SODIUM CHLORIDE 10 ML SYRINGE IV SCH ×5 (05:01→20:32)
--- NOTE | 2018-01-29 06:47 | Nephrology Progress Note ---
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 Chief Complaint: Nausea Principal diagnosis: Acute kidney injury on chronic kidney disease stage 4 Pertinent ROS: Weakness Anorexia Nausea Abdominal distention Objective - Vital Signs Vital signs: Vital Signs Temp Pulse Resp BP BP Pulse Ox 01/29/18 04:00 97.5 F 64 18 139/69 92 01/29/18 00:00 97.6 F 66 20 158/68 93 01/28/18 20:00 98.2 F 78 18 136/64 92 01/28/18 16:00 98.1 F 78 16 140/78 01/28/18 11:48 97.9 F 74 18 142/78 93 01/28/18 09:41 98.0 F 71 93 01/28/18 07:53 142/68 Intake and Output 01/28/18 01/29/18 01/29/18 21:59 05:59 13:59 Intake Total 1450 / 1450 620 / 620 Output Total 325 / 325 470 / 470 Balance 1125 / 1125 150 / 150 Intake: IV 1050 / 1050 320 / 320 Zosyn 2.25 gm In Dextrose 5% in 50 / 50 50 / 50 Water 50 ml @ 100 mls/hr IV Q8H [facility] Rx#:[id number] Potassium Chloride 40 Meq In 270 / 270 Dextrose 5% in Water 250 ml @ 67.5 mls/hr IV ONCE ONE Rx#: [id number] Sodium Bicarbonate Vial 150 Meq 1000 / 1000 In Dextrose 5% in Water 850 ml @ 75 mls/hr IV Q20H [facility] Rx#: [id number] Oral 400 / 400 300 / 300 Output: Gastric Drainage 120 / 120 Rectal 120 / 120 Urine Catheter Amount 325 / 325 350 / 350 Other: Meal Dinner Percent of Meal Consumed 100% Stool Size Copious Small Stool Color Brown Brown Stool Consistency Liquid Liquid Loose # Bowel Movements 1 # of times incontinent of 1 1 Bowels Weight 223 lb Intake & Output: Intake & Output 01/28/18 01/29/18 01/29/18 21:59 05:59 13:59 Intake Total 1450 / 1450 620 / 620 Output Total 325 / 325 470 / 470 Balance 1125 / 1125 150 / 150 Weight 223 lb Intake: IV 1050 / 1050 320 / 320 Zosyn 2.25 gm In Dextrose 5% in 50 / 50 50 / 50 Water 50 ml @ 100 mls/hr IV Q8H [facility] Rx#:[id number] Potassium Chloride 40 Meq In 270 / 270 Dextrose 5% in Water 250 ml @ 67.5 mls/hr IV ONCE ONE Rx#: [id number] Sodium Bicarbonate Vial 150 Meq 1000 / 1000 In Dextrose 5% in Water 850 ml @ 75 mls/hr IV Q20H [facility] Rx#: [id number] Oral 400 / 400 300 / 300 Output: Gastric Drainage 120 / 120 Rectal 120 / 120 Urine Catheter Amount 325 / 325 350 / 350 Other: Meal Dinner Percent of Meal Consumed 100% Stool Size Copious Small Stool Color Brown Brown Stool Consistency Liquid Liquid Loose # Bowel Movements 1 # of times incontinent of 1 1 Bowels - General Appearance General appearance: chronically ill, frail EENT: mucous membranes moist Neck: supple Respiratory: rales Cardiology: edema Gastrointestinal: no tenderness Integumentary: hyperpigmentation, chronic venous stasis Neurologic: no focal deficit, alert and oriented x3 Musculoskeletal: no deformities Psychiatric: mood/affect appropriate, cooperative - Lab 01/29/18 06:05 01/29/18 06:05 Most recent lab results Calcium 7.3 mg/dl (8.6-10.4) L 01/28/18 05:03 Phosphorus 4.5 mg/dL (2.7-4.5) 01/28/18 05:03 Magnesium 1.9 mg/dL (1.6-2.5) 01/28/18 16:08 Assessment and Plan (1) Acute on chronic renal failure Previous work up: Renal US on 11/20/17: Mildly echogenic renal parenchyma bilaterally which indicates chronic medical renal disease. Progress: Hypokalemia, being replaced. Serum creatinine decreased from 5.5 to 5.3 in the past 24 hours. Recommendations: Discontinue IVF. Declines hemodialysis. Prognosis: Guarded. Status: Acute Qualifiers: Acute renal failure type: unspecified Chronic kidney disease stage: stage 4 (severe) Qualified Code(s): N17.9 - Acute kidney failure, unspecified; N18.4 - Chronic kidney disease, stage 4 (severe) (2) Hypokalemia Associated with gastrointestinal losses and correction of metabolic acidosis. Plan: Potassium Chloride 40 mEq IV x 1 ordered. Repeat serum potassium after 1 hour of infusion. Status: Acute Priority: High
[2018-01-29 07:47] LABS: Basophils # (Auto) 0 K/mcL (0.0-0.3); Basophils % (Auto) 0 % (0.0-2.0); Eosinophils # (Auto) 0.3 K/mcL (0.0-0.7); Eosinophils % (Auto) 1.7 % (0.0-7.0); Granulocytes % (Auto) 89.6 % (38.0-78.0); Lymphocytes # (Auto) 0.4 K/mcL (1.5-4.8); Lymphocytes % (Auto) 2.1 % (15.5-49.0); Mean Cell Volume 91.4 fL (80.0-100.0); Mean Corpuscular HGB Conc 32.8 g/dL (31.0-36.0); Monocytes # (Auto) 1.2 K/mcL (0.1-0.9); Monocytes % (Auto) 6.6 % (1.0-12.0); Platelet Count 856 K/mcL (140-440); RBC 3.06 M/mcL (4.50-5.90); Red Cell Distribution Width 15.3 % (11.5-14.5)
[2018-01-29 08:07] LABS: ALT/SGPT 17 U/l (0-40); Albumin 2.1 gm/dL (3.2-5.2); Albumin/Globulin Ratio 1.1 (1.0-2.3); Alkaline Phosphatase 58 U/L (39-117); Bilirubin,Direct < 0.2 mg/dL (0.0-0.3); Blood Urea Nitrogen 78 mg/dl (8-23); Gamma Glutamyl Transpeptidase 16 U/L (8-61)
[2018-01-29] MEDS: POLYETHYLENE GLYCOL 3350 17 GM PACKET PO SCH (09:24)
[2018-01-29] MEDS: IRON SUCROSE COMPLEX 100 MG/5 ML VIAL IV SCH (09:25)
[2018-01-29] MEDS: DEXTROSE 5% IV SCH (09:29)
[2018-01-29] MEDS: WATER IV SCH (09:29)
[2018-01-29] MEDS: AMIODARONE IV SCH (09:29)
[2018-01-29] MEDS: ASPIRIN 81 MG TAB.CHEW CHEWED SCH ×2 (09:30→14:13)
[2018-01-29] MEDS: HEPARIN 5,000 UNIT/ML VIAL SQ SCH ×2 (09:30→20:31)
--- NOTE | 2018-01-29 09:56 | XRay Report ---
CLINICAL INFORMATION: Follow small bowel obstruction COMPARISON: 03/30/2018 FINDINGS: Small bowel has decreased in caliber is now only mildly dilated. Colon appears grossly normal on today's study. There is air in the rectum. No free air, soft tissue mass or organomegaly. IMPRESSION: Resolving partial small bowel obstruction Moderate left pleural effusion with densely consolidated left lower lobe atelectasis - unchanged from CT two days ago Interpreted and Authenticated by: Reid Bryant 01/29/18
[2018-01-29] MEDS: ONDANSETRON 4 MG/2 ML VIAL IV PRN (11:33)
--- NOTE | 2018-01-29 12:39 | General Surgery Progress Note ---
Subjective Patient reports: feels better, pain is less, tolerating a regular diet, flatus, bowel movement, diarrhea, afebrile Narrative: Note initiated : 01/29/18 at 12:37 pm Service Date, if different from initiated Date: [] Patient: Carlos Abraham 87 y/o M admitted on 01/23/18 for Small Bowel Obstruction/Incarcerated Hernia. Chief Complaint: [patient continues to improve. He has had multiple large bowel movements. He complains of hunger and has been started on a regular diet. He denies abdominal pain. He has abdominal distention but his abdomen is soft and pliable without any tenderness. X-rays over the last 2 days has shown a pattern suggestive of chronic intestinal pseudoobstruction. His inguinal hernia has not been symptomatic. He still has a major amount of anasarca due to renal failure and hypoalbuminemia. His chronic renal failure is essentially unchanged since admission.] Objective Temp Pulse Resp BP Pulse Ox 97.6 F 64 20 142/60 94 01/29/18 08:31 01/29/18 08:31 01/29/18 08:31 01/29/18 08:31 01/29/18 08:31 - Additional Data Intake & Output - Last 24 hours: Intake & Output 01/27/18 01/28/18 01/29/18 01/30/18 05:59 05:59 05:59 05:59 Intake Total 1824 / 1824 2574 / 2574 2174 / 2174 54 / 54 Output Total 775 / 775 1100 / 1100 795 / 795 Balance 1049 / 1049 1474 / 1474 1379 / 1379 54 / 54 Weight 217 lb 223 lb 223 lb - General physical appearance no distress, chronically ill - Eyes PERRL, normal ocular movement - ENT normal pinna, normal nares, normal mucosa, no hearing loss, no congestion - Neck no masses, no bruits, trachea midline, no lymphadectomy, no venous distension - Respiratory normal expansion, normal respiratory effort, clear to auscultation - Cardiovascular Cardiovascular exam: Present: normal rate and rhythm, RRR, +S1, +S2. Absent: irregular rhythm, JVD - Abdomen non tender, bowel sounds (good active bowel sounds; abdomen is soft and nontender; general distention of the upper abdomen with increased tympany;; good active bowel sounds) - Integumentary other ( chronic lower extremity venous stasis disease with ulceration unchanged) - Musculoskeletal other ( gait and stance are not tested) - Psychiatric oriented to time, oriented to person, oriented to place, speech is normal, memory intact - Labs 01/29/18 06:05 01/29/18 06:05 Diabetes panel 01/28/18 01/28/18 01/29/18 Range/Units 16:08 23:25 06:05 Sodium 141 (133-145) mmol/L Potassium 2.5 L* 2.6 L* 2.8 L* (3.3-5.1) mmol/L Chloride 101 (96-108) mmol/L Carbon Dioxide 27 (22-30) mmol/L BUN 78 H (8-23) mg/dl Creatinine 5.3 H* (0.7-1.2) mg/dl Glucose 143 H (70-105) mg/dL Calcium 7.0 L (8.6-10.4) mg/dl AST 19 (0-37) U/l ALT 17 (0-40) U/l Alkaline Phosphatase 58 (39-117) U/L Total Protein 4.1 L (5.9-8.4) gm/dL Albumin 2.1 L (3.2-5.2) gm/dL Triglycerides 142 (<150) mg/dl Calcium panel 01/29/18 Range/Units 06:05 Calcium 7.0 L (8.6-10.4) mg/dl Phosphorus 4.3 (2.7-4.5) mg/dL Albumin 2.1 L (3.2-5.2) gm/dL Pituitary panel 01/28/18 01/28/18 01/29/18 Range/Units 16:08 23:25 06:05 Sodium 141 (133-145) mmol/L Potassium 2.5 L* 2.6 L* 2.8 L* (3.3-5.1) mmol/L Chloride 101 (96-108) mmol/L Carbon Dioxide 27 (22-30) mmol/L BUN 78 H (8-23) mg/dl Creatinine 5.3 H* (0.7-1.2) mg/dl Glucose 143 H (70-105) mg/dL Calcium 7.0 L (8.6-10.4) mg/dl Adrenal panel 01/28/18 01/28/18 01/29/18 Range/Units 16:08 23:25 06:05 Sodium 141 (133-145) mmol/L Potassium 2.5 L* 2.6 L* 2.8 L* (3.3-5.1) mmol/L Chloride 101 (96-108) mmol/L Carbon Dioxide 27 (22-30) mmol/L BUN 78 H (8-23) mg/dl Creatinine 5.3 H* (0.7-1.2) mg/dl Glucose 143 H (70-105) mg/dL Calcium 7.0 L (8.6-10.4) mg/dl Total Bilirubin 0.2 (0.0-1.0) mg/dL AST 19 (0-37) U/l ALT 17 (0-40) U/l Alkaline Phosphatase 58 (39-117) U/L Total Protein 4.1 L (5.9-8.4) gm/dL Albumin 2.1 L (3.2-5.2) gm/dL Assessment and Plan (1) Acute worsening of stage 4 chronic kidney disease Status: Acute Assessment and plan: Slightly worsened but being followed by nephrology Current Visit: Yes (2) Colonic obstruction Status: Acute Assessment and plan: Diet advance to GI soft diet Obstruction has resolved Current Visit: Yes (3) Incarcerated left inguinal hernia Status: Acute Assessment and plan: Hernia is reducible with no evidence of colonic obstruction Current Visit: Yes (4) Cardiomyopathy due to hypertension Status: Acute Current Visit: Yes (5) Protein-calorie malnutrition, severe Status: Chronic Current Visit: Yes (6) Anasarca associated with disorder of kidney Status: Acute Current Visit: Yes (7) Stasis dermatitis of both legs Status: Acute Current Visit: Yes (8) Chronic obstructive pulmonary disease (COPD) Status: Acute Current Visit: Yes (9) Anemia of chronic disease Status: Acute Current Visit: Yes (10) Sacral decubitus ulcer, stage III Status: Acute Current Visit: Yes - Time Spent With Patient Total time spent is greater than 50% in coordination of care (as documented) at patient's floor/unit and/or counseling patient:
--- NOTE | 2018-01-29 16:00 | Internal Med Progress Note ---
Medical - PN: Subj Patient information: Note initiated : 01/29/18 at 3:52 pm Service Date, if different from initiated Date: [] Patient: Carlos Abraham 87 y/o M admitted on 01/23/18 for Small Bowel Obstruction/Incarcerated Hernia. Chief Complaint: [] Interval history: Mr. Abraham is a 87 year old M with multiple medical issues, a poor history provider, presently living in [facility], [facility], presents to the ER today after not being well for the last few days, he notes he has had intermittent abdominal distention for a while, but this time for at least 1 week his abdomen has been progressively getting bigger, this has been accompanied by some abdominal pain/ discomfort and nausea and vomiting. He has not been able to tolerate po diet well, he has tried liquid diet but it did not help much. He is not having regular bowel movements but last BM was a small stool yesterday as per the patient. The patient was eventually sent to the ER for further evaluation. the patient has a DNR /CC as per POST but notes he is willing to get treated for this issue. The patient had leukocytosis at 27,000, more than 10% bands, hemoglobin 11.3, significantly elevated platelets at 2139. Potassium was 3.3, bicarbonate 19, creatinine 4.6, he has chronic kidney disease and this creatinine is slowly trending down. CT scan of the abdomen and pelvis shows partial small bowel obstruction, incarcerated hernia in the right groin, CXR shows bibasilar infiltrates, pna/ atelectasis, but CT abdomen showed only atelectasis. patient was admitted to medicine given extensive comorbid conditions, Dr Chaves was consulted from the ER. Overnight we tried to Place NG tube on the medical floor, but the tube did get coiled in the mid thorax, this AM radiology tried to get the NG tube under floroscopy, but was unsucessful. Dr Chaves will evaluate and try to place the NG today. 01/24 Pt seen examined, intermittently non compliant with care, as per nursing, does not like to be turned, had bm today, NG placed by Dr Chaves, Patient renal function worsened, nephrology consulted overall poor candidate for operative intervention, non compliant with care, has refused dialysis in the past 01/25 Pt seen examined, no acute overnigh events, NG in place, not draining much now. Surgery following His platets remain high, worse today than yesterday, likely8 reactive. 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 Patient has no acute complaints. Is passing gas as well as moving bowels. Abdominal x-ray shows improvement in the obstruction. WBC count is up, platelets are up, I have reviewed the patient's condition with Dr. Orozco, hydroxyurea started. Will monitor for response. If platelets continue to trend up I will touch base with her again tomorrow. Patient continues to be on antibiotics. Wound care help appreciated. Nephrology is following. Started the patient on bicarb drip as per nephrology recommendations. 01/27 Pt seen examined, no acute overnight issues, this AM a bit nauseas after barium study CT chest shows kirby pleural effusions, left > right, WBC stable, plat improving, on hydroxyurea pt denies any cp, sob, or any other acute concerns renal function worsening. has refused dialysis. 01/28 potassium 2.5. Nephrology on board. Decubitus ulcer managed by Dr. Timmons wound care physician white count 18,000. Platelets at 1194 currently on hydroxyurea. Alert oriented and responding to verbal commands appropriately. No concerns expressed by nursing staff. Creatinine 5.5 01/29-bowel obstruction resolved. Case discussed with surgery. Starting solids. Wound care management by Dr. Timmons. Potassium 2.8 on IV replacement. Possible discharge in 24 hours to [facility] care. Continue antibiotics. Renal failure management per nephrology. Nursing was concern about Left upper extremity swelling. Upper extremity Doppler ultrasound to rule out DVT - Constitutional Vitals: Vital Signs Temp Pulse Resp BP Pulse Ox 97.6 F 64 20 142/60 94 01/29/18 08:31 01/29/18 08:31 01/29/18 08:31 01/29/18 08:31 01/29/18 08:31 Period Temp Pulse Resp BP Sys/Ferris Pulse Ox Last 24 Hr 97.5 F-98.2 F 64-78 16-20 136-158/60-78 92-94 Intake and Output 0601/29/18 01/29/18 05:59 13:59 21:59 Intake Total 670 / 670 54 / 54 570 / 570 Output Total 470 / 470 325 / 325 Balance 200 / 200 -271 / -271 570 / 570 Intake & Output: Intake & Output 01/29/18 01/29/18 01/29/18 05:59 13:59 21:59 Intake Total 670 / 670 54 / 54 570 / 570 Output Total 470 / 470 325 / 325 Balance 200 / 200 -271 / -271 570 / 570 Intake: IV 370 / 370 54 / 54 570 / 570 Cordarone 200 mg In Dextrose 5% 54 / 54 in Water 50 ml @ 108 mls/hr IV DAILY [facility] Rx#:[id number] Zosyn 2.25 gm In Dextrose 5% in 100 / 100 50 / 50 Water 50 ml @ 100 mls/hr IV Q8H [facility] Rx#:[id number] Potassium Chloride 40 Meq In 270 / 270 Dextrose 5% in Water 250 ml @ 67.5 mls/hr IV ONCE ONE Rx#: [id number] Oral 300 / 300 Output: Gastric Drainage 120 / 120 Rectal 120 / 120 Urine Catheter Amount 350 / 350 200 / 200 Stool 125 / 125 Other: Meal Lunch Percent of Meal Consumed 50% Stool Size Small Smear Stool Color Brown Brown Stool Consistency Liquid Liquid Loose # of times incontinent of 1 Bowels General appearance: no acute distress Exam: Alert oriented No anxiety nonlabored breathing No abdominal distention Left upper extremity swollen around PICC line Medical - PN: Obj Da - Labs CBC & Chem 7: 01/29/18 06:05 01/29/18 06:05 Labs: Abnormal Lab Results 01/29/18 01/29/18 01/28/18 06:05 06:05 23:25 WBC 17.7 H RBC 3.06 L Hgb 9.2 L Hct 27.9 L RDW 15.3 H Plt Count 856 H MPV 6.3 L Gran % 89.6 H Lymph % (Auto) 2.1 L Gran # 15.9 H Lymph # (Auto) 0.4 L [place] # (Auto) 1.2 H Potassium 2.8 L* 2.6 L* Carbon Dioxide Anion Gap BUN 78 H Creatinine 5.3 H* Glucose 143 H Uric Acid 10.0 H Calcium 7.0 L Phosphorus Total Protein 4.1 L Albumin 2.1 L Globulin 2.0 L Albumin/Globulin Ratio Triglycerides 01/28/18 01/28/18 01/28/18 16:08 05:03 05:03 WBC 18.0 H RBC 3.39 L Hgb 10.0 L Hct 31.1 L RDW 15.4 H Plt Count 1194 H* MPV 6.3 L Gran % 89.3 H Lymph % (Auto) 2.3 L Gran # 16.1 H Lymph # (Auto) 0.4 L [place] # (Auto) 1.3 H Potassium 2.5 L* 2.5 L* Carbon Dioxide Anion Gap 17.0 H BUN 86 H Creatinine 5.5 H* Glucose Uric Acid 9.8 H Calcium 7.3 L Phosphorus Total Protein 4.5 L Albumin 2.3 L Globulin Albumin/Globulin Ratio Triglycerides 163 H 01/27/18 01/27/18 04:00 04:00 WBC 16.3 H RBC 3.23 L Hgb 9.7 L Hct 29.9 L RDW 15.1 H Plt Count 1244 H* MPV 6.0 L Gran % 90.8 H Lymph % (Auto) 2.3 L Gran # 14.8 H Lymph # (Auto) 0.4 L [place] # (Auto) 1.0 H Potassium 2.9 L* Carbon Dioxide 20 L Anion Gap 18.0 H BUN 89 H Creatinine 6.3 H* Glucose Uric Acid 10.6 H Calcium 7.6 L Phosphorus 4.6 H Total Protein 4.6 L Albumin 2.1 L Globulin Albumin/Globulin Ratio 0.8 L Triglycerides Meds: Medications Aspirin (Aspirin) 162 mg CHEWED DAILY [facility] Last Admin: 01/29/18 14:13 Dose: 162 mg Heparin Sodium (Porcine) (Heparin) 5,000 unit SQ Q12 [facility] Last Admin: 01/29/18 09:30 Dose: 5,000 unit Heparin Sodium (Porcine) (Heparin Flush) 2 ml IV Q12 [facility] Last Admin: 01/29/18 11:27 Dose: 2 ml Piperacillin Sod/Tazobactam (Sod 2.25 gm/ Dextrose) 50 mls @ 100 mls/hr IV Q8H [facility] Last Infusion: 01/29/18 15:01 Dose: Infused Acetaminophen (Ofirmev) 650 mg in 65 mls @ 130 mls/hr IV Q6HP PRN PRN Reason: PAIN/FEVER > 101 Amiodarone HCl 200 mg/ (Dextrose) 54 mls @ 108 mls/hr IV DAILY [facility] Last Infusion: 01/29/18 10:24 Dose: Infused Metoclopramide HCl (Reglan) 10 mg IV Q6 [facility] Last Admin: 01/29/18 11:27 Dose: 10 mg Morphine Sulfate (Morphine) 2 mg SL Q2HP PRN PRN Reason: Pain Naloxone HCl (Narcan) 0.1 mg IV Q2MIN PRN PRN Reason: Opiate Reversal Ondansetron HCl (Zofran) 4 mg IV Q6HP PRN PRN Reason: Nausea And Vomiting Last Admin: 01/29/18 11:33 Dose: 4 mg Sodium Chloride (Saline Flush) 10 ml IV Q8 [facility] Last Admin: 01/29/18 14:13 Dose: 10 ml Sodium Chloride (Saline Flush) 10 ml IV UD PRN PRN Reason: FLUSH Sodium Chloride (Saline Flush) 10 ml IV Q12 [facility] Last Admin: 01/29/18 09:30 Dose: 10 ml Throat Lozenges (Cepacol) 1 lozenge PO Q4HP PRN PRN Reason: Sore Throat Last Admin: 01/23/18 15:02 Dose: 1 lozenge Vancomycin HCl (Vancomycin Per Pharmacy) 1 order IV UD [facility] Medical - PN: A/P - Time Spent With Patient Total time spent is greater than 50% in coordination of care (as documented) at patient's floor/unit and/or counseling patient: 25 - 35 minutes - Narrative A/P Narrative: A/P * Small bowel obstruction/ Incarcerated hernia: Clinically resolved. Surgery recommends discharge once medically stable. Started on oral diet. * Hypokalemia 3.2-on potassium replacement per nephrology * Left upper extremity swelling-rule out DVT * Sacral decubitus ulcer- Managed by wound care * Possible Pneumonia: Likely aspiration on Zosyn/vancomycin per pharmacy * Leukocytosis/thrombocytosis-persistent. No obvious source. * Thrombocytopenia improving on hydroxyurea from a peak of [address] Valenzuela discussed with Dr Orozco, on asa and hydroxyurea for now. Please call her with update after 3 days of treatment. * Sepsis- bp stable, pna/clinically resolved. * CHF- stable, off lasix. * CKD stage IV- creat worsening, on IV bicarbonate, nephrology following, has refused dialysis. * Ventricular tachycardia: unable to tolerate po, therefore on IV amiodarone for now * DVT hep sq * DNR code status, Plan * Continue antibiotic coverage * Renal issues managed by nephrology * bowel obstruction managed by surgery * Decubiti wound managed by wound care physician * Consult oncology Medical - PN: Qual - VTE Deep Vein Thrombosis/Pulmonary Embolism Present on Admission: No
--- NOTE | 2018-01-29 16:57 | Ultrasound Report ---
CLINICAL INFORMATION: Edema in the arm COMPARISON: None. TECHNIQUE: FINDINGS: Moderate acute thrombus within the distal cephalic vein within the forearm Jugular, brachiocephalic, visualized subclavian, brachial, radial, ulnar, antecubital, and basilic veins are all widely patent and easily compressible on color and spectral Doppler. IMPRESSION: Acute thrombus within the distal cephalic vein within the forearm Interpreted and Authenticated by: Reid Bryant 01/29/18
[2018-01-29] MEDS: METOCLOPRAMIDE 10 MG TABLET PO SCH (17:55)
[2018-01-29 18:17] LABS: Mean Cell Volume 90.1 fL (80.0-100.0); Mean Corpuscular HGB Conc 32.5 g/dL (31.0-36.0); Mean Corpuscular Hemoglobin 29.2 pg (26.0-34.0); Platelet Count 955 K/mcL (140-440); RBC 3.35 M/mcL (4.50-5.90); Red Cell Distribution Width 15.4 % (11.5-14.5)
[2018-01-29] MEDS: HYDROXYUREA 500 MG CAPSULE PO SCH (18:22)
[2018-01-29 18:42] LABS: Ferritin 612.2 ng/ml (30-400)
[2018-01-29 18:43] LABS: Iron 145 mcg/dl (61-157); Transferrin % Saturation 87 % (20-50); Unsaturated Iron Binding < 20 mcg/dL (112-346)
[2018-01-29 19:13] LABS: Band Neutrophils % 3 % (0-10); Basophils % (Manual) 1 % (0-2); Eosinophils % (Manual) 2 % (0-7); Lymphocytes % 2 % (15-49); Monocytes % (Manual) 4 % (1-12); Myelocytes % 2 % (0-0); Platelet Estimate MK INCR (NORMAL); RBC Morphology NORMAL (NORMAL); Segmented Neutrophils % 86 % (38-78)
[2018-01-30] MEDS: METOCLOPRAMIDE 10 MG TABLET PO SCH ×5 (00:10→23:50)
[2018-01-30] MEDS: PIPERACILLIN SODIUM/TAZOBACTAM 2.25 GM in DEXTROSE 5% IN WATER 50 ML IV SCH (05:15)
[2018-01-30] MEDS: 0.9 % SODIUM CHLORIDE 10 ML SYRINGE IV SCH ×6 (05:15→21:11)
[2018-01-30 06:21] LABS: Mean Cell Volume 91.2 fL (80.0-100.0); Mean Corpuscular HGB Conc 32.4 g/dL (31.0-36.0); Mean Corpuscular Hemoglobin 29.5 pg (26.0-34.0); Platelet Count 890 K/mcL (140-440); RBC 3.21 M/mcL (4.50-5.90); Red Cell Distribution Width 15.3 % (11.5-14.5)
[2018-01-30 06:26] LABS: Vancomycin,Random 17.5 ug/mL
[2018-01-30 07:03] LABS: ALT/SGPT 17 U/l (0-40); Albumin 2.1 gm/dL (3.2-5.2); Albumin/Globulin Ratio 0.9 (1.0-2.3); Alkaline Phosphatase 62 U/L (39-117); Bilirubin,Direct < 0.2 mg/dL (0.0-0.3); Blood Urea Nitrogen 74 mg/dl (8-23); Gamma Glutamyl Transpeptidase 13 U/L (8-61); Uric Acid 10.1 mg/dL (2.5-8.0)
--- NOTE | 2018-01-30 07:17 | Nephrology Progress Note ---
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 Chief Complaint: Nausea Principal diagnosis: Acute kidney injury on chronic kidney disease stage 4 Interval history: Waiting for placement Pertinent ROS: Weakness Anorexia Nausea Abdominal distention Objective - Vital Signs Vital signs: Vital Signs Temp Pulse Resp BP BP Pulse Ox 01/30/18 04:55 97.3 F 75 20 148/72 92 01/30/18 00:00 97.5 F 69 20 151/72 91 01/29/18 20:00 97.8 F 66 20 139/73 95 01/29/18 16:00 97.8 F 66 20 141/67 92 01/29/18 08:31 97.6 F 64 20 142/60 94 Intake and Output 01/29/18 01/30/18 01/30/18 21:59 05:59 13:59 Intake Total 670 / 670 570 / 570 Output Total 101 / 101 251 / 251 Balance 569 / 569 319 / 319 Intake: IV 570 / 570 570 / 570 Zosyn 2.25 gm In Dextrose 5% in 50 / 50 50 / 50 Water 50 ml @ 100 mls/hr IV Q8H [facility] Rx#:[id number] Oral 100 / 100 0 / 0 Output: Void Amount 100 / 100 150 / 150 # of times incontinent of urine 1 / 1 1 / 1 Stool 100 / 100 Other: Meal Dinner Percent of Meal Consumed 75% Stool Size Copious Small Stool Color Brown Brown Stool Consistency Loose Liquid # of times incontinent of 1 1 Bowels Weight 227 lb Intake & Output: Intake & Output 01/29/18 01/30/18 01/30/18 21:59 05:59 13:59 Intake Total 670 / 670 570 / 570 Output Total 101 / 101 251 / 251 Balance 569 / 569 319 / 319 Weight 227 lb Intake: IV 570 / 570 570 / 570 Zosyn 2.25 gm In Dextrose 5% in 50 / 50 50 / 50 Water 50 ml @ 100 mls/hr IV Q8H [facility] Rx#:[id number] Oral 100 / 100 0 / 0 Output: Void Amount 100 / 100 150 / 150 # of times incontinent of urine 1 / 1 / Stool 100 / 100 Other: Meal Dinner Percent of Meal Consumed 75% Stool Size Copious Small Stool Color Brown Brown Stool Consistency Loose Liquid # of times incontinent of 1 1 Bowels - General Appearance General appearance: chronically ill, frail EENT: mucous membranes moist Respiratory: rales Cardiology: edema Gastrointestinal: distended Integumentary: hyperpigmentation, chronic venous stasis Neurologic: no focal deficit Musculoskeletal: no deformities Psychiatric: mood/affect appropriate, cooperative - Lab 01/30/18 05:10 01/30/18 05:10 Most recent lab results Calcium 7.3 mg/dl (8.6-10.4) L 01/30/18 05:10 Phosphorus 4.0 mg/dL (2.7-4.5) 01/30/18 05:10 Magnesium 1.8 mg/dL (1.6-2.5) 01/30/18 05:10 Assessment and Plan (1) Acute on chronic renal failure Previous work up: Renal US on 11/20/17: Mildly echogenic renal parenchyma bilaterally which indicates chronic medical renal disease Progress: Hypokalemia, being replaced Serum creatinine increased from 5.3 to 5.8 in the past 24 hours Persistent leukocytosis Declines hemodialysis Prognosis: Guarded Plan: OK to discharge from nephrology point Scheduled in the clinic next week Saturday for follow up Status: Acute Qualifiers: Acute renal failure type: unspecified Chronic kidney disease stage: stage 4 (severe) Qualified Code(s): N17.9 - Acute kidney failure, unspecified; N18.4 - Chronic kidney disease, stage 4 (severe) (2) Hypokalemia Associated with gastrointestinal losses. Plan: Replacement as needed. Status: Acute Priority: High
[2018-01-30 07:44] LABS: Band Neutrophils % 4 % (0-10); Basophilic Stippling FEW (NONE SEEN); Dohle Bodies FEW (NONE SEEN); Eosinophils % (Manual) 3 % (0-7); Hypochromasia 1+ (NONE SEEN); Lymphocytes % 5 % (15-49); Metamyelocytes % 5 % (0-0); Monocytes % (Manual) 4 % (1-12); Myelocytes % 8 % (0-0); Ovalocytes FEW (NONE SEEN); Platelet Estimate MK INCR (NORMAL); RBC Morphology ABNORM (NORMAL); Segmented Neutrophils % 71 % (38-78); Toxic Granulation 1+ (NONE SEEN)
[2018-01-30] MEDS ORDERED: POTASSIUM CHLORIDE 20 MEQ TABLET PO ONE (09:00)
[2018-01-30] MEDS: ASPIRIN 81 MG TAB.CHEW CHEWED SCH (09:10)
[2018-01-30] MEDS: AMIODARONE HCL 200 MG TABLET PO SCH ×2 (09:10→17:10)
[2018-01-30] MEDS: HEPARIN 5,000 UNIT/ML VIAL SQ SCH (09:10)
[2018-01-30] MEDS: HYDROXYUREA 500 MG CAPSULE PO SCH (09:11)
--- NOTE | 2018-01-30 10:29 | Internal Med Progress Note ---
Medical - PN: Subj Patient information: Note initiated : 01/30/18 at 10:24 am Service Date, if different from initiated Date: [] Patient: Carlos Abraham 87 y/o M admitted on 01/23/18 for Small Bowel Obstruction/Incarcerated Hernia. Chief Complaint: [] Interval history: Mr. Abraham is a 87 year old M with multiple medical issues, a poor history provider, presently living in [facility], [facility], presents to the ER today after not being well for the last few days, he notes he has had intermittent abdominal distention for a while, but this time for at least 1 week his abdomen has been progressively getting bigger, this has been accompanied by some abdominal pain/ discomfort and nausea and vomiting. He has not been able to tolerate po diet well, he has tried liquid diet but it did not help much. He is not having regular bowel movements but last BM was a small stool yesterday as per the patient. The patient was eventually sent to the ER for further evaluation. the patient has a DNR /CC as per POST but notes he is willing to get treated for this issue. The patient had leukocytosis at 27,000, more than 10% bands, hemoglobin 11.3, significantly elevated platelets at 2139. Potassium was 3.3, bicarbonate 19, creatinine 4.6, he has chronic kidney disease and this creatinine is slowly trending down. CT scan of the abdomen and pelvis shows partial small bowel obstruction, incarcerated hernia in the right groin, CXR shows bibasilar infiltrates, pna/ atelectasis, but CT abdomen showed only atelectasis. patient was admitted to medicine given extensive comorbid conditions, Dr Chaves was consulted from the ER. Overnight we tried to Place NG tube on the medical floor, but the tube did get coiled in the mid thorax, this AM radiology tried to get the NG tube under floroscopy, but was unsucessful. Dr Chaves will evaluate and try to place the NG today. 01/24 Pt seen examined, intermittently non compliant with care, as per nursing, does not like to be turned, had bm today, NG placed by Dr Chaves, Patient renal function worsened, nephrology consulted overall poor candidate for operative intervention, non compliant with care, has refused dialysis in the past 01/25 Pt seen examined, no acute overnigh events, NG in place, not draining much now. Surgery following His platets remain high, worse today than yesterday, likely8 reactive. 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 Patient has no acute complaints. Is passing gas as well as moving bowels. Abdominal x-ray shows improvement in the obstruction. WBC count is up, platelets are up, I have reviewed the patient's condition with Dr. Orozco, hydroxyurea started. Will monitor for response. If platelets continue to trend up I will touch base with her again tomorrow. Patient continues to be on antibiotics. Wound care help appreciated. Nephrology is following. Started the patient on bicarb drip as per nephrology recommendations. 01/27 Pt seen examined, no acute overnight issues, this AM a bit nauseas after barium study CT chest shows kirby pleural effusions, left > right, WBC stable, plat improving, on hydroxyurea pt denies any cp, sob, or any other acute concerns renal function worsening. has refused dialysis. 01/28 potassium 2.5. Nephrology on board. Decubitus ulcer managed by Dr. Timmons wound care physician white count 18,000. Platelets at 1194 currently on hydroxyurea. Alert oriented and responding to verbal commands appropriately. No concerns expressed by nursing staff. Creatinine 5.5 01/29-bowel obstruction resolved. Case discussed with surgery. Starting solids. Wound care management by Dr. Timmons. Potassium 2.8 on IV replacement. Possible discharge in 24 hours to [facility]. Continue antibiotics. Renal failure management per nephrology. Nursing was concern about Left upper extremity swelling. Upper extremity Doppler ultrasound to rule out DVT 01/30-patient clinically deteriorating. Worsening leukocytosis at 20.5. Left upper extremity forearm distal cephalic vein thrombosis on ultrasound. Discontinue PICC line however patient adamantly refused discontinuation of PICC line clearly understanding the risk of extending clot and worsening left upper extremity swelling/phlebitis. Initiate anticoagulation in light of new superficial vein thrombosis. DC antibiotics check C. difficile/UA/chest x-ray. Ongoing wound care. Potassium at 3.3 with replacement. Start 20 mg 3 times daily oral potassium. Creatinine 5.8. Platelets 890 on hydroxyurea for oncology - Constitutional Vitals: Vital Signs Temp Pulse Resp BP Pulse Ox 97.6 F 72 24 H 128/70 92 01/30/18 07:43 01/30/18 07:43 01/30/18 07:43 01/30/18 07:43 01/30/18 07:43 Period Temp Pulse Resp BP Sys/Ferris Pulse Ox Last 24 Hr 97.3 F-97.8 F 66-75 20-24 128-151/67-73 91-95 Intake and Output 01/29/18 01/30/18 01/30/18 21:59 05:59 13:59 Intake Total 670 / 670 570 / 570 Output Total 101 / 101 251 / 251 100 / 100 Balance 569 / 569 319 / 319 -100 / -100 Weight 227 lb Intake & Output: Intake & Output 01/29/18 01/30/18 01/30/18 21:59 05:59 13:59 Intake Total 670 / 670 570 / 570 Output Total 101 / 101 251 / 251 100 / 100 Balance 569 / 569 319 / 319 -100 / -100 Weight 227 lb Intake: IV 570 / 570 570 / 570 Zosyn 2.25 gm In Dextrose 5% in 50 / 50 50 / 50 Water 50 ml @ 100 mls/hr IV Q8H [facility] Rx#:[id number] Oral 100 / 100 0 / 0 Output: Void Amount 100 / 100 150 / 150 100 / 100 # of times incontinent of urine 1 / 1 1 / 1 Stool 100 / 100 Other: Meal Dinner Percent of Meal Consumed 75% Stool Size Copious Small Stool Color Brown Brown Stool Consistency Loose Liquid # of times incontinent of 1 1 Bowels General appearance: no acute distress Exam: Anxious left upper extremity pain/swelling Nonlabored breathing Lymphedema improving Medical - PN: Obj Da - Labs CBC & Chem 7: 01/30/18 05:10 01/30/18 05:10 Labs: Abnormal Lab Results 01/30/18 01/30/18 01/29/18 05:10 05:10 17:05 WBC 20.5 H RBC 3.21 L Hgb 9.5 L Hct 29.3 L RDW 15.3 H Plt Count 890 H MPV 6.2 L Gran % Lymph % (Auto) Gran # Lymph # (Auto) Mckean # (Auto) Seg Neutrophils % Lymphocytes % 5 L Metamyelocytes % 5 H Myelocytes % 8 H WBC Morphology Abnorm A Hypersegmented Polys Rare A Toxic Granulation 1+ A Dohle Bodies Few A Platelet Estimate Mk incr A RBC Morphology Abnorm A Hypochromasia 1+ A Poikilocytosis Few A Basophilic Stippling Few A Ovalocytes Few A Potassium Anion Gap BUN 74 H Creatinine 5.8 H* Glucose 106 H Uric Acid 10.1 H Calcium 7.3 L TIBC 165 L Unsat Iron Binding < 20 L Transferrin % Sat 87 H Ferritin 612.2 H Total Protein 4.4 L Albumin 2.1 L Globulin Albumin/Globulin Ratio 0.9 L Triglycerides 190 H 01/29/18 01/29/18 01/29/18 17:05 14:18 06:05 WBC 20.4 H RBC 3.35 L Hgb 9.8 L Hct 30.1 L RDW 15.4 H Plt Count 955 H* MPV 6.3 L Gran % Lymph % (Auto) Gran # Lymph # (Auto) Mckean # (Auto) Seg Neutrophils % 86 H Lymphocytes % 2 L Metamyelocytes % Myelocytes % 2 H WBC Morphology Hypersegmented Polys Toxic Granulation Dohle Bodies Platelet Estimate Mk incr A RBC Morphology Hypochromasia Poikilocytosis Basophilic Stippling Ovalocytes Potassium 3.2 L 2.8 L* Anion Gap BUN 78 H Creatinine 5.3 H* Glucose 143 H Uric Acid 10.0 H Calcium 7.0 L TIBC Unsat Iron Binding Transferrin % Sat Ferritin Total Protein 4.1 L Albumin 2.1 L Globulin 2.0 L Albumin/Globulin Ratio Triglycerides 01/29/18 01/28/18 01/28/18 06:05 23:25 16:08 WBC 17.7 H RBC 3.06 L Hgb 9.2 L Hct 27.9 L RDW 15.3 H Plt Count 856 H MPV 6.3 L Gran % 89.6 H Lymph % (Auto) 2.1 L Gran # 15.9 H Lymph # (Auto) 0.4 L Mckean # (Auto) 1.2 H Seg Neutrophils % Lymphocytes % Metamyelocytes % Myelocytes % WBC Morphology Hypersegmented Polys Toxic Granulation Dohle Bodies Platelet Estimate RBC Morphology Hypochromasia Poikilocytosis Basophilic Stippling Ovalocytes Potassium 2.6 L* 2.5 L* Anion Gap BUN Creatinine Glucose Uric Acid Calcium TIBC Unsat Iron Binding Transferrin % Sat Ferritin Total Protein Albumin Globulin Albumin/Globulin Ratio Triglycerides 01/28/18 01/28/18 05:03 05:03 WBC 18.0 H RBC 3.39 L Hgb 10.0 L Hct 31.1 L RDW 15.4 H Plt Count 1194 H* MPV 6.3 L Gran % 89.3 H Lymph % (Auto) 2.3 L Gran # 16.1 H Lymph # (Auto) 0.4 L Mckean # (Auto) 1.3 H Seg Neutrophils % Lymphocytes % Metamyelocytes % Myelocytes % WBC Morphology Hypersegmented Polys Toxic Granulation Dohle Bodies Platelet Estimate RBC Morphology Hypochromasia Poikilocytosis Basophilic Stippling Ovalocytes Potassium 2.5 L* Anion Gap 17.0 H BUN 86 H Creatinine 5.5 H* Glucose Uric Acid 9.8 H Calcium 7.3 L TIBC Unsat Iron Binding Transferrin % Sat Ferritin Total Protein 4.5 L Albumin 2.3 L Globulin Albumin/Globulin Ratio Triglycerides 163 H Meds: Medications Amiodarone HCl (Cordarone) 400 mg PO BIDCC [facility] Last Admin: 01/30/18 09:10 Dose: 400 mg Aspirin (Aspirin) 162 mg CHEWED DAILY [facility] Last Admin: 01/30/18 09:10 Dose: 162 mg Heparin Sodium (Porcine) (Heparin) 5,000 unit SQ Q12 [facility] Last Admin: 01/30/18 09:10 Dose: 5,000 unit Heparin Sodium (Porcine) (Heparin Flush) 2 ml IV Q12 [facility] Last Admin: 01/29/18 20:31 Dose: 2 ml Acetaminophen (Ofirmev) 650 mg in 65 mls @ 130 mls/hr IV Q6HP PRN PRN Reason: PAIN/FEVER > 101 Metoclopramide HCl (Reglan) 10 mg PO Q6H [facility] Last Admin: 01/30/18 05:15 Dose: 10 mg Morphine Sulfate (Morphine) 2 mg SL Q2HP PRN PRN Reason: Pain Naloxone HCl (Narcan) 0.1 mg IV Q2MIN PRN PRN Reason: Opiate Reversal Ondansetron HCl (Zofran) 4 mg IV Q6HP PRN PRN Reason: Nausea And Vomiting Last Admin: 01/29/18 11:33 Dose: 4 mg Potassium Chloride (Kdur) 20 meq PO TIDCC [facility] Sodium Chloride (Saline Flush) 10 ml IV Q8 [facility] Last Admin: 01/30/18 05:15 Dose: 10 ml Sodium Chloride (Saline Flush) 10 ml IV UD PRN PRN Reason: FLUSH Sodium Chloride (Saline Flush) 10 ml IV Q12 [facility] Last Admin: 01/29/18 20:32 Dose: Not Given Throat Lozenges (Cepacol) 1 lozenge PO Q4HP PRN PRN Reason: Sore Throat Last Admin: 01/23/18 15:02 Dose: 1 lozenge Medical - PN: A/P - Time Spent With Patient Total time spent is greater than 50% in coordination of care (as documented) at patient's floor/unit and/or counseling patient: 25 - 35 minutes - Narrative A/P Narrative: A/P * Left upper extremity cephalic vein thrombosis/thrombophlebitis- start anti- coagulation Coumadin. Discontinue PICC line however patient adamantly refused discontinuing PICC line clearly understanding the risk of worsening thrombosis and phlebitis and complications that may arise out of indwelling catheter. Conversation and patient's decision to keep PICC line was witnessed by nursing staff. * Thrombocytosis -likely reactive. Improving on hydroxyurea from a peak of [address] Valenzuela discussed with Dr Orozco, further discussions with oncology 01/29 recommended additional 2 days hydroxyurea. * Small bowel obstruction/ Incarcerated hernia: Clinically resolved. On regular diet per surgery * Hypokalemia 3.3-on potassium replacement per nephrology. Start 3 times a day oral potassium * Sacral decubitus ulcer- Managed by wound care * Leukocytosis/thrombocytosis-persistent and worsening. Chest x-ray/UA/CDIF/ blood cultures * CHF- stable, off lasix. * CKD stage IV- creat worsening, on IV bicarbonate, nephrology following, has refused dialysis. * Ventricular tachycardia: On oral amiodarone. Metoprolol on hold * DVT hep sq * DNR code status, Plan * Start oral potassium * UA/C&S/chest x-ray/blood cultures * DC antibiotics * Continue hydroxyurea per oncology * Renal issues managed by nephrology * Decubiti wound managed by wound care physician Time spent over 35 minutes Medical - PN: Qual - VTE Deep Vein Thrombosis/Pulmonary Embolism Present on Admission: No
--- NOTE | 2018-01-30 10:48 | XRay Report ---
CLINICAL INFORMATION: Increased white blood cell count COMPARISON: 01/26/2018 FINDINGS: Moderate cardiomegaly is unchanged. PICC line tip overlies the SVC last right atrial junction. Mediastinum and pulmonary vessels are normal. Large densely consolidated region of atelectasis or less likely infiltrate in the left lower lobe - retrocardiac region is unchanged. Small left pleural effusion is also stable. Moderate right basilar infiltrate has progressed IMPRESSION: Moderate right basilar infiltrate progressing. Large densely consolidated left lower lobe atelectasis or infiltrate - unchanged. Interpreted and Authenticated by: Reid Bryant 01/30/18
[2018-01-30] MEDS: POTASSIUM CHLORIDE 20 MEQ TABLET PO SCH ×2 (12:25→17:11)
[2018-01-30] MEDS: HEPARIN/D5W 25,000 UNIT in PREMIX 1 BAG IV SCH (13:27)
[2018-01-30] MEDS ORDERED: WARFARIN 2 MG TABLET PO ONE (14:00)
[2018-01-30 14:13] LABS: Appearance,Urine HAZY; Bacteria,Urine 0 /hpf (0); Bilirubin,Urine NEG (NEG); Color,Urine YELLOW; Glucose,Urine (UA) NEGATIVE (NEG); Leukocyte Esterase,Urine 25 /uL (NEG); Protein,Urine NEG (NEG); Specific Gravity,Urine 1.017 (1.000-1.035); Urine Blood NEG mg/dL (<0.03); Urine RBC 2 /hpf (0-1); Urine Squamous Epithelial Cell < 1 /hpf (0-4); Urine Transitional Epi Cells < 1 /hpf (0-2); Urine WBC 2 /hpf (0-4); Urobilinogen,Urine NEG (NEG)
[2018-01-30] MEDS: METOPROLOL TARTRATE 25 MG TABLET PO SCH (21:08)
[2018-01-31] MEDS: METOCLOPRAMIDE 10 MG TABLET PO SCH ×3 (05:17→17:15)
[2018-01-31] MEDS: 0.9 % SODIUM CHLORIDE 10 ML SYRINGE IV SCH ×7 (05:17→20:19)
[2018-01-31 05:38] LABS: Mean Cell Volume 91.8 fL (80.0-100.0); Mean Corpuscular HGB Conc 32.8 g/dL (31.0-36.0); Mean Corpuscular Hemoglobin 30.1 pg (26.0-34.0); Platelet Count 777 K/mcL (140-440); RBC 3.01 M/mcL (4.50-5.90); Red Cell Distribution Width 15.5 % (11.5-14.5)
[2018-01-31 06:14] LABS: ALT/SGPT 14 U/l (0-40); Albumin 2.1 gm/dL (3.2-5.2); Albumin/Globulin Ratio 1.1 (1.0-2.3); Alkaline Phosphatase 63 U/L (39-117); Bilirubin,Direct < 0.2 mg/dL (0.0-0.3); Blood Urea Nitrogen 74 mg/dl (8-23); Gamma Glutamyl Transpeptidase 12 U/L (8-61); Uric Acid 10.3 mg/dL (2.5-8.0)
[2018-01-31 07:01] LABS: Lymphocytes % 4 % (15-49); Metamyelocytes % 4 % (0-0); Monocytes % (Manual) 3 % (1-12); Myelocytes % 2 % (0-0); Platelet Estimate INCREASED (NORMAL); RBC Morphology NORMAL (NORMAL); Segmented Neutrophils % 87 % (38-78)
--- NOTE | 2018-01-31 07:26 | Nephrology Progress Note ---
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 Chief Complaint: Nausea Principal diagnosis: Acute kidney injury on chronic kidney disease stage 4 Interval history: Acute thrombus within the distal cephalic vein within the forearm on IV Heparin Increased dependent pitting edema Pertinent ROS: Weakness Anorexia Nausea Abdominal distention Objective - Vital Signs Vital signs: Vital Signs Temp Pulse Resp BP Pulse Ox 01/31/18 06:53 98.4 F 20 153/72 91 01/31/18 03:13 98.5 F 67 22 165/70 91 01/30/18 23:23 98.0 F 66 22 144/62 92 01/30/18 19:28 98.2 F 82 20 136/64 91 01/30/18 16:00 98.2 F 87 20 128/70 93 01/30/18 12:00 97.7 F 75 24 H 130/73 92 01/30/18 07:43 97.6 F 72 24 H 128/70 92 Intake and Output 01/30/18 01/31/18 01/31/18 21:59 05:59 13:59 Intake Total 519 / 519 Output Total 75 / 75 200 / 200 Balance -75 / -75 319 / 319 Intake: IV 319 / 319 Heparin/D5w 25,000 Unit In Premix 1 Bag @ 14 UNIT/KG/HR 28 .83 mls/hr IV .[id number] [facility] Rx#: [id number] Oral 200 / 200 Output: Void Amount 75 / 75 200 / 200 Other: Stool Size Large Moderate Small Stool Color Brown Brown Yellow Yellow Stool Consistency Liquid Liquid Liquid Loose Watery Loose # Voids 1 # Bowel Movements 1 # of times incontinent of 1 1 Bowels Weight 230 lb Intake & Output: Intake & Output 01/30/18 01/31/18 01/31/18 21:59 05:59 13:59 Intake Total 519 / 519 Output Total 75 / 75 200 / 200 Balance -75 / -75 319 / 319 Weight 230 lb Intake: IV 319 / 319 Heparin/D5w 25,000 Unit In 319 / 319 Premix 1 Bag @ 14 UNIT/KG/HR 28 .83 mls/hr IV .[id number] [facility] Rx#: [id number] Oral 200 / 200 Output: Void Amount 75 / 75 200 / 200 Other: Stool Size Large Moderate Small Stool Color Brown Brown Yellow Yellow Stool Consistency Liquid Liquid Liquid Loose Watery Loose # Voids 1 # Bowel Movements 1 # of times incontinent of 1 1 Bowels - General Appearance General appearance: chronically ill, frail EENT: mucous membranes moist Neck: supple Respiratory: clear Cardiology: edema Gastrointestinal: distended Integumentary: hyperpigmentation, chronic venous stasis Neurologic: no focal deficit Musculoskeletal: no deformities Psychiatric: mood/affect appropriate, cooperative - Lab 01/31/18 04:15 01/31/18 04:15 Most recent lab results Calcium 7.7 mg/dl (8.6-10.4) L 01/31/18 04:15 Phosphorus 4.6 mg/dL (2.7-4.5) H 01/31/18 04:15 Magnesium 1.8 mg/dL (1.6-2.5) 01/31/18 04:15 Assessment and Plan (1) Acute on chronic renal failure Previous work up: Renal US on 11/20/17: Mildly echogenic renal parenchyma bilaterally which indicates chronic medical renal disease Progress: Hypokalemia, being replaced with Potassium Chloride 20 mEq PO TID temporarily due to ongoing GI loss. eGFR 8; Declines hemodialysis Prognosis: Guarded Plan: Scheduled in the clinic next week Saturday for follow up Status: Acute Qualifiers: Acute renal failure type: unspecified Chronic kidney disease stage: stage 4 (severe) Qualified Code(s): N17.9 - Acute kidney failure, unspecified; N18.4 - Chronic kidney disease, stage 4 (severe) (2) Other fluid overload Furosemide 40 mg IV daily started Status: Acute Priority: Medium
[2018-01-31] MEDS: AMIODARONE HCL 200 MG TABLET PO SCH ×2 (08:46→17:15)
[2018-01-31] MEDS: POTASSIUM CHLORIDE 20 MEQ TABLET PO SCH ×3 (08:47→17:15)
[2018-01-31] MEDS: ASPIRIN 81 MG TAB.CHEW CHEWED SCH (08:47)
[2018-01-31] MEDS: METOPROLOL TARTRATE 25 MG TABLET PO SCH ×2 (08:47→20:18)
[2018-01-31] MEDS ORDERED: VANCOMYCIN 1,500 MG in 0.9 % SODIUM CHLORIDE 500 ML IV ONE (10:00)
[2018-01-31] MEDS: HEPARIN/D5W 25,000 UNIT in PREMIX 1 BAG IV SCH (10:04)
[2018-01-31] MEDS: FUROSEMIDE 40 MG/4 ML VIAL IV SCH (11:20)
[2018-01-31] MEDS ORDERED: WARFARIN 2 MG TABLET PO ONE (14:00)
--- NOTE | 2018-01-31 17:52 | Internal Med Progress Note ---
Medical - PN: Subj Patient information: Note initiated : 01/31/18 at 5:47 pm Service Date, if different from initiated Date: [] Patient: Carlos Abraham 87 y/o M admitted on 01/23/18 for Small Bowel Obstruction/Incarcerated Hernia. Chief Complaint: [] Interval history: Mr. Abraham is a 87 year old M with multiple medical issues, a poor history provider, presently living in [facility], [facility], presents to the ER today after not being well for the last few days, he notes he has had intermittent abdominal distention for a while, but this time for at least 1 week his abdomen has been progressively getting bigger, this has been accompanied by some abdominal pain/ discomfort and nausea and vomiting. He has not been able to tolerate po diet well, he has tried liquid diet but it did not help much. He is not having regular bowel movements but last BM was a small stool yesterday as per the patient. The patient was eventually sent to the ER for further evaluation. the patient has a DNR /CC as per POST but notes he is willing to get treated for this issue. The patient had leukocytosis at 27,000, more than 10% bands, hemoglobin 11.3, significantly elevated platelets at 2139. Potassium was 3.3, bicarbonate 19, creatinine 4.6, he has chronic kidney disease and this creatinine is slowly trending down. CT scan of the abdomen and pelvis shows partial small bowel obstruction, incarcerated hernia in the right groin, CXR shows bibasilar infiltrates, pna/ atelectasis, but CT abdomen showed only atelectasis. patient was admitted to medicine given extensive comorbid conditions, Dr Chaves was consulted from the ER. Overnight we tried to Place NG tube on the medical floor, but the tube did get coiled in the mid thorax, this AM radiology tried to get the NG tube under floroscopy, but was unsucessful. Dr Chaves will evaluate and try to place the NG today. 01/24 Pt seen examined, intermittently non compliant with care, as per nursing, does not like to be turned, had bm today, NG placed by Dr Chaves, Patient renal function worsened, nephrology consulted overall poor candidate for operative intervention, non compliant with care, has refused dialysis in the past 01/25 Pt seen examined, no acute overnigh events, NG in place, not draining much now. Surgery following His platets remain high, worse today than yesterday, likely8 reactive. 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 Patient has no acute complaints. Is passing gas as well as moving bowels. Abdominal x-ray shows improvement in the obstruction. WBC count is up, platelets are up, I have reviewed the patient's condition with Dr. Orozco, hydroxyurea started. Will monitor for response. If platelets continue to trend up I will touch base with her again tomorrow. Patient continues to be on antibiotics. Wound care help appreciated. Nephrology is following. Started the patient on bicarb drip as per nephrology recommendations. 01/27 Pt seen examined, no acute overnight issues, this AM a bit nauseas after barium study CT chest shows kiryb pleural effusions, left > right, WBC stable, plat improving, on hydroxyurea pt denies any cp, sob, or any other acute concerns renal function worsening. has refused dialysis. 01/28 potassium 2.5. Nephrology on board. Decubitus ulcer managed by Dr. Timmons wound care physician white count 18,000. Platelets at 1194 currently on hydroxyurea. Alert oriented and responding to verbal commands appropriately. No concerns expressed by nursing staff. Creatinine 5.5 01/29-bowel obstruction resolved. Case discussed with surgery. Starting solids. Wound care management by Dr. Timmons. Potassium 2.8 on IV replacement. Possible discharge in 24 hours to [facility]. Continue antibiotics. Renal failure management per nephrology. Nursing was concern about Left upper extremity swelling. Upper extremity Doppler ultrasound to rule out DVT 01/30-patient clinically deteriorating. Worsening leukocytosis at 20.5. Left upper extremity forearm distal cephalic vein thrombosis on ultrasound. Discontinue PICC line however patient adamantly refused discontinuation of PICC line clearly understanding the risk of extending clot and worsening left upper extremity swelling/phlebitis. Initiate anticoagulation in light of new superficial vein thrombosis. DC antibiotics check C. difficile/UA/chest x-ray. Ongoing wound care. Potassium at 3.3 with replacement. Start 20 mg 3 times daily oral potassium. Creatinine 5.8. Platelets 890 on hydroxyurea for oncology 01/31-worsening white count at 21.4. On heparin drip for upper extremity DVT. No overnight fever chills. Creatinine 5.9. Potassium 3.7. Bilateral obstruction resolved. On regular diet. C. difficile negative. UA unremarkable. Chest x-ray right-sided infiltrate worsening. Not responding to antibiotics, status post 8 days antibiotics. Continue aggressive pulmonary toilet. CT chest in a.m. platelet count down to 777. Continue Coumadin dosing based on INR - Constitutional Vitals: Vital Signs Temp Pulse Resp BP Pulse Ox 97.5 F 66 24 H 140/60 92 01/31/18 16:07 01/31/18 16:07 01/31/18 16:07 01/31/18 16:07 01/31/18 16:07 Period Temp Pulse Resp BP Sys/Ferris Pulse Ox Last 24 Hr 97.5 F-98.6 F 66-82 20-24 136-165/60-75 91-92 Intake and Output 01/31/18 01/31/18 01/31/18 05:59 13:59 21:59 Intake Total 519 / 519 416 / 416 100 / 100 Output Total 200 / 200 150 / 150 277 / 277 Balance 319 / 319 266 / 266 -177 / -177 Intake & Output: Intake & Output 01/31/18 01/31/18 01/31/18 05:59 13:59 21:59 Intake Total 519 / 519 416 / 416 100 / 100 Output Total 200 / 200 150 / 150 277 / 277 Balance 319 / 319 266 / 266 -177 / -177 Intake: IV 319 / 319 176 / 176 Heparin/D5w 25,000 Unit In 319 / 319 176 / 176 Premix 1 Bag @ 14 UNIT/KG/HR 28 .83 mls/hr IV .[id number] COUNTS INCLUDE 234 BEDS AT THE [facility] Rx#: [id number] Oral 200 / 200 240 / 240 100 / 100 Output: Void Amount 200 / 200 150 / 150 275 / 275 # of times incontinent of urine 2 / 2 Other: Meal Breakfast Dinner Percent of Meal Consumed 50% 25% Stool Size Moderate Small Moderate Stool Color Brown Pale Brown Yellow Stool Consistency Liquid Liquid Loose Watery Watery Loose # Bowel Movements 1 1 # of times incontinent of 1 1 Bowels General appearance: cooperative, no acute distress Exam: Alert nonlabored breathing Nondistended abdomen Improving lower extremity lymphedema Medical - PN: Obj Da - Labs CBC & Chem 7: 02/01/18 07:11 02/01/18 07:11 Labs: Abnormal Lab Results 01/31/18 01/31/18 01/31/18 09:58 04:15 04:15 WBC 21.4 H RBC 3.01 L Hgb 9.1 L Hct 27.6 L RDW 15.5 H Plt Count 777 H MPV 6.2 L Gran % Lymph % (Auto) Gran # Lymph # (Auto) Leon # (Auto) Seg Neutrophils % 87 H Lymphocytes % 4 L Metamyelocytes % 4 H Myelocytes % 2 H WBC Morphology Hypersegmented Polys Toxic Granulation Dohle Bodies Platelet Estimate Increased A RBC Morphology Hypochromasia Poikilocytosis Basophilic Stippling Ovalocytes RBC Fragments Occ A PT INR APTT 89 H Potassium BUN 74 H Creatinine 5.9 H* Glucose Uric Acid 10.3 H Calcium 7.7 L Phosphorus 4.6 H TIBC Unsat Iron Binding Transferrin % Sat Ferritin Total Protein 4.1 L Albumin 2.1 L Globulin 2.0 L Albumin/Globulin Ratio Triglycerides Ur Leukocyte Esterase Urine RBC 01/30/18 01/30/18 01/30/18 23:07 12:40 12:24 WBC RBC Hgb Hct RDW Plt Count MPV Gran % Lymph % (Auto) Gran # Lymph # (Auto) Leon # (Auto) Seg Neutrophils % Lymphocytes % Metamyelocytes % Myelocytes % WBC Morphology Hypersegmented Polys Toxic Granulation Dohle Bodies Platelet Estimate RBC Morphology Hypochromasia Poikilocytosis Basophilic Stippling Ovalocytes RBC Fragments PT 15.6 H INR 1.2 H APTT > 200 H* 44 H Potassium BUN Creatinine Glucose Uric Acid Calcium Phosphorus TIBC Unsat Iron Binding Transferrin % Sat Ferritin Total Protein Albumin Globulin Albumin/Globulin Ratio Triglycerides Ur Leukocyte Esterase 25 A Urine RBC 2 H 01/30/18 01/30/18 01/29/18 05:10 05:10 17:05 WBC 20.5 H RBC 3.21 L Hgb 9.5 L Hct 29.3 L RDW 15.3 H Plt Count 890 H MPV 6.2 L Gran % Lymph % (Auto) Gran # Lymph # (Auto) Leon # (Auto) Seg Neutrophils % Lymphocytes % 5 L Metamyelocytes % 5 H Myelocytes % 8 H WBC Morphology Abnorm A Hypersegmented Polys Rare A Toxic Granulation 1+ A Dohle Bodies Few A Platelet Estimate Mk incr A RBC Morphology Abnorm A Hypochromasia 1+ A Poikilocytosis Few A Basophilic Stippling Few A Ovalocytes Few A RBC Fragments PT INR APTT Potassium BUN 74 H Creatinine 5.8 H* Glucose 106 H Uric Acid 10.1 H Calcium 7.3 L Phosphorus TIBC 165 L Unsat Iron Binding < 20 L Transferrin % Sat 87 H Ferritin 612.2 H Total Protein 4.4 L Albumin 2.1 L Globulin Albumin/Globulin Ratio 0.9 L Triglycerides 190 H Ur Leukocyte Esterase Urine RBC 01/29/18 01/29/18 01/29/18 17:05 14:18 06:05 WBC 20.4 H RBC 3.35 L Hgb 9.8 L Hct 30.1 L RDW 15.4 H Plt Count 955 H* MPV 6.3 L Gran % Lymph % (Auto) Gran # Lymph # (Auto) Leon # (Auto) Seg Neutrophils % 86 H Lymphocytes % 2 L Metamyelocytes % Myelocytes % 2 H WBC Morphology Hypersegmented Polys Toxic Granulation Dohle Bodies Platelet Estimate Mk incr A RBC Morphology Hypochromasia Poikilocytosis Basophilic Stippling Ovalocytes RBC Fragments PT INR APTT Potassium 3.2 L 2.8 L* BUN 78 H Creatinine 5.3 H* Glucose 143 H Uric Acid 10.0 H Calcium 7.0 L Phosphorus TIBC Unsat Iron Binding Transferrin % Sat Ferritin Total Protein 4.1 L Albumin 2.1 L Globulin 2.0 L Albumin/Globulin Ratio Triglycerides Ur Leukocyte Esterase Urine RBC 01/29/18 01/28/18 06:05 23:25 WBC 17.7 H RBC 3.06 L Hgb 9.2 L Hct 27.9 L RDW 15.3 H Plt Count 856 H MPV 6.3 L Gran % 89.6 H Lymph % (Auto) 2.1 L Gran # 15.9 H Lymph # (Auto) 0.4 L Leon # (Auto) 1.2 H Seg Neutrophils % Lymphocytes % Metamyelocytes % Myelocytes % WBC Morphology Hypersegmented Polys Toxic Granulation Dohle Bodies Platelet Estimate RBC Morphology Hypochromasia Poikilocytosis Basophilic Stippling Ovalocytes RBC Fragments PT INR APTT Potassium 2.6 L* BUN Creatinine Glucose Uric Acid Calcium Phosphorus TIBC Unsat Iron Binding Transferrin % Sat Ferritin Total Protein Albumin Globulin Albumin/Globulin Ratio Triglycerides Ur Leukocyte Esterase Urine RBC Meds: Medications Amiodarone HCl (Cordarone) 400 mg PO BIDCC COUNTS INCLUDE 234 BEDS AT THE [facility] Last Admin: 01/31/18 17:15 Dose: 400 mg Aspirin (Aspirin) 162 mg CHEWED DAILY COUNTS INCLUDE 234 BEDS AT THE [facility] Last Admin: 01/31/18 08:47 Dose: 162 mg Furosemide (Lasix) 40 mg IV DAILY COUNTS INCLUDE 234 BEDS AT THE [facility] Last Admin: 01/31/18 11:20 Dose: 40 mg Heparin Sodium (Porcine) (Heparin Flush) 2 ml IV Q12 COUNTS INCLUDE 234 BEDS AT THE [facility] Last Admin: 01/31/18 10:01 Dose: 2 ml Acetaminophen (Ofirmev) 650 mg in 65 mls @ 130 mls/hr IV Q6HP PRN PRN Reason: PAIN/FEVER > 101 Heparin Sodium/Dextrose 25,000 (unit/ Premix) 500 mls @ 28.83 mls/hr IV .[id number] COUNTS INCLUDE 234 BEDS AT THE [facility]; 14 UNIT/KG/HR PRN Reason: Protocol Last Admin: 01/31/18 10:04 Dose: 10 unit/kg/hr, 20.59 mls/hr Metoclopramide HCl (Reglan) 10 mg PO Q6H COUNTS INCLUDE 234 BEDS AT THE [facility] Last Admin: 01/31/18 17:15 Dose: 10 mg Metoprolol Tartrate (Lopressor) 12.5 mg PO BID COUNTS INCLUDE 234 BEDS AT THE [facility] Last Admin: 01/31/18 08:47 Dose: 12.5 mg Morphine Sulfate (Morphine) 2 mg SL Q2HP PRN PRN Reason: Pain Naloxone HCl (Narcan) 0.1 mg IV Q2MIN PRN PRN Reason: Opiate Reversal Ondansetron HCl (Zofran) 4 mg IV Q6HP PRN PRN Reason: Nausea And Vomiting Last Admin: 01/29/18 11:33 Dose: 4 mg Potassium Chloride (Kdur) 20 meq PO TIDCC COUNTS INCLUDE 234 BEDS AT THE [facility] Last Admin: 01/31/18 17:15 Dose: 20 meq Sodium Chloride (Saline Flush) 10 ml IV Q8 COUNTS INCLUDE 234 BEDS AT THE [facility] Last Admin: 01/31/18 14:09 Dose: 10 ml Sodium Chloride (Saline Flush) 10 ml IV UD PRN PRN Reason: FLUSH Last Admin: 01/31/18 04:14 Dose: 10 ml Sodium Chloride (Saline Flush) 10 ml IV Q12 COUNTS INCLUDE 234 BEDS AT THE [facility] Last Admin: 06/22/18 08:48 Dose: 10 ml Sodium Chloride (Saline Flush) 10 ml IV Q12 COUNTS INCLUDE 234 BEDS AT THE [facility] Last Admin: 01/31/18 08:48 Dose: Not Given Throat Lozenges (Cepacol) 1 lozenge PO Q4HP PRN PRN Reason: Sore Throat Last Admin: 01/23/18 15:02 Dose: 1 lozenge Warfarin Sodium (Coumadin Per Pharmacy) 1 order PO UD COUNTS INCLUDE 234 BEDS AT THE [facility] Medical - PN: A/P - Time Spent With Patient Total time spent is greater than 50% in coordination of care (as documented) at patient's floor/unit and/or counseling patient: 25 - 35 minutes - Narrative A/P Narrative: A/P * Left upper extremity cephalic vein thrombosis/thrombophlebitis-continue anticoagulation on heparin bridge until INR therapeutic. Patient refused to discontinue PICC line clearly understanding the risk of worsening thrombosis and phlebitis and complications that may arise out of indwelling catheter. Above conversation and patient's decision to keep PICC line was witnessed by nursing staff. * Thrombocytosis -likely reactive. Improving on hydroxyurea from a peak of [address] Valenzuela discussed with Dr Orozco, further discussions with oncology 01/29 recommended additional 2 days hydroxyurea through 01/31. * Small bowel obstruction/ Incarcerated hernia: Clinically resolved. On regular diet per surgery * Hypokalemia -resolved now 3.7 and oral potassium * Sacral decubitus ulcer- Managed by wound care * Leukocytosis/thrombocytosis-at 21,000. Blood cultures negative. Worsening chest infiltrates. CT a.m. Rule out empyema. * CHF- stable, off lasix. * CKD stage IV- creat worsening, on IV bicarbonate, nephrology following, has refused dialysis. * Ventricular tachycardia: On oral amiodarone. Metoprolol on hold * DVT hep sq * DNR code status, Plan * Continue oral potassium * CT chest to rule out empyema * DC hydroxyurea * Renal issues managed by nephrology * Decubiti wound managed by wound care physician Time spent over 35 minutes Medical - PN: Qual - VTE Deep Vein Thrombosis/Pulmonary Embolism Present on Admission: No
[2018-02-01] MEDS: ACETAMINOPHEN 650 MG/65 ML BOTTLE IV PRN ×3 (01:42→12:28)
[2018-02-01] MEDS: 0.9 % SODIUM CHLORIDE 10 ML SYRINGE IV SCH ×7 (07:23→20:13)
[2018-02-01] MEDS: POTASSIUM CHLORIDE 20 MEQ TABLET PO SCH ×3 (07:45→17:36)
[2018-02-01] MEDS: AMIODARONE HCL 200 MG TABLET PO SCH ×2 (07:45→17:35)
[2018-02-01 07:51] LABS: Mean Cell Volume 90.8 fL (80.0-100.0); Mean Corpuscular HGB Conc 31.8 g/dL (31.0-36.0); Mean Corpuscular Hemoglobin 28.9 pg (26.0-34.0); Platelet Count 653 K/mcL (140-440); RBC 2.93 M/mcL (4.50-5.90); Red Cell Distribution Width 15.1 % (11.5-14.5)
[2018-02-01 07:59] LABS: ALT/SGPT 11 U/l (0-40); Albumin/Globulin Ratio 0.9 (1.0-2.3); Alkaline Phosphatase 58 U/L (39-117); Bilirubin,Direct < 0.2 mg/dL (0.0-0.3); Blood Urea Nitrogen 67 mg/dl (8-23); Gamma Glutamyl Transpeptidase 11 U/L (8-61); Uric Acid 10.7 mg/dL (2.5-8.0)
--- NOTE | 2018-02-01 08:06 | Nephrology Progress Note ---
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 Chief Complaint: Nausea Principal diagnosis: Acute kidney injury on chronic kidney disease stage 4 Pertinent ROS: Weakness Anorexia Nausea Abdominal distention Objective - Vital Signs Vital signs: Vital Signs Temp Pulse Resp BP BP Pulse Ox 02/01/18 06:45 98.2 F 18 137/70 96 02/01/18 06:22 96 02/01/18 04:00 98.5 F 60 18 145/67 95 02/01/18 01:40 96 02/01/18 01:35 89 L 01/31/18 23:34 98.3 F 65 18 154/73 91 01/31/18 19:24 98.5 F 68 20 136/57 92 01/31/18 16:07 97.5 F 66 24 H 140/60 92 01/31/18 11:06 98.6 F 20 149/75 91 Intake and Output 01/31/18 02/01/18 02/01/18 21:59 05:59 13:59 Intake Total 100 / 100 100 / 100 240 / 240 Output Total 528 / 528 301 / 301 Balance -428 / -428 -201 / -201 240 / 240 Intake: Oral 100 / 100 100 / 100 240 / 240 Output: Void Amount 525 / 525 300 / 300 # of times incontinent of urine / Other: Meal Dinner Breakfast Percent of Meal Consumed 25% 25% Stool Size Small Small Stool Color Brown Brown Stool Consistency Loose Loose # Bowel Movements 1 1 # of times incontinent of 1 Bowels Weight 227 lb 8 oz Intake & Output: Intake & Output 01/31/18 02/01/18 02/01/18 21:59 05:59 13:59 Intake Total 100 / 100 100 / 100 240 / 240 Output Total 528 / 528 301 / 301 Balance -428 / -428 -201 / -201 240 / 240 Weight 227 lb 8 oz Intake: Oral 100 / 100 100 / 100 240 / 240 Output: Void Amount 525 / 525 300 / 300 # of times incontinent of urine 3 / 3 Other: Meal Dinner Breakfast Percent of Meal Consumed 25% 25% Stool Size Small Small Stool Color Brown Brown Stool Consistency Loose Loose # Bowel Movements 1 1 # of times incontinent of 1 Bowels - General Appearance General appearance: chronically ill, frail EENT: mucous membranes moist Neck: supple Respiratory: rales Cardiology: edema Gastrointestinal: no tenderness Integumentary: hyperpigmentation, chronic venous stasis Neurologic: no focal deficit Musculoskeletal: no deformities Psychiatric: mood/affect appropriate, cooperative - Lab 02/01/18 07:11 02/01/18 07:11 Most recent lab results Calcium 7.6 mg/dl (8.6-10.4) L 02/01/18 07:11 Phosphorus 6.2 mg/dL (2.7-4.5) H* 02/01/18 07:11 Magnesium 1.7 mg/dL (1.6-2.5) 02/01/18 07:11 Assessment and Plan (1) Acute on chronic renal failure Previous work up: Renal US on 11/20/17: Mildly echogenic renal parenchyma bilaterally which indicates chronic medical renal disease Progress: Hypokalemia, being replaced with Potassium Chloride 20 mEq PO TID. Progressive hyperphosphatemia and hypocalcemia associated with secondary hyperparathyroidism. eGFR 8; baseline <15; Declines hemodialysis Prognosis: Guarded Plan: Add Calcium Carbonate 500 mg with meals for hyperphosphatemia and hypocalcemia associated with secondary hyperparathyroidism. Scheduled in the clinic next week Saturday for follow up Status: Acute Qualifiers: Qualified Code(s): N17.9 - Acute kidney failure, unspecified; N18.4 - Chronic kidney disease, stage 4 (severe) (2) Other fluid overload Furosemide 40 mg IV daily started Status: Acute Priority: Medium (3) Anemia in stage 4 chronic kidney disease Hemoglobin <10 with a decreasing trend No iron deficiency Plan: Aranesp 40 mcg (about 0.45 mcg/kg) weekly ordered Status: Chronic Priority: Medium (4) Secondary hyperparathyroidism of renal origin Labs on 12/26/17: PTH (intact) 41.7, Vitamin D Total (25-Hydroxy) 12 Progress: Progressive hyperphosphatemia and hypocalcemia associated with secondary hyperparathyroidism. Plan: Add Cholecalciferol 2,000 unit daily and Calcium Carbonate 500 mg with meals for hyperphosphatemia and hypocalcemia associated with secondary hyperparathyroidism. Status: Chronic Priority: Medium
[2018-02-01] MEDS: HEPARIN/D5W 25,000 UNIT in PREMIX 1 BAG IV SCH ×3 (08:37→18:41)
[2018-02-01 09:14] LABS: Band Neutrophils % 2 % (0-10); Lymphocytes % 7 % (15-49); Metamyelocytes % 4 % (0-0); Monocytes % (Manual) 4 % (1-12); Myelocytes % 1 % (0-0); Platelet Estimate INCREASED (NORMAL); RBC Morphology NORMAL (NORMAL); Segmented Neutrophils % 81 % (38-78)
--- NOTE | 2018-02-01 09:30 | Cat Scan Report ---
CLINICAL INFORMATION: Worsening infiltrates and effusions COMPARISON: Chest CT - less than one week prior 01/27/2018 TECHNIQUE: 0.625 mm axial slices were obtained from the lung apices through the bases without intravenous contrast. 2.5 mm Sagittal, coronal and axial reformatted images were processed and reviewed at bone, lung and soft tissue windows. 7 mm axial MIP images were also reconstructed to optimize pulmonary nodule detection.The exam was performed using radiation dose optimization techniques including, but not limited to, automated exposure control, adjustment of the mA and/or kV according to patient size and use of iterative reconstruction technique. FINDINGS: Pulmonary parenchymal windows show large bilateral pleural effusions which have increased from previous study - particularly on the right side. The left pleural effusion results in subtotal atelectasis of the left lower lobe with residual aeration only the anterior basilar segment. Most of the right lower lobe remains aerated however there is now atelectasis of the medial and posterior basilar segments as a result of the effusion. Complete lingular atelectasis is again seen and likely due to mucous plug or fibrosis. There is subsegmental atelectasis posterior segment left upper lobe which has progressed slightly. Mild underlying centrilobular emphysema changes featuring chronic bronchitis and scattered bullae in the apical region seen - as before. Mediastinal windows show the heart is mildly enlarged with heavy calcific plaque in the coronary arteries. Small pericardial effusion is unchanged. Moderate size hiatal hernia is again noted. There are no new abnormally enlarged lymph nodes in the mediastinal or hilar region. Scattered thyroid nodules seen as before. Moderate edema in the subcutaneous fat of the left flank/left lower chest shows modest increase. Images through the upper abdomen show probable 16mm stone in the gallbladder fundus. The gallbladder is incompletely imaged. Bone windows syndesmophytes bridging the thoracic vertebral bodies and calcification supraspinous ligament reminiscent of ankylosing spondylitis. IMPRESSION: 1. Large bilateral pleural effusion increasing since the CT less than one week prior. On the left, the effusion results in compressive subtotal atelectasis of the left lower lobe with residual aeration only in the anterior basilar segment. On the right, there is now atelectasis of the posterior medial basilar segment of the right lower lobe which have worsened 2. Complete atelectasis of the lingula likely due to mucous plug or fibrosis - stable 3. Mild underlying centrilobular emphysema 4. Moderate cardiomegaly and small pericardial effusion. 5. Moderate hiatal hernia 6. Moderate edema in the subcutaneous fat over the left flank. 7. Small amount of ascites unchanged 8. Probable stone in the gallbladder neck, incompletely imaged: suggest ultrasound Interpreted and Authenticated by: Reid Bryant 02/01/18
[2018-02-01] MEDS: METOPROLOL TARTRATE 25 MG TABLET PO SCH ×2 (09:34→20:12)
[2018-02-01] MEDS: ASPIRIN 81 MG TAB.CHEW CHEWED SCH (09:34)
[2018-02-01] MEDS: FUROSEMIDE 40 MG/4 ML VIAL IV SCH (09:36)
--- NOTE | 2018-02-01 10:41 | Internal Med Progress Note ---
Medical - PN: Subj Patient information: Note initiated : 02/01/18 at 10:36 am Service Date, if different from initiated Date: [] Patient: Carlos Abraham 87 y/o M admitted on 01/23/18 for Small Bowel Obstruction/Incarcerated Hernia. Chief Complaint: [] Interval history: Mr. Abraham is a 87 year old M with multiple medical issues, a poor history provider, presently living in [facility], [facility], presents to the ER today after not being well for the last few days, he notes he has had intermittent abdominal distention for a while, but this time for at least 1 week his abdomen has been progressively getting bigger, this has been accompanied by some abdominal pain/ discomfort and nausea and vomiting. He has not been able to tolerate po diet well, he has tried liquid diet but it did not help much. He is not having regular bowel movements but last BM was a small stool yesterday as per the patient. The patient was eventually sent to the ER for further evaluation. the patient has a DNR /CC as per POST but notes he is willing to get treated for this issue. The patient had leukocytosis at 27,000, more than 10% bands, hemoglobin 11.3, significantly elevated platelets at 2139. Potassium was 3.3, bicarbonate 19, creatinine 4.6, he has chronic kidney disease and this creatinine is slowly trending down. CT scan of the abdomen and pelvis shows partial small bowel obstruction, incarcerated hernia in the right groin, CXR shows bibasilar infiltrates, pna/ atelectasis, but CT abdomen showed only atelectasis. patient was admitted to medicine given extensive comorbid conditions, Dr Chaves was consulted from the ER. Overnight we tried to Place NG tube on the medical floor, but the tube did get coiled in the mid thorax, this AM radiology tried to get the NG tube under floroscopy, but was unsucessful. Dr Chaves will evaluate and try to place the NG today. 01/24 Pt seen examined, intermittently non compliant with care, as per nursing, does not like to be turned, had bm today, NG placed by Dr Chaves, Patient renal function worsened, nephrology consulted overall poor candidate for operative intervention, non compliant with care, has refused dialysis in the past 01/25 Pt seen examined, no acute overnigh events, NG in place, not draining much now. Surgery following His platets remain high, worse today than yesterday, likely8 reactive. 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 Patient has no acute complaints. Is passing gas as well as moving bowels. Abdominal x-ray shows improvement in the obstruction. WBC count is up, platelets are up, I have reviewed the patient's condition with Dr. Orozco, hydroxyurea started. Will monitor for response. If platelets continue to trend up I will touch base with her again tomorrow. Patient continues to be on antibiotics. Wound care help appreciated. Nephrology is following. Started the patient on bicarb drip as per nephrology recommendations. 01/27 Pt seen examined, no acute overnight issues, this AM a bit nauseas after barium study CT chest shows kirby pleural effusions, left > right, WBC stable, plat improving, on hydroxyurea pt denies any cp, sob, or any other acute concerns renal function worsening. has refused dialysis. 01/28 potassium 2.5. Nephrology on board. Decubitus ulcer managed by Dr. Timmons wound care physician white count 18,000. Platelets at 1194 currently on hydroxyurea. Alert oriented and responding to verbal commands appropriately. No concerns expressed by nursing staff. Creatinine 5.5 01/29-bowel obstruction resolved. Case discussed with surgery. Starting solids. Wound care management by Dr. Timmons. Potassium 2.8 on IV replacement. Possible discharge in 24 hours to [facility]. Continue antibiotics. Renal failure management per nephrology. Nursing was concern about Left upper extremity swelling. Upper extremity Doppler ultrasound to rule out DVT 01/30-patient clinically deteriorating. Worsening leukocytosis at 20.5. Left upper extremity forearm distal cephalic vein thrombosis on ultrasound. Discontinue PICC line however patient adamantly refused discontinuation of PICC line clearly understanding the risk of extending clot and worsening left upper extremity swelling/phlebitis. Initiate anticoagulation in light of new superficial vein thrombosis. DC antibiotics check C. difficile/UA/chest x-ray. Ongoing wound care. Potassium at 3.3 with replacement. Start 20 mg 3 times daily oral potassium. Creatinine 5.8. Platelets 890 on hydroxyurea for oncology 01/31-worsening white count at 21.4. On heparin drip for upper extremity DVT. No overnight fever chills. Creatinine 5.9. Potassium 3.7. Bilateral obstruction resolved. On regular diet. C. difficile negative. UA unremarkable. Chest x-ray right-sided infiltrate worsening. Not responding to antibiotics, status post 8 days antibiotics. Continue aggressive pulmonary toilet. CT chest in a.m. platelet count down to 777. Continue Coumadin dosing based on INR 02/01- large bilateral effusion with compressive atelectasis. Thoracentesis today. Hold heparin drip to facilitate ultrasound-guided thoracentesis. Platelets count down to 653. White count 18.1. Creatinine 5.6. Nephrology on board. Wound care managing decubitus. - Constitutional Vitals: Vital Signs Temp Pulse Resp BP Pulse Ox 98.2 F 60 18 137/70 96 02/01/18 06:45 02/01/18 04:00 02/01/18 06:45 02/01/18 06:45 02/01/18 06:45 Period Temp Pulse Resp BP Sys/Ferris Pulse Ox Last 24 Hr 97.5 F-98.6 F 60-68 18-24 136-154/57-75 89-96 Intake and Output 01/31/18 02/01/18 02/01/18 21:59 05:59 13:59 Intake Total 100 / 100 165 / 165 240 / 240 Output Total 528 / 528 301 / 301 175 / 175 Balance -428 / -428 -136 / -136 65 / 65 Weight 227 lb 8 oz Intake & Output: Intake & Output 01/31/18 02/01/18 02/01/18 21:59 05:59 13:59 Intake Total 100 / 100 165 / 165 240 / 240 Output Total 528 / 528 301 / 301 175 / 175 Balance -428 / -428 -136 / -136 65 / 65 Weight 227 lb 8 oz Intake: IV 65 / 65 Oral 100 / 100 100 / 100 240 / 240 Output: Void Amount 525 / 525 300 / 300 175 / 175 # of times incontinent of urine 3 / 3 Other: Meal Dinner Breakfast Percent of Meal Consumed 25% 25% Stool Size Small Small Stool Color Brown Brown Stool Consistency Loose Loose # Bowel Movements 1 1 # of times incontinent of 1 Bowels General appearance: cooperative, no acute distress Exam: Alert and nondistressed Diminished breath sounds bases Lymphedema bilaterally No anxiety Medical - PN: Obj Da - Labs CBC & Chem 7: 02/01/18 07:11 02/01/18 07:11 Labs: Abnormal Lab Results 02/01/18 02/01/18 02/01/18 07:11 07:11 07:11 WBC 18.1 H RBC 2.93 L Hgb 8.5 L Hct 26.6 L RDW 15.1 H Plt Count 653 H MPV 6.2 L Seg Neutrophils % 81 H Lymphocytes % 7 L Metamyelocytes % 4 H Myelocytes % 1 H WBC Morphology Hypersegmented Polys Toxic Granulation Dohle Bodies Platelet Estimate Increased A RBC Morphology Hypochromasia Poikilocytosis Basophilic Stippling Ovalocytes RBC Fragments PT INR APTT > 200 H* Potassium BUN 67 H Creatinine 5.6 H* Glucose 204 H Uric Acid 10.7 H Calcium 7.6 L Phosphorus 6.2 H* TIBC Unsat Iron Binding Transferrin % Sat Ferritin Total Protein 4.2 L Albumin 2.0 L Globulin Albumin/Globulin Ratio 0.9 L Triglycerides Ur Leukocyte Esterase Urine RBC 01/31/18 01/31/18 01/31/18 09:58 04:15 04:15 WBC 21.4 H RBC 3.01 L Hgb 9.1 L Hct 27.6 L RDW 15.5 H Plt Count 777 H MPV 6.2 L Seg Neutrophils % 87 H Lymphocytes % 4 L Metamyelocytes % 4 H Myelocytes % 2 H WBC Morphology Hypersegmented Polys Toxic Granulation Dohle Bodies Platelet Estimate Increased A RBC Morphology Hypochromasia Poikilocytosis Basophilic Stippling Ovalocytes RBC Fragments Occ A PT INR APTT 89 H Potassium BUN 74 H Creatinine 5.9 H* Glucose Uric Acid 10.3 H Calcium 7.7 L Phosphorus 4.6 H TIBC Unsat Iron Binding Transferrin % Sat Ferritin Total Protein 4.1 L Albumin 2.1 L Globulin 2.0 L Albumin/Globulin Ratio Triglycerides Ur Leukocyte Esterase Urine RBC 01/30/18 01/30/18 01/30/18 23:07 12:40 12:24 WBC RBC Hgb Hct RDW Plt Count MPV Seg Neutrophils % Lymphocytes % Metamyelocytes % Myelocytes % WBC Morphology Hypersegmented Polys Toxic Granulation Dohle Bodies Platelet Estimate RBC Morphology Hypochromasia Poikilocytosis Basophilic Stippling Ovalocytes RBC Fragments PT 15.6 H INR 1.2 H APTT > 200 H* 44 H Potassium BUN Creatinine Glucose Uric Acid Calcium Phosphorus TIBC Unsat Iron Binding Transferrin % Sat Ferritin Total Protein Albumin Globulin Albumin/Globulin Ratio Triglycerides Ur Leukocyte Esterase 25 A Urine RBC 2 H 01/30/18 01/30/18 01/29/18 05:10 05:10 17:05 WBC 20.5 H RBC 3.21 L Hgb 9.5 L Hct 29.3 L RDW 15.3 H Plt Count 890 H MPV 6.2 L Seg Neutrophils % Lymphocytes % 5 L Metamyelocytes % 5 H Myelocytes % 8 H WBC Morphology Abnorm A Hypersegmented Polys Rare A Toxic Granulation 1+ A Dohle Bodies Few A Platelet Estimate Mk incr A RBC Morphology Abnorm A Hypochromasia 1+ A Poikilocytosis Few A Basophilic Stippling Few A Ovalocytes Few A RBC Fragments PT INR APTT Potassium BUN 74 H Creatinine 5.8 H* Glucose 106 H Uric Acid 10.1 H Calcium 7.3 L Phosphorus TIBC 165 L Unsat Iron Binding < 20 L Transferrin % Sat 87 H Ferritin 612.2 H Total Protein 4.4 L Albumin 2.1 L Globulin Albumin/Globulin Ratio 0.9 L Triglycerides 190 H Ur Leukocyte Esterase Urine RBC 01/29/18 01/29/18 17:05 14:18 WBC 20.4 H RBC 3.35 L Hgb 9.8 L Hct 30.1 L RDW 15.4 H Plt Count 955 H* MPV 6.3 L Seg Neutrophils % 86 H Lymphocytes % 2 L Metamyelocytes % Myelocytes % 2 H WBC Morphology Hypersegmented Polys Toxic Granulation Dohle Bodies Platelet Estimate Mk incr A RBC Morphology Hypochromasia Poikilocytosis Basophilic Stippling Ovalocytes RBC Fragments PT INR APTT Potassium 3.2 L BUN Creatinine Glucose Uric Acid Calcium Phosphorus TIBC Unsat Iron Binding Transferrin % Sat Ferritin Total Protein Albumin Globulin Albumin/Globulin Ratio Triglycerides Ur Leukocyte Esterase Urine RBC Meds: Medications Amiodarone HCl (Cordarone) 400 mg PO BIDCC [facility] Last Admin: 02/01/18 07:45 Dose: 400 mg Aspirin (Aspirin) 162 mg CHEWED DAILY [facility] Last Admin: 02/01/18 09:34 Dose: 162 mg Calcium Carbonate/Glycine (Tums) 500 mg CHEWED TIDCC [facility] Darbepoetin Fabrice (Aranesp) 40 mcg IV WEEKLY [facility] Furosemide (Lasix) 40 mg IV DAILY [facility] Last Admin: 02/01/18 09:36 Dose: 40 mg Heparin Sodium (Porcine) (Heparin Flush) 2 ml IV Q12 [facility] Last Admin: 02/01/18 09:35 Dose: 2 ml Acetaminophen (Ofirmev) 650 mg in 65 mls @ 130 mls/hr IV Q6HP PRN PRN Reason: PAIN/FEVER > 101 Last Infusion: 02/01/18 02:12 Dose: Infused Heparin Sodium/Dextrose 25,000 (unit/ Premix) 500 mls @ 28.83 mls/hr IV .[id number] [facility]; 14 UNIT/KG/HR PRN Reason: Protocol Last Admin: 02/01/18 08:37 Dose: Not Given Metoprolol Tartrate (Lopressor) 12.5 mg PO BID [facility] Last Admin: 02/01/18 09:34 Dose: 12.5 mg Morphine Sulfate (Morphine) 2 mg SL Q2HP PRN PRN Reason: Pain Naloxone HCl (Narcan) 0.1 mg IV Q2MIN PRN PRN Reason: Opiate Reversal Ondansetron HCl (Zofran) 4 mg IV Q6HP PRN PRN Reason: Nausea And Vomiting Last Admin: 01/29/18 11:33 Dose: 4 mg Potassium Chloride (Kdur) 20 meq PO TIDCC [facility] Last Admin: 02/01/18 07:45 Dose: 20 meq Sodium Chloride (Saline Flush) 10 ml IV Q8 [facility] Last Admin: 02/01/18 07:23 Dose: 10 ml Sodium Chloride (Saline Flush) 10 ml IV UD PRN PRN Reason: FLUSH Last Admin: 01/31/18 04:14 Dose: 10 ml Sodium Chloride (Saline Flush) 10 ml IV Q12 [facility] Last Admin: 02/01/18 09:45 Dose: 10 ml Sodium Chloride (Saline Flush) 10 ml IV Q12 [facility] Last Admin: 02/01/18 09:45 Dose: Not Given Throat Lozenges (Cepacol) 1 lozenge PO Q4HP PRN PRN Reason: Sore Throat Last Admin: 01/23/18 15:02 Dose: 1 lozenge Warfarin Sodium (Coumadin Per Pharmacy) 1 order PO UD [facility] Medical - PN: A/P - Time Spent With Patient Total time spent is greater than 50% in coordination of care (as documented) at patient's floor/unit and/or counseling patient: 25 - 35 minutes - Narrative A/P Narrative: A/P * Bilateral pleural effusion rule out empyema in the setting of elevated white count-thoracentesis today. Hold heparin drip to facilitate thoracentesis * Hypokalemia -on oral potassium replacement * Sacral decubitus ulcer- Managed by wound care * Left upper extremity cephalic vein thrombosis/thrombophlebitis- on heparin bridge until INR therapeutic. Patient refused to discontinue PICC line clearly understanding the risk of worsening thrombosis and phlebitis and complications that may arise out of indwelling catheter. Above conversation and patient's decision to keep PICC line was witnessed by nursing staff. * Leukocytosis/starting to improve now at 18,100. 21,000. * Thrombocytosis -likely reactive. Improving on hydroxyurea from a peak of [address] Valenzuela discussed with Dr Orozco, further discussions with oncology 01/29 recommended additional 2 days hydroxyurea through 01/31. * Small bowel obstruction/ Incarcerated hernia: Clinically resolved. On regular diet per surgery * CHF-diastolic last EF 55%. Stable, on daily IV Lasix * CKD stage IV- nephrology following, has refused dialysis. * Ventricular tachycardia: On oral amiodarone. Metoprolol on hold * DVT prophylaxis on heparin drip * DNR code status, Plan * Continue oral potassium replacement * Thoracentesis today * Renal issues managed by nephrology * Decubiti wound managed by wound care physician Time spent over 35 minutes Medical - PN: Qual - VTE Deep Vein Thrombosis/Pulmonary Embolism Present on Admission: No
[2018-02-01] MEDS: VITAMIN D3 1,000 UNIT TABLET PO SCH (12:31)
[2018-02-01] MEDS: CALCIUM CARBONATE 500 MG TAB.CHEW CHEWED SCH ×2 (12:31→17:36)
[2018-02-01] MEDS ORDERED: DARBEPOETIN ALFA 40 MCG/ML VIAL IV SCH ×2 (14:00→14:15)
[2018-02-01] MEDS: morphine 20 MG/ML ORAL.CONC SL PRN ×2 (14:12→23:53)
--- NOTE | 2018-02-01 16:49 | XRay Report ---
CLINICAL INFORMATION: Post right thoracentesis - 800 cc of clear transudative fluid COMPARISON: 01/30/2018 FINDINGS: Following right thoracentesis, there is no residual right pleural effusion. No pneumothorax or other complication from the procedure. Moderate left pleural effusion and consolidated atelectasis of the entire left lower lobe is unchanged. Moderate cardiomegaly stable. Mediastinum and pulmonary vessels are normal. PICC line tip overlies the SVC brachycephalic junction IMPRESSION: 1. Following right thoracentesis there is no residual right pleural effusion. No pneumothorax or other complication 2. 3. Moderate left pleural effusion with consolidated left lower lobe atelectasis - unchanged. Interpreted and Authenticated by: Reid Bryant 02/01/18
[2018-02-01 18:17] LABS: pH,Body Fluid 7.65
[2018-02-01 18:20] LABS: Glucose,Pleural Fluid 107 mg/dL
[2018-02-01 18:28] LABS: Cholesterol,Body Fluid 18 mg/dL
[2018-02-01 18:51] LABS: Lymphocytes,Pleural Fluid 61 %; Neutrophils,Pleural Fluid 24 %
[2018-02-01 18:52] LABS: Appearance,Pleural Fluid CLEAR; Color,Pleural Fluid P. YELLOW; Nucleated Cells,Pleural Fld 163 /cumm; RBC,Pleural Fluid < 50000 /cumm
--- NOTE | 2018-02-01 21:15 | Ultrasound Report ---
Ultrasound-guided thoracentesis CLINICAL INFORMATION: Large right pleural effusion TECHNIQUE: Procedure and risks including possibility of bleeding, infection, and pneumothorax were explained to the patient. They understood and wished to proceed. With the patient in upright position, the fluid was first sonographically localized over the posterior right 10th intercostal space at posterior axillary line. The skin overlying this region was marked, prepped and locally anesthetized with 1% lidocaine using a 25-gauge needle to the level the parietal pleura. An 18-gauge Yueh needle was then advanced under sonographic guidance into the pleural fluid and approximately 850 cc of simple appearing transudative fluid was aspirated. Post procedure scanning shows only minimal residual fluid. Patient tolerated procedure well without apparent complication. Follow-up chest x-ray to be obtained IMPRESSION: Successful thoracentesis yielding 850 cc of transudative appearing simple pleural fluid. No apparent complication Interpreted and Authenticated by: Reid Bryant 02/01/18
[2018-02-02 03:26] LABS: ALT/SGPT 11 U/l (0-40); Albumin 2.1 gm/dL (3.2-5.2); Albumin/Globulin Ratio 1.1 (1.0-2.3); Alkaline Phosphatase 64 U/L (39-117); Bilirubin,Direct < 0.2 mg/dL (0.0-0.3); Blood Urea Nitrogen 69 mg/dl (8-23); Gamma Glutamyl Transpeptidase 14 U/L (8-61); Mean Cell Volume 92.4 fL (80.0-100.0); Mean Corpuscular HGB Conc 31.6 g/dL (31.0-36.0); Mean Corpuscular Hemoglobin 29.2 pg (26.0-34.0); Platelet Count 595 K/mcL (140-440); RBC 2.84 M/mcL (4.50-5.90); Red Cell Distribution Width 15.1 % (11.5-14.5); Uric Acid 11.3 mg/dL (2.5-8.0)
[2018-02-02 03:45] LABS: Anisocytosis 1+ (NONE SEEN); Band Neutrophils % 1 % (0-10); Eosinophils % (Manual) 1 % (0-7); Lymphocytes % 10 % (15-49); Monocytes % (Manual) 6 % (1-12); Myelocytes % 7 % (0-0); Platelet Estimate INCREASED (NORMAL); RBC Morphology NORMAL (NORMAL); Segmented Neutrophils % 75 % (38-78)
[2018-02-02] MEDS: 0.9 % SODIUM CHLORIDE 10 ML SYRINGE IV SCH ×5 (04:54→20:44)
[2018-02-02] MEDS: CALCIUM CARBONATE 500 MG TAB.CHEW CHEWED SCH ×3 (07:52→16:56)
[2018-02-02] MEDS: AMIODARONE HCL 200 MG TABLET PO SCH ×2 (07:52→16:56)
[2018-02-02] MEDS: POTASSIUM CHLORIDE 20 MEQ TABLET PO SCH ×2 (07:52→16:56)
[2018-02-02] MEDS: METOPROLOL TARTRATE 25 MG TABLET PO SCH ×2 (08:48→20:43)
[2018-02-02] MEDS: ASPIRIN 81 MG TAB.CHEW CHEWED SCH (08:48)
[2018-02-02] MEDS: VITAMIN D3 1,000 UNIT TABLET PO SCH (08:48)
[2018-02-02] MEDS: FUROSEMIDE 40 MG/4 ML VIAL IV SCH (08:49)
--- NOTE | 2018-02-02 10:16 | Nephrology Progress Note ---
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 Chief Complaint: Nausea Principal diagnosis: Acute kidney injury on chronic kidney disease stage 4 Pertinent ROS: Anorexia Nausea Abdominal distention Objective - Vital Signs Vital signs: Vital Signs Temp Pulse Resp BP Pulse Ox 02/02/18 08:35 98 02/02/18 07:50 97.6 F 61 20 153/68 97 02/02/18 04:00 98.2 F 59 L 16 127/56 97 02/02/18 01:28 61 97 02/01/18 23:44 98.0 F 61 18 149/70 97 02/01/18 19:15 97.8 F 67 16 128/56 95 02/01/18 15:21 98 02/01/18 15:20 98.4 F 20 157/81 97 02/01/18 11:47 98.4 F 18 143/70 95 Intake and Output 02/01/18 02/02/18 02/02/18 21:59 05:59 13:59 Intake Total 362 / 362 120 / 120 Output Total 526 / 526 150 / 150 Balance -164 / -164 -30 / -30 Intake: IV 2 / 2 Heparin/D5w 25,000 Unit In 2 / 2 Premix 1 Bag @ 14 UNIT/KG/HR 28 .83 mls/hr IV .[id number] [facility] Rx#: [id number] Oral 360 / 360 120 / 120 Output: Void Amount 525 / 525 150 / 150 # of times incontinent of urine Other: Weight 218 lb Intake & Output: Intake & Output 02/01/18 02/02/18 02/02/18 21:59 05:59 13:59 Intake Total 362 / 362 120 / 120 Output Total 526 / 526 150 / 150 Balance -164 / -164 -30 / -30 Weight 218 lb Intake: IV 2 / 2 Heparin/D5w 25,000 Unit In 2 / 2 Premix 1 Bag @ 14 UNIT/KG/HR 28 .83 mls/hr IV .[id number] [facility] Rx#: [id number] Oral 360 / 360 120 / 120 Output: Void Amount 525 / 525 150 / 150 # of times incontinent of urine - General Appearance General appearance: chronically ill, frail EENT: mucous membranes moist Neck: supple Respiratory: rales Gastrointestinal: no tenderness Integumentary: ulcer, hyperpigmentation, chronic venous stasis Neurologic: no focal deficit, alert and oriented x3 Musculoskeletal: no deformities Psychiatric: mood/affect appropriate, cooperative - Lab 02/02/18 02:13 02/02/18 02:13 Most recent lab results Calcium 7.7 mg/dl (8.6-10.4) L 02/02/18 02:13 Phosphorus 5.2 mg/dL (2.7-4.5) H 02/02/18 02:13 Magnesium 1.7 mg/dL (1.6-2.5) 02/02/18 02:13 Assessment and Plan (1) Acute on chronic renal failure Previous work up: Renal US on 11/20/17: Mildly echogenic renal parenchyma bilaterally which indicates chronic medical renal disease Progress: eGFR 9; baseline <15; Declines hemodialysis Prognosis: Guarded Plan: Scheduled in the clinic next week Saturday for follow up Status: Acute Qualifiers: Acute renal failure type: unspecified Chronic kidney disease stage: stage 4 (severe) Qualified Code(s): N17.9 - Acute kidney failure, unspecified; N18.4 - Chronic kidney disease, stage 4 (severe) (2) Other fluid overload Furosemide 40 mg IV daily started Hypokalemia, being replaced with Potassium Chloride 20 mEq PO TID Status: Acute Priority: Medium (3) Anemia in stage 4 chronic kidney disease Hemoglobin <10 No iron deficiency Plan: Aranesp 40 mcg (about 0.45 mcg/kg) weekly started Status: Chronic Priority: Medium (4) Secondary hyperparathyroidism of renal origin Labs on 12/26/17: PTH (intact) 41.7, Vitamin D Total (25-Hydroxy) 12 Progress: Progressive hyperphosphatemia and hypocalcemia associated with secondary hyperparathyroidism. Plan: Add Cholecalciferol 2,000 unit daily and Calcium Carbonate 500 mg with meals for hyperphosphatemia and hypocalcemia associated with secondary hyperparathyroidism. Status: Chronic Priority: Medium
--- NOTE | 2018-02-02 11:49 | Internal Med Progress Note ---
Medical - PN: Subj Patient information: Note initiated : 02/02/18 at 11:10 am Service Date, if different from initiated Date: [] Patient: Carlos Abraham 87 y/o M admitted on 01/23/18 for Small Bowel Obstruction/Incarcerated Hernia. Chief Complaint: [] Interval history: Mr. Abraham is a 87 year old M with multiple medical issues, a poor history provider, presently living in [facility], [facility], presents to the ER today after not being well for the last few days, he notes he has had intermittent abdominal distention for a while, but this time for at least 1 week his abdomen has been progressively getting bigger, this has been accompanied by some abdominal pain/ discomfort and nausea and vomiting. He has not been able to tolerate po diet well, he has tried liquid diet but it did not help much. He is not having regular bowel movements but last BM was a small stool yesterday as per the patient. The patient was eventually sent to the ER for further evaluation. the patient has a DNR /CC as per POST but notes he is willing to get treated for this issue. The patient had leukocytosis at 27,000, more than 10% bands, hemoglobin 11.3, significantly elevated platelets at 2139. Potassium was 3.3, bicarbonate 19, creatinine 4.6, he has chronic kidney disease and this creatinine is slowly trending down. CT scan of the abdomen and pelvis shows partial small bowel obstruction, incarcerated hernia in the right groin, CXR shows bibasilar infiltrates, pna/ atelectasis, but CT abdomen showed only atelectasis. patient was admitted to medicine given extensive comorbid conditions, Dr Chaves was consulted from the ER. Overnight we tried to Place NG tube on the medical floor, but the tube did get coiled in the mid thorax, this AM radiology tried to get the NG tube under floroscopy, but was unsucessful. Dr Chaves will evaluate and try to place the NG today. 01/24 Pt seen examined, intermittently non compliant with care, as per nursing, does not like to be turned, had bm today, NG placed by Dr Chaves, Patient renal function worsened, nephrology consulted overall poor candidate for operative intervention, non compliant with care, has refused dialysis in the past 01/25 Pt seen examined, no acute overnigh events, NG in place, not draining much now. Surgery following His platets remain high, worse today than yesterday, likely8 reactive. 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 Patient has no acute complaints. Is passing gas as well as moving bowels. Abdominal x-ray shows improvement in the obstruction. WBC count is up, platelets are up, I have reviewed the patient's condition with Dr. Orozco, hydroxyurea started. Will monitor for response. If platelets continue to trend up I will touch base with her again tomorrow. Patient continues to be on antibiotics. Wound care help appreciated. Nephrology is following. Started the patient on bicarb drip as per nephrology recommendations. 01/27 Pt seen examined, no acute overnight issues, this AM a bit nauseas after barium study CT chest shows kirby pleural effusions, left > right, WBC stable, plat improving, on hydroxyurea pt denies any cp, sob, or any other acute concerns renal function worsening. has refused dialysis. 01/28 potassium 2.5. Nephrology on board. Decubitus ulcer managed by Dr. Timmons wound care physician white count 18,000. Platelets at 1194 currently on hydroxyurea. Alert oriented and responding to verbal commands appropriately. No concerns expressed by nursing staff. Creatinine 5.5 01/29-bowel obstruction resolved. Case discussed with surgery. Starting solids. Wound care management by Dr. Timmons. Potassium 2.8 on IV replacement. Possible discharge in 24 hours to [facility]. Continue antibiotics. Renal failure management per nephrology. Nursing was concern about Left upper extremity swelling. Upper extremity Doppler ultrasound to rule out DVT 01/30-patient clinically deteriorating. Worsening leukocytosis at 20.5. Left upper extremity forearm distal cephalic vein thrombosis on ultrasound. Discontinue PICC line however patient adamantly refused discontinuation of PICC line clearly understanding the risk of extending clot and worsening left upper extremity swelling/phlebitis. Initiate anticoagulation in light of new superficial vein thrombosis. DC antibiotics check C. difficile/UA/chest x-ray. Ongoing wound care. Potassium at 3.3 with replacement. Start 20 mg 3 times daily oral potassium. Creatinine 5.8. Platelets 890 on hydroxyurea for oncology 01/31-worsening white count at 21.4. On heparin drip for upper extremity DVT. No overnight fever chills. Creatinine 5.9. Potassium 3.7. Bilateral obstruction resolved. On regular diet. C. difficile negative. UA unremarkable. Chest x-ray right-sided infiltrate worsening. Not responding to antibiotics, status post 8 days antibiotics. Continue aggressive pulmonary toilet. CT chest in a.m. platelet count down to 777. Continue Coumadin dosing based on INR 02/01- large bilateral effusion with compressive atelectasis. Thoracentesis today. Hold heparin drip to facilitate ultrasound-guided thoracentesis. Platelets count down to 653. White count 18.1. Creatinine 5.6. Nephrology on board. Wound care managing decubitus. 02/02- status post 1 L thoracentesis. Transudate by criteria. White count 18, 000. No fever. Creatinine 5.6. Potassium 4.1. Lower potassium dose to 20 BID. - Constitutional Vitals: Vital Signs Temp Pulse Resp BP Pulse Ox 97.6 F 61 20 153/68 98 02/02/18 07:50 02/02/18 07:50 02/02/18 07:50 02/02/18 07:50 02/02/18 08:35 Period Temp Pulse Resp BP Sys/Ferris Pulse Ox Last 24 Hr 97.6 F-98.4 F 59-67 16-20 127-157/56-81 95-98 Intake and Output 02/01/18 02/02/18 02/02/18 21:59 05:59 13:59 Intake Total 362 / 362 120 / 120 Output Total 526 / 526 150 / 150 Balance -164 / -164 -30 / -30 Weight 218 lb Intake & Output: Intake & Output 02/01/18 02/02/18 02/02/18 21:59 05:59 13:59 Intake Total 362 / 362 120 / 120 Output Total 526 / 526 150 / 150 Balance -164 / -164 -30 / -30 Weight 218 lb Intake: IV 2 / 2 Heparin/D5w 25,000 Unit In 2 / 2 Premix 1 Bag @ 14 UNIT/KG/HR 28 .83 mls/hr IV .[id number] [facility] Rx#: [id number] Oral 360 / 360 120 / 120 Output: Void Amount 525 / 525 150 / 150 # of times incontinent of urine General appearance: no acute distress Exam: Alert oriented nonlabored breathing Lymphedema improving No anxiety Medical - PN: Obj Da - Labs CBC & Chem 7: 02/02/18 02:13 02/02/18 02:13 Labs: Abnormal Lab Results 02/02/18 02/02/18 02/02/18 10:02 02:13 02:13 WBC RBC Hgb Hct RDW Plt Count MPV Seg Neutrophils % Lymphocytes % Metamyelocytes % Myelocytes % Platelet Estimate Anisocytosis RBC Fragments PT 16.9 H INR 1.4 H APTT > 200 H* 95 H BUN Creatinine Glucose Uric Acid Calcium Phosphorus Total Protein Albumin Globulin Albumin/Globulin Ratio Ur Leukocyte Esterase Urine RBC 02/02/18 02/02/18 02/01/18 02:13 02:13 11:23 WBC 18.9 H RBC 2.84 L Hgb 8.3 L Hct 26.2 L RDW 15.1 H Plt Count 595 H MPV 6.3 L Seg Neutrophils % Lymphocytes % 10 L Metamyelocytes % Myelocytes % 7 H Platelet Estimate Increased A Anisocytosis 1+ A RBC Fragments PT INR APTT 44 H BUN 69 H Creatinine 5.5 H* Glucose Uric Acid 11.3 H Calcium 7.7 L Phosphorus 5.2 H Total Protein 4.0 L Albumin 2.1 L Globulin 1.9 L Albumin/Globulin Ratio Ur Leukocyte Esterase Urine RBC 02/01/18 02/01/18 02/01/18 07:11 07:11 07:11 WBC 18.1 H RBC 2.93 L Hgb 8.5 L Hct 26.6 L RDW 15.1 H Plt Count 653 H MPV 6.2 L Seg Neutrophils % 81 H Lymphocytes % 7 L Metamyelocytes % 4 H Myelocytes % 1 H Platelet Estimate Increased A Anisocytosis RBC Fragments PT INR APTT > 200 H* BUN 67 H Creatinine 5.6 H* Glucose 204 H Uric Acid 10.7 H Calcium 7.6 L Phosphorus 6.2 H* Total Protein 4.2 L Albumin 2.0 L Globulin Albumin/Globulin Ratio 0.9 L Ur Leukocyte Esterase Urine RBC 01/31/18 01/31/18 01/31/18 09:58 04:15 04:15 WBC 21.4 H RBC 3.01 L Hgb 9.1 L Hct 27.6 L RDW 15.5 H Plt Count 777 H MPV 6.2 L Seg Neutrophils % 87 H Lymphocytes % 4 L Metamyelocytes % 4 H Myelocytes % 2 H Platelet Estimate Increased A Anisocytosis RBC Fragments Occ A PT INR APTT 89 H BUN 74 H Creatinine 5.9 H* Glucose Uric Acid 10.3 H Calcium 7.7 L Phosphorus 4.6 H Total Protein 4.1 L Albumin 2.1 L Globulin 2.0 L Albumin/Globulin Ratio Ur Leukocyte Esterase Urine RBC 01/30/18 01/30/18 01/30/18 23:07 12:40 12:24 WBC RBC Hgb Hct RDW Plt Count MPV Seg Neutrophils % Lymphocytes % Metamyelocytes % Myelocytes % Platelet Estimate Anisocytosis RBC Fragments PT 15.6 H INR 1.2 H APTT > 200 H* 44 H BUN Creatinine Glucose Uric Acid Calcium Phosphorus Total Protein Albumin Globulin Albumin/Globulin Ratio Ur Leukocyte Esterase 25 A Urine RBC 2 H Meds: Medications Amiodarone HCl (Cordarone) 400 mg PO BIDCC [facility] Last Admin: 02/02/18 07:52 Dose: 400 mg Aspirin (Aspirin) 162 mg CHEWED DAILY [facility] Last Admin: 02/02/18 08:48 Dose: 162 mg Calcium Carbonate/Glycine (Tums) 500 mg CHEWED TIDCC [facility] Last Admin: 02/02/18 07:52 Dose: 500 mg Darbepoetin Fabrice (Aranesp) 40 mcg IV Q7D [facility] Last Admin: 02/01/18 14:18 Dose: 40 mcg Furosemide (Lasix) 40 mg IV DAILY [facility] Last Admin: 02/02/18 08:49 Dose: 40 mg Heparin Sodium (Porcine) (Heparin Flush) 2 ml IV Q12 [facility] Last Admin: 02/02/18 08:49 Dose: 2 ml Acetaminophen (Ofirmev) 650 mg in 65 mls @ 130 mls/hr IV Q6HP PRN PRN Reason: PAIN/FEVER > 101 Last Infusion: 02/01/18 13:13 Dose: Infused Heparin Sodium/Dextrose 25,000 (unit/ Premix) 500 mls @ 28.83 mls/hr IV .[id number] [facility]; 14 UNIT/KG/HR PRN Reason: Protocol Last Admin: 02/01/18 18:41 Dose: 12 unit/kg/hr, 24.71 mls/hr Metoprolol Tartrate (Lopressor) 12.5 mg PO BID [facility] Last Admin: 02/02/18 08:48 Dose: 12.5 mg Morphine Sulfate (Morphine) 2 mg SL Q2HP PRN PRN Reason: Pain Last Admin: 02/01/18 23:53 Dose: 2 mg Naloxone HCl (Narcan) 0.1 mg IV Q2MIN PRN PRN Reason: Opiate Reversal Ondansetron HCl (Zofran) 4 mg IV Q6HP PRN PRN Reason: Nausea And Vomiting Last Admin: 01/29/18 11:33 Dose: 4 mg Potassium Chloride (Kdur) 20 meq PO TIDCC [facility] Last Admin: 02/02/18 07:52 Dose: 20 meq Sodium Chloride (Saline Flush) 10 ml IV Q8 [facility] Last Admin: 02/02/18 04:54 Dose: 10 ml Sodium Chloride (Saline Flush) 10 ml IV UD PRN PRN Reason: FLUSH Last Admin: 01/31/18 04:14 Dose: 10 ml Sodium Chloride (Saline Flush) 10 ml IV Q12 [facility] Last Admin: 02/02/18 08:50 Dose: 10 ml Sodium Chloride (Saline Flush) 10 ml IV Q12 [facility] Last Admin: 02/02/18 08:50 Dose: Not Given Throat Lozenges (Cepacol) 1 lozenge PO Q4HP PRN PRN Reason: Sore Throat Last Admin: 01/23/18 15:02 Dose: 1 lozenge Vitamin D (Vitamin D3) 2,000 unit PO DAILY [facility] Last Admin: 02/02/18 08:48 Dose: 2,000 unit Warfarin Sodium (Coumadin Per Pharmacy) 1 order PO UD [facility] Medical - PN: A/P - Time Spent With Patient Total time spent is greater than 50% in coordination of care (as documented) at patient's floor/unit and/or counseling patient: 15 - 24 minutes - Narrative A/P Narrative: A/P * Bilateral pleural effusion -transudate by criteria. Secondary to CHF * Hypokalemia -resolved with oral potassium replacement. * Sacral decubitus ulcer- Managed by wound care * Left upper extremity cephalic vein thrombosis/thrombophlebitis- on heparin bridge until INR therapeutic. Patient refused to discontinue PICC line clearly understanding the risk of worsening thrombosis and phlebitis and complications that may arise out of indwelling catheter. Above conversation and patient's decision to keep PICC line was witnessed by nursing staff. * Leukocytosis/starting to improve now at 18,100. 21,000. * Thrombocytosis -likely reactive. Improving on hydroxyurea from a peak of [address] Valenzuela discussed with Dr Orozco, further discussions with oncology 01/29 recommended additional 2 days hydroxyurea through 01/31. * Small bowel obstruction/ Incarcerated hernia: Clinically resolved. On regular diet per surgery * CHF-diastolic last EF 55%. Stable, on daily IV Lasix * CKD stage IV- nephrology following, has refused dialysis. * Ventricular tachycardia: On oral amiodarone. Metoprolol on hold * DVT prophylaxis on heparin drip * DNR code status, Plan * continue diuresis * Renal issues managed by nephrology * Decubiti wound managed by wound care physician Time spent over 35 minutes Medical - PN: Qual - VTE Deep Vein Thrombosis/Pulmonary Embolism Present on Admission: No
[2018-02-02] MEDS: HEPARIN/D5W 25,000 UNIT in PREMIX 1 BAG IV SCH ×4 (13:22→17:24)
[2018-02-02] MEDS ORDERED: WARFARIN 5 MG TABLET PO ONE (14:00)
--- NOTE | 2018-02-03 06:40 | Nephrology Progress Note ---
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 Chief Complaint: Nausea Principal diagnosis: Acute kidney injury on chronic kidney disease stage 4 Pertinent ROS: Weakness Dependent edema Wounds Objective - Vital Signs Vital signs: Vital Signs Temp Pulse Resp BP BP Pulse Ox 02/02/18 23:06 98.0 F 58 L 16 157/69 93 02/02/18 20:00 98.2 F 61 20 129/63 95 02/02/18 17:03 94 02/02/18 16:00 98.2 F 66 20 151/73 91 02/02/18 12:00 98.5 F 67 20 136/62 97 02/02/18 08:35 98 02/02/18 07:50 97.6 F 61 20 153/68 97 Intake and Output 02/02/18 02/03/18 02/03/18 21:59 05:59 13:59 Intake Total 1368 / 1368 180 / 180 Output Total 326 / 326 250 / 250 Balance 1042 / 1042 -70 / -70 Intake: IV 1068 / 1068 Heparin/D5w 25,000 Unit In 568 / 568 Premix 1 Bag @ 8 UNIT/KG/HR 15. 82 mls/hr IV .Q24H [facility] Rx#: [id number] Oral 50 / 50 180 / 180 GI Tube Flush 250 / 250 Output: Void Amount 325 / 325 250 / 250 # of times incontinent of urine / Other: Stool Size Moderate Stool Color Brown Stool Consistency Soft Loose # Voids 1 # Bowel Movements 1 Weight 219 lb 8 oz Intake & Output: Intake & Output 02/02/18 02/03/18 02/03/18 21:59 05:59 13:59 Intake Total 1368 / 1368 180 / 180 Output Total 326 / 326 250 / 250 Balance 1042 / 1042 -70 / -70 Weight 219 lb 8 oz Intake: IV 1068 / 1068 Heparin/D5w 25,000 Unit In 568 / 568 Premix 1 Bag @ 8 UNIT/KG/HR 15. 82 mls/hr IV .Q24H [facility] Rx#: [id number] Oral 50 / 50 180 / 180 GI Tube Flush 250 / 250 Output: Void Amount 325 / 325 250 / 250 # of times incontinent of urine Other: Stool Size Moderate Stool Color Brown Stool Consistency Soft Loose # Voids 1 # Bowel Movements 1 - General Appearance General appearance: chronically ill, frail EENT: mucous membranes moist Neck: supple Respiratory: clear Cardiology: edema Gastrointestinal: no tenderness Integumentary: hyperpigmentation, chronic venous stasis Neurologic: no focal deficit, alert and oriented x3 Musculoskeletal: no deformities Psychiatric: mood/affect appropriate, cooperative - Lab 02/03/18 08:14 02/03/18 07:55 Most recent lab results Calcium 7.7 mg/dl (8.6-10.4) L 02/02/18 02:13 Phosphorus 5.2 mg/dL (2.7-4.5) H 02/02/18 02:13 Magnesium 1.7 mg/dL (1.6-2.5) 02/02/18 02:13 Assessment and Plan (1) Acute on chronic renal failure Previous work up: Renal US on 11/20/17: Mildly echogenic renal parenchyma bilaterally which indicates chronic medical renal disease Progress: eGFR 9; baseline <15; Declines hemodialysis Prognosis: Guarded Plan: Will be followed as outpatient in February Status: Acute Qualifiers: Acute renal failure type: unspecified Chronic kidney disease stage: stage 4 (severe) Qualified Code(s): N17.9 - Acute kidney failure, unspecified; N18.4 - Chronic kidney disease, stage 4 (severe) (2) Other fluid overload Furosemide 40 mg IV daily started Hypokalemia, being replaced with Potassium Chloride 20 mEq PO TID Status: Acute Priority: Medium (3) Anemia in stage 4 chronic kidney disease Hemoglobin <10 No iron deficiency Plan: Aranesp 40 mcg (about 0.45 mcg/kg) weekly started Status: Chronic Priority: Medium (4) Secondary hyperparathyroidism of renal origin Labs on 12/26/17: PTH (intact) 41.7, Vitamin D Total (25-Hydroxy) 12 Progress: Progressive hyperphosphatemia and hypocalcemia associated with secondary hyperparathyroidism. Plan: Add Cholecalciferol 2,000 unit daily and Calcium Carbonate 500 mg with meals for hyperphosphatemia and hypocalcemia associated with secondary hyperparathyroidism. Status: Chronic Priority: Medium
[2018-02-03 09:15] LABS: Basophils # (Auto) 0 K/mcL (0.0-0.3); Basophils % (Auto) 0.1 % (0.0-2.0); Eosinophils # (Auto) 0.2 K/mcL (0.0-0.7); Eosinophils % (Auto) 0.8 % (0.0-7.0); Granulocytes % (Auto) 93.2 % (38.0-78.0); Lymphocytes # (Auto) 0.5 K/mcL (1.5-4.8); Lymphocytes % (Auto) 2.6 % (15.5-49.0); Mean Cell Volume 91.6 fL (80.0-100.0); Mean Corpuscular Hemoglobin 29.3 pg (26.0-34.0); Monocytes # (Auto) 0.7 K/mcL (0.1-0.9); Monocytes % (Auto) 3.3 % (1.0-12.0); Platelet Count 536 K/mcL (140-440); RBC 2.86 M/mcL (4.50-5.90); Red Cell Distribution Width 15.5 % (11.5-14.5)
[2018-02-03 09:32] LABS: ALT/SGPT 9 U/l (0-40); Albumin 2.3 gm/dL (3.2-5.2); Albumin/Globulin Ratio 0.9 (1.0-2.3); Alkaline Phosphatase 68 U/L (39-117); Bilirubin,Direct < 0.2 mg/dL (0.0-0.3); Blood Urea Nitrogen 65 mg/dl (8-23); Gamma Glutamyl Transpeptidase 21 U/L (8-61); Uric Acid 11.7 mg/dL (2.5-8.0)
--- NOTE | 2018-02-03 09:42 | Discharge Summary ---
Medical - DS: Prov Patient information: Note initiated : 02/03/18 at 9:29 am Service Date, if different from initiated Date: [] Patient: Carlos Abraham 87 y/o M admitted on 01/23/18 for Small Bowel Obstruction/Incarcerated Hernia. Chief Complaint: [] Date of admission: 01/23/18 02:49 Discharge date: 02/03/18 Primary care physician: Enrique Betts Consults: 01/23/18 01:35 Consult to Physician [CONS] Stat Comment: Consulting Provider: Tracie Valenzuela Reason For Exam: Physician to Consult 01/23/18 02:27 Consult to Physician [CONS] Stat Comment: Consulting Provider: Wenceslao Chaves Reason For Exam: Physician to Consult 01/23/18 09:50 Consult to Physician [CONS] Routine Comment: Consulting Provider: Rick Timmons Reason For Exam: Physician to Consult 01/24/18 08:31 Consult to Physician [CONS] Routine Comment: Consulting Provider: Jody Bran Reason For Exam: Physician to Consult Medical - DS: Meds - Discharge Medications Prescriptions: HYDROmorphone HCL [Dilaudid] 1 mg PO Q6HP PRN #40 tab PRN Reason: Pain Multivitamin [One Daily] 1 tab PO DAILY #14 tab Warfarin [Coumadin] 5 mg PO DAILY #14 tab Active and Home Medications: Home Medications Amiodarone HCl [Cordarone] 400 mg PO BIDCC #60 tab 11/26/17 [Rx Confirmed Last Taken Unknown] Folic Acid 1 mg PO DAILY tab 11/26/17 [Rx Confirmed 01/31/18 Last Taken ] Metoprolol Tartrate [Lopressor] 12.5 mg PO BID tab 11/26/17 [Rx Confirmed 01/31 Last Taken 01/22/18] Simethicone [Mylicon] 80 mg CHEWED QIDP PRN tab.chew 11/26/17 [Rx Confirmed Last Taken Unknown] bisacodyl 10 mg rectal suppository 10 mg HI QDAY PRN 12/04/17 [History Confirmed 01/23/18 Last Taken Unknown] cholecalciferol (vitamin D3) 50,000 unit capsule 50,000 unit PO QWEEK 01/01/18 [ History Confirmed 01/31/18 Last Taken 01/16/18] ondansetron HCl 4 mg tablet 4 mg PO Q4H PRN 01/01/18 [History Confirmed Last Taken 01/22/18] potassium chloride ER 10 mEq tablet,extended release 10 meq PO TID 01/01/18 [ History Confirmed 01/31/18 Last Taken 01/22/18] Sevelamer [Renvela] 800 mg PO TIDCC 01/23/18 [History Confirmed 01/31/18 Last Taken 01/22/18] Calcium Citrate 0.25 mcg PO DAILY 01/31/18 [History Confirmed 01/31/18 Last Taken 01/22/18] HYDROmorphone HCL [Dilaudid] 1 mg PO Q6HP PRN #40 tab 02/03/18 [Rx Last Taken Unknown] Multivitamin [One Daily] 1 tab PO DAILY #14 tab 02/03/18 [Rx Last Taken Unknown] Warfarin [Coumadin] 5 mg PO DAILY #14 tab 02/03/18 [Rx Last Taken Unknown] Medical - DS: Hosp Hospital course: Discharge diagnosis * Bilateral pleural effusion -transudate by criteria. Secondary to CHF and ESRD ( refusing dialysis). On diuretics * Sacral decubitus ulcer- Managed by wound care * Left upper extremity cephalic vein thrombosis/thrombophlebitis- On coumadin, DC PICC line, will need anticoagulation for 3 months. * Leukocytosis-persistent without obvious source. Off antibiotics. Negative urine blood and stool cultures. Thoracentesis negative for infection. Recommend repeat CBC in 1 week. * Thrombocytosis -likely reactive. Down from [address] Valenzuela discussed with Dr Orozco and patient was treated with 5 days hydroxyurea. * Small bowel obstruction-clinically resolved. On regular diet * CHF-diastolic last EF 55%. Stable, on daily Lasix * CKD stage IV- nephrology following, refused dialysis. * Ventricular tachycardia: On oral amiodarone. Metoprolol on hold Brief hospital course Mr. Abraham is a 87 year old M with multiple medical issues, a poor history provider, presently living in [facility], presents to the ER today after not being well for the last few days, he notes he has had intermittent abdominal distention for a while, but this time for at least 1 week his abdomen has been progressively getting bigger, this has been accompanied by some abdominal pain/ discomfort and nausea and vomiting. He has not been able to tolerate po diet well, he has tried liquid diet but it did not help much. He is not having regular bowel movements but last BM was a small stool yesterday as per the patient. The patient was eventually sent to the ER for further evaluation. the patient has a DNR /CC as per POST but notes he is willing to get treated for this issue. The patient had leukocytosis at 27,000, more than 10% bands, hemoglobin 11.3, significantly elevated platelets at 2139. Potassium was 3.3, bicarbonate 19, creatinine 4.6, he has chronic kidney disease and this creatinine is slowly trending down. CT scan of the abdomen and pelvis shows partial small bowel obstruction, incarcerated hernia in the right groin, CXR shows bibasilar infiltrates, pna/ atelectasis, but CT abdomen showed only atelectasis. patient was admitted to medicine given extensive comorbid conditions, Dr Chaves was consulted from the ER. Overnight we tried to Place NG tube on the medical floor, but the tube did get coiled in the mid thorax, this AM radiology tried to get the NG tube under floroscopy, but was unsucessful. Dr Chaves will evaluate and try to place the NG today. 01/24 Pt seen examined, intermittently non compliant with care, as per nursing, does not like to be turned, had bm today, NG placed by Dr Chaves, Patient renal function worsened, nephrology consulted overall poor candidate for operative intervention, non compliant with care, has refused dialysis in the past 01/25 Pt seen examined, no acute overnigh events, NG in place, not draining much now. Surgery following His platets remain high, worse today than yesterday, likely8 reactive. 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 Patient has no acute complaints. Is passing gas as well as moving bowels. Abdominal x-ray shows improvement in the obstruction. WBC count is up, platelets are up, I have reviewed the patient's condition with Dr. Orozco, hydroxyurea started. Will monitor for response. If platelets continue to trend up I will touch base with her again tomorrow. Patient continues to be on antibiotics. Wound care help appreciated. Nephrology is following. Started the patient on bicarb drip as per nephrology recommendations. 01/27 Pt seen examined, no acute overnight issues, this AM a bit nauseas after barium study CT chest shows kirby pleural effusions, left > right, WBC stable, plat improving, on hydroxyurea pt denies any cp, sob, or any other acute concerns renal function worsening. has refused dialysis. 01/28 potassium 2.5. Nephrology on board. Decubitus ulcer managed by Dr. Timmons wound care physician white count 18,000. Platelets at 1194 currently on hydroxyurea. Alert oriented and responding to verbal commands appropriately. No concerns expressed by nursing staff. Creatinine 5.5 01/29-bowel obstruction resolved. Case discussed with surgery. Starting solids. Wound care management by Dr. Timmons. Potassium 2.8 on IV replacement. Possible discharge in 24 hours to [facility]. Continue antibiotics. Renal failure management per nephrology. Nursing was concern about Left upper extremity swelling. Upper extremity Doppler ultrasound to rule out DVT 01/30-patient clinically deteriorating. Worsening leukocytosis at 20.5. Left upper extremity forearm distal cephalic vein thrombosis on ultrasound. Discontinue PICC line however patient adamantly refused discontinuation of PICC line clearly understanding the risk of extending clot and worsening left upper extremity swelling/phlebitis. Initiate anticoagulation in light of new superficial vein thrombosis. DC antibiotics check C. difficile/UA/chest x-ray. Ongoing wound care. Potassium at 3.3 with replacement. Start 20 mg 3 times daily oral potassium. Creatinine 5.8. Platelets 890 on hydroxyurea for oncology 01/31-worsening white count at 21.4. On heparin drip for upper extremity DVT. No overnight fever chills. Creatinine 5.9. Potassium 3.7. Bilateral obstruction resolved. On regular diet. C. difficile negative. UA unremarkable. Chest x-ray right-sided infiltrate worsening. Not responding to antibiotics, status post 8 days antibiotics. Continue aggressive pulmonary toilet. CT chest in a.m. platelet count down to 777. Continue Coumadin dosing based on INR 02/01- large bilateral effusion with compressive atelectasis. Thoracentesis today. Hold heparin drip to facilitate ultrasound-guided thoracentesis. Platelets count down to 653. White count 18.1. Creatinine 5.6. Nephrology on board. Wound care managing decubitus. 02/02- status post 1 L thoracentesis. Transudate by criteria. White count 18, 000. No fever. Creatinine 5.6. Potassium 4.1. Lower potassium dose to 20 BID. 02/03-patient doing well. No overnight events. White count persistently elevated however entire workup negative so far with normal negative cultures. Patient is afebrile. Platelet count has normalized to 536. Creatinine remains elevated however patient refusing hemodialysis despite volume overload/ bilateral effusion and significant uremia. Nephrology was consulted and hospitalization and patient will follow-up with nephrology as outpatient. At this time [facility]. Extensive discussion this morning. Patient stated that he would not want further aggressive interventions in future citing that he does not want to fight God's will if he gets worse. Discharge diagnosis: . - Time Spent with Patient Total time spent providing and/or coordinating discharge services: Greater than 30 minutes Medical - DS: Exam - Constitutional Vitals: Vital Signs Temp Pulse Resp BP BP Pulse Ox 02/03/18 07:42 98.3 F 16 153/77 93 02/02/18 23:06 98.0 F 58 L 16 157/69 93 02/02/18 20:00 98.2 F 61 20 129/63 95 02/02/18 17:03 94 02/02/18 16:00 98.2 F 66 20 151/73 91 02/02/18 12:00 98.5 F 67 20 136/62 97 Intake and Output 02/02/18 02/03/18 02/03/18 21:59 05:59 13:59 Intake Total 1368 / 1368 180 / 180 120 / 120 Output Total 326 / 326 250 / 250 200 / 200 Balance 1042 / 1042 -70 / -70 -80 / -80 Intake: IV 1068 / 1068 Heparin/D5w 25,000 Unit In 568 / 568 Premix 1 Bag @ 8 UNIT/KG/HR 15. 82 mls/hr IV .Q24H ELAINA Rx#: [id number] Oral 50 / 50 180 / 180 120 / 120 GI Tube Flush 250 / 250 Output: Void Amount 325 / 325 250 / 250 200 / 200 # of times incontinent of urine Other: Meal Breakfast Percent of Meal Consumed 25% Stool Size Moderate Stool Color Brown Stool Consistency Soft Loose # Voids 1 2 # Bowel Movements 1 Weight 219 lb 8 oz Medical - DS: Data Labs on day of discharge: Labs from last 24 hours 02/03/18 02/03/18 02/03/18 08:14 07:55 07:55 WBC 19.7 H RBC 2.86 L Hgb 8.4 L Hct 26.2 L MCV 91.6 MCH 29.3 MCHC 32.0 RDW 15.5 H Plt Count 536 H MPV 6.3 L Gran % 93.2 H Lymph % (Auto) 2.6 L [place]he % (Auto) 3.3 Eos % (Auto) 0.8 Baso % (Auto) 0.1 Gran # 18.4 H Lymph # (Auto) 0.5 L [place]he # (Auto) 0.7 Eos # (Auto) 0.2 Baso # (Auto) 0 PT 19.5 H INR 1.6 H APTT 76 H Sodium Potassium Chloride Carbon Dioxide Anion Gap BUN Creatinine GFR Calculation Glucose Uric Acid Calcium Phosphorus Magnesium Total Bilirubin Direct Bilirubin GGT AST ALT Alkaline Phosphatase Lactate Dehydrogenase Total Protein Albumin Globulin Albumin/Globulin Ratio Triglycerides 02/03/18 02/02/18 02/02/18 07:55 19:00 10:02 WBC RBC Hgb Hct MCV MCH MCHC RDW Plt Count MPV Gran % Lymph % (Auto) Ashe % (Auto) Eos % (Auto) Baso % (Auto) Gran # Lymph # (Auto) Ashe # (Auto) Eos # (Auto) Baso # (Auto) PT INR APTT 47 H > 200 H* Sodium Pending Potassium Pending Chloride Pending Carbon Dioxide Pending Anion Gap Pending BUN Pending Creatinine Pending GFR Calculation Pending Glucose Pending Uric Acid Pending Calcium Pending Phosphorus Pending Magnesium Pending Total Bilirubin Pending Direct Bilirubin Pending GGT Pending AST Pending ALT Pending Alkaline Phosphatase Pending Lactate Dehydrogenase Pending Total Protein Pending Albumin Pending Globulin Pending Albumin/Globulin Ratio Pending Triglycerides Pending Preliminary micro results at discharge 02/01/18 17:05 Anaerobic Culture - Preliminary Pleural Fluid 01/30/18 10:52 Blood Culture - Preliminary Blood 01/30/18 11:01 Blood Culture - Preliminary Blood Medical - DS: A/P - Patient/Caregiver Discharge Instructions Activity: as per physical therapy, increase activity as tolerated Diet: Renal/Consistent Carbs Additional Instructions: Follow-up with Dr. Wenceslao Chaves in 2 weeks Follow-up PCP in 5 days All of nephrology as scheduled I recommend SNF physician to check INR, CBC BMP UA as a posthospital follow-up and Chest x-ray in 1 week. Coumadin dosing based on INR as per SNF physician Continue aggressive bowel regimen to prevent constipation Continue fall precautions Continue aggressive PT OT evaluation and treatment at [facility]. ST eval and treatment if indicated All meals on chair sitting upright at 90 degrees to prevent aspiration Return to ER if worsening fever chills shortness of breath, diarrhea, bleeding Refrain from smoking and alcohol Continue diet and activity as advised Discussed importance of medication adherence Please review medication list with patient prior to discharge Please schedule follow-up with PCP/Providers prior to discharge and provide printouts Portions of this chart may have been created with [employer] voice recognition software. Occasional wrong-word or ?sound-like? substitutions may have occurred due to the inherent limitations of voice recognition software. Please read the chart carefully and recognize, using context, where the substitutions have occurred. CC- PCP Prescriptions: Furosemide [Lasix] 40 mg PO BID #30 tab HYDROmorphone HCL [Dilaudid] 1 mg PO Q6HP PRN #40 tab PRN Reason: Pain Multivitamin [One Daily] 1 tab PO DAILY #14 tab Warfarin [Coumadin] 5 mg PO DAILY #14 tab - Follow up Plan Follow up with: Enrique Betts MD [Primary Care Provider] - Jody Bran MD [Physician] - 02/07/18 9:45 am (Check in at 9:45 am for a 10:00 am appointment.) [facility] Prognosis: Serious Rehab Potential: Undetermined I certify that the patient requires SNF services: Yes Overall status at discharge: patient is progressing back to baseline Medical - DS: Qual - VTE Deep Vein Thrombosis/Pulmonary Embolism Present on Admission: No
[2018-02-03] MEDS: CALCIUM CARBONATE 500 MG TAB.CHEW CHEWED SCH (09:52)
[2018-02-03] MEDS: FUROSEMIDE 40 MG/4 ML VIAL IV SCH (09:52)
[2018-02-03] MEDS: AMIODARONE HCL 200 MG TABLET PO SCH (09:52)
[2018-02-03] MEDS: METOPROLOL TARTRATE 25 MG TABLET PO SCH (09:53)
[2018-02-03] MEDS: POTASSIUM CHLORIDE 20 MEQ TABLET PO SCH (09:53)
[2018-02-03] MEDS: VITAMIN D3 1,000 UNIT TABLET PO SCH (09:54)
[2018-02-03] MEDS: ASPIRIN 81 MG TAB.CHEW CHEWED SCH (09:54)
[2018-02-03] MEDS ORDERED: WARFARIN 5 MG TABLET PO SCH (14:00)
== END 2018-02-03 13:10 | DRG 291 ==
LOC: ED 23:35 → MEDSUR 01-23 02:45
PROVIDERS: ADMIT Internal Medicine; ATTEND Internal Medicine

== ENCOUNTER 2018-08-14 10:38 | Inpatient (IN) ==
[2018-08-14] MEDS ORDERED: 0.9 % SODIUM CHLORIDE 1,000 ML IV ONE (11:16)
--- NOTE | 2018-08-14 11:32 | Emergency Department Note ---
Extremity Problem HPI - General Chief complaint: Extremity Problem,Nontraumatic Stated complaint: R knee pain and swelling Time Seen by Provider: 08/14/18 10:52 Source: patient, RN notes reviewed Mode of arrival: wheelchair Limitations: physical limitation - History of Present Illness HPI Narrative: This elderly gentleman is sent over from wound care secondary to concerns of low blood pressure. Our nurse checked it again manually and his blood pressure in fact was in the upper 70s, mid 80s initially on presentation. It turns out that he does take Lasix twice a day, he is also on metoprolol 12/2 mg once a day. He is also on amiodarone. He denies chest pain he denies shortness of breath he's had some knee discomfort but no redness of his knee, he is being treated for lower extremity wounds on his right leg. Wound care sent him over also for concerns about a blood clot to his right lower extremities but he does have some calf pain on the right side, his right calf is about as large as the left side, slightly larger, that he does have some lower extremity asymmetry and his knees are very large, his right knee is bothering him but it has for quite some time. He has extension deficit in his right knee is forceful extension of. No redness, there is no effusion of his knees, he does tell me that is had very little to drink in the way of fluids since last night. [facility] is from the [facility], [facility]. - Related Data Home Medications Medication Instructions Recorded Confirmed bisacodyl 10 mg rectal suppository 10 mg WI QDAY PRN 12/04/17 08/14/18 cholecalciferol (vitamin D3) 50,000 unit PO QWEEK 01/01/18 08/14/18 50,000 unit capsule ondansetron HCl 4 mg tablet 4 mg PO Q4H PRN 01/01/18 08/14/18 Sevelamer [Renvela] 800 mg PO TIDCC 01/23/18 08/14/18 potassium chloride ER 10 mEq 10 meq PO BID tab 02/27/18 08/14/18 tablet,extended release sodium phosphates 19 gram-7 118 ml WI ONCE PRN 02/27/18 08/14/18 gram/118 mL enema Amiodarone HCl [Cordarone] 200 mg PO BIDCC 08/14/18 08/14/18 Calcitriol [Rocaltrol] 0.25 mcg PO DAILY 08/14/18 08/14/18 Ferrous Sulfate 325 mg PO DAILY 08/14/18 08/14/18 Previous Rx's Medication Instructions Recorded Folic Acid 1 mg PO DAILY tab 11/26/17 Metoprolol Tartrate [Lopressor] 12.5 mg PO BID tab 11/26/17 Simethicone [Mylicon] 80 mg CHEWED QIDP PRN tab.chew 11/26/17 Furosemide [Lasix] 40 mg PO BID #30 tab 02/03/18 HYDROmorphone HCL [Dilaudid] 1 mg PO Q6HP PRN #40 tab 02/03/18 Multivitamin [One Daily] 1 tab PO DAILY #14 tab 02/03/18 Allergies Allergy/AdvReac Type Severity Reaction Status Date / Time No Known Drug Allergies Allergy Verified 02/27/18 10:36 Review of Systems All systems ED: reviewed and negative except as stated. Past Medical History - Past Medical History Source: old records reviewed, nursing notes reviewed Medical history: Reports: atrial fibrillation, CHF, COPD, hypertension Surgical history ED: Reports: non-contributory, cataract (bilat.), other (no abdominal surgeries reported. 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 Absent: EOMI, conjunctival injection, visual horne intact ENT: normal oropharynx, mucous membranes dry, TM's normal bilaterally Neck: Present: normal inspection. Absent: full ROM, tenderness, meningismus Chest: Present: normal inspection, symmetric chest wall rise Respiratory: Present: normal lung sounds bilaterally Cardiovascular: Present: irregular rhythm, normal heart sounds Abdominal: Present: soft, normal bowel sounds. Absent: distention, tenderness Extremities: Present: pretibial edema, other (patient has tenderness to the right calf area). Absent: joint swelling Neurological: Present: alert, oriented X3 Psychiatric: Present: normal affect Skin: Present: warm, dry, intact, cyanosis, pallor. Absent: diaphoresis Course - Reevaluation(s) Reevaluation #1: Patient was given IV fluids. I believe he is a little bit dehydrated. Also concerning is his elevated white blood cell count although is not running a fever. He may have cellulitis in his right lower extremity, also the ultrasound came back showing a small amount of clot which seemed to be organized in one of the deep veins in his right leg. This was in the thigh and in the deep venous system. Discussed with the radiologist. Chest x-ray showing cardiomegaly but no acute infiltrated. He was given IV fluids, we started him on Rocephin, he does not appear septic, I believe part of his elevated white blood cell count could be from polycythemia. He does however have a left shift. Urinalysis was sent. He does have renal failure with a creatinine of 6.0, repeat troponin is still pending at this time. In the past he's had elevated troponins and his is not critically elevated, EKG with indeterminate intraventricular conduction delay. Appears to be sinus rhythm but a lot of artifact. Discussed hospital admission with Dr. Muñoz Vital Signs Temperature 97.2 F 08/14/18 10:40 Pulse Rate 57 L 08/14/18 10:40 Respiratory Rate 16 08/14/18 10:40 Blood Pressure 78/43 08/14/18 10:40 Pulse Oximetry (%) 99 08/14/18 10:40 Temperature 97.2 F 08/14/18 10:40 Pulse Rate 62 08/14/18 14:24 Respiratory Rate 16 08/14/18 14:24 Blood Pressure 109/48 08/14/18 14:24 Pulse Oximetry (%) 99 08/14/18 14:24 Extremity Problem, Nontraumati - MDM Narrative Medical decision making narrative: Impression is hypotension, cellulitis right lower leg. DVT. Renal failure. - Lab Data Result diagrams: 08/14/18 12:23 08/14/18 10:58 Lab Results 08/14/18 08/14/18 08/14/18 Range/Units 10:58 10:58 10:58 WBC 23.5 H (4.5-11.0) K/mcL RBC 2.67 L (4.50-5.90) M/mcL Hgb 8.9 L (13.5-16.5) g/dL Hct 26.4 L (41.0-55.0) % MCV 98.8 (80.0-100.0) fL MCH 33.2 (26.0-34.0) pg MCHC 33.6 (31.0-36.0) g/dL RDW 15.1 H (11.5-14.5) % Plt Count 1022 H* (140-440) K/mcL MPV 6.5 L (7.4-10.4) fL Gran % 83.3 H (38.0-78.0) % Lymph % (Auto) 7.6 L (15.5-49.0) % [place] % (Auto) 8.5 (1.0-12.0) % Eos % (Auto) 0.6 (0.0-7.0) % Baso % (Auto) 0 (0.0-2.0) % Gran # 19.6 H (1.8-8.0) K/mcL Lymph # (Auto) 1.8 (1.5-4.8) K/mcL [place] # (Auto) 2.0 H (0.1-0.9) K/mcL Eos # (Auto) 0.1 (0.0-0.7) K/mcL Baso # (Auto) 0 (0.0-0.3) K/mcL Total Counted Seg Neutrophils % (38-78) % Band Neutrophils % (0-10) % Monocytes % (Manual) (1-12) % Platelet Estimate (NORMAL) RBC Morphology (NORMAL) Poikilocytosis (NONE SEEN) Anisocytosis (NONE SEEN) Absolute Retic (0.5-1.5) % VBG Lactic Acid (0.5-2.0) mmol/L Sodium 138 (133-145) mmol/L Potassium 3.2 L (3.3-5.1) mmol/L Chloride 101 (96-108) mmol/L Carbon Dioxide 21 L (22-30) mmol/L Anion Gap 16.0 (8-16) BUN 97 H (8-23) mg/dl Creatinine 6.0 H* (0.7-1.2) mg/dl GFR Calculation 8 Glucose 136 H (70-105) mg/dL Calcium 8.9 (8.6-10.4) mg/dl Total Bilirubin 0.5 (0.0-1.0) mg/dL AST 18 (0-37) U/l ALT 38 (0-40) U/l Alkaline Phosphatase 72 (39-117) U/L Total Creatine Kinase 14 L (24-195) IU/L CK-MB (CK-2) 1.5 (0-4.9) ng/ml Troponin T 0.06 H* (0-0.03) ng/ml C-Reactive Protein (0.0-0.8) mg/dl NT-Pro-B Natriuret Pep (0-450) pg/ml Total Protein 5.7 L (5.9-8.4) gm/dL Albumin 2.8 L (3.2-5.2) gm/dL Globulin 2.9 (2.2-3.7) gm/dL Albumin/Globulin Ratio 1.0 (1.0-2.3) Urine Color Urine Appearance Urine pH (5.0-9.0) Ur Specific [place] (1.000-1.035) Urine Protein (NEG) mg/dL Urine Glucose (UA) (NEG) mg/dL Urine Ketones (NEG) mg/dL Urine Occult Blood (<0.03) mg/dL Urine Nitrate (NEG) Urine Bilirubin (NEG) mg/dL Urine Urobilinogen (NEG) mg/dL Ur Leukocyte Esterase (NEG) /uL Urine RBC (0-1) /hpf Urine WBC (0-4) /hpf Ur Squamous Epith Cells (0-4) /hpf Urine Bacteria (0) /hpf Hyaline Casts (0-2) /lpf Ur Culture Indicated? 08/14/18 08/14/18 08/14/18 Range/Units 12:23 12:23 12:23 WBC 16.3 H (4.5-11.0) K/mcL RBC 2.44 L (4.50-5.90) M/mcL Hgb 8.0 L (13.5-16.5) g/dL Hct 24.1 L (41.0-55.0) % MCV 98.8 (80.0-100.0) fL MCH 32.9 (26.0-34.0) pg MCHC 33.3 (31.0-36.0) g/dL RDW 14.9 H (11.5-14.5) % Plt Count 605 H (140-440) K/mcL MPV 6.2 L (7.4-10.4) fL Gran % (38.0-78.0) % Lymph % (Auto) (15.5-49.0) % [place] % (Auto) (1.0-12.0) % Eos % (Auto) (0.0-7.0) % Baso % (Auto) (0.0-2.0) % Gran # (1.8-8.0) K/mcL Lymph # (Auto) (1.5-4.8) K/mcL [place] # (Auto) (0.1-0.9) K/mcL Eos # (Auto) (0.0-0.7) K/mcL Baso # (Auto) (0.0-0.3) K/mcL Total Counted 100 Seg Neutrophils % 91 H (38-78) % Band Neutrophils % 1 (0-10) % Monocytes % (Manual) 8 (1-12) % Platelet Estimate Incr (NORMAL) RBC Morphology Abnormal (NORMAL) Poikilocytosis Few A (NONE SEEN) Anisocytosis Few A (NONE SEEN) Absolute Retic 3.2 H (0.5-1.5) % VBG Lactic Acid 1.5 (0.5-2.0) mmol/L Sodium (133-145) mmol/L Potassium (3.3-5.1) mmol/L Chloride (96-108) mmol/L Carbon Dioxide (22-30) mmol/L Anion Gap (8-16) BUN (8-23) mg/dl Creatinine (0.7-1.2) mg/dl GFR Calculation Glucose (70-105) mg/dL Calcium (8.6-10.4) mg/dl Total Bilirubin (0.0-1.0) mg/dL AST (0-37) U/l ALT (0-40) U/l Alkaline Phosphatase (39-117) U/L Total Creatine Kinase (24-195) IU/L CK-MB (CK-2) (0-4.9) ng/ml Troponin T (0-0.03) ng/ml C-Reactive Protein 2.9 H (0.0-0.8) mg/dl NT-Pro-B Natriuret Pep 2088.0 H (0-450) pg/ml Total Protein (5.9-8.4) gm/dL Albumin (3.2-5.2) gm/dL Globulin (2.2-3.7) gm/dL Albumin/Globulin Ratio (1.0-2.3) Urine Color Urine Appearance Urine pH (5.0-9.0) Ur Specific [place] (1.000-1.035) Urine Protein (NEG) mg/dL Urine Glucose (UA) (NEG) mg/dL Urine Ketones (NEG) mg/dL Urine Occult Blood (<0.03) mg/dL Urine Nitrate (NEG) Urine Bilirubin (NEG) mg/dL Urine Urobilinogen (NEG) mg/dL Ur Leukocyte Esterase (NEG) /uL Urine RBC (0-1) /hpf Urine WBC (0-4) /hpf Ur Squamous Epith Cells (0-4) /hpf Urine Bacteria (0) /hpf Hyaline Casts (0-2) /lpf Ur Culture Indicated? 08/14/18 Range/Units 13:58 WBC (4.5-11.0) K/mcL RBC (4.50-5.90) M/mcL Hgb (13.5-16.5) g/dL Hct (41.0-55.0) % MCV (80.0-100.0) fL MCH (26.0-34.0) pg MCHC (31.0-36.0) g/dL RDW (11.5-14.5) % Plt Count (140-440) K/mcL MPV (7.4-10.4) fL Gran % (38.0-78.0) % Lymph % (Auto) (15.5-49.0) % [place] % (Auto) (1.0-12.0) % Eos % (Auto) (0.0-7.0) % Baso % (Auto) (0.0-2.0) % Gran # (1.8-8.0) K/mcL Lymph # (Auto) (1.5-4.8) K/mcL [place] # (Auto) (0.1-0.9) K/mcL Eos # (Auto) (0.0-0.7) K/mcL Baso # (Auto) (0.0-0.3) K/mcL Total Counted Seg Neutrophils % (38-78) % Band Neutrophils % (0-10) % Monocytes % (Manual) (1-12) % Platelet Estimate (NORMAL) RBC Morphology (NORMAL) Poikilocytosis (NONE SEEN) Anisocytosis (NONE SEEN) Absolute Retic (0.5-1.5) % VBG Lactic Acid (0.5-2.0) mmol/L Sodium (133-145) mmol/L Potassium (3.3-5.1) mmol/L Chloride (96-108) mmol/L Carbon Dioxide (22-30) mmol/L Anion Gap (8-16) BUN (8-23) mg/dl Creatinine (0.7-1.2) mg/dl GFR Calculation Glucose (70-105) mg/dL Calcium (8.6-10.4) mg/dl Total Bilirubin (0.0-1.0) mg/dL AST (0-37) U/l ALT (0-40) U/l Alkaline Phosphatase (39-117) U/L Total Creatine Kinase (24-195) IU/L CK-MB (CK-2) (0-4.9) ng/ml Troponin T (0-0.03) ng/ml C-Reactive Protein (0.0-0.8) mg/dl NT-Pro-B Natriuret Pep (0-450) pg/ml Total Protein (5.9-8.4) gm/dL Albumin (3.2-5.2) gm/dL Globulin (2.2-3.7) gm/dL Albumin/Globulin Ratio (1.0-2.3) Urine Color Light yellow Urine Appearance Cloudy Urine pH 6.0 (5.0-9.0) Ur Specific [place] 1.010 (1.000-1.035) Urine Protein 100 (2+) (NEG) mg/dL Urine Glucose (UA) Norm (NEG) mg/dL Urine Ketones Neg (NEG) mg/dL Urine Occult Blood 3+ (large) (<0.03) mg/dL Urine Nitrate Neg (NEG) Urine Bilirubin Neg (NEG) mg/dL Urine Urobilinogen Norm (NEG) mg/dL Ur Leukocyte Esterase 3+ (large) (NEG) /uL Urine RBC > 182 H (0-1) /hpf Urine WBC > 182 H (0-4) /hpf Ur Squamous Epith Cells 12 H (0-4) /hpf Urine Bacteria Mod A (0) /hpf Hyaline Casts 53 H (0-2) /lpf Ur Culture Indicated? No Disposition Pt seen by CHANGE BOOTH ATTENDANT/PA only: No Clinical Impression: Deep vein thrombosis of lower extremity, Cellulitis, CKD (chronic kidney disease) stage 4, GFR 15-29 ml/min, Anemia of chronic disease Disposition: Still a Patient Condition: Good Referrals: Enrique Betts MD [Primary Care Provider] -
[2018-08-14 11:56] LABS: Basophils # (Auto) 0 K/mcL (0.0-0.3); Basophils % (Auto) 0 % (0.0-2.0); Eosinophils # (Auto) 0.1 K/mcL (0.0-0.7); Eosinophils % (Auto) 0.6 % (0.0-7.0); Granulocytes % (Auto) 83.3 % (38.0-78.0); Lymphocytes # (Auto) 1.8 K/mcL (1.5-4.8); Lymphocytes % (Auto) 7.6 % (15.5-49.0); Mean Cell Volume 98.8 fL (80.0-100.0); Mean Corpuscular HGB Conc 33.6 g/dL (31.0-36.0); Monocytes % (Auto) 8.5 % (1.0-12.0); Platelet Count 1022 K/mcL (140-440); RBC 2.67 M/mcL (4.50-5.90); Red Cell Distribution Width 15.1 % (11.5-14.5)
--- NOTE | 2018-08-14 11:56 | XRay Report ---
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 The patient is rotated to the left. There is a retrocardiac density which corresponds with a hiatus hernia seen on a prior chest CT. Patient's chin overlies the left apex. No pulmonary infiltrate is seen. The heart size is within normal limits and there is no congestive heart failure or pleural effusion. The left-sided pleural effusion and associated infiltrate in the left lower lobe have resolved since 02/01/18. IMPRESSION: Moderate size hiatus hernia and no acute abnormality. Interpreted and Authenticated by: Álvaro Bush 08/14/18
[2018-08-14 12:16] LABS: ALT/SGPT 38 U/l (0-40); Albumin 2.8 gm/dL (3.2-5.2); Alkaline Phosphatase 72 U/L (39-117); Blood Urea Nitrogen 97 mg/dl (8-23); Creatine Kinase 14 IU/L (24-195); Creatine Kinase MB 1.5 ng/ml (0-4.9)
--- NOTE | 2018-08-14 13:03 | Ultrasound Report ---
History: Pain and swelling around the right knee FINDINGS: There is a small amount of organized thrombus behind a valve leaflet in the right upper thigh, involving the proximal femoral vein. This is not causing occlusion or narrowing the vessel lumen. The remainder the deep veins and saphenous vein from the groin through the calf are normal, without evidence of occlusive thrombus. There is normal augmentation and compressibility. No Sparks's cyst is identified. IMPRESSION: Small organized thrombus behind a valve leaflet in the proximal right femoral vein. The remainder of the exam is normal. Dr. Agustin was called with the results Interpreted and Authenticated by: Álvaro Bush 08/14/18
[2018-08-14 13:07] LABS: Mean Cell Volume 98.8 fL (80.0-100.0); Mean Corpuscular HGB Conc 33.3 g/dL (31.0-36.0); Platelet Count 605 K/mcL (140-440); RBC 2.44 M/mcL (4.50-5.90); Red Cell Distribution Width 14.9 % (11.5-14.5); Retic Absolute 3.2 % (0.5-1.5)
[2018-08-14 13:38] LABS: Anisocytosis FEW (NONE SEEN); Band Neutrophils % 1 % (0-10); Monocytes % (Manual) 8 % (1-12); Platelet Estimate INCR (NORMAL); RBC Morphology ABNORMAL (NORMAL); Segmented Neutrophils % 91 % (38-78)
[2018-08-14 13:45] LABS: C-Reactive Protein 2.9 mg/dl (0.0-0.8)
[2018-08-14 14:40] LABS: Appearance,Urine CLOUDY; Bacteria,Urine MOD /hpf (0); Bilirubin,Urine NEG (NEG); Color,Urine LIGHT YELLOW; Glucose,Urine (UA) NORM (NEG); Leukocyte Esterase,Urine 3+ (LARGE) /uL (NEG); Protein,Urine 100 (2+) mg/dL (NEG); Urine Blood 3+ (LARGE) mg/dL (<0.03); Urine Hyaline Cast 53 /lpf (0-2); Urine RBC > 182 /hpf (0-1); Urine Squamous Epithelial Cell 12 /hpf (0-4); Urine WBC > 182 /hpf (0-4); Urobilinogen,Urine NORM (NEG)
[2018-08-14] MEDS ORDERED: 0.45 % SODIUM CHLORIDE 1,000 ML IV SCH (14:45)
[2018-08-14] MEDS ORDERED: cefTRIAXone 1 GM VIAL IV ONE (14:46)
--- NOTE | 2018-08-14 15:22 | Internal Med History&Physical ---
Medical - H&P: HPI Patient information: Note initiated : 08/14/18 at 3:18 pm Service Date, if different from initiated Date: [] Patient: Carlos Abraham a 88 y/o M admitted on for R Knee Pain And Swelling. Chief Complaint: [] History of present illness: Mr. Abraham is a 88 year old M Who presents the ED for hypotension. He was sent over from wound care for evaluation of his legs when he found to be hypotensive and sent him over. He had systolic blood pressures in the 70s and over in the ED he had a systolic of 78. He says he did feel little lightheaded but does not feel that he lightheadedness anymore after a liter of fluid in the ER and good blood pressures at this point. Is also had some asymmetry in his right leg and some tenderness and is concerned that wound care as well to have a DVT and he did have a Doppler in the ER which showed a femoral vein thrombus. She is bed bound for 8 months and resides at [facility] long [facility]. In the ED he is also found to have a leukocytosis however looking at old records he has chronic leukocytosis. He also has chronic normocytosis and chronic anemia. He says his white blood cells have been elevated since he was in the service and he believes his platelets have been elevated since that time as well. He has never seen a service desk analyst. Noted on old admission that there is a consult with hematology and patient was started on hydroxyurea for his normocytosis and aspirin. 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 Sounds like he is been on warfarin in the past versus something I am not sure what and he does not take aspirin. He also urinalysis in the ED that showed quite a bit of WBCs as well as leukocyte esterase but did have some squamous cells and a lot of hyaline casts. Denies any recent illnesses or respiratory symptoms. Chest x-ray unremarkable. No chest pain or shortness of breath or cough. No nausea vomiting diarrhea. Also concern for cellulitis of his lower extremity on the right. Review of Systems: Pertinent positives as above. Denies headache/fever/chills/nausea/vomiting/ chest or abdominal pain/cough/dyspnea/diarrhea. 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 tach Chronic pain Past Surgical History (Last Reviewed 02/27/18 @ 12:40 by Luz Maria Chaves MD) History of cataract surgery (Chronic) History of retinal detachment (Chronic) Family History (Last Reviewed 02/27/18 @ 12:40 by Luz Maria Chaves MD) Mother Diabetes mellitus States father is healthy Social History (Last Updated 02/27/18 @ 13:09 by Luz Maria Chaves MD) Quit smoking 20 years ago drinks alcohol rarely Has been bedbound since 8 months ago when he fell A Zi lift is used to getting from bed to wheelchair. Medical - H&P: Meds Home Medications Medication Instructions Recorded Confirmed Type Folic Acid 1 mg PO DAILY tab 11/26/17 08/14/18 Rx Metoprolol Tartrate [Lopressor] 12.5 mg PO BID tab 11/26/17 08/14/18 Rx Simethicone [Mylicon] 80 mg CHEWED QIDP PRN tab.chew 11/26/17 08/14/18 Rx bisacodyl 10 mg rectal suppository [address] QDAY PRN 12/04/17 08/14/18 History cholecalciferol (vitamin D3) 50,000 unit PO QWEEK 01/01/18 08/14/18 History 50,000 unit capsule ondansetron HCl 4 mg tablet 4 mg PO Q4H PRN 01/01/18 08/14/18 History Sevelamer [Renvela] 800 mg PO TIDCC 01/23/18 08/14/18 History Furosemide [Lasix] 40 mg PO BID #30 tab 02/03/18 08/14/18 Rx HYDROmorphone HCL [Dilaudid] 1 mg PO Q6HP PRN #40 tab 02/03/18 08/14/18 Rx Multivitamin [One Daily] 1 tab PO DAILY #14 tab 02/03/18 08/14/18 Rx potassium chloride ER 10 mEq 10 meq PO BID tab 02/27/18 08/14/18 History tablet,extended release sodium phosphates 19 gram-[address] ONCE PRN 02/27/18 08/14/18 History gram/118 mL enema Amiodarone HCl [Cordarone] 200 mg PO BIDCC 08/14/18 08/14/18 History Calcitriol [Rocaltrol] 0.25 mcg PO DAILY 08/14/18 08/14/18 History Ferrous Sulfate 325 mg PO DAILY 08/14/18 08/14/18 History Allergies Allergy/AdvReac Type Severity Reaction Status Date / Time No Known Drug Allergies Allergy Verified 02/27/18 10:36 Medical - H&P: Exam - Constitutional Vitals: Temp Pulse Resp BP Pulse Ox 97.2 F 58 L 15 115/58 99 08/14/18 10:40 08/14/18 15:14 08/14/18 15:14 08/14/18 15:01 08/14/18 15:14 Exam: General: Alert, Awake, No acute Distress Eyes/N/T: EOMI, PEERL, DMM Head/Neck: neck supple, normocephalic atraumatic CV: Mildly bradycardic but regular, No murmurs, normal s1/s2 Pulm: Clear b/l, no wheezing/rhonchi/rales Abd: soft, nontender, +BS x4 Ext: no clubbing. trace bilateral edema is chronic. Bilateral lower extremity wounds and discoloration, open wounds tp right, not particularly tender, no induration Neuro: Alert, no focal deficits, moves all extremities, CN 2-12 grossly intact, bilateral lower extremity weakness chronic skin: warm/dry Medical - H&P: Reslt - Labs CBC & Chem 7: 08/14/18 12:23 08/14/18 10:58 Labs: Short CBC 08/14/18 08/14/18 Range/Units 10:58 12:23 WBC 23.5 H 16.3 H (4.5-11.0) K/mcL Hgb 8.9 L 8.0 L (13.5-16.5) g/dL Hct 26.4 L 24.1 L (41.0-55.0) % Plt Count 1022 H* 605 H (140-440) K/mcL BMP 08/14/18 10:58 Sodium 138 Potassium 3.2 L Chloride 101 Carbon Dioxide 21 L BUN 97 H Creatinine 6.0 H* Glucose 136 H Calcium 8.9 Cardiac Enzymes 08/14/18 08/14/1819 Range/Units 10:58 10:58 14:10 Total Creatine Kinase 14 L (24-195) IU/L CK-MB (CK-2) 1.5 (0-4.9) ng/ml Troponin T 0.06 H* 0.06 H* (0-0.03) ng/ml Liver Function 08/14/18 Range/Units 10:58 Total Bilirubin 0.5 (0.0-1.0) mg/dL AST 18 (0-37) U/l ALT 38 (0-40) U/l Alkaline Phosphatase 72 (39-117) U/L Albumin 2.8 L (3.2-5.2) gm/dL Urine 08/14/18 Range/Units 13:58 Urine Color Light yellow Urine Appearance Cloudy Urine pH 6.0 (5.0-9.0) Ur Specific [place] 1.010 (1.000-1.035) Urine Protein 100 (2+) (NEG) mg/dL Urine Glucose (UA) Norm (NEG) mg/dL Medical - H&P: A/P - Narrative A/P Narrative: A: *UTI: *Severe Sepsis w/Hypotension from above vs volume depletion/meds: lactate ok, afebrile *RLE DVT: *chronic leukocytosis and thrombocytosis: has not seen hematology *CKD V: follows with nephrology, refused HD in past *Anemia, chronic: *HTN: on lopressor and lasix *h/o Vtach: on amio *chronic pain: *chronic LE wounds: follows with wound care. Right with open wounds and chronic discoloration, doubt leg is infected *h/o CHF: f/u echo in 2018 showed improved EF (50%) and no diastolic dysfxn P: -IV fluids, monitor fluid balance closely -Broad-spectrum antibiotics, pending blood and urine culture -Wound care consult -Referral smear pending -Nephrology consult -cont home amio -hold BB/lasix for now - -pt/ot, cm for placement -ppx: therapeutic lovenox
[2018-08-14] MEDS ORDERED: BISACODYL 10 MG SUPP.RECT PR PRN (16:30)
[2018-08-14] MEDS ORDERED: IPRATROPIUM/ALBUTEROL 3 ML AMPUL.NEB NEB PRN (16:30)
[2018-08-14] MEDS ORDERED: PIPERACILLIN SODIUM/TAZOBACTAM 3.375 GM in DEXTROSE 5% IN WATER 50 ML IV SCH (16:30)
[2018-08-14] MEDS ORDERED: ONDANSETRON 4 MG/2 ML VIAL IV PRN (16:30)
[2018-08-14] MEDS ORDERED: ACETAMINOPHEN 325 MG TABLET PO PRN (16:30)
[2018-08-14] MEDS ORDERED: SIMETHICONE 80 MG TAB.CHEW CHEWED PRN (16:30)
[2018-08-14] MEDS ORDERED: HYDROmorphone 2 MG TABLET PO PRN (16:30)
--- NOTE | 2018-08-14 16:39 | Nephrology Consult Note ---
History of Present Illness - Reason for Consult Patient information: Note initiated : 08/14/18 at 4:36 pm Service Date, if different from initiated Date: [] Patient: Carlos Abraham 88 y/o M admitted on 08/14/18 for R Knee Pain And Swelling. Chief Complaint: [] Consult date: 08/14/18 acute renal failure Requesting physician: Avel Agustin - Chief Complaint hypotension - History of Present Illness Patient is a 88 y/o male with multiple medical issues who is been admitted for hypotension/sepsis Patient was at wound care for care of his sacral and LE wounds. He was found to have BP in 70's systolic and was sent to ER. There was even concern of right LE DVT and this has been confirmed on venous doppler Patient is been admitted for management of UTI/sepsis/volume depletion/ acute on chronic renal failure and DVT He denies SOB, CP no nausea, vomiting LE edema better than in the past patient continues be on furosemide 40mg bid he is bed bound he has not followed in nephrology clinic, in the past he has declined dialysis Review of Systems All systems PM: reviewed and no additional remarkable complaints except as stated (as in HPI) Past History Past medical history: H/O HTN CHF h/o CKD h/o anemia/leucocytosis/thrombocytosis h/o Vtach Past surgical history: h/o cataract surgery and h/o surgery for retinal detachment Past family history: mother has h/o DM Past social history: Lives in [facility] no current addictions Medications and Allergies Home Medications Medication Instructions Recorded Confirmed Type Folic Acid 1 mg PO DAILY tab 11/26/17 08/14/18 Rx Metoprolol Tartrate [Lopressor] 12.5 mg PO BID tab 11/26/17 08/14/18 Rx Simethicone [Mylicon] 80 mg CHEWED QIDP PRN tab.chew 11/26/17 08/14/18 Rx bisacodyl 10 mg rectal suppository 10 mg ND QDAY PRN 12/04/17 08/14/18 History cholecalciferol (vitamin D3) 50,000 unit PO QWEEK 01/01/18 08/14/18 History 50,000 unit capsule ondansetron HCl 4 mg tablet 4 mg PO Q4H PRN 01/01/18 08/14/18 History Sevelamer [Renvela] 800 mg PO TIDCC 01/23/18 08/14/18 History Furosemide [Lasix] 40 mg PO BID #30 tab 02/03/18 08/14/18 Rx HYDROmorphone HCL [Dilaudid] 1 mg PO Q6HP PRN #40 tab 02/03/18 08/14/18 Rx Multivitamin [One Daily] 1 tab PO DAILY #14 tab 02/03/18 08/14/18 Rx potassium chloride ER 10 mEq 10 meq PO BID tab 02/27/18 08/14/18 History tablet,extended release sodium phosphates 19 gram-7 118 ml ND ONCE PRN 02/27/18 08/14/18 History gram/118 mL enema Amiodarone HCl [Cordarone] 200 mg PO BIDCC 08/14/18 08/14/18 History Calcitriol [Rocaltrol] 0.25 mcg PO DAILY 08/14/18 08/14/18 History Ferrous Sulfate 325 mg PO DAILY 08/14/18 08/14/18 History Allergies Allergy/AdvReac Type Severity Reaction Status Date / Time No Known Drug Allergies Allergy Verified 02/27/18 10:36 Exam - Vital Signs Vital signs: Temp Pulse Resp BP Pulse Ox 97.2 F 58 L 19 111/52 99 08/14/18 10:40 08/14/18 16:01 08/14/18 16:05 08/14/18 16:01 08/14/18 16:01 - General Appearance General appearance: appears started age, chronically ill EENT: mucous membranes moist Neck: no JVD Cardiology: no rub, edema (in right LE, no edema in left LE ), regular rate, regular rhythm Gastrointestinal: no tenderness, no guarding Integumentary: hyperpigmentation Neurologic: alert and oriented x3 Musculoskeletal: no erythema, no cyanosis Psychiatric: mood/affect appropriate Results - Lab Results 08/14/18 12:23 08/14/18 10:58 Most recent lab results Calcium 8.9 mg/dl (8.6-10.4) 08/14/18 10:58 Assessment and Plan (1) Acute on chronic renal failure Status: Acute (2) Metabolic acidosis Status: Acute (3) Hypokalemia Status: Acute Priority: High (4) Hypotension Status: Acute Qualifiers: Hypotension type: unspecified hypotension type Qualified Code(s): I95.9 - Hypotension, unspecified - Narrative A/P Narrative: JOSTIN likely from volume depletion, no s/o fluid excess, UA with multiple hyaline casts unclear baseline though as no labs in between hospital stay mild hypokalemia and metabolic acidosis no s/o fluid excess hypotension volume depletion vs sepsis anemia etiology multifactorial agree with holding diuretics continue with gentle IV hydration, if remains hypotensive consider pressors careful potassium repletion, he will get 10meq today and will recheck tomorrow to see if needs more will follow bicarb and start sodium bicarb if needed will check vitamin D and PTH level given vitamin D dose been too high no emergent need for dialysis, patient has declined this in the past and he is not candidate for jail dialysis given his medical issues, he is also bed bound please dose meds to egfr avoid nephrotoxic medications
[2018-08-14] MEDS: 0.9 % SODIUM CHLORIDE 1,000 ML IV SCH (17:27)
[2018-08-14] MEDS: PIPERACILLIN SODIUM/TAZOBACTAM 2.25 GM in DEXTROSE 5% IN WATER 50 ML IV SCH ×2 (17:35→23:05)
[2018-08-14] MEDS: AMIODARONE HCL 200 MG TABLET PO SCH (17:37)
[2018-08-14] MEDS: SEVELAMER 800 MG TABLET PO SCH (17:37)
[2018-08-14] MEDS: POTASSIUM CHLORIDE 10 MEQ TABLET PO SCH (17:37)
[2018-08-14] MEDS: ENOXAPARIN 40 MG/0.4 ML SYRINGE SQ SCH (17:38)
[2018-08-14] MEDS: FAMOTIDINE 20 MG TABLET PO SCH (21:40)
[2018-08-14] MEDS: 0.9 % SODIUM CHLORIDE 10 ML SYRINGE IV SCH (21:42)
[2018-08-15] MEDS: 0.9 % SODIUM CHLORIDE 1,000 ML IV SCH (05:27)
[2018-08-15] MEDS: 0.9 % SODIUM CHLORIDE 10 ML SYRINGE IV SCH ×3 (05:27→21:35)
[2018-08-15] MEDS: PIPERACILLIN SODIUM/TAZOBACTAM 2.25 GM in DEXTROSE 5% IN WATER 50 ML IV SCH ×3 (05:27→21:34)
[2018-08-15 05:55] LABS: Parathyroid Hormone Intact 25.1 pg/ml (15-65)
[2018-08-15 06:06] LABS: Mean Cell Volume 101.8 fL (80.0-100.0); Mean Corpuscular HGB Conc 34.6 g/dL (31.0-36.0); Platelet Count 526 K/mcL (140-440); RBC 2.05 M/mcL (4.50-5.90)
[2018-08-15 06:29] LABS: ALT/SGPT 34 U/l (0-40); Albumin 2.3 gm/dL (3.2-5.2); Alkaline Phosphatase 60 U/L (39-117); Bilirubin,Direct < 0.2 mg/dL (0.0-0.3); Blood Urea Nitrogen 93 mg/dl (8-23); Gamma Glutamyl Transpeptidase 24 U/L (8-61); Uric Acid 11.8 mg/dL (2.5-8.0)
--- NOTE | 2018-08-15 06:33 | Internal Med Progress Note ---
Medical - PN: Subj Patient information: Note initiated : 08/15/18 at 6:24 am Service Date, if different from initiated Date: [] Patient: Carlos Abraham 88 y/o M admitted on 08/14/18 for R Knee Pain And Swelling. Chief Complaint: [] Interval history: Mr. Abraham is a 88 year old M Who presents the ED for hypotension. He was sent over from wound care for evaluation of his legs when he found to be hypotensive and sent him over. He had systolic blood pressures in the 70s and over in the ED he had a systolic of 78. He says he did feel little lightheaded but does not feel that he lightheadedness anymore after a liter of fluid in the ER and good blood pressures at this point. Is also had some asymmetry in his right leg and some tenderness and is concerned that wound care as well to have a DVT and he did have a Doppler in the ER which showed a femoral vein thrombus. She is bed bound for 8 months and resides at [facility]. In the ED he is also found to have a leukocytosis however looking at old records he has chronic leukocytosis. He also has chronic normocytosis and chronic anemia. He says his white blood cells have been elevated since he was in the service and he believes his platelets have been elevated since that time as well. He has never seen a permit agent. Noted on old admission that there is a consult with hematology and patient was started on hydroxyurea for his normocytosis and aspirin. 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 Sounds like he is been on warfarin in the past versus something I am not sure what and he does not take aspirin. He also urinalysis in the ED that showed quite a bit of WBCs as well as leukocyte esterase but did have some squamous cells and a lot of hyaline casts. Denies any recent illnesses or respiratory symptoms. Chest x-ray unremarkable. No chest pain or shortness of breath or cough. No nausea vomiting diarrhea. Also in ED was concern for possible cellulitis of his lower extremity on the right. 1/4 Feeling better. No new complaints. No overnight events. Wants to get out here. Review of Systems: denies headache/fever/chills/nausea/vomiting/chest or abdominal pain/cough/dyspnea/diarrhea. Otherwise see above. - Constitutional Vitals: Vital Signs Temp Pulse Resp BP Pulse Ox 98.2 F 50 L 14 103/44 100 08/15/18 04:01 08/15/18 04:36 08/15/18 04:36 08/15/18 04:01 08/15/18 04:36 Period Temp Pulse Resp BP Sys/Ferris Pulse Ox Last 24 Hr 97.2 F-98.7 F 50-72 7-28 78-142/43-85 95-100 Intake and Output 08/14/18 08/15/18 08/15/18 21:59 05:59 13:59 Intake Total 1050 / 2110 1060 / 2110 Output Total 75 / 75 Balance 975 / 2035 1060 / 2035 Weight 82.282 kg Intake & Output: Intake & Output 08/14/18 08/15/18 08/15/18 21:59 05:59 13:59 Intake Total 1050 / 2110 1060 / 2110 Output Total 75 / 75 Balance 975 / 2035 1060 / 2035 Weight 82.282 kg Intake: IV 1050 / 2100 1050 / 2100 Sodium Chloride 0.9% 1,000 ml @ 1000 / 2000 1000 / 2000 100 mls/hr IV .Q10H [facility] Rx#: [id number] Zosyn 2.25 gm In Dextrose 5% in 50 / 100 50 / 100 Water 50 ml @ 100 mls/hr IV Q8H [facility] Rx#:[id number] Oral 10 / 10 Output: Void Amount 75 / 75 Other: Meal Dinner Percent of Meal Consumed 100% Feeding Ability Assist with Tray Set Up Urine Appearance Cloudy Cloudy Urine Color Bright Yellow Bright Yellow Urine Odor Strong Strong Stool Size Moderate Stool Color Brown Stool Consistency Liquid # of times incontinent of 1 Bowels Exam: General: Alert, Awake, No acute Distress Eyes/N/T: EOMI, Head/Neck: neck supple, CV: Mildly bradycardic but regular, No murmurs, normal s1/s2 Pulm: Clear b/l, no wheezing/rhonchi/rales Abd: soft, nontender, +BS x4 Ext: no clubbing. trace bilateral edema is chronic. Bilateral lower extremity wounds and discoloration, open wounds to right, not particularly tender, no induration Neuro: Alert, no focal deficits, moves all extremities, skin: warm/dry Medical - PN: Obj Da - Labs CBC & Chem 7: 08/15/18 03:21 08/15/18 03:21 Labs: Abnormal Lab Results 08/15/18 08/15/18 08/14/18 04:00 03:21 14:10 WBC 14.4 H RBC 2.05 L Hgb 7.2 L Hct 20.8 L* MCV 101.8 H MCH 35.3 H RDW 15.0 H Plt Count 526 H MPV 6.7 L Gran % Lymph % (Auto) Gran # [place] # (Auto) Seg Neutrophils % Poikilocytosis Anisocytosis Absolute Retic Potassium Carbon Dioxide BUN Creatinine Glucose Total Creatine Kinase Troponin T 0.06 H* C-Reactive Protein NT-Pro-B Natriuret Pep Total Protein Albumin 25-OH Vitamin D Total 25.24 L Urine RBC Urine WBC Ur Squamous Epith Cells Urine Bacteria Hyaline Casts 08/14/18 08/14/18 08/14/18 13:58 12:23 12:23 WBC 16.3 H RBC 2.44 L Hgb 8.0 L Hct 24.1 L MCV MCH RDW 14.9 H Plt Count 605 H MPV 6.2 L Gran % Lymph % (Auto) Gran # [place] # (Auto) Seg Neutrophils % 91 H Poikilocytosis Few A Anisocytosis Few A Absolute Retic 3.2 H Potassium Carbon Dioxide BUN Creatinine Glucose Total Creatine Kinase Troponin T C-Reactive Protein 2.9 H NT-Pro-B Natriuret Pep 2088.0 H Total Protein Albumin 25-OH Vitamin D Total Urine RBC > 182 H Urine WBC > 182 H Ur Squamous Epith Cells 12 H Urine Bacteria Mod A Hyaline Casts 53 H 08/14/18 08/14/18 08/14/18 10:58 10:58 10:58 WBC 23.5 H RBC 2.67 L Hgb 8.9 L Hct 26.4 L MCV MCH RDW 15.1 H Plt Count 1022 H* MPV 6.5 L Gran % 83.3 H Lymph % (Auto) 7.6 L Gran # 19.6 H [place] # (Auto) 2.0 H Seg Neutrophils % Poikilocytosis Anisocytosis Absolute Retic Potassium 3.2 L Carbon Dioxide 21 L BUN 97 H Creatinine 6.0 H* Glucose 136 H Total Creatine Kinase 14 L Troponin T 0.06 H* C-Reactive Protein NT-Pro-B Natriuret Pep Total Protein 5.7 L Albumin 2.8 L 25-OH Vitamin D Total Urine RBC Urine WBC Ur Squamous Epith Cells Urine Bacteria Hyaline Casts Meds: Medications Acetaminophen (Tylenol) 650 mg PO Q6HP PRN PRN Reason: PAIN/FEVER > 101 Albuterol/Ipratropium (Duoneb) 3 ml NEB Q4HRT PRN PRN Reason: Bronchospasm Amiodarone HCl (Cordarone) 200 mg PO BIDCC [facility] Last Admin: 08/14/18 17:37 Dose: 200 mg Documented by: Bisacodyl (Dulcolax) 10 mg CO QDAY PRN PRN Reason: Constipation Calcitriol (Rocaltrol) 0.25 mcg PO DAILY [facility] Enoxaparin Sodium (Lovenox) 80 mg SQ DAILY [facility] Last Admin: 08/14/18 17:38 Dose: 80 mg Documented by: Famotidine (Pepcid) 20 mg PO HS [facility] Last Admin: 08/14/18 21:40 Dose: 20 mg Documented by: Folic Acid (Folic Acid) 1 mg PO DAILY [facility] Hydromorphone HCl (Dilaudid) 1 mg PO Q6HP PRN PRN Reason: Pain Sodium Chloride (Sodium Chloride 0.9%) 1,000 mls @ 100 mls/hr IV .Q10H [facility] Stop: 08/15/18 12:29 Last Admin: 08/15/18 05:27 Dose: 100 mls/hr Documented by: Piperacillin Sod/Tazobactam (Sod 2.25 gm/ Dextrose) 50 mls @ 100 mls/hr IV Q8H [facility] Last Admin: 08/15/18 05:27 Dose: 100 mls/hr Documented by: Non-Formulary Medication (Cholecalciferol (Vitamin D3) [Vitamin D3]) 50,000 unit PO QWEEK [facility] Ondansetron HCl (Zofran) 4 mg IV Q4HP PRN PRN Reason: Nausea And Vomiting Potassium Chloride (Kdur) 10 meq PO BIDCC [facility] Last Admin: 08/14/18 17:37 Dose: 10 meq Documented by: Sevelamer Carbonate (Renvela) 800 mg PO TIDCC [facility] Last Admin: 08/14/18 17:37 Dose: 800 mg Documented by: Simethicone (Mylicon) 80 mg CHEWED QIDP PRN PRN Reason: Dyspepsia Sodium Chloride (Saline Flush) 10 ml IV Q8 [facility] Last Admin: 08/15/18 05:27 Dose: 10 ml Documented by: Medical - PN: A/P - Time Spent With Patient Total time spent is greater than 50% in coordination of care (as documented) at patient's floor/unit and/or counseling patient: - Narrative A/P Narrative: A: *UTI: *Severe Sepsis w/Hypotension from above vs volume depletion/meds: lactate ok, afebrile -responded to IVF -leukocytosis improved *RLE DVT: -not tachy or hypoxic, doubt hypotension from PE *chronic leukocytosis and thrombocytosis: has not seen hematology, pt states has been present for decades *CKD V: follows with nephrology, refused HD in past *Anemia, chronic: *HTN: on lopressor and lasix *h/o Vtach: on amio *chronic pain: *chronic LE wounds: follows with wound care. Right with open wounds and chronic discoloration, doubt leg is infected *h/o CHF: f/u echo in 2018 showed improved EF (50%) and no diastolic dysfxn *hypokalemia: P: -v/q scan pending -IVFs, monitor fluid balance closely -Broad-spectrum antibiotics, pending blood and urine culture -Wound care consult -peripheral smear pending -Nephrology following -cont home amio -hold BB/lasix for now -replete potassium prn -pt/ot, cm for placement -ppx: therapeutic lovenox Medical - PN: Qual - VTE Deep Vein Thrombosis/Pulmonary Embolism Present on Admission: Yes
[2018-08-15 06:41] LABS: Lymphocytes % 3 % (15-49); Macrocytosis 1+ (NONE SEEN); Metamyelocytes % 2 % (0-0); Monocytes % (Manual) 7 % (1-12); Ovalocytes FEW (NONE SEEN); Platelet Estimate INCREASED (NORMAL); RBC Morphology ABNORM (NORMAL); Segmented Neutrophils % 88 % (38-78)
[2018-08-15] MEDS ORDERED: POTASSIUM CHLORIDE 20 MEQ TABLET PO ONE (06:54)
[2018-08-15 07:08] LABS: Appearance,Urine TURBID; Bacteria,Urine 0 /hpf (0); Bilirubin,Urine NEG (NEG); Color,Urine YELLOW; Glucose,Urine (UA) NEGATIVE (NEG); Leukocyte Esterase,Urine 250 /uL (NEG); Protein,Urine 30 mg/dL (NEG); Specific Gravity,Urine 1.013 (1.000-1.035); Urine Blood 0.03 mg/dL (<0.03); Urine RBC 76 /hpf (0-1); Urine Squamous Epithelial Cell 0 /hpf (0-4); Urine WBC > 182 /hpf (0-4); Urobilinogen,Urine NEG (NEG)
[2018-08-15] MEDS: SEVELAMER 800 MG TABLET PO SCH ×3 (07:31→16:48)
[2018-08-15] MEDS: AMIODARONE HCL 200 MG TABLET PO SCH ×2 (07:31→16:48)
[2018-08-15] MEDS: ENOXAPARIN 40 MG/0.4 ML SYRINGE SQ SCH (07:35)
[2018-08-15] MEDS: FOLIC ACID 1 MG TABLET PO SCH (07:36)
[2018-08-15] MEDS ORDERED: CALCITRIOL 0.25 MCG CAPSULE PO SCH (09:00)
[2018-08-15] MEDS: POTASSIUM CHLORIDE 10 MEQ TABLET PO SCH ×2 (09:50→16:47)
--- NOTE | 2018-08-15 12:55 | Nephrology Progress Note ---
Subjective Patient information: Note initiated : 08/15/18 at 12:51 pm Service Date, if different from initiated Date: [] Patient: Carlos Abraham 88 y/o M admitted on 08/14/18 for R Knee Pain And Swelling. Chief Complaint: [] Principal diagnosis: hypotension Interval history: Patient with no new symptoms denies SOB, CP no worsening edema is making more urine today denies any uremic symptoms Refused VQ scan to r/o PE BP remains low normal, echo will be done today Pertinent ROS: as above Objective - Vital Signs Vital signs: Vital Signs Temp Pulse Pulse Resp BP BP Pulse Ox 08/15/18 12:00 98.7 F 19 126/68 94 08/15/18 10:08 52 L 15 97 08/15/18 10:01 53 L 15 102/44 96 08/15/18 09:01 57 L 16 105/48 97 08/15/18 08:08 69 20 113/51 99 08/15/18 08:00 66 08/15/18 07:01 50 L 15 112/45 96 08/15/18 06:01 48 L 14 99/41 99 08/15/18 05:01 50 L 13 106/43 100 08/15/18 04:36 50 L 14 100 08/15/18 04:01 98.2 F 50 L 14 103/44 99 08/15/18 03:45 50 L 14 98 08/15/18 03:43 98.2 F 50 L 13 98 08/15/18 03:01 14 99/45 08/15/18 02:01 12 111/45 08/15/18 01:45 14 100 08/15/18 01:01 13 103/46 08/15/18 00:01 98.5 F 14 101/48 08/14/18 23:01 52 L 12 114/46 100 08/14/18 22:01 52 L 14 108/44 100 08/14/18 21:37 56 L 17 96 08/14/18 21:01 52 L 13 101/45 99 08/14/18 20:01 62 12 108/49 100 08/14/18 19:01 72 14 142/69 99 08/14/18 18:01 59 L 14 99/62 100 08/14/18 18:00 98 08/14/18 17:01 59 L 13 116/57 100 08/14/18 16:38 65 12 127/63 95 08/14/18 16:30 98.7 F 16 127/63 100 08/14/18 16:17 98.7 F 16 127/63 100 08/14/18 16:05 19 08/14/18 16:01 58 L 17 111/52 99 08/14/18 15:46 60 10 L 109/69 98 08/14/18 15:31 60 11 L 123/53 98 08/14/18 15:16 57 L 7 L 115/48 99 08/14/18 15:14 58 L 15 99 08/14/18 15:01 61 16 115/58 98 08/14/18 14:46 52 L 22 106/45 98 08/14/18 14:31 56 L 11 L 107/45 99 08/14/18 14:24 62 16 109/48 99 08/14/18 14:16 57 L 10 L 109/48 98 08/14/18 14:01 56 L 13 111/48 99 08/14/18 13:46 54 L 28 H 104/46 100 08/14/18 13:45 55 L 15 100 08/14/18 13:31 56 L 15 108/48 100 08/14/18 13:16 56 L 11 L 103/48 100 08/14/18 13:01 55 L 13 97/85 97 Intake and Output 08/14/18 08/15/18 08/15/18 21:59 05:59 13:59 Intake Total 1050 / 2110 1060 / 2110 175 / 175 Output Total 75 / 75 275 / 275 Balance 972034 1062034 -100 / -100 Intake: IV 1050 / 2100 1050 / 2100 50 / 50 Sodium Chloride 0.9% 1,000 ml @ 1000 / 2000 1000 / 2000 100 mls/hr IV .Q10H [facility] Rx#: [id number] Zosyn 2.25 gm In Dextrose 5% in 50 / 100 50 / 100 50 / 50 Water 50 ml @ 100 mls/hr IV Q8H [facility] Rx#:[id number] Oral 10 / 125 / 125 Output: Void Amount 75 / 75 275 / 275 Other: Meal Dinner Breakfast Percent of Meal Consumed 100% 100% Feeding Ability Assist with Tray Set Up Independent Urine Appearance Cloudy Cloudy Cloudy Urine Color Bright Yellow Bright Yellow Dark Yellow Urine Odor Strong Strong Foul Stool Size Moderate Stool Color Brown Stool Consistency Liquid # Voids 1 # of times incontinent of 1 Bowels Weight 181 lb 6.4 oz Intake & Output: Intake & Output 08/14/18 08/15/18 08/15/18 21:59 05:59 13:59 Intake Total 1050 / 0 1060 / 0 175 / 175 Output Total 75 / 75 275 / 275 Balance 5 106 / 2034 -100 / -100 Weight 181 lb 6.4 oz Intake: IV 1050 / 2100 1050 / 2100 50 / 50 Sodium Chloride 0.9% 1,000 ml @ 1000 / 2000 1000 / 2000 100 mls/hr IV .Q10H [facility] Rx#: [id number] Zosyn 2.25 gm In Dextrose 5% in 50 / 100 50 / 100 50 / 50 Water 50 ml @ 100 mls/hr IV Q8H [facility] Rx#:[id number] Oral 10 10 125 / 125 Output: Void Amount 75 / 75 275 / 275 Other: Meal Dinner Breakfast Percent of Meal Consumed 100% 100% Feeding Ability Assist with Tray Set Up Independent Urine Appearance Cloudy Cloudy Cloudy Urine Color Bright Yellow Bright Yellow Dark Yellow Urine Odor Strong Strong Foul Stool Size Moderate Stool Color Brown Stool Consistency Liquid # Voids 1 # of times incontinent of 1 Bowels - General Appearance General appearance: appears started age, chronically ill EENT: mucous membranes moist Neck: no JVD Respiratory: clear Cardiology: no rub, regular rate, regular rhythm Gastrointestinal: no tenderness, no guarding Integumentary: hyperpigmentation Neurologic: alert and oriented x3 Musculoskeletal: no erythema, no cyanosis - Lab 08/15/18 03:21 08/15/18 03:21 Most recent lab results Calcium 8.0 mg/dl (8.6-10.4) L 08/15/18 03:21 Phosphorus 4.0 mg/dL (2.7-4.5) 08/15/18 03:21 Magnesium 2.2 mg/dL (1.6-2.5) 08/15/18 03:21 Assessment and Plan (1) Acute on chronic renal failure Status: Acute (2) Metabolic acidosis Status: Acute (3) Hypokalemia Status: Acute Priority: High (4) Hypotension Status: Acute Qualifiers: Hypotension type: unspecified hypotension type Qualified Code(s): I95.9 - Hypotension, unspecified - Narrative A/P Narrative: renal function unchanged urine output a little better today no s/o fluid excess no hyperkalemia, rather has hypokalemia no uremic symptoms given this no emergent need for dialysis, patient has refused this in the past and during thi shospital stay will continue to hold diuretics he has received K supplement this am, will recheck BMP to ensure in normal range will obtain anemia work up ct IVF today avoid nephrotoxic meds dose meds to egfr will follow along
[2018-08-15 17:08] LABS: Blood Urea Nitrogen 90 mg/dl (8-23)
[2018-08-15] MEDS: SODIUM BICARBONATE 650 MG TABLET PO SCH (21:33)
[2018-08-15] MEDS: FAMOTIDINE 20 MG TABLET PO SCH (21:33)
[2018-08-16] MEDS: PIPERACILLIN SODIUM/TAZOBACTAM 2.25 GM in DEXTROSE 5% IN WATER 50 ML IV SCH ×3 (05:31→22:19)
[2018-08-16] MEDS: 0.9 % SODIUM CHLORIDE 10 ML SYRINGE IV SCH ×3 (05:32→22:20)
[2018-08-16 06:12] LABS: ALT/SGPT 32 U/l (0-40); Albumin 2.3 gm/dL (3.2-5.2); Alkaline Phosphatase 53 U/L (39-117); Basophils # (Auto) 0 K/mcL (0.0-0.3); Basophils % (Auto) 0.1 % (0.0-2.0); Bilirubin,Direct < 0.2 mg/dL (0.0-0.3); Blood Urea Nitrogen 86 mg/dl (8-23); C-Reactive Protein 2.1 mg/dl (0.0-0.8); Eosinophils # (Auto) 0.1 K/mcL (0.0-0.7); Eosinophils % (Auto) 0.8 % (0.0-7.0); Gamma Glutamyl Transpeptidase 31 U/L (8-61); Granulocytes % (Auto) 86.2 % (38.0-78.0); Iron 85 mcg/dl (61-157); Lymphocytes # (Auto) 0.6 K/mcL (1.5-4.8); Lymphocytes % (Auto) 5.1 % (15.5-49.0); Mean Cell Volume 100.1 fL (80.0-100.0); Mean Corpuscular HGB Conc 33.7 g/dL (31.0-36.0); Monocytes # (Auto) 0.9 K/mcL (0.1-0.9); Monocytes % (Auto) 7.8 % (1.0-12.0); Platelet Count 548 K/mcL (140-440); RBC 2.03 M/mcL (4.50-5.90); Red Cell Distribution Width 15.2 % (11.5-14.5); Transferrin % Saturation 65 % (20-50); Unsaturated Iron Binding 45 mcg/dL (112-346); Uric Acid 12.3 mg/dL (2.5-8.0)
[2018-08-16 06:24] LABS: Ferritin 361.8 ng/ml (30-400); Prealbumin 16.2 mg/dl (20-40)
[2018-08-16 06:32] LABS: Vitamin B12 1195 pg/ml (232-1245)
[2018-08-16] MEDS: 0.9 % SODIUM CHLORIDE 250 ML IV SCH ×2 (07:35→13:27)
[2018-08-16] MEDS: POTASSIUM CHLORIDE 10 MEQ TABLET PO SCH ×2 (07:35→17:28)
[2018-08-16] MEDS: SEVELAMER 800 MG TABLET PO SCH ×3 (07:36→17:28)
[2018-08-16] MEDS: AMIODARONE HCL 200 MG TABLET PO SCH ×2 (07:36→17:28)
--- NOTE | 2018-08-16 07:47 | Internal Med Progress Note ---
Medical - PN: Subj Patient information: Note initiated : 08/16/18 at 7:45 am Service Date, if different from initiated Date: [] Patient: Carlos Abraham 88 y/o M admitted on 08/14/18 for R Knee Pain And Swelling. Chief Complaint: [] Interval history: donell Abraham is a 88 year old M Who presents the ED for hypotension. He was sent over from wound care for evaluation of his legs when he found to be hypotensive and sent him over. He had systolic blood pressures in the 70s and over in the ED he had a systolic of 78. He says he did feel little lightheaded but does not feel that he lightheadedness anymore after a liter of fluid in the ER and good blood pressures at this point. Is also had some asymmetry in his right leg and some tenderness and is concerned that wound care as well to have a DVT and he did have a Doppler in the ER which showed a femoral vein thrombus. She is bed bound for 8 months and resides at [facility]. In the ED he is also found to have a leukocytosis however looking at old records he has chronic leukocytosis. He also has chronic normocytosis and chronic anemia. He says his white blood cells have been elevated since he was in the service and he believes his platelets have been elevated since that time as well. He has never seen a passenger rate clerk. Noted on old admission that there is a consult with hematology and patient was started on hydroxyurea for his normocytosis and aspirin. 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 Sounds like he is been on warfarin in the past versus something I am not sure what and he does not take aspirin. He also urinalysis in the ED that showed quite a bit of WBCs as well as leukocyte esterase but did have some squamous cells and a lot of hyaline casts. Denies any recent illnesses or respiratory symptoms. Chest x-ray unremarkable. No chest pain or shortness of breath or cough. No nausea vomiting diarrhea. Also in ED was concern for possible cellulitis of his lower extremity on the right. 1/4 Feeling better. No new complaints. No overnight events. Wants to get out here. 1/5 Hemoglobin drifting down to 6.8. No obvious bleeding. Currently on full dose anticoagulation on Lovenox for DVT. Patient refusing blood transfusion. Start IV iron. Initiate Coumadin dosing per pharmacy, white count down from 20,000- 11.7. Creatinine 5.9 full code. Potassium 3.1. Patient requesting milk - Constitutional Vitals: Vital Signs Temp Pulse Resp BP Pulse Ox 100.3 F H 60 16 108/44 97 08/16/18 07:36 08/16/18 03:01 08/16/18 07:01 08/16/18 07:01 08/16/18 07:01 Period Temp Pulse Resp BP Sys/Ferris Pulse Ox Last 24 Hr 98.2 F-100.3 F 52-72 12-22 94-130/38-93 94-100 Intake and Output 08/15/18 08/16/18 08/16/18 21:59 05:59 13:59 Intake Total 370 / 835 290 / 835 50 / 50 Output Total 125 / 600 200 / 600 Balance 245 / 235 90 / 235 50 / 50 Weight 184 lb 1.6 oz Intake & Output: Intake & Output 08/15/18 08/16/18 08/16/18 21:59 05:59 13:59 Intake Total 370 / 835 290 / 835 50 / 50 Output Total 125 / 600 200 / 600 Balance 245 / 235 90 / 235 50 / 50 Weight 184 lb 1.6 oz Intake: IV 50 / 150 50 / 150 50 / 50 Zosyn 2.25 gm In Dextrose 5% in 50 / 150 50 / 150 50 / 50 Water 50 ml @ 100 mls/hr IV Q8H [facility] Rx#:[id number] Oral 320 / 685 240 / 685 Output: Void Amount 125 / 600 200 / 600 Other: Meal Lunch Percent of Meal Consumed 50% Feeding Ability Independent Urine Appearance Cloudy Cloudy Purulent Urine Color Pale Pale Urine Odor Strong Strong Stool Size Moderate Stool Color Brown Stool Consistency Soft Liquid # Voids 1 # of times incontinent of 1 1 Bowels General appearance: no acute distress Exam: Alert and oriented nonlabored breathing Nondistended abdomen Minimal anxiety No telemetry events Medical - PN: Obj Da - Labs CBC & Chem 7: 08/16/18 04:00 08/16/18 04:00 Labs: Abnormal Lab Results 08/16/18 08/16/18 08/16/18 04:00 04:00 04:00 WBC 11.7 H RBC 2.03 L Hgb 6.9 L* Hct 20.3 L* MCV 100.1 H MCH RDW 15.2 H Plt Count 548 H MPV 6.3 L Gran % 86.2 H Lymph % (Auto) 5.1 L Gran # 10.1 H Lymph # (Auto) 0.6 L [place] # (Auto) Seg Neutrophils % Lymphocytes % Metamyelocytes % Platelet Estimate RBC Morphology Poikilocytosis Anisocytosis Macrocytosis Ovalocytes Absolute Retic Potassium 3.1 L Chloride 110 H Carbon Dioxide 18 L BUN 86 H Creatinine 5.9 H* Glucose Uric Acid 12.3 H Calcium 8.3 L TIBC 130 L Unsat Iron Binding 45 L Transferrin % Sat 65 H Total Creatine Kinase Troponin T C-Reactive Protein 2.1 H NT-Pro-B Natriuret Pep Total Protein 4.6 L Albumin 2.3 L Prealbumin 16.2 L 25-OH Vitamin D Total Folate > 20.0 H Urine Protein Urine Occult Blood Urine Nitrate Ur Leukocyte Esterase Urine RBC Urine WBC Ur Squamous Epith Cells Urine Bacteria Hyaline Casts 08/15/18 08/15/18 08/15/18 16:04 06:44 04:00 WBC RBC Hgb Hct MCV MCH RDW Plt Count MPV Gran % Lymph % (Auto) Gran # Lymph # (Auto) [place] # (Auto) Seg Neutrophils % Lymphocytes % Metamyelocytes % Platelet Estimate RBC Morphology Poikilocytosis Anisocytosis Macrocytosis Ovalocytes Absolute Retic Potassium Chloride Carbon Dioxide 19 L BUN 90 H Creatinine 5.8 H* Glucose 139 H Uric Acid Calcium 8.0 L TIBC Unsat Iron Binding Transferrin % Sat Total Creatine Kinase Troponin T C-Reactive Protein NT-Pro-B Natriuret Pep Total Protein Albumin Prealbumin 25-OH Vitamin D Total 25.24 L Folate Urine Protein 30 A Urine Occult Blood 0.03 A Urine Nitrate Pos A Ur Leukocyte Esterase 250 A Urine RBC 76 H Urine WBC > 182 H Ur Squamous Epith Cells Urine Bacteria Hyaline Casts 08/15/18 08/15/18 08/14/18 03:21 03:21 14:10 WBC 14.4 H RBC 2.05 L Hgb 7.2 L Hct 20.8 L* MCV 101.8 H MCH 35.3 H RDW 15.0 H Plt Count 526 H MPV 6.7 L Gran % Lymph % (Auto) Gran # Lymph # (Auto) [place] # (Auto) Seg Neutrophils % 88 H Lymphocytes % 3 L Metamyelocytes % 2 H Platelet Estimate Increased A RBC Morphology Abnorm A Poikilocytosis Anisocytosis Macrocytosis 1+ A Ovalocytes Few A Absolute Retic Potassium 2.7 L* Chloride Carbon Dioxide 19 L BUN 93 H Creatinine 6.0 H* Glucose 114 H Uric Acid 11.8 H Calcium 8.0 L TIBC Unsat Iron Binding Transferrin % Sat Total Creatine Kinase Troponin T 0.06 H* C-Reactive Protein NT-Pro-B Natriuret Pep Total Protein 4.6 L Albumin 2.3 L Prealbumin 25-OH Vitamin D Total Folate Urine Protein Urine Occult Blood Urine Nitrate Ur Leukocyte Esterase Urine RBC Urine WBC Ur Squamous Epith Cells Urine Bacteria Hyaline Casts 08/14/18 08/14/18 08/14/18 13:58 12:23 12:23 WBC 16.3 H RBC 2.44 L Hgb 8.0 L Hct 24.1 L MCV MCH RDW 14.9 H Plt Count 605 H MPV 6.2 L Gran % Lymph % (Auto) Gran # Lymph # (Auto) [place] # (Auto) Seg Neutrophils % 91 H Lymphocytes % Metamyelocytes % Platelet Estimate RBC Morphology Poikilocytosis Few A Anisocytosis Few A Macrocytosis Ovalocytes Absolute Retic 3.2 H Potassium Chloride Carbon Dioxide BUN Creatinine Glucose Uric Acid Calcium TIBC Unsat Iron Binding Transferrin % Sat Total Creatine Kinase Troponin T C-Reactive Protein 2.9 H NT-Pro-B Natriuret Pep 2088.0 H Total Protein Albumin Prealbumin 25-OH Vitamin D Total Folate Urine Protein Urine Occult Blood Urine Nitrate Ur Leukocyte Esterase Urine RBC > 182 H Urine WBC > 182 H Ur Squamous Epith Cells 12 H Urine Bacteria Mod A Hyaline Casts 53 H 08/14/18 08/14/18 08/14/18 10:58 10:58 10:58 WBC 23.5 H RBC 2.67 L Hgb 8.9 L Hct 26.4 L MCV MCH RDW 15.1 H Plt Count 1022 H* MPV 6.5 L Gran % 83.3 H Lymph % (Auto) 7.6 L Gran # 19.6 H Lymph # (Auto) [place] # (Auto) 2.0 H Seg Neutrophils % Lymphocytes % Metamyelocytes % Platelet Estimate RBC Morphology Poikilocytosis Anisocytosis Macrocytosis Ovalocytes Absolute Retic Potassium 3.2 L Chloride Carbon Dioxide 21 L BUN 97 H Creatinine 6.0 H* Glucose 136 H Uric Acid Calcium TIBC Unsat Iron Binding Transferrin % Sat Total Creatine Kinase 14 L Troponin T 0.06 H* C-Reactive Protein NT-Pro-B Natriuret Pep Total Protein 5.7 L Albumin 2.8 L Prealbumin 25-OH Vitamin D Total Folate Urine Protein Urine Occult Blood Urine Nitrate Ur Leukocyte Esterase Urine RBC Urine WBC Ur Squamous Epith Cells Urine Bacteria Hyaline Casts Meds: Medications Acetaminophen (Tylenol) 650 mg PO Q6HP PRN PRN Reason: PAIN/FEVER > 101 Last Admin: 08/16/18 07:36 Dose: 650 mg Documented by: Albuterol/Ipratropium (Duoneb) 3 ml NEB Q4HRT PRN PRN Reason: Bronchospasm [facility] Last Admin: 08/16/18 07:36 Dose: 200 mg Documented by: Bisacodyl (Dulcolax) 10 mg [place] QDAY PRN PRN Reason: Constipation Enoxaparin Sodium (Lovenox) 80 mg SQ DAILY [facility] Last Admin: 08/15/18 07:35 Dose: 80 mg Documented by: Famotidine (Pepcid) 20 mg PO HS [facility] Last Admin: 08/15/18 21:33 Dose: 20 mg Documented by: Folic Acid (Folic Acid) 1 mg PO DAILY [facility] Last Admin: 08/15/18 07:36 Dose: 1 mg Documented by: Hydromorphone HCl (Dilaudid) 1 mg PO Q6HP PRN PRN Reason: Pain Piperacillin Sod/Tazobactam (Sod 2.25 gm/ Dextrose) 50 mls @ 100 mls/hr IV Q8H [facility] Last Infusion: 08/16/18 06:41 Dose: Infused Documented by: Sodium Chloride (Sodium Chloride 0.9%) 250 mls @ 20 mls/hr IV .[id number] [facility] Stop: 08/16/18 19:29 Last Admin: 08/16/18 07:35 Dose: Not Given Documented by: Iron Sucrose 400 mg/ Sodium (Chloride) 270 mls @ 100 mls/hr IV ONCE ONE Stop: 08/16/18 11:41 Ondansetron HCl (Zofran) 4 mg IV Q4HP PRN PRN Reason: Nausea And Vomiting Last Admin: 08/16/18 05:54 Dose: 4 mg Documented by: Potassium Chloride (Kdur) 10 meq PO BIDCC [facility] Last Admin: 08/16/18 07:35 Dose: 10 meq Documented by: Sevelamer Carbonate (Renvela) 800 mg PO TIDCC [facility] Last Admin: 08/16/18 07:36 Dose: 800 mg Documented by: Simethicone (Mylicon) 80 mg CHEWED QIDP PRN PRN Reason: Dyspepsia Sodium Bicarbonate (Sodium Bicarbonate) 650 mg PO BID [facility] Last Admin: 08/15/18 21:33 Dose: 650 mg Documented by: Sodium Chloride (Saline Flush) 10 ml IV Q8 [facility] Last Admin: 08/16/18 05:32 Dose: 10 ml Documented by: Warfarin Sodium (Coumadin Per Pharmacy) 1 order PO DAILY@1400 [facility] Medical - PN: A/P - Time Spent With Patient Total time spent is greater than 50% in coordination of care (as documented) at patient's floor/unit and/or counseling patient: 25 - 35 minutes (1) Hypotension Status: Acute Assessment and plan: : * Complicated UTI: Continue antibiotic coverage. Await cultures * Severe Sepsis w/Hypotension from above vs volume depletion/meds: lactate ok, afebrile -responded to IVF, -White count down from 23->11.7 * RLE FEMORAL VEIN DVT: On Lovenox. Start Coumadin. * Severe anemia- patient refusing blood transfusion. Single dose IV iron. Ferritin 360 in the presence of active inflammation. Peripheral smear possible MDS * Hypokalemia-start potassium replacement * chronic leukocytosis and thrombocytosis: has not seen hematology, pt states has been present for decades * CKD V: follows with nephrology, refused HD in past * HTN: on lopressor and lasix * h/o Vtach: on amio * chronic pain: * chronic LE wounds: Wound care consulted. Right with open wounds and chronic discoloration, doubt leg is infected * h/o CHF: f/u echo in 2018 showed improved EF (50%) and no diastolic dysfxn P: -Continue Broad-spectrum antibiotics, de-escalate based on cultures -Wound care managing lower extremity wounds -Potassium replacement -pt/ot, cm for placement -ppx: therapeutic lovenox. Start Coumadin Current Visit: No Medical - PN: Qual - VTE Deep Vein Thrombosis/Pulmonary Embolism Present on Admission: Yes
[2018-08-16] MEDS ORDERED: IRON SUCROSE COMPLEX 400 MG in 0.9 % SODIUM CHLORIDE 250 ML IV ONE ×2 (08:00→09:00)
[2018-08-16] MEDS: FOLIC ACID 1 MG TABLET PO SCH (10:12)
[2018-08-16] MEDS: SODIUM BICARBONATE 650 MG TABLET PO SCH ×2 (10:12→22:19)
[2018-08-16] MEDS: ENOXAPARIN 40 MG/0.4 ML SYRINGE SQ SCH (10:12)
[2018-08-16] MEDS ORDERED: DARBEPOETIN ALFA 100 MCG/ML VIAL IV ONE (12:41)
--- NOTE | 2018-08-16 12:46 | Nephrology Progress Note ---
Subjective Patient information: Note initiated : 08/16/18 at 12:44 pm Service Date, if different from initiated Date: [] Patient: Carlos Abraham 88 y/o M admitted on 08/14/18 for R Knee Pain And Swelling. Chief Complaint: [] Principal diagnosis: hypotension Interval history: Patient with no new issues denies SOB, CP does have some LE edema denies pain denies any GI issues frustrated today, declined blood transfusion, held IV iron as Tsat at 65%, now does agree to aranesp no other issues, does not want to talk about comfort care Pertinent ROS: as above Objective - Vital Signs Vital signs: Vital Signs Temp Pulse Pulse Resp BP Pulse Ox 08/16/18 12:40 98.9 F 67 15 123/53 99 08/16/18 12:39 17 08/16/18 10:30 98.9 F 08/16/18 10:05 17 120/54 08/16/18 09:01 20 102/39 08/16/18 08:21 99.3 F H 08/16/18 08:01 100.0 F H 13 107/44 96 08/16/18 08:00 63 08/16/18 07:36 100.3 F H 08/16/18 07:01 100.3 F H 16 108/44 97 08/16/18 06:01 98.9 F 14 106/39 96 08/16/18 05:01 98.8 F 22 107/38 96 08/16/18 04:08 12 109/40 97 08/16/18 03:01 98.2 F 60 16 109/40 95 08/16/18 02:01 55 L 15 107/46 97 08/16/18 02:00 61 15 97 08/16/18 01:01 98.4 F 55 L 15 94/43 97 08/16/18 00:30 98.9 F 57 L 13 97 08/16/18 00:01 58 L 15 102/43 97 08/15/18 23:01 63 13 114/45 98 08/15/18 22:01 56 L 14 113/48 98 08/15/18 21:01 21 130/77 08/15/18 20:00 99.0 F 52 L 12 107/49 96 08/15/18 19:34 14 98 08/15/18 19:01 60 16 112/54 98 08/15/18 18:01 99.2 F H 63 12 119/55 98 08/15/18 17:01 22 124/93 08/15/18 16:48 57 L 15 99 08/15/18 16:01 98.3 F 61 16 112/57 100 08/15/18 15:01 56 L 15 105/45 96 08/15/18 14:01 64 14 121/53 99 08/15/18 14:00 61 08/15/18 13:01 98.8 F 60 14 107/49 98 Intake and Output 08/15/18 08/16/18 08/16/18 21:59 05:59 13:59 Intake Total 370 / 835 290 / 835 1410 / 1410 Output Total 125 / 600 200 / 600 Balance 245 / 235 90 / 235 1410 / 1410 Intake: IV 50 / 150 50 / 150 1170 / 1170 Venofer 400 mg In Sodium 120 / 120 Chloride 0.9% 250 ml @ 100 mls/ hr IV ONCE ONE Rx#:[id number] Zosyn 2.25 gm In Dextrose 5% in 50 / 150 50 / 150 50 / 50 Water 50 ml @ 100 mls/hr IV Q8H [facility] Rx#:[id number] Oral 320 / 685 240 / 685 240 / 240 Output: Void Amount 125 / 600 200 / 600 Other: Meal Lunch Breakfast Percent of Meal Consumed 50% 75% Feeding Ability Independent Independent Urine Appearance Cloudy Cloudy Purulent Urine Color Pale Pale Urine Odor Strong Strong Stool Size Moderate Small Stool Color Brown Stool Consistency Soft Liquid # Voids 1 # of times incontinent of 1 1 1 Bowels Weight 184 lb 1.6 oz Intake & Output: Intake & Output 08/15/18 08/16/18 08/16/18 21:59 05:59 13:59 Intake Total 370 / 835 290 / 835 1410 / 1410 Output Total 125 / 600 200 / 600 Balance 245 / 235 90 / 235 1410 / 1410 Weight 184 lb 1.6 oz Intake: IV 50 / 150 50 / 150 1170 / 1170 Venofer 400 mg In Sodium 120 / 120 Chloride 0.9% 250 ml @ 100 mls/ hr IV ONCE ONE Rx#:[id number] Zosyn 2.25 gm In Dextrose 5% in 50 / 150 50 / 150 50 / 50 Water 50 ml @ 100 mls/hr IV Q8H [facility] Rx#:[id number] Oral 320 / 685 240 / 685 240 / 240 Output: Void Amount 125 / 600 200 / 600 Other: Meal Lunch Breakfast Percent of Meal Consumed 50% 75% Feeding Ability Independent Independent Urine Appearance Cloudy Cloudy Purulent Urine Color Pale Pale Urine Odor Strong Strong Stool Size Moderate Small Stool Color Brown Stool Consistency Soft Liquid # Voids 1 # of times incontinent of 1 1 1 Bowels - General Appearance General appearance: appears started age, frail EENT: mucous membranes moist Neck: no JVD Respiratory: clear Cardiology: no rub, edema, irregular rhythm Gastrointestinal: no tenderness, no guarding Neurologic: alert and oriented x3 Musculoskeletal: no erythema, no clubbing Psychiatric: mood/affect appropriate - Lab 08/16/18 04:00 08/16/18 04:00 Most recent lab results Calcium 8.3 mg/dl (8.6-10.4) L 08/16/18 04:00 Phosphorus 3.4 mg/dL (2.7-4.5) 08/16/18 04:00 Magnesium 2.2 mg/dL (1.6-2.5) 08/16/18 04:00 Assessment and Plan (1) Acute on chronic renal failure Status: Acute (2) Metabolic acidosis Status: Acute (3) Hypokalemia Status: Acute Priority: High (4) Hypotension Status: Acute Qualifiers: Hypotension type: unspecified hypotension type Qualified Code(s): I95.9 - Hypotension, unspecified - Narrative A/P Narrative: No emergent need for PATIENT COORDINATOR FRONT DESK, renal labs stable patient does not want buttermaker continuous churn dialysis hold diuretics for now dose meds to egfr mild hypokalemia and acidosis ct oral potassium, sodium bicarbonate anemia: initially declined all treatment, now agrees for aranesp, prbc transfusion tsat at 65%, folate and b12 normal secondary hyperparathyroidism: PTH suppressed, calcitriol held will discharge on low dose cholecalciferol overall poor prognosis Thank you for giving me an opportunity to participate in Mr Abraham's medical care, appreciate it
[2018-08-16] MEDS ORDERED: 0.9 % SODIUM CHLORIDE 250 ML IV SCH (13:00)
--- NOTE | 2018-08-16 13:02 | General Surgery Consult Note ---
History of Present Illness Patient information: Note initiated : 08/16/18 at 12:56 pm Service Date, if different from initiated Date: [] Patient: Carlos Abraham 88 y/o M admitted on 08/14/18 for R Knee Pain And Swelling. Chief Complaint: [] Consult date: 08/15/18 Requesting physician: Abe Newby (Wound Care. Ulcer sacral area and skin lesions right leg.) History of present illness: This patient is established at wound care clinic. He was sent to ER for acute symptoms of light headedness and hypotension. He has multiple medical problems and chronic wounds with deconditioning. He is severely anemic and had been refusing PRBC transfusion. But now agreeable. Currently, he is hemodynamically stabilizing and his wound care and dressings are on going as ordered. Medications and Allergies Home Medications Medication Instructions Recorded Confirmed Type Folic Acid 1 mg PO DAILY tab 11/26/17 08/14/18 Rx Metoprolol Tartrate [Lopressor] 12.5 mg PO BID tab 11/26/17 08/14/18 Rx Simethicone [Mylicon] 80 mg CHEWED QIDP PRN tab.chew 11/26/17 08/14/18 Rx bisacodyl 10 mg rectal suppository 10 mg [place] QDAY PRN 12/04/17 08/14/18 History cholecalciferol (vitamin D3) 50,000 unit PO QWEEK 01/01/18 08/14/18 History 50,000 unit capsule ondansetron HCl 4 mg tablet 4 mg PO Q4H PRN 01/01/18 08/14/18 History Sevelamer [Renvela] 800 mg PO TIDCC 01/23/18 08/14/18 History Furosemide [Lasix] 40 mg PO BID #30 tab 02/03/18 08/14/18 Rx HYDROmorphone HCL [Dilaudid] 1 mg PO Q6HP PRN #40 tab 02/03/18 08/14/18 Rx Multivitamin [One Daily] 1 tab PO DAILY #14 tab 02/03/18 08/14/18 Rx potassium chloride ER 10 mEq 10 meq PO BID tab 02/27/18 08/14/18 History tablet,extended release sodium phosphates 19 gram-7 118 ml MI ONCE PRN 02/27/18 08/14/18 History gram/118 mL enema Amiodarone HCl [Cordarone] 200 mg PO BIDCC 08/14/18 08/14/18 History Calcitriol [Rocaltrol] 0.25 mcg PO DAILY 08/14/18 08/14/18 History Ferrous Sulfate 325 mg PO DAILY 08/14/18 08/14/18 History Allergies Allergy/AdvReac Type Severity Reaction Status Date / Time No Known Drug Allergies Allergy Verified 02/27/18 10:36 Exam Temp Pulse Resp BP Pulse Ox 98.9 F 67 15 123/53 99 08/16/18 12:40 08/16/18 12:40 08/16/18 12:40 08/16/18 12:40 08/16/18 12:40 - General physical appearance well developed, no distress, chronically ill, other (anemia. ) - Eyes PERRL, normal ocular movement - ENT normal pinna, normal nares, normal mucosa, no congestion - Head Head exam IM: Present: atraumatic, normal inspection, normocephalic - Neck no masses, no bruits, trachea midline, no venous distension - Cardiovascular Cardiovascular exam IM: Present: normal rate and rhythm - Respiratory normal respiratory effort - Abdomen Abdomen: Present: soft, non tender, bowel sounds - Integumentary Present: other (Sacral, coccygeal pressure ulcer Grade 2 /3, skin epidermal ulcers right leg. ) - Neurologic Present: normal coordination, normal sensation, other (No focal neurological deficits. ) - Musculoskeletal Present: other (Bed or Wheel chair most of the times. VARIABLE progress with physical therapy. ) - Psychiatric Present: oriented to person, oriented to place, speech is normal, other (Difficult to interact with at times. ) Results - Labs 08/16/18 04:00 08/16/18 04:00 Abnormal lab results 08/15/18 08/16/18 08/16/18 Range/Units 16:04 04:00 04:00 WBC 11.7 H (4.5-11.0) K/mcL RBC 2.03 L (4.50-5.90) M/mcL Hgb 6.9 L* (13.5-16.5) g/dL Hct 20.3 L* (41.0-55.0) % MCV 100.1 H (80.0-100.0) fL RDW 15.2 H (11.5-14.5) % Plt Count 548 H (140-440) K/mcL MPV 6.3 L (7.4-10.4) fL Gran % 86.2 H (38.0-78.0) % Lymph % (Auto) 5.1 L (15.5-49.0) % Gran # 10.1 H (1.8-8.0) K/mcL Lymph # (Auto) 0.6 L (1.5-4.8) K/mcL PT (11.9-14.5) sec INR (0.9-1.1) Potassium 3.1 L (3.3-5.1) mmol/L Chloride 110 H (96-108) mmol/L Carbon Dioxide 19 L 18 L (22-30) mmol/L BUN 90 H 86 H (8-23) mg/dl Creatinine 5.8 H* 5.9 H* (0.7-1.2) mg/dl Glucose 139 H (70-105) mg/dL Uric Acid 12.3 H (2.5-8.0) mg/dL Calcium 8.0 L 8.3 L (8.6-10.4) mg/dl TIBC 130 L (228-428) ug/dl Unsat Iron Binding 45 L (112-346) mcg/dL Transferrin % Sat 65 H (20-50) % C-Reactive Protein 2.1 H (0.0-0.8) mg/dl Total Protein 4.6 L (5.9-8.4) gm/dL Albumin 2.3 L (3.2-5.2) gm/dL Prealbumin 16.2 L (20-40) mg/dl Folate (4.2-19.9) ng/mL 08/16/18 08/16/18 Range/Units 04:00 08:00 WBC (4.5-11.0) K/mcL RBC (4.50-5.90) M/mcL Hgb (13.5-16.5) g/dL Hct (41.0-55.0) % MCV (80.0-100.0) fL RDW (11.5-14.5) % Plt Count (140-440) K/mcL MPV (7.4-10.4) fL Gran % (38.0-78.0) % Lymph % (Auto) (15.5-49.0) % Gran # (1.8-8.0) K/mcL Lymph # (Auto) (1.5-4.8) K/mcL PT 16.0 H (11.9-14.5) sec INR 1.3 H (0.9-1.1) Potassium (3.3-5.1) mmol/L Chloride (96-108) mmol/L Carbon Dioxide (22-30) mmol/L BUN (8-23) mg/dl Creatinine (0.7-1.2) mg/dl Glucose (70-105) mg/dL Uric Acid (2.5-8.0) mg/dL Calcium (8.6-10.4) mg/dl TIBC (228-428) ug/dl Unsat Iron Binding (112-346) mcg/dL Transferrin % Sat (20-50) % C-Reactive Protein (0.0-0.8) mg/dl Total Protein (5.9-8.4) gm/dL Albumin (3.2-5.2) gm/dL Prealbumin (20-40) mg/dl Folate > 20.0 H (4.2-19.9) ng/mL Diabetes panel 08/15/18 08/16/18 Range/Units 16:04 04:00 Sodium 141 142 (133-145) mmol/L Potassium 3.4 3.1 L (3.3-5.1) mmol/L Chloride 107 110 H (96-108) mmol/L Carbon Dioxide 19 L 18 L (22-30) mmol/L BUN 90 H 86 H (8-23) mg/dl Creatinine 5.8 H* 5.9 H* (0.7-1.2) mg/dl Glucose 139 H 89 (70-105) mg/dL Calcium 8.0 L 8.3 L (8.6-10.4) mg/dl AST 16 (0-37) U/l ALT 32 (0-40) U/l Alkaline Phosphatase 53 (39-117) U/L Total Protein 4.6 L (5.9-8.4) gm/dL Albumin 2.3 L (3.2-5.2) gm/dL Triglycerides 103 (<150) mg/dl Calcium panel 08/15/18 08/16/18 Range/Units 16:04 04:00 Calcium 8.0 L 8.3 L (8.6-10.4) mg/dl Phosphorus 3.4 (2.7-4.5) mg/dL Albumin 2.3 L (3.2-5.2) gm/dL Pituitary panel 08/15/18 08/16/18 Range/Units 16:04 04:00 Sodium 141 142 (133-145) mmol/L Potassium 3.4 3.1 L (3.3-5.1) mmol/L Chloride 107 110 H (96-108) mmol/L Carbon Dioxide 19 L 18 L (22-30) mmol/L BUN 90 H 86 H (8-23) mg/dl Creatinine 5.8 H* 5.9 H* (0.7-1.2) mg/dl Glucose 139 H 89 (70-105) mg/dL Calcium 8.0 L 8.3 L (8.6-10.4) mg/dl Adrenal panel 08/15/18 08/16/18 Range/Units 16:04 04:00 Sodium 141 142 (133-145) mmol/L Potassium 3.4 3.1 L (3.3-5.1) mmol/L Chloride 107 110 H (96-108) mmol/L Carbon Dioxide 19 L 18 L (22-30) mmol/L BUN 90 H 86 H (8-23) mg/dl Creatinine 5.8 H* 5.9 H* (0.7-1.2) mg/dl Glucose 139 H 89 (70-105) mg/dL Calcium 8.0 L 8.3 L (8.6-10.4) mg/dl Total Bilirubin 0.3 (0.0-1.0) mg/dL AST 16 (0-37) U/l ALT 32 (0-40) U/l Alkaline Phosphatase 53 (39-117) U/L Total Protein 4.6 L (5.9-8.4) gm/dL Albumin 2.3 L (3.2-5.2) gm/dL All other labs normal. Assessment and Plan (1) Pressure ulcer of sacral region, stage 3 Assessment: Local wound care, Off loading TAPS Nutrition repletion and PRBC for anemia Plan: Continue ongoing wound care treatment. 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 Plan: Local wound care and protective dressings. Status: Chronic Priority: Low
[2018-08-16] MEDS ORDERED: WARFARIN 5 MG TABLET PO ONE (14:00)
[2018-08-16] MEDS ORDERED: FUROSEMIDE 40 MG/4 ML VIAL IV ONE (15:19)
[2018-08-16] MEDS: FAMOTIDINE 20 MG TABLET PO SCH (22:19)
[2018-08-17 05:27] LABS: Mean Cell Volume 98.3 fL (80.0-100.0); Mean Corpuscular HGB Conc 33.8 g/dL (31.0-36.0); Platelet Count 428 K/mcL (140-440); RBC 2.61 M/mcL (4.50-5.90); Red Cell Distribution Width 15.2 % (11.5-14.5)
[2018-08-17 05:53] LABS: ALT/SGPT 34 U/l (0-40); Albumin 2.2 gm/dL (3.2-5.2); Albumin/Globulin Ratio 0.9 (1.0-2.3); Alkaline Phosphatase 51 U/L (39-117); Bilirubin,Direct < 0.2 mg/dL (0.0-0.3); Blood Urea Nitrogen 84 mg/dl (8-23); Gamma Glutamyl Transpeptidase 34 U/L (8-61); Uric Acid 11.8 mg/dL (2.5-8.0)
[2018-08-17 06:26] LABS: Band Neutrophils % 5 % (0-10); Eosinophils % (Manual) 2 % (0-7); Lymphocytes % 3 % (15-49); Monocytes % (Manual) 2 % (1-12); Platelet Estimate NORMAL (NORMAL); RBC Morphology NORMAL (NORMAL); Segmented Neutrophils % 88 % (38-78)
[2018-08-17] MEDS: PIPERACILLIN SODIUM/TAZOBACTAM 2.25 GM in DEXTROSE 5% IN WATER 50 ML IV SCH ×2 (07:03→20:51)
[2018-08-17] MEDS: 0.9 % SODIUM CHLORIDE 10 ML SYRINGE IV SCH ×3 (07:25→20:51)
--- NOTE | 2018-08-17 07:30 | Internal Med Progress Note ---
Medical - PN: Subj Patient information: Note initiated : 08/17/18 at 7:27 am Service Date, if different from initiated Date: [] Patient: Carlos Abraham 88 y/o M admitted on 08/14/18 for R Knee Pain And Swelling. Chief Complaint: [] Interval history: donell Abraham is a 88 year old M Who presents the ED for hypotension. He was sent over from wound care for evaluation of his legs when he found to be hypotensive and sent him over. He had systolic blood pressures in the 70s and over in the ED he had a systolic of 78. He says he did feel little lightheaded but does not feel that he lightheadedness anymore after a liter of fluid in the ER and good blood pressures at this point. Is also had some asymmetry in his right leg and some tenderness and is concerned that wound care as well to have a DVT and he did have a Doppler in the ER which showed a femoral vein thrombus. She is bed bound for 8 months and resides at [facility]. In the ED he is also found to have a leukocytosis however looking at old records he has chronic leukocytosis. He also has chronic normocytosis and chronic anemia. He says his white blood cells have been elevated since he was in the service and he believes his platelets have been elevated since that time as well. He has never seen a embedder. Noted on old admission that there is a consult with hematology and patient was started on hydroxyurea for his normocytosis and aspirin. 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 Sounds like he is been on warfarin in the past versus something I am not sure what and he does not take aspirin. He also urinalysis in the ED that showed quite a bit of WBCs as well as leukocyte esterase but did have some squamous cells and a lot of hyaline casts. Denies any recent illnesses or respiratory symptoms. Chest x-ray unremarkable. No chest pain or shortness of breath or cough. No nausea vomiting diarrhea. Also in ED was concern for possible cellulitis of his lower extremity on the right. 1/4 Feeling better. No new complaints. No overnight events. Wants to get out here. 1/5 Hemoglobin drifting down to 6.8. No obvious bleeding. Currently on full dose anticoagulation on Lovenox for DVT. Patient refusing blood transfusion. Start IV iron. Initiate Coumadin dosing per pharmacy, white count down from 20,000- 11.7. Creatinine 5.9 full code. Potassium 3.1. Patient requesting milk 08/17-patient refusing aggressive intervention including blood transfusion/hemodialysis/VQ scan. Family conference later today for goals of care. Transfer to medical floor in light of patient's refusal for aggressive i nterventions. Continue supportive management. Creatinine 5.9. Replace potassium. White count 11.1. Hemoglobin at 8.7 on Aranesp per nephrology - Constitutional Vitals: Vital Signs Temp Pulse Resp BP Pulse Ox 98.7 F 76 14 106/45 96 08/17/18 04:01 08/17/18 07:06 08/17/18 06:00 08/17/18 05:01 08/17/18 05:01 Period Temp Pulse Resp BP Sys/Ferris Pulse Ox Last 24 Hr 98.1 F-100.3 F 50-76 13-23 102-127/39-82 92-99 Intake and Output 08/16/18 08/17/18 08/17/18 21:59 05:59 13:59 Intake Total 795 / 2820 290 / 2820 Output Total 400 / 675 225 / 675 Balance 395 / 2145 65 / 2145 Weight 183 lb 6.4 oz Intake & Output: Intake & Output 08/16/18 08/17/18 08/17/18 21:59 05:59 13:59 Intake Total 795 / 2820 290 / 2820 Output Total 400 / 675 225 / 675 Balance 395 / 2145 65 / 2145 Weight 183 lb 6.4 oz Intake: IV 50 / 270 50 / 270 Zosyn 2.25 gm In Dextrose 5% in 50 / 150 50 / 150 Water 50 ml @ 100 mls/hr IV Q8H [facility] Rx#:[id number] Oral 420 / 900 240 / 900 Blood Product 325 / 650 Output: Void Amount 400 / 675 225 / 675 Other: Urine Appearance Cloudy Cloudy Urine Color Pale Pale Urine Odor Strong Stool Size Moderate Moderate Stool Color Brown Brown Stool Consistency Liquid Liquid # Voids 1 # of times incontinent of 1 Bowels General appearance: no acute distress Exam: Alert oriented No labored breathing No anxiety no telemetry events Medical - PN: Obj Da - Labs CBC & Chem 7: 08/17/18 03:59 08/17/18 03:59 Labs: Abnormal Lab Results 08/17/18 08/17/18 08/17/18 03:59 03:59 03:59 WBC 11.1 H RBC 2.61 L Hgb 8.7 L Hct 25.7 L MCV MCH RDW 15.2 H Plt Count MPV 6.4 L Gran % Lymph % (Auto) Gran # Lymph # (Auto) [place] # (Auto) Seg Neutrophils % 88 H Lymphocytes % 3 L Metamyelocytes % Platelet Estimate RBC Morphology Poikilocytosis Anisocytosis Macrocytosis Ovalocytes Absolute Retic PT 16.7 H INR 1.4 H Potassium 3.2 L Chloride 109 H Carbon Dioxide 18 L BUN 84 H Creatinine 5.9 H* Glucose Uric Acid 11.8 H Calcium 8.3 L TIBC Unsat Iron Binding Transferrin % Sat Total Creatine Kinase Troponin T C-Reactive Protein NT-Pro-B Natriuret Pep Total Protein 4.6 L Albumin 2.2 L Albumin/Globulin Ratio 0.9 L Prealbumin 25-OH Vitamin D Total Folate Urine Protein Urine Occult Blood Urine Nitrate Ur Leukocyte Esterase Urine RBC Urine WBC Ur Squamous Epith Cells Urine Bacteria Hyaline Casts 08/16/18 08/16/18 08/16/18 08:00 04:00 04:00 WBC RBC Hgb Hct MCV MCH RDW Plt Count MPV Gran % Lymph % (Auto) Gran # Lymph # (Auto) [place] # (Auto) Seg Neutrophils % Lymphocytes % Metamyelocytes % Platelet Estimate RBC Morphology Poikilocytosis Anisocytosis Macrocytosis Ovalocytes Absolute Retic PT 16.0 H INR 1.3 H Potassium 3.1 L Chloride 110 H Carbon Dioxide 18 L BUN 86 H Creatinine 5.9 H* Glucose Uric Acid 12.3 H Calcium 8.3 L TIBC 130 L Unsat Iron Binding 45 L Transferrin % Sat 65 H Total Creatine Kinase Troponin T C-Reactive Protein 2.1 H NT-Pro-B Natriuret Pep Total Protein 4.6 L Albumin 2.3 L Albumin/Globulin Ratio Prealbumin 16.2 L 25-OH Vitamin D Total Folate > 20.0 H Urine Protein Urine Occult Blood Urine Nitrate Ur Leukocyte Esterase Urine RBC Urine WBC Ur Squamous Epith Cells Urine Bacteria Hyaline Casts 08/16/18 08/15/18 08/15/18 04:00 16:04 06:44 WBC 11.7 H RBC 2.03 L Hgb 6.9 L* Hct 20.3 L* MCV 100.1 H MCH RDW 15.2 H Plt Count 548 H MPV 6.3 L Gran % 86.2 H Lymph % (Auto) 5.1 L Gran # 10.1 H Lymph # (Auto) 0.6 L [place] # (Auto) Seg Neutrophils % Lymphocytes % Metamyelocytes % Platelet Estimate RBC Morphology Poikilocytosis Anisocytosis Macrocytosis Ovalocytes Absolute Retic PT INR Potassium Chloride Carbon Dioxide 19 L BUN 90 H Creatinine 5.8 H* Glucose 139 H Uric Acid Calcium 8.0 L TIBC Unsat Iron Binding Transferrin % Sat Total Creatine Kinase Troponin T C-Reactive Protein NT-Pro-B Natriuret Pep Total Protein Albumin Albumin/Globulin Ratio Prealbumin 25-OH Vitamin D Total Folate Urine Protein 30 A Urine Occult Blood 0.03 A Urine Nitrate Pos A Ur Leukocyte Esterase 250 A Urine RBC 76 H Urine WBC > 182 H Ur Squamous Epith Cells Urine Bacteria Hyaline Casts 08/15/18 08/15/18 08/15/18 04:00 03:21 03:21 WBC 14.4 H RBC 2.05 L Hgb 7.2 L Hct 20.8 L* MCV 101.8 H MCH 35.3 H RDW 15.0 H Plt Count 526 H MPV 6.7 L Gran % Lymph % (Auto) Gran # Lymph # (Auto) [place] # (Auto) Seg Neutrophils % 88 H Lymphocytes % 3 L Metamyelocytes % 2 H Platelet Estimate Increased A RBC Morphology Abnorm A Poikilocytosis Anisocytosis Macrocytosis 1+ A Ovalocytes Few A Absolute Retic PT INR Potassium 2.7 L* Chloride Carbon Dioxide 19 L BUN 93 H Creatinine 6.0 H* Glucose 114 H Uric Acid 11.8 H Calcium 8.0 L TIBC Unsat Iron Binding Transferrin % Sat Total Creatine Kinase Troponin T C-Reactive Protein NT-Pro-B Natriuret Pep Total Protein 4.6 L Albumin 2.3 L Albumin/Globulin Ratio Prealbumin 25-OH Vitamin D Total 25.24 L Folate Urine Protein Urine Occult Blood Urine Nitrate Ur Leukocyte Esterase Urine RBC Urine WBC Ur Squamous Epith Cells Urine Bacteria Hyaline Casts 08/14/18 08/14/18 08/14/18 14:10 13:58 12:23 WBC RBC Hgb Hct MCV MCH RDW Plt Count MPV Gran % Lymph % (Auto) Gran # Lymph # (Auto) [place] # (Auto) Seg Neutrophils % Lymphocytes % Metamyelocytes % Platelet Estimate RBC Morphology Poikilocytosis Anisocytosis Macrocytosis Ovalocytes Absolute Retic PT INR Potassium Chloride Carbon Dioxide BUN Creatinine Glucose Uric Acid Calcium TIBC Unsat Iron Binding Transferrin % Sat Total Creatine Kinase Troponin T 0.06 H* C-Reactive Protein 2.9 H NT-Pro-B Natriuret Pep 2088.0 H Total Protein Albumin Albumin/Globulin Ratio Prealbumin 25-OH Vitamin D Total Folate Urine Protein Urine Occult Blood Urine Nitrate Ur Leukocyte Esterase Urine RBC > 182 H Urine WBC > 182 H Ur Squamous Epith Cells 12 H Urine Bacteria Mod A Hyaline Casts 53 H 08/14/18 08/14/18 08/14/18 12:23 10:58 10:58 WBC 16.3 H RBC 2.44 L Hgb 8.0 L Hct 24.1 L MCV MCH RDW 14.9 H Plt Count 605 H MPV 6.2 L Gran % Lymph % (Auto) Gran # Lymph # (Auto) [place] # (Auto) Seg Neutrophils % 91 H Lymphocytes % Metamyelocytes % Platelet Estimate RBC Morphology Poikilocytosis Few A Anisocytosis Few A Macrocytosis Ovalocytes Absolute Retic 3.2 H PT INR Potassium 3.2 L Chloride Carbon Dioxide 21 L BUN 97 H Creatinine 6.0 H* Glucose 136 H Uric Acid Calcium TIBC Unsat Iron Binding Transferrin % Sat Total Creatine Kinase 14 L Troponin T 0.06 H* C-Reactive Protein NT-Pro-B Natriuret Pep Total Protein 5.7 L Albumin 2.8 L Albumin/Globulin Ratio Prealbumin 25-OH Vitamin D Total Folate Urine Protein Urine Occult Blood Urine Nitrate Ur Leukocyte Esterase Urine RBC Urine WBC Ur Squamous Epith Cells Urine Bacteria Hyaline Casts 08/14/18 10:58 WBC 23.5 H RBC 2.67 L Hgb 8.9 L Hct 26.4 L MCV MCH RDW 15.1 H Plt Count 1022 H* MPV 6.5 L Gran % 83.3 H Lymph % (Auto) 7.6 L Gran # 19.6 H Lymph # (Auto) [place] # (Auto) 2.0 H Seg Neutrophils % Lymphocytes % Metamyelocytes % Platelet Estimate RBC Morphology Poikilocytosis Anisocytosis Macrocytosis Ovalocytes Absolute Retic PT INR Potassium Chloride Carbon Dioxide BUN Creatinine Glucose Uric Acid Calcium TIBC Unsat Iron Binding Transferrin % Sat Total Creatine Kinase Troponin T C-Reactive Protein NT-Pro-B Natriuret Pep Total Protein Albumin Albumin/Globulin Ratio Prealbumin 25-OH Vitamin D Total Folate Urine Protein Urine Occult Blood Urine Nitrate Ur Leukocyte Esterase Urine RBC Urine WBC Ur Squamous Epith Cells Urine Bacteria Hyaline Casts Meds: Medications Acetaminophen (Tylenol) 650 mg PO Q6HP PRN PRN Reason: PAIN/FEVER > 101 Last Admin: 08/16/18 07:36 Dose: 650 mg Documented by: Albuterol/Ipratropium (Duoneb) 3 ml NEB Q4HRT PRN PRN Reason: Bronchospasm [facility] Last Admin: 08/16/18 17:28 Dose: 200 mg Documented by: Bisacodyl (Dulcolax) 10 mg SD QDAY PRN PRN Reason: Constipation Enoxaparin Sodium (Lovenox) 80 mg SQ DAILY [facility] Last Admin: 08/16/18 10:12 Dose: 80 mg Documented by: Famotidine (Pepcid) 20 mg PO [facility] Last Admin: 08/16/18 22:19 Dose: 20 mg Documented by: Folic Acid (Folic Acid) 1 mg PO DAILY [facility] Last Admin: 08/16/18 10:12 Dose: 1 mg Documented by: Hydromorphone HCl (Dilaudid) 1 mg PO Q6HP PRN PRN Reason: Pain Piperacillin Sod/Tazobactam (Sod 2.25 gm/ Dextrose) 50 mls @ 100 mls/hr IV Q8H [facility] Last Admin: 08/17/18 07:03 Dose: 100 mls/hr Documented by: Ondansetron HCl (Zofran) 4 mg IV Q4HP PRN PRN Reason: Nausea And Vomiting Last Admin: 08/16/18 05:54 Dose: 4 mg Documented by: Potassium Chloride (Kdur) 10 meq PO BIDCC [facility] Last Admin: 08/16/18 17:28 Dose: 10 meq Documented by: Sevelamer Carbonate (Renvela) 800 mg PO TIDCC [facility] Last Admin: 08/16/18 17:28 Dose: 800 mg Documented by: Simethicone (Mylicon) 80 mg CHEWED QIDP PRN PRN Reason: Dyspepsia Sodium Bicarbonate (Sodium Bicarbonate) 650 mg PO BID [facility] Last Admin: 08/16/18 22:19 Dose: 650 mg Documented by: Sodium Chloride (Saline Flush) 10 ml IV Q8 [facility] Last Admin: 08/17/18 07:25 Dose: 10 ml Documented by: Warfarin Sodium (Coumadin Per Pharmacy) 1 order PO UD [facility] Medical - PN: A/P - Time Spent With Patient Total time spent is greater than 50% in coordination of care (as documented) at patient's floor/unit and/or counseling patient: 25 - 35 minutes (1) Hypotension Status: Acute Assessment and plan: : * Complicated GNR UTI: On Zosyn. De-escalate based on culture sensitivities * Severe Sepsis w/Hypotension from above vs volume depletion/meds: lactate ok, afebrile.White count down from 23->11.7 * RLE FEMORAL VEIN DVT: On Lovenox. Continue Coumadin dosing per pharmacy. * Severe anemia- patient refusing blood transfusion. Single dose IV iron. Ferritin 360 in the presence of active inflammation. Peripheral smear possible MDS. Patient started on Aranesp per nephrology. Hemoglobin now 8.7 * Hypokalemia-continue potassium replacement * chronic leukocytosis and thrombocytosis: has not seen hematology, pt states has been present for decades * CKD V: follows with nephrology, refused HD in past * HTN: on lopressor and lasix * h/o Vtach: on amio * chronic pain: * chronic LE wounds: Wound care consulted. Right with open wounds and chronic discoloration, doubt leg is infected * h/o CHF: f/u echo in 2018 showed improved EF (50%) and no diastolic dysfxn P: * Antibiotic coverage * transfer to medical floor * Continue wound care * Replace potassium * PT OT * discharge planning * Coumadin dosing based on INR Current Visit: No Medical - PN: Qual - VTE Deep Vein Thrombosis/Pulmonary Embolism Present on Admission: Yes
[2018-08-17] MEDS ORDERED: HYDROmorphone 2 MG TABLET PO PRN (09:36)
[2018-08-17] MEDS ORDERED: BISACODYL 10 MG SUPP.RECT PR PRN (09:36)
[2018-08-17] MEDS ORDERED: IRON SUCROSE COMPLEX 400 MG in 0.9 % SODIUM CHLORIDE 250 ML IV ONE (09:36)
[2018-08-17] MEDS ORDERED: SIMETHICONE 80 MG TAB.CHEW CHEWED PRN (09:36)
[2018-08-17] MEDS ORDERED: ONDANSETRON 4 MG/2 ML VIAL IV PRN (09:36)
[2018-08-17] MEDS ORDERED: IPRATROPIUM/ALBUTEROL 3 ML AMPUL.NEB NEB PRN (09:36)
--- NOTE | 2018-08-17 10:11 | Discharge Summary ---
Medical - DS: Prov Patient information: Note initiated : 08/17/18 at 10:05 am Service Date, if different from initiated Date: [] Patient: Carlos Abraham 88 y/o M admitted on 08/14/18 for R Knee Pain And Swelling. Chief Complaint: [] Date of admission: 08/14/18 16:17 Discharge date: 08/18/18 Primary care physician: Enrique Betts Consults: 08/14/18 Consult to Physician [CONS] Stat Comment: Consulting Provider: Abe Newby Reason For Exam: Physician to Consult 08/14/18 15:05 Consult to Physician [CONS] Stat Comment: Consulting Provider: Katarzyna Thompson Reason For Exam: Physician to Consult 08/15/18 08:54 Consult to Physician [CONS] Routine Comment: sacrum, legs Consulting Provider: Rick Timmons Reason For Exam: Physician to Consult Medical - DS: Meds - Discharge Medications Prescriptions: Cefdinir 300 mg PO Q48 #4 cap Warfarin [Coumadin] 5 mg PO DAILY #30 tab Active and Home Medications: Home Medications Folic Acid 1 mg PO DAILY tab 11/26/17 [Rx Confirmed 08/14/18 Last Taken 01/22/18] Metoprolol Tartrate [Lopressor] 12.5 mg PO BID tab 11/26/17 [Rx Confirmed 08/14/18 Last Taken 01/22/18] Simethicone [Mylicon] 80 mg CHEWED QIDP PRN tab.chew 11/26/17 [Rx Confirmed 08/14/18 Last Taken Unknown] bisacodyl 10 mg rectal suppository 10 mg VT QDAY PRN 12/04/17 [History Confirmed 08/14/18 Last Taken Unknown] cholecalciferol (vitamin D3) 50,000 unit capsule 50,000 unit PO QWEEK 01/01/18 [History Confirmed 08/14/18 Last Taken 01/16/18] ondansetron HCl 4 mg tablet 4 mg PO Q4H PRN 01/01/18 [History Confirmed 08/14/18 Last Taken 01/22/18] Sevelamer [Renvela] 800 mg PO TIDCC 01/23/18 [History Confirmed 08/14/18 Last Taken 01/22/18] Furosemide [Lasix] 40 mg PO BID #30 tab 02/03/18 [Rx Confirmed 08/14/18 Last Taken Unknown] HYDROmorphone HCL [Dilaudid] 1 mg PO Q6HP PRN #40 tab 02/03/18 [Rx Confirmed 08/14/18 Last Taken Unknown] Multivitamin [One Daily] 1 tab PO DAILY #14 tab 02/03/18 [Rx Confirmed 08/14/18 Last Taken Unknown] potassium chloride ER 10 mEq tablet,extended release 10 meq PO BID tab 02/27/18 [History Confirmed 08/14/18 Last Taken Unknown] sodium phosphates 19 gram-7 gram/118 mL enema 118 ml VT ONCE PRN 02/27/18 [History Confirmed 08/14/18 Last Taken Unknown] Amiodarone HCl [Cordarone] 200 mg PO BIDCC 08/14/18 [History Confirmed 08/14/18 Last Taken Unknown] Calcitriol [Rocaltrol] 0.25 mcg PO DAILY 08/14/18 [History Confirmed 08/14/18 Last Taken Unknown] Ferrous Sulfate 325 mg PO DAILY 08/14/18 [History Confirmed 08/14/18 Last Taken Unknown] Home Medications Folic Acid 1 mg PO DAILY tab 11/26/17 [Rx Confirmed 08/14/18 Last Taken 01/22/18] Metoprolol Tartrate [Lopressor] 12.5 mg PO BID tab 11/26/17 [Rx Confirmed 08/14/18 Last Taken 01/22/18] Simethicone [Mylicon] 80 mg CHEWED QIDP PRN tab.chew 11/26/17 [Rx Confirmed 08/14/18 Last Taken Unknown] bisacodyl 10 mg rectal suppository 10 mg VT QDAY PRN 12/04/17 [History Confirmed 08/14/18 Last Taken Unknown] cholecalciferol (vitamin D3) 50,000 unit capsule 50,000 unit PO QWEEK 01/01/18 [History Confirmed 08/14/18 Last Taken 01/16/18] ondansetron HCl 4 mg tablet 4 mg PO Q4H PRN 01/01/18 [History Confirmed 08/14/18 Last Taken 01/22/18] Sevelamer [Renvela] 800 mg PO TIDCC 01/23/18 [History Confirmed 08/14/18 Last Taken 01/22/18] Furosemide [Lasix] 40 mg PO BID #30 tab 02/03/18 [Rx Confirmed 08/14/18 Last Taken Unknown] HYDROmorphone HCL [Dilaudid] 1 mg PO Q6HP PRN #40 tab 02/03/18 [Rx Confirmed 08/14/18 Last Taken Unknown] Multivitamin [One Daily] 1 tab PO DAILY #14 tab 02/03/18 [Rx Confirmed 08/14/18 Last Taken Unknown] potassium chloride ER 10 mEq tablet,extended release 10 meq PO BID tab 02/27/18 [History Confirmed 08/14/18 Last Taken Unknown] sodium phosphates 19 gram-7 gram/118 mL enema 118 ml VT ONCE PRN 02/27/18 [History Confirmed 08/14/18 Last Taken Unknown] Amiodarone HCl [Cordarone] 200 mg PO BIDCC 08/14/18 [History Confirmed 08/14/18 Last Taken Unknown] Calcitriol [Rocaltrol] 0.25 mcg PO DAILY 08/14/18 [History Confirmed 08/14/18 Last Taken Unknown] Ferrous Sulfate 325 mg PO DAILY 08/14/18 [History Confirmed 08/14/18 Last Taken Unknown] Cefdinir 300 mg PO Q48 #4 capsule 08/17/18 [Rx Last Taken Unknown] Warfarin [Coumadin] 5 mg PO DAILY #30 tablet 08/17/18 [Rx Last Taken Unknown] Medical - DS: Hosp Hospital course: Mr. Abraham is a 88 year old M Who presents the ED for hypotension. He was sent over from wound care for evaluation of his legs when he found to be hypotensive and sent him over. He had systolic blood pressures in the 70s and over in the ED he had a systolic of 78. He says he did feel little lightheaded but does not feel that he lightheadedness anymore after a liter of fluid in the ER and good blood pressures at this point. Is also had some asymmetry in his right leg and some tenderness and is concerned that wound care as well to have a DVT and he did have a Doppler in the ER which showed a femoral vein thrombus. She is bed bound for 8 months and resides at [facility]. In the ED he is also found to have a leukocytosis however looking at old records he has chronic leukocytosis. He also has chronic normocytosis and chronic anemia. He says his white blood cells have been elevated since he was in the service and he believes his platelets have been elevated since that time as well. He has never seen a crozer operator. Noted on old admission that there is a consult with hematology and patient was started on hydroxyurea for his normocytosis and aspirin. 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 Sounds like he is been on warfarin in the past versus something I am not sure what and he does not take aspirin. He also urinalysis in the ED that showed quite a bit of WBCs as well as leukocyte esterase but did have some squamous cells and a lot of hyaline casts. Denies any recent illnesses or respiratory symptoms. Chest x-ray unremarkable. No chest pain or shortness of breath or cough. No nausea vomiting diarrhea. Also in ED was concern for possible cellulitis of his lower extremity on the right. 08/15 Feeling better. No new complaints. No overnight events. Wants to get out here. 08/16 Hemoglobin drifting down to 6.8. No obvious bleeding. Currently on full dose anticoagulation on Lovenox for DVT. Patient refusing blood transfusion. Start IV iron. Initiate Coumadin dosing per pharmacy, white count down from 20,000- 11.7. Creatinine 5.9 full code. Potassium 3.1. Patient requesting milk 08/17-patient refusing aggressive intervention including blood transfusion/hemodialysis/VQ scan. Family conference later today for goals of care. Transfer to medical floor in light of patient's refusal for aggressive interventions. Continue supportive management. Creatinine 5.9. Replace potassium. White count 11.1. Hemoglobin at 8.7 on Aranesp per nephrology 08/18 Did have a family discussion yesterday regarding goals of care. Eating hospice involved for evaluation and continued family discussions. 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 chronic pain with chronic lower extremity wounds history of CHF - Time Spent with Patient Total time spent providing and/or coordinating discharge services: Greater than 30 minutes Medical - DS: Exam - Constitutional Vitals: Vital Signs Temp Pulse Pulse Resp BP Pulse Ox 08/17/18 07:06 76 08/17/18 07:01 99.5 F H 55 L 15 114/50 94 08/17/18 06:01 15 113/54 01/06/19 06:00 14 08/17/18 05:01 18 106/45 96 08/17/18 04:01 98.7 F 16 107/51 08/17/18 03:01 23 H 116/52 08/17/18 02:01 16 103/44 96 08/17/18 02:00 63 16 96 08/17/18 01:01 15 107/48 08/17/18 00:01 98.2 F 56 L 17 121/55 97 08/16/18 23:01 51 L 16 106/52 92 08/16/18 22:01 52 L 13 109/54 95 08/16/18 21:01 98.8 F 17 127/82 08/16/18 20:01 98.1 F 50 L 15 112/49 94 08/16/18 20:00 95 08/16/18 19:01 54 L 14 118/52 96 08/16/18 18:01 55 L 14 122/54 98 08/16/18 17:31 55 L 17 120/51 98 08/16/18 17:01 53 L 13 114/48 97 08/16/18 16:46 55 L 16 121/62 97 08/16/18 16:37 55 L 16 109/65 96 08/16/18 16:31 55 L 16 113/47 98 08/16/18 16:19 55 L 14 109/48 96 08/16/18 16:01 99.1 F H 18 126/71 96 08/16/18 15:01 53 L 16 110/48 95 08/16/18 14:16 58 L 14 116/46 98 08/16/18 14:01 56 L 16 109/44 98 08/16/18 13:46 59 L 20 106/44 98 08/16/18 13:31 62 15 102/48 98 08/16/18 13:16 99.4 F H 66 17 111/51 98 08/16/18 12:40 98.9 F 67 15 123/53 99 08/16/18 12:39 17 08/16/18 10:30 98.9 F Intake and Output 08/16/18 08/17/18 08/17/18 21:59 05:59 13:59 Intake Total 795 / 2820 290 / 2820 Output Total 400 / 675 225 / 675 150 / 150 Balance 395 / 2145 65 / 2145 -150 / -150 Intake: IV 50 / 270 50 / 270 Zosyn 2.25 gm In Dextrose 5% in 50 / 150 50 / 150 Water 50 ml @ 100 mls/hr IV Q8H [facility] Rx#:[id number] Oral 420 / 900 240 / 900 Blood Product 325 / 650 Output: Void Amount 400 / 675 225 / 675 150 / 150 Other: Meal Breakfast Percent of Meal Consumed 75% Urine Appearance Cloudy Cloudy Cloudy Urine Color Pale Pale Pale Urine Odor Strong Stool Size Moderate Moderate Small Stool Color Brown Brown Stool Consistency Liquid Liquid Liquid # Voids 1 # of times incontinent of 1 1 Bowels Weight 83.189 kg Medical - DS: Data Labs on day of discharge: Labs from last 24 hours 08/17/18 08/17/18 08/17/18 03:59 03:59 03:59 WBC 11.1 H RBC 2.61 L Hgb 8.7 L Hct 25.7 L MCV 98.3 MCH 33.2 MCHC 33.8 RDW 15.2 H Plt Count 428 MPV 6.4 L Total Counted 100 Seg Neutrophils % 88 H Band Neutrophils % 5 Lymphocytes % 3 L Monocytes % (Manual) 2 Eosinophils % (Manual) 2 Platelet Estimate Normal RBC Morphology Normal PT 16.7 H INR 1.4 H Sodium 141 Potassium 3.2 L Chloride 109 H Carbon Dioxide 18 L Anion Gap 14.0 BUN 84 H Creatinine 5.9 H* GFR Calculation 8 Glucose 98 Uric Acid 11.8 H Calcium 8.3 L Phosphorus 4.0 Magnesium 2.1 Total Bilirubin 0.3 Direct Bilirubin < 0.2 GGT 34 AST 18 ALT 34 Alkaline Phosphatase 51 Lactate Dehydrogenase 239 Total Protein 4.6 L Albumin 2.2 L Globulin 2.4 Albumin/Globulin Ratio 0.9 L Triglycerides 104 08/16/18 19:25 WBC RBC Hgb Hct MCV MCH MCHC RDW Plt Count MPV Total Counted Seg Neutrophils % Band Neutrophils % Lymphocytes % Monocytes % (Manual) Eosinophils % (Manual) Platelet Estimate RBC Morphology PT INR Sodium Potassium 3.3 Chloride Carbon Dioxide Anion Gap BUN Creatinine GFR Calculation Glucose Uric Acid Calcium Phosphorus Magnesium Total Bilirubin Direct Bilirubin GGT AST ALT Alkaline Phosphatase Lactate Dehydrogenase Total Protein Albumin Globulin Albumin/Globulin Ratio Triglycerides Preliminary micro results at discharge 08/14/18 18:35 Blood Culture - Preliminary Blood 08/14/18 18:23 Blood Culture - Preliminary Blood 08/15/18 06:44 Urine Culture - Preliminary Urine - Clean Void Mid-Stream Gram negative bacillus Medical - DS: A/P - Patient/Caregiver Discharge Instructions Activity: as per physical therapy Diet: Renal Additional Instructions: Referral to see Heme/Onc 7-10 days for chronic leukocytosis and thrombocytosis Prescriptions: Cefdinir 300 mg PO Q48 #4 cap Warfarin [Coumadin] 5 mg PO DAILY #30 tab Other Amb Orders: Prothrombin Time INR Time Frame: 08/19/18, Location: None Selected - Follow up Plan Follow up with: Enrique Betts MD [Primary Care Provider] - Katarzyna Thompson MD [Physician] - Rick Timmons MD [Physician] - Disposition: Xfer SNF Prognosis: Serious Rehab Potential: Fair I certify that the patient requires SNF services: Yes Overall status at discharge: patient is progressing back to baseline Medical - DS: Qual - VTE Deep Vein Thrombosis/Pulmonary Embolism Present on Admission: Yes
[2018-08-17] MEDS: POTASSIUM CHLORIDE 10 MEQ TABLET PO SCH ×2 (10:45→19:48)
[2018-08-17] MEDS: SEVELAMER 800 MG TABLET PO SCH ×3 (10:45→19:48)
[2018-08-17] MEDS: FOLIC ACID 1 MG TABLET PO SCH (10:45)
[2018-08-17] MEDS: SODIUM BICARBONATE 650 MG TABLET PO SCH ×2 (10:46→19:49)
[2018-08-17] MEDS: ENOXAPARIN 40 MG/0.4 ML SYRINGE SQ SCH (10:50)
[2018-08-17] MEDS: AMIODARONE HCL 200 MG TABLET PO SCH ×2 (10:50→19:48)
[2018-08-17] MEDS ORDERED: WARFARIN 5 MG TABLET PO ONE (14:00)
[2018-08-17] MEDS: ACETAMINOPHEN 325 MG TABLET PO PRN (20:52)
[2018-08-17] MEDS ORDERED: FAMOTIDINE 20 MG TABLET PO SCH (21:00)
[2018-08-18] MEDS: ACETAMINOPHEN 325 MG TABLET PO PRN ×2 (02:07→12:09)
[2018-08-18] MEDS ORDERED: ENOXAPARIN 80 MG/0.8 ML SYRINGE SQ SCH (09:00)
[2018-08-18] MEDS ORDERED: FOLIC ACID 1 MG TABLET PO SCH (09:00)
[2018-08-18] MEDS: 0.9 % SODIUM CHLORIDE 10 ML SYRINGE IV SCH (09:03)
[2018-08-18] MEDS: PIPERACILLIN SODIUM/TAZOBACTAM 2.25 GM in DEXTROSE 5% IN WATER 50 ML IV SCH (09:07)
[2018-08-18] MEDS: AMIODARONE HCL 200 MG TABLET PO SCH (09:08)
[2018-08-18] MEDS: POTASSIUM CHLORIDE 10 MEQ TABLET PO SCH (09:08)
[2018-08-18] MEDS: SODIUM BICARBONATE 650 MG TABLET PO SCH (09:08)
[2018-08-18] MEDS: SEVELAMER 800 MG TABLET PO SCH ×2 (09:12→12:07)
[2018-08-18] MEDS ORDERED: SILVER SULFADIAZINE CREAM.TOP 25GM TOPICAL SCH (11:51)
--- NOTE | 2018-08-18 12:46 | General Surgery Progress Note ---
Subjective Patient reports: other (I saw Mr. Abraham in Room 108 on Med Surg Floor with Renetta PITTMAN. Reviewed events and examined wounds.) Narrative: Note initiated : 08/18/18 at 12:42 pm Service Date, if different from initiated Date: [] Patient: Carlos Abraham 88 y/o M admitted on 08/14/18 for R Knee Pain And Swelling. Chief Complaint: [] Objective Temp Pulse Resp BP Pulse Ox 97.8 F 64 16 125/61 96 08/18/18 10:55 08/18/18 10:55 08/18/18 10:55 08/18/18 10:55 08/18/18 10:55 AVSS. Patient tolerated PRBC transfusion. Refused other treatment recommended., L/E: RLE open wounds are clean, dry and granulating well. NO tenderness and NO drainage. No odor. Sacral pressure ulcer is unchanged. Responding to local wound care. Lab results reviewed. 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 Plan: Continue current treatment. If discharged, f/u at wound care center in ONE week. - Time Spent With Patient Total time spent is greater than 50% in coordination of care (as documented) at patient's floor/unit and/or counseling patient: 15 - 24 minutes
[2018-08-18] MEDS ORDERED: WARFARIN 5 MG TABLET PO ONE (14:00)
== END 2018-08-18 13:10 | DRG 871 ==
LOC: ED 10:38 → ICU 16:17 → MEDSUR 08-17 08:08
PROVIDERS: ADMIT Internal Medicine; ATTEND Internal Medicine